=== PATIENT | female | born 1940 | race Caucasian/White ===

== ENCOUNTER 2019-07-18 14:43 | Inpatient (IN) | payer MEDICARE, SELFPAY ==
[2019-07-18] VITALS (17 sets, daily range): BP systolic 107–149; BP diastolic 53–88; PULSE 61–117; RESP 11–28; TEMP 36.4–37.1; O2SAT 94–98; BMI 20.7; BMI 20.8; BMI 21.2
--- NOTE | 2019-07-18 15:19 | RAD_ITS ---
STUDY: X-RAY CHEST REASON FOR EXAM: Female, 78 years old. STEMI ALERT, CHEST PAIN TECHNIQUE: Single AP portable view of the chest. COMPARISON: 01/01/2013 FINDINGS: There is hyperinflation of the lungs consistent with chronic obstructive lung disease (COPD). There is no demonstrated pleural abnormality. Normal size heart. Normal mediastinum and manfred. Normal visualized pulmonary arteries. Normal visualized aortic arch and descending thoracic aorta. Normal visualized thoracic spine. Normal visualized ribs, clavicles, and shoulders. There is no demonstrated abnormality of the visualized soft tissue structures of the upper abdomen. RAD/Chest 1 View (Portable) IMPRESSION: Emphysema without pneumonia or atelectasis. Pending Final Proof Editing
[2019-07-18] MEDS: Ondansetron 4 MG/2 ML Vial IV ×2 (15:38→23:58)
--- NOTE | 2019-07-18 15:45 | EKG12_ITS ---
Test Reason : ABD PAIN Blood Pressure : / mmHG Vent. Rate : 061 BPM Atrial Rate : 061 BPM P-R Int : 138 ms QRS Dur : 088 ms QT Int : 462 ms P-R-T Axes : 075 073 094 degrees QTc Int : 465 ms Sinus rhythm with marked sinus arrhythmia ST elevation consider inferior injury or acute infarct ACUTE AL / STEMI Confirmed by ROBERT MARTINEZ, JAIDA ([id number]), assistant editor NOA MUNGUIA ([id number]) on 07/27/2019 9:27:55 AM Referred By: BLANCA Confirmed By:JAIDA JONES MD
[2019-07-18 15:46] LABS: Absolute Lymphocyte Count 2.29 X10^3/uL (0.83-4.51); Absolute Neutrophil Count 8.5 X10^3/uL (2.0-7.7); Basophil# 0.07 X10^3/uL; Basophil% 0.6 % (0-1); Eosinophil# 0.15 X10^3/uL; Eosinophils% 1.3 % (0-5); Hematocrit 46.9 % (37-47); Hemoglobin 15.4 g/dL (12.0-15.0); Lymphocyte # 2.29 X10^3/ul (4.0); Lymphocyte % 19.2 % (19-41); Mean Corp Hgb Conc 32.8 g/dL (32-36); Mean Corpuscular Hgb 30.3 pg (27.0-32.0); Mean Corpuscular Volume 92.1 fL (81-99); Monocyte# 0.91 X10^3/uL; Monocyte% 7.6 % (0-10); NRBC Flagged by Analyzer 0 % (0-5); Neutrophil # 8.48 X10^3/uL (2.7-7.7); Neutrophil % 70.9 % (47-70); Platelet Count 199 K/mm3 (150-450); RBC Distribution Width CV 11.9 % (11.6-14.6); RBC Distribution Width SD 40.5 fl (35.1-43.9); Red Blood Count 5.09 M/mm3 (4.2-5.4)
[2019-07-18 15:54] LABS: AST(SGOT) 19 U/L (15-37); Alanine Aminotransfer ALT/SGPT 10 U/L (13-56); Albumin, Serum 3.7 g/dL (3.2-5.0); Alkaline Phosphatase 87 U/L (45-117); Anion Gap 6 (5-15); BUN 17 mg/dL (7-18); BUN/Creat Ratio 17.5 RATIO (10-20); Calcium,Total 9.4 mg/dL (8.5-10.1); Chloride 107 mmol/L (98-107); Creatinine, Serum 0.97 mg/dL (0.55-1.02); EST Glomerular Filtration Rate 59 mL/min (>60); Est Glom Filt Rate - Afr Amer 71 mL/min (>60); Estimated Creatinine Clearance 37.19 ml/min; Globulin 3.7 g/dL (2.2-4.2); Glucose 131 mg/dL (74-106); Lipase 226 U/L (73-393); Potassium 4.1 mmol/L (3.5-5.1); Protein, Total 7.4 g/dL (6.4-8.2); Sodium Level 143 mmol/L (136-145)
[2019-07-18] MEDS: Aspirin 325 MG Tablet PO (16:01)
--- NOTE | 2019-07-18 16:01 | NURSING ---
STEMI DR GAMINO AIRCRAFT SEAT UPHOLSTERER
--- NOTE | 2019-07-18 16:03 | ED.VISSUMM ---
- ER Visit Summary Date of Service: 07/18/19 Chief Complaint: Abdominal pain, vomiting History of Present Illness: The patient is a 78 F presenting with abdominal pain, vomiting. Patient states she has been feeling ill for the past 2 days. She complains of epigastric abdominal pain. Today she vomited one time and she decided to come to the ED to be evaluated. She denies blood in her emesis. She denies chest pain or shortness of breath. Complains of subjective fever. Denies chills. She has a chronic cough. She does not see a physician and has no known medical problems. She is a smoker. Physical Examination: Vitals are stable. Patient is afebrile. Alert no acute distress. HEENT exam is unremarkable. Neck is supple. Lungs are clear and equal bilaterally. Heart is regular rate and rhythm. Abdomen is soft epigastric tenderness with no guarding or rebound Extremities are unremarkable. Skin is warm and dry. No focal neurologic deficit. Remainder of exam is unremarkable. Emergency Department Course and Treatment: CBC shows white count 12.0. Chemistries unremarkable. Liver lipase are normal. RSV and influenza are negative. EKG shows inferior ST elevation DE. STEMI alert was called. Her troponin 0.274. Dr. Canchola is at bedside. 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 She was given aspirin. She will be admitted. Disposition: Admission Impression: Inferior ST elevation DE This note was generated with [employer] dictation software. It may contain incorrect words, spelling, and punctuation that were not noted in review of the chart prior to signing ED Disposition - Plan for ED Patient: Referrals: NOT,DEFINED [Primary Care Provider] -
--- NOTE | 2019-07-18 16:04 | NURSING ---
BOWLING ALLEY REFINISHER CALLED
--- NOTE | 2019-07-18 16:08 | ED.RN ---
son contacted per patient request. Updated on patients status. 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
--- NOTE | 2019-07-18 16:26 | NURSING ---
ICU STEMI SEMENTI
--- NOTE | 2019-07-18 16:26 | ED.RN ---
Pt taken to laborer pipeline. report given to laborer pipeline team.
--- NOTE | 2019-07-18 16:31 | ED.RN ---
report called to GEORGETTE Alfredo in ICU.
--- NOTE | 2019-07-18 16:46 | PCM.HP.STD ---
Problem List (1) Tobacco dependence Status: Chronic Comment: 2 PPD for at least 60 years (2) History of cervical cancer Status: Chronic (3) Status post STEWART-BSO Status: Chronic (4) COPD (chronic obstructive pulmonary disease) Status: Suspected (5) Dehydration, mild Status: Acute (6) STEMI (ST elevation myocardial infarction) Status: Acute Comment: IWMI History of Present Illness Date of Admission: 07/18/19 Chief Complaint: epigastric pain with N/VC The patient is a 78 year old F with a PMH of tobacco dependence and cervical CA (S/P STEWART/BSO) who presented to the ED with a c/o epigastric pain and nausea that started on 07/17/19. It was initially intermittent but, on the morning of it became more constant and she started vomiting so she came to the ED. She denies any hx of PUD, pancreatitis or CAD. trey could not tell me if she was diaphoretic or had SOB. She does admit to having RUBIO. She also has a chronic cough which has not recently changed. She does not know her cholesterol. she smokes 2 PPD of cigarettes since she was a teenager. VS's in the ED were Temp 98.8, pulse rate 61, blood pressure 136/68, respiratory rate 11 and she was 95% saturated on room air. CBC showed a mildly increased WBC count at 12,000 and a mildly increased hemoglobin at 15.4 which is possibly secondary to dehydration as her mucous membranes are very dry. BMP was remarkable for a BUN of 17 with a creatinine of 0.97 and an estimated creatinine clearance of 37.2. Random blood sugar was elevated at 131 and she has no history of diabetes mellitus. LFTs were unremarkable. Troponin was elevated at 0.274 and the lipase was normal. Chest x-ray showed some flattening of the diaphragms [with scarring vs infiltrate in the RLL. EKG showed ST elevation in the inferior leads with reciprocal T wave inversions in the anterior leads. The axis is 73 degrees. There was no ectopy on telemetry. STEMI alert was called and she was taken to the [facility]. 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 Denies: Chest Pain, Edema, Light Headedness, Orthopnea, Palpitations, Syncope Respiratory: Reports: Shortness of breath upon exertion. Denies: Cough, Hemoptysis, Pleuritic Pain, Shortness of breath at rest, Sputum production Gastrointestinal: Reports: Nausea, Vomiting. Denies: Abdominal Pain, Constipation, Diarrhea Genitourinary: Denies: Dysuria Gynecological: Denies: Vaginal discharge Musculoskeletal: Denies: Joint Pain, Joint Tenderness Skin: Denies: Jaundice, Rash, Wounds Neurological: Denies: Confusion, Focal weakness, Numbness, Tingling, Seizures Psychiatric: Denies: Anxiety, Depression, Homicidal Ideations, Suicidal Ideations Hematologic/ Lymphatic: Denies: Easy Bruising, Easy Bleeding, Hx of blood clot VTE Information - Inpt Only VTE Present on Admission: No VTE Mechan Device Prophylaxis: SCD's, Knee High PASTOR Hose VTE Pharm Prophylaxis ordered?: Yes Patient Problems: Active and Suspected Problems COPD (chronic obstructive pulmonary disease) (Suspected) Dehydration, mild (Acute) STEMI (ST elevation myocardial infarction) (Acute) IWMI - Physical Exam Vitals/I&O's: Vital Signs Temp Pulse Resp BP Pulse Ox 98 F 77 14 144/53 H 94 07/18/19 16:26 07/18/19 16:26 07/18/19 16:26 07/18/19 16:26 07/18/19 16:26 Oxygen Delivery Method Room Air Weight: 113 lb 8.609 oz Body Mass Index (BMI) 20.7 Intake and Output for Last 24 Hours 07/16/19 07/17/19 07/18/19 23:59 23:59 23:59 Intake Total 500 / 500 Balance 500 / 500 General: Alert, Oriented x3, Cooperative, - - she is anxious HEENT: Atraumatic, PERRLA, EOMI, Normocephalic Oral: Dry Mucosa Neck: Supple, No JVD, Negative Carotid Bruits, No Nodes, Trachea Midline Lungs: Clear to auscultation, Normal air movement, Diminished Cardiovascular: Regular rate, Regular Rhythm, Normal S1, Normal S2, No murmurs, No Ectopic Activity, No rub noted, No Gallop Abdomen: Bowel Sounds Present, Soft, Non Tender, Non-Distended Extremities: No cyanosis, No edema, Capillary Refill Less than 3 Seconds, No Calf Tenderness, Diminished Peripheral Pulses Skin: No rashes, No breakdown Musculoskeletal: No Tenderness to Palpation of Joints or Extremities Neurological: Cranial nerves II-XII grossly intact, Neuro grossly intact Psych/Mental Status: Normal Affect, Appropriate Microbiology Past 72 Hours 07/18/19 15:34 Mucosa - Nose Influenza Types A,B Direct FA (RUBÉN) - Final 07/18/19 15:34 Nasal Secretion Rapid RSV (DFA) - Final Laboratory Results 07/18/19 15:28: WBC 12.0 H, RBC 5.09, Hgb 15.4 H, Hct 46.9, MCV 92.1, MCH 30.3, MCHC 32.8, RDW Std Deviation 40.5, RDW Coeff of Melisa 11.9, Plt Count 199, MPV 11.0, Immature Gran % (Auto) 0.400, Neut % (Auto) 70.9 H, Lymph % (Auto) 19.2, Weber % (Auto) 7.6, Eos % (Auto) 1.3, Baso % (Auto) 0.6, Absolute Neuts (auto) 8.5 H, Absolute Lymphs (auto) 2.29, Nucleated RBC % 0 07/18/19 15:28: Sodium 143, Potassium 4.1, Chloride 107, Carbon Dioxide 30.0, Anion Gap 6, BUN 17, Creatinine 0.97, Estim Creat Clear Calc 37.19, Est GFR (MDRD) Af Amer 71, Est GFR (MDRD) Non-Af 59 L, BUN/Creatinine Ratio 17.5, Glucose 131 H, Calcium 9.4, Total Bilirubin 0.30, AST 19, ALT 10 L, Alkaline Phosphatase 87, Troponin I 0.274 H, Total Protein 7.4, Albumin 3.7, Globulin 3.7, Albumin/Globulin Ratio 1.0, Lipase 226 Assessment/Plan All Active Problems Dehydration, mild (Acute) STEMI (ST elevation myocardial infarction) (Acute) Impressions 1. STEMI-inferior wall. Single vessel disease at cath for a 70% proximal RCA lesions and and occluded mid RCA. she had 2 WILLIAM placed. 2. Tobacco dependence - 2 PPD X 65Yrs. 3. Mild dehydration with hemoconcentration 4. remote hx of cervical CA - S/P STEWART/BSO Transferred to the ICU post cath D/W Dr. Canchola Orders written smoking cessation counselling ordered. Lab ordered for the AM, including a lipid panel Inpatient E&M: 04822 Init Hosp L3
[2019-07-18 17:51] LABS: ACT Activated Clotting Time 285 sec (74-137)
--- NOTE | 2019-07-18 17:51 | CL.I_ITS ---
Patient Name: FLAKITO NIX Study Date: 07/18/2019 Performing: Marcelo Canchola MD Ht: 61.81 inches 157 cm : 1940 Wt: 114.64 lbs 52 kg Age: 78 Gender: female BSA: 1.51 PROCEDURE(S) PERFORMED AE29-OOH/COR/LV [id number], WILLIAM AND/OR PTCA, ARTERY OR GRAFT, SINGLE VESSEL CLINICAL PROFILE AND CO-MORBIDITIES Indications: ACS > 24 hrs Heart Failure: None Stress/Imaging Stress/Image Study Performed: No CAD Presentations: STEMI. Symptom onset Date/Time: 07/16/2019 Time Not Available CONCLUSIONS Successful PTCA/WILLIAM of occluded mid RCA using Synergy 3.0 X 16. Successful WILLIAM proximal RCA using Synergy 3.0 X 12 RECOMMENDATIONS Highly recommend quitting all tobacco products Follow up with primary wagon driver Risk factor modification ASA Indefinitley Plavix for at least 12 months Routine post interventional care Refer for Outpatient Cardiac Rehab Manual sheath removal per protocol Patient will undergo lifestyle modification. B bridget and statin will be desccripted DESCRIPTION OF PROCEDURE The patient arrived to the procedure lab. The risks and benefits of the procedure as well as a full d escription of our services here and lack of surgical backup were fully explained to the patient and/o r their significant other prior to the catheterization. The Timeout was completed, verifying the zena ect patient and procedure. The patient's procedural site was prepped and draped in the usual fashion. Local anesthetic was given subcutaneously to right radial region with Lidocaine 2%. Using a modified Seldinger technique, arterial access was obtained via the right radial artery, a 6Fr sheath was inse rted.. LV to AO pullback pressures were then recorded. Right Coronary Artery selective angiography w as then performed in multiple views using a 6 Fr. JR 4 catheter. Left Coronary Artery selective angio graphy was performed in multiple views using a 6 Fr. JL4 catheterThe images were reviewed and options discussed. A decision was then made to proceed with an Intervention, IVUS or other adjunct procedure. AR1 Guide catheter was inserted and engaged into the RCA. Runthrough Guide wire was advanced to t he RCA. Emerge 2.0 x 12 Balloon catheter was inserted. Balloon catheter was advanced across lesion in the right coronary, mid. PTCA balloon inflated at 16 atms for 18 secs. Resolute 3.0 x 18 Drug Elutin g stent was inserted. Drug Eluting stent was removed intact, failed to cross lesion Synergy 3.0 x 16 Drug Eluting stent was inserted. Drug Eluting stent was advanced across the lesion in the right coron abby, mid. Synergy 3.0 x 12 Drug Eluting stent was inserted. Drug Eluting stent was advanced across th e lesion in the right coronary, proximal. The arterial sheath was pulled and a TR Band was applied for hemostasis CORONARY ANGIOGRAPHY DOMINANCE: Right Dominant LEFT HEART ASSESSMENT Left Ventricular Ejection Fraction: by LV Gram 55 % LVEDP: 5 mmHg Inferior Basal Hypokinesis - Mild LEFT MAIN: normal LEFT ANTERIOR DESCENDING ARTERY: normal CIRCUMFLEX ARTERY: Angiographically normal RIGHT CORONARY ARTERY: PROX RCA: 70 % Stenosis MID RCA: is occluded INTERVENTION INFORMATION LESION SITE: RCA (Mid) Lesion Complexity: Non-High/Non-C, lesion at bifurcation: No, thrombus present: Yes, lesion length: 1 2 mm, culprit lesion: Yes Pre Stenosis: 100 % Pre intervention PAWEL flow: 0 PROCEDURE: Drug Eluting Stent with pre dilatation. Post Stenosis: 0 % Post intervention PAWEL flow: 3 Lesion Devices: Terumo .014 Runthrough Extra Floppy 180cm straight Cardinal 6 Fr AR1 100cm Guide Catheter Wesley Original EMERGE MR 2.00x12 [employer] 6 Cypriot GuideLiner Wesley Sci Synergy MR WILLIAM 3.00x16 LESION SITE: RCA (Proximal) Lesion Complexity: Non-High/Non-C, lesion at bifurcation: No, thrombus present: No, lesion length: 10 mm, culprit lesion: No Pre Stenosis: 70 % Pre intervention PAWEL flow: 3 PROCEDURE: Drug Eluting Stent Post Stenosis: 0 % Post intervention PAWEL flow: 3 Lesion Devices: Terumo .014 Runthrough Extra Floppy 180cm straight Cardinal 6 Fr AR1 100cm Guide Catheter [employer] 6 Cypriot GuideLiner Wesley Sci Synergy MR WILLIAM 3.00x12 COMPLICATIONS No Complications PROCEDURE MEDICATIONS Fentanyl 25 mcg IV Versed 1 mg IV Versed 1 mg IV Oxygen: 2 L/min via nasal cannula Atropine 1mg/10ml 0.5 amp @ 07/18/2019 17:05:50 Heparin given IA 07/18/2019 16:38:50 Heparin 4800 unit(s) IV 07/18/2019 16:53:31 Heparin 1000 unit(s) IV 07/18/2019 17:07:14 Plavix 600 mg PO 07/18/2019 17:28:18 Verapamil 5mg, Ntg 200mcgs, 2500 units of Heparin given IA 07/18/2019 16:38:50 IV Bolus: .9 NaCl 250 ml total 07/18/2019 17:06:53 SUMMARY OF HEMODYNAMIC DATA Time AIR REST ECG 16:24:57 LV 113/-8, 5 16:43:28 LV 120/-7, 6 16:43:35 LVp 117/-3, 7 16:44:34 AOp 125/51 (80) 16:44:39 AO 120/56 (85) SA 16:45:40 Signed By Marcelo Canchola MD On 07/18/2019 5:51:10 PM Marcelo Canchola MD
--- NOTE | 2019-07-18 18:12 | CON.PCM_ITS ---
Problem List (1) STEMI (ST elevation myocardial infarction) Status: Acute Comment: IWMI Reason for Consult Date of Consultation: 07/18/19 Reason for Consultation: Acute inferior wall myocardial infarct History of Present Illness: The patient is a 78 year old F who was seen in the emergency room today for epigastric pain for 2 days with nausea and vomiting. This was associated with shortness of breath and diaphoresis. She has been feeling more tired than usual for the last 2 years. This is the first time she had epigastric pain. In the emergency room she was found to have acute inferior wall myocardial infarct. She has been a heavy smoker and she does not drink alcohol. She denies any history of hypertension, diabetes or hyperlipidemia. Except for multivitamin daily she has not been taking any medication. 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 Denies: Shortness of Breath, Orthopnea, PND, Peripheral Edema, Palpitations, Lightheadedness, Dizziness, Near Syncope, Syncope Respiratory: Reports: Cough, Non Productive Cough. Denies: Sputum Production, Hemoptysis Gastrointestinal: Denies: Hematemesis, Hematochezia, Melena Genitourinary: Denies: Dysuria, Hematuria Skin: Denies: Rash Objective: Vital Signs Temp Pulse Resp BP Pulse Ox 98 F 77 14 144/53 H 94 07/18/19 16:26 07/18/19 16:26 07/18/19 16:26 07/18/19 16:26 07/18/19 16:26 Oxygen Delivery Method Room Air Weight: 113 lb 8.609 oz Body Mass Index (BMI) 20.7 Intake and Output for Last 24 Hours 07/16/19 07/17/19 07/18/19 23:59 23:59 23:59 Intake Total 500 / 500 Balance 500 / 500 General: Awake, Alert, Oriented x 3 HEENT: PERRL, EOMI, Sclera Non Icteric Neck: Supple, Good ROM, No Lymph Node Enlargement Lungs: Clear to auscultation - Decreased air entry with no bronchospasm Cardiovascular: Regular Rhythm, Normal S1, Normal S2, No Murmurs, No Rubs, No Gallops Vascular: No Carotid Bruits Abdomen: Bowel Sounds Present, Soft, Non Tender, No HSM, No Organomegaly Extremities: No edema Neurological: No Focal Motor or Sensory Deficit Psych/Mental Status: Appropriate, Normal Affect 07/18/19 15:28: WBC 12.0 H, RBC 5.09, Hgb 15.4 H, Hct 46.9, MCV 92.1, MCH 30.3, MCHC 32.8, Plt Count 199, MPV 11.0, Immature Gran % (Auto) 0.400, Neut % (Auto) 70.9 H, Lymph % (Auto) 19.2, B[place]berg % (Auto) 7.6, Eos % (Auto) 1.3, Baso % (Auto) 0.6, Absolute Neuts (auto) 8.5 H, Nucleated RBC % 0 07/18/19 15:28: Sodium 143, Potassium 4.1, Chloride 107, Carbon Dioxide 30.0, Anion Gap 6, BUN 17, Creatinine 0.97, Est GFR (MDRD) Af Amer 71, Est GFR (MDRD) Non-Af 59 L, BUN/Creatinine Ratio 17.5, Glucose 131 H, Calcium 9.4, Total Bilirubin 0.30, Troponin I 0.274 H Rhythm: EKG: ECHO: Stress Test: Cardiac Cath: PCI: CT Surgery: Holter monitor: EPS: PPM: CXR: Chest CT Scan: Assessment/Plan #1 acute inferior wall myocardial infarct, chest pain for 2 days, patient is a suitable candidate for acute intervention. STEMI protocol has been activated. The risk and benefit of the procedure have been explained to the patient, patient is given the consent. #2 tobacco dependency: Patient will be encouraged to quit smoking, smoking sensation aid will be provided #3 elevated glucose, hemoglobin A1c would be obtained
--- NOTE | 2019-07-18 18:13 | NURSING ---
Patient's daughter Miguel and son Sandra updated on patient's condition
--- NOTE | 2019-07-18 18:15 | EKG12_ITS ---
Test Reason : AM EKG Blood Pressure : / mmHG Vent. Rate : 063 BPM Atrial Rate : 063 BPM P-R Int : 128 ms QRS Dur : 086 ms QT Int : 446 ms P-R-T Axes : 075 021 034 degrees QTc Int : 456 ms Sinus rhythm with Fusion complexes Low voltage QRS Inferior infarct , age undetermined Abnormal ECG When compared with ECG of 18-JUL-2019 17:57, MANUAL COMPARISON REQUIRED, DATA IS UNCONFIRMED Confirmed by ROBERT MARTINEZ, JAIDA ([id number]), writer editor NOA MUNGUIA ([id number]) on 07/20/2019 8:39:14 AM Referred By: SUSAN GAMINO Confirmed By:JAIDA JONES MD
[2019-07-18] MEDS: 0.9% Normal Saline 1,000 ML 75 ML IV (18:20)
--- NOTE | 2019-07-18 18:22 | ECHOD_ITS ---
Reason For Study: CAD/ASHD Procedure This was a 2D Doppler, Color Flow transthoracic echocardiogram. Myocardial strain analysis was performed in this exam to aid in the assessment of cardiac function. Exam performed portable in ICU/CCU. Left Ventricle Mild concentric left ventricular hypertrophy. The estimated ejection fraction is 60 %. Stage 1 diastolic dysfunction. Infero-Basal: Mildly hypokinetic. Right Ventricle Mildly dilated right ventricle. Normal systolic function. Atria Normal left atrium. Normal right atrium. Normal atrial septum. Mitral Valve The mitral valve is structurally normal. No prolapse or stenosis seen. Mild (1+) mitral valve insufficiency. Tricuspid Valve Normal tricuspid valve. Trivial tricuspid valve insufficiency. Right ventricular systolic pressure estimated to be 24 mmHg. Aortic Valve Trisinus/trileaflet aortic valve. Mild diffuse aortic valve thickening. Pulmonic Valve Normal pulmonic valve. Great Vessels Normal aortic root. Normal arch. Normal inferior vena cava. Inferior vena cava collapse with sniff. Pericardium/Pleural No pericardial effusion. MMode/2D Measurements & Calculations LVIDd: 4.1 cm IVSd: 1.3 cm Ao root diam: 3.0 cm LVIDs: 2.4 cm LVPWd: 1.2 cm RVDd: 3.8 cm FS: 42.5 % LAV(MOD-bp): 23.9 ml LVAd ap4: 17.6 cm2 SV(MOD-sp4): 25.2 ml LAV(MOD-bp) Indexed: 16.0 ml/m2 EDV(MOD-sp4): 39.5 ml LAV(MOD-sp2): 16.5 ml EDV(sp4-el): 41.3 ml LAV(MOD-sp4): 24.0 ml LVAs ap4: 9.4 cm2 ESV(MOD-sp4): 14.3 ml ESV(sp4-el): 14.4 ml EF(MOD-sp4): 63.8 % EF(sp4-el): 65.2 % SV(sp4-el): 26.9 ml LA A4 area: 11.8 cm2 LA dimension(2D): 3.1 cm RA A4 area: 12.9 cm2 Doppler Measurements & Calculations MV E max gilbert: 89.5 cm/sec Lat Peak E' Gilbert: 7.7 cm/sec Med Peak E' Gilbert: 5.2 cm/sec MV A max gilbert: 98.1 cm/sec E/E' lat: 11.7 E/E' med: 17.3 MV E/A: 0.91 Ao V2 max: 155.3 cm/sec LV V1 max: 104.6 cm/sec PA V2 max: 70.2 cm/sec Ao max P.6 mmHg LV V1 max P.4 mmHg Ao V2 mean: 104.5 cm/sec Ao mean P.9 mmHg Ao V2 VTI: 33.0 cm TR max gilbert: 224.7 cm/sec TR max P.2 mmHg Interpretation Summary The estimated ejection fraction is 60 %. Mild concentric left ventricular hypertrophy. Stage 1 diastolic dysfunction. Infero-Basal: Mildly hypokinetic Mildly dilated right ventricle. Mild (1+) mitral valve insufficiency. Trivial tricuspid valve insufficiency. Right ventricular systolic pressure estimated to be 24 mmHg. There is no comparison study available. Ordering Physician: Marcelo Canchola Performed By: Constance Schreiber, ANTONELLA, RVT
[2019-07-18 18:26] LABS: Partial Thromboplast Time 29.4 Seconds (24.1-36.2)
[2019-07-18 19:05] LABS: Anion Gap 6 (5-15); BUN 14 mg/dL (7-18); BUN/Creat Ratio 17.2 RATIO (10-20); Calcium,Total 8.2 mg/dL (8.5-10.1); Chloride 110 mmol/L (98-107); Creatinine, Serum 0.82 mg/dL (0.55-1.02); EST Glomerular Filtration Rate 72 mL/min (>60); Est Glom Filt Rate - Afr Amer 87 mL/min (>60); Glucose 128 mg/dL (74-106); Magnesium 1.9 mg/dL (1.6-2.6); Potassium 4.1 mmol/L (3.5-5.1); Sodium Level 144 mmol/L (136-145)
--- NOTE | 2019-07-18 19:09 | NURSING ---
Pt's daughter & sons aware of arrival to ICU. Updated on condition per pt request.
[2019-07-18] MEDS: Atorvastatin Calcium 40 MG Tablet PO (21:00)
[2019-07-18] MEDS: Carvedilol 3.125 MG TABLET PO (21:00)
[2019-07-18 23:27] LABS: M R Staph aureus DNA By PCR Negative (Negative); Specimen Processing Control PASS
[2019-07-18 23:28] LABS: Probe Check PASS
[2019-07-18] MEDS: Morphine 2 MG/ML Syringe IV (23:58)
[2019-07-18] MEDS: 0.9% Saline Lock 10 ML Syringe IV (23:59)
[2019-07-19] VITALS (28 sets, daily range): BP systolic 100–143; BP diastolic 56–90; PULSE 57–89; RESP 9–21; TEMP 36.6–36.7; O2SAT 88–97
[2019-07-19] MEDS: 0.9% Saline Lock 10 ML Syringe IV (04:54)
[2019-07-19] MEDS: 0.9% Normal Saline 1,000 ML 75 ML IV (04:54)
[2019-07-19 05:06] LABS: Absolute Lymphocyte Count 1.95 X10^3/uL (0.83-4.51); Absolute Neutrophil Count 8.7 X10^3/uL (2.0-7.7); Basophil# 0.05 X10^3/uL; Basophil% 0.4 % (0-1); Eosinophil# 0.21 X10^3/uL; Eosinophils% 1.8 % (0-5); Hematocrit 42.8 % (37-47); Hemoglobin 13.6 g/dL (12.0-15.0); Lymphocyte # 1.95 X10^3/ul (4.0); Lymphocyte % 16.5 % (19-41); Mean Corp Hgb Conc 31.8 g/dL (32-36); Mean Corpuscular Hgb 30.2 pg (27.0-32.0); Mean Corpuscular Volume 95.1 fL (81-99); Mean Platelet Vol. 11.4 fl (6.2-12.0); Monocyte# 0.91 X10^3/uL; Monocyte% 7.7 % (0-10); NRBC Flagged by Analyzer 0 % (0-5); Neutrophil # 8.69 X10^3/uL (2.7-7.7); Neutrophil % 73.3 % (47-70); Platelet Count 179 K/mm3 (150-450); RBC Distribution Width CV 12.2 % (11.6-14.6); RBC Distribution Width SD 42.5 fl (35.1-43.9); White Blood Count 11.8 K/mm3 (4.4-11.0)
[2019-07-19 05:27] LABS: ALB/GLOB Ratio 0.9 RATIO (0.9-2.4); AST(SGOT) 168 U/L (15-37); Alanine Aminotransfer ALT/SGPT 21 U/L (13-56); Albumin, Serum 2.9 g/dL (3.2-5.0); Alkaline Phosphatase 72 U/L (45-117); Anion Gap 3 (5-15); BUN 13 mg/dL (7-18); BUN/Creat Ratio 16.4 RATIO (10-20); Calcium,Total 8.4 mg/dL (8.5-10.1); Chloride 109 mmol/L (98-107); Cholesterol 175 mg/dL (200); Creatinine, Serum 0.79 mg/dL (0.55-1.02); EST Glomerular Filtration Rate 74 mL/min (>60); Est Glom Filt Rate - Afr Amer 90 mL/min (>60); Estimated Creatinine Clearance 36.08 ml/min; Globulin 3.2 g/dL (2.2-4.2); Glucose 94 mg/dL (74-106); High Density Lipoprotein 43 mg/dL; Potassium 4.3 mmol/L (3.5-5.1); Protein, Total 6.1 g/dL (6.4-8.2); Sodium Level 141 mmol/L (136-145); Triglycerides 139 mg/dL; Very Low Density Lipoprotein 28 mg/dL (5-40)
--- NOTE | 2019-07-19 05:42 | NURSING ---
Pt encouraged to use incentive spirometer, pt picked it up and blew into it;pt re-instructed on use and encouraged to inhale slow and deep. Pt not able to move measuring device in column and then tosses I.S. onto bedside table exclaiming it's not working, I'm done with it! Pt strongly encouraged to work on I.S. as much as possible because her oxygen demands have already doubled since admission, going from 2 to 4L NC. Pt replies I'm too tired right now, I'll do it later.
[2019-07-19] MEDS: Morphine 2 MG/ML Syringe IV (07:09)
--- NOTE | 2019-07-19 07:21 | PCM.PN.HOSP ---
Patient Problems: Active and Suspected Problems (Last Updated 07/19/19 @ 08:44 by Kushal Schreiber SET KEY DRIVER-C) COPD (chronic obstructive pulmonary disease) (Suspected) Dehydration, mild (Acute) STEMI (ST elevation myocardial infarction) (Acute ~07/18/19) 07/18/2019 Reason for Visit: Acute ST segment elevation NH Subjective: Patient is a 78-year-old lady who presented with abdominal pain and epigastric discomfort and assessment of acute ST segment elevation NH was made underwent emergency left heart catheterization with PCI/WILLIAM Objective: GENERAL: cooperative HEENT: Atraumatic; EYES; Anicteric, Normal Conjunctiva NECK; supple, normal thyroid, RESPIRATORY: Diminished to auscultation CARDIOVASCULAR: Regular S1 S2, GI: soft, normoactive bowel sounds, : No Renal angle tenderness; EXTREMITIES: No edema, no clubbing, MUSCULOSKELETAL: no muscle waisting NEURO: Awake; no lateralizing signs. SKIN: No Rash PSYCH; Flat affect Vitals/I&O's: Vital Signs Temp Pulse Resp BP Pulse Ox 98 F 62 14 133/63 H 91 07/19/19 04:00 07/19/19 07:00 07/19/19 07:00 07/19/19 07:00 07/19/19 07:00 Oxygen Flow Rate (L/min) 3 Oxygen Delivery Method Nasal Cannula Weight: 53.1 kg Body Mass Index (BMI) 21.2 Intake and Output for Last 24 Hours 07/17/19 07/18/19 07/19/19 23:59 23:59 23:59 Intake Total 1037.5 / 1037.5 505 / 505 Output Total 200 / 200 200 / 200 Balance 837.5 / 837.5 305 / 305 Microbiology Past 72 Hours 07/18/19 15:34 Mucosa - Nose Influenza Types A,B Direct FA (RUBÉN) - Final 07/18/19 15:34 Nasal Secretion Rapid RSV (DFA) - Final Laboratory Results 07/18/19 15:28: WBC 12.0 H, RBC 5.09, Hgb 15.4 H, Hct 46.9, MCV 92.1, MCH 30.3, MCHC 32.8, RDW Std Deviation 40.5, RDW Coeff of Melisa 11.9, Plt Count 199, MPV 11.0, Immature Gran % (Auto) 0.400, Neut % (Auto) 70.9 H, Lymph % (Auto) 19.2, [place] % (Auto) 7.6, Eos % (Auto) 1.3, Baso % (Auto) 0.6, Absolute Neuts (auto) 8.5 H, Absolute Lymphs (auto) 2.29, Nucleated RBC % 0 07/18/19 15:28: Sodium 143, Potassium 4.1, Chloride 107, Carbon Dioxide 30.0, Anion Gap 6, BUN 17, Creatinine 0.97, Estim Creat Clear Calc 37.19, Est GFR (MDRD) Af Amer 71, Est GFR (MDRD) Non-Af 59 L, BUN/Creatinine Ratio 17.5, Glucose 131 H, Calcium 9.4, Total Bilirubin 0.30, AST 19, ALT 10 L, Alkaline Phosphatase 87, Troponin I 0.274 H, Total Protein 7.4, Albumin 3.7, Globulin 3.7, Albumin/Globulin Ratio 1.0, Lipase 226 07/18/19 15:28: PT 13.0, INR 1.0, APTT 29.4 07/18/19 17:03: Activated Clotting Time 285 H 07/18/19 18:40: Sodium 144, Potassium 4.1, Chloride 110 H, Carbon Dioxide 28.0, Anion Gap 6, BUN 14, Creatinine 0.82, Estim Creat Clear Calc 44.00, Est GFR (MDRD) Af Amer 87, Est GFR (MDRD) Non-Af 72, BUN/Creatinine Ratio 17.2, Glucose 128 H, Calcium 8.2 L, Magnesium 1.9 07/18/19 18:40: Troponin I 18.500 H* 07/18/19 21:35: Troponin I 44.400 H* 07/18/19 21:35: MRSA (PCR) Negative 07/19/19 04:50: WBC 11.8 H, RBC 4.50, Hgb 13.6, Hct 42.8, MCV 95.1, MCH 30.2, MCHC 31.8 L, RDW Std Deviation 42.5, RDW Coeff of Melisa 12.2, Plt Count 179, MPV 11.4, Immature Gran % (Auto) 0.300, Neut % (Auto) 73.3 H, Lymph % (Auto) 16.5 L, [place] % (Auto) 7.7, Eos % (Auto) 1.8, Baso % (Auto) 0.4, Absolute Neuts (auto) 8.7 H, Absolute Lymphs (auto) 1.95, Nucleated RBC % 0 07/19/19 04:50: Sodium 141, Potassium 4.3, Chloride 109 H, Carbon Dioxide 29.0, Anion Gap 3 L, BUN 13, Creatinine 0.79, Estim Creat Clear Calc 36.08, Est GFR (MDRD) Af Amer 90, Est GFR (MDRD) Non-Af 74, BUN/Creatinine Ratio 16.4, Glucose 94, Calcium 8.4 L, Magnesium 2.0, Total Bilirubin 0.30, AST 168 H, ALT 21, Alkaline Phosphatase 72, Total Protein 6.1 L, Albumin 2.9 L, Globulin 3.2, Albumin/Globulin Ratio 0.9, Triglycerides 139, Cholesterol 175, LDL Cholesterol 104, VLDL Cholesterol 28, HDL Cholesterol 43 Current Medications Acetaminophen (Tylenol) 650 mg PO Q6H PRN PRN PRN Reason: Pain Score 1-10/Temp > 100.7 F Albuterol Sulfate (Ventolin Aerosols) 2.5 mg INHALATION Q2H PRN PRN PRN Reason: SOB/Wheezing [facility]ir[facility], [facility]) [facility] Atorvastatin Calcium (Lipitor) 40 mg PO QHS [facility] Last Admin: 07/18/19 21:00 Dose: 40 mg Documented by: Atropine Sulfate () 0.5 mg IV UD PRN PRN Reason: HR <50 bpm Carvedilol (Coreg) 3.125 mg PO BID [facility] Last Admin: 07/18/19 21:00 Dose: 3.125 mg Documented by: Clopidogrel Bisulfate (Plavix) 75 mg PO DAILY [facility] Guaifenesin (Robitussin) 10 ml PO Q4H PRN PRN PRN Reason: COUGH Heparin Sodium (Beef Lung) (Heparin 500 Unit/5 Ml (100/Ml)) 500 unit IV UD PRN PRN Reason: HEPARIN FLUSH Sodium Chloride () 1,000 mls @ 75 mls/hr IV .[id number] [facility] Last Admin: 07/19/19 04:54 Dose: 75 mls/hr Documented by: Labetalol HCl (Trandate) 5 mg IV X1 PRN PRN Reason: SBP > 160 when pulling sheath Stop: 07/20/19 18:05 Magnesium Hydroxide (Milk Of Magnesia) 30 ml PO DAILY PRN PRN PRN Reason: Constipation Melatonin (Melatonin) 3 mg PO QHS PRN PRN PRN Reason: INSOMNIA Morphine Sulfate () 2 mg IV Q3H PRN PRN PRN Reason: Pain Score 6-10/10 Last Admin: 07/19/19 07:09 Dose: 2 mg Documented by: Nitroglycerin (Nitrostat) 0.4 mg SUBLINGUAL Q5M PRN PRN Reason: CHEST PAIN Nutritional Formula (Lactose Free) (Ensure Enlive) 120 ml PO 4X/DAY [facility] Last Admin: 07/18/19 21:01 Dose: Not Given Documented by: Ondansetron HCl (Zofran) 4 mg IV Q8H PRN PRN PRN Reason: NAUSEA/VOMITING Last Admin: 07/18/19 23:58 Dose: 4 mg Documented by: Prochlorperazine Edisylate (Compazine Iv) 5 mg IV Q4H PRN PRN PRN Reason: Breakthrough Nausea/Vomiting Senna/Docusate Sodium (Senokot-S, Vanessa-Colace) 2 tablet PO BID [facility] Last Admin: 07/18/19 21:01 Dose: Not Given Documented by: Sodium Chloride () 10 - 40 ml IV UD PRN PRN Reason: SALINE FLUSH Last Admin: 07/19/19 04:54 Dose: 20 ml Documented by: Sodium Chloride () 500 ml IV BOLUS PRN PRN Reason: VASO-VAGAL PROTOCOL Throat Lozenges (Cepacol Sore Throat Lozenge) 1 lozenge MUCOUS MEM Q2H PRN PRN PRN Reason: SORE THROAT STROKE Vital Signs/Narrative: Vital Signs Temp Pulse Resp BP Pulse Ox 07/19/19 07:00 62 14 133/63 H 91 07/19/19 06:00 60 11 L 135/67 H 94 07/19/19 05:00 64 13 133/61 H 94 07/19/19 04:00 98 F 60 12 136/68 H 94 07/19/19 03:50 59 L Medical Necessity - Tobacco Use Smoking Status: Current every day smoker Tobacco Use: Cigarettes Assessment/Plan All Active Problems (Last Updated 07/19/19 @ 08:44 by ALEXSANDER ChahalC) Dehydration, mild (Acute) STEMI (ST elevation myocardial infarction) (Acute ~07/18/19) Patient is a 78-year-old lady who presented with abdominal pain and epigastric discomfort and assessment of acute ST segment elevation NH was made underwent emergency left heart catheterization with PCI/WILLIAM 1. Acute inferior wall ST segment elevation NH ?Patient underwent emergency left heart catheterization on 07/18/2019 with PCI/WILLIAM of a 70% proximal RCA and mid RCA lesions 2. Tobacco dependence counseled on cessation, offered nicotine patch for tobacco cravings 3. Dehydration ?Managed with IV fluids 4. History of cervical CA Patient has remained in remission following STEWART/BSO Inpatient E&M: [id number] [facility] H[facility] L3
--- NOTE | 2019-07-19 08:41 | CRPHASE1 ---
Patient Communication PHII Cardiac Rehab Discussed with Patient:: Yes Guide to Cardiac Rehab Given to Patient:: Yes Cardiac Rehab Facility Choice List Given to Patient:: Yes Choice Program [facility] CR PHII:: Communication Given to CR, [facility] PCP:: Marcelo Canchola Phase II Cardiac Rehab:: Yes Sessions:: 36 sessions - 3 days/wk, 12 weeks Risk Factors/Lifestyle Smoking Status: Current every day smoker Packs Smoked per Day: 2 Hx Hypertension: No Hx Diabetes Mellitus Type 1: No Hx Diabetes Mellitus Type 2: No Hx Metabolic Disorders: No Hx Dyslipidemia: Yes Hx Obesity: No - BMI 21.4 Height: 5 ft 2 in Post-Menopausal: Yes Stress: Home/Family Risk Factor for Sedentary Lifestyle: Moderate Risk Laboratory Values: Cardiac Rehab Phase I Labs Triglycerides 139 mg/dL (-199) 07/19/19 04:50 Cholesterol 175 mg/dL (200) 07/19/19 04:50 LDL Cholesterol 104 mg/dL (0-130) 07/19/19 04:50 HDL Cholesterol 43 mg/dL (40-) 07/19/19 04:50 Phase I Education Given On:: [place], Nutrition, Antiplatelet medication, Smoking cessation Issues Affecting Care:: None Knowledge of Condition:: Yes Learning Preferences: Verbal, Written Hospital Course Presenting Symptoms:: STEMI Medical/Surgical History IA:: Yes - STEMI CAD:: No Cardiomyopathy:: No COPD:: Yes Diabetes:: No Hypertension:: No Dyslipidemia:: Yes Arrhythmias:: No Cancer:: Yes - CERVICAL Discharge/Home/Social Eval Discharge Disposition: Home Cardiac Rehabilitation Info Cardiac Rehabilitation Program Information: Cardiac Rehabilitation is important for patients like you who are recovering from a heart problem. Cardiac rehabilitation programs are recognized as integral to the continued care of the patient with coronary heart disease. The cardiac rehabilitation program is designed to optimize a patient's physical, psychological, and social functioning. Health medical care evaluation specialist work in cardiac rehabilitation programs and assist you with getting the treatments you need to get stronger and healthier - like exercise, healthy eating habits, and medications. Cardiac rehabilitation has been show to help people with heart problems live longer and have better life enjoyment than people who do not go to cardiac rehabilitation. Please contact the Cardiac Rehabilitation Program at [facility] at in two weeks if you have not heard from them.
--- NOTE | 2019-07-19 08:44 | CRPH1.INST_ITS ---
General Education CAD and cardiac anatomy and function:: Patient communicates acknowledgment Explanation of diagnoses and procedures:: Patient communicates acknowledgment Sign/Symptoms of CO:: Patient communicates acknowledgment Antiplatelet therapy: Patient communicates acknowledgment Proper use of NTG-SL: Patient communicates acknowledgment, Not instructed Emergency procedures and activation of EMS: Patient communicates acknowledgment Compliance of all prescribed medications: Patient communicates acknowledgment Smoking Patient Nicotine/Smoking Risk Factors Are:: Cigarettes Recommendations Include:: Smoking cessation strategies/Smoking packet, Second- hand smoke recommendation, Participation in a smoking cessation program Nicotine/Smoking Response Code:: Patient communicates acknowledgment Dyslipidemia Recommendations Include:: Lipid profile provided Dyslipidemia Response Code:: Patient communicates acknowledgment Overweight/Obesity Patient Overweight/Obesity Risk Factors Are:: BMI Normal [24-29 & > 65 years old] Hypertension Patient Hypertension Risk Factors Are:: No documented hx of HTN Heart Disease Heart Disease Response Code:: Patient communicates acknowledgment Diabetes Patient Diabetes Risk Factors Are:: No documented hx of diabetes Metabolic Syndrome Recommendations Include:: Does not meet criteria Sedentary Patient Sedentary Risk Factors Are:: Lack of regular exercise Recommendations Include:: Aerobic exercise 5-7 times/week for 20-30 minutes continuously, Benefits of regular exercise, Discussed home walking program, Monitored Outpatient Cardiac Rehab Sedentary Response Code:: Patient communicates acknowledgment Stress Recommendations Include:: Identification of stressors, and assessment of coping skills, Stress management techniques Stress Response Code:: Patient communicates acknowledgment
--- NOTE | 2019-07-19 08:50 | PN.CARD_ITS ---
Subjectve: Patient doing very well, no further chest pain. Telemetry showed normal sinus rhythm with rare PVC. Echo pending. Peak troponin 44 at this time. Objective: Vital Signs Temp Pulse Resp BP Pulse Ox 98 F 62 13 126/63 H 92 07/19/19 04:00 07/19/19 08:00 07/19/19 08:00 07/19/19 08:00 07/19/19 08:00 Oxygen Flow Rate (L/min) 4 Oxygen Delivery Method Nasal Cannula Weight: 117 lb 1.047 oz Body Mass Index (BMI) 21.2 Intake and Output for Last 24 Hours 07/17/19 07/18/19 07/19/19 23:59 23:59 23:59 Intake Total 1037.5 / 1037.5 505 / 505 Output Total 200 / 200 200 / 200 Balance 837.5 / 837.5 305 / 305 General: Awake, Alert, Oriented x 3 HEENT: PERRL, EOMI, Sclera Non Icteric Neck: Supple, Good ROM, No Lymph Node Enlargement Lungs: Clear to auscultation Cardiovascular: Regular Rhythm, Normal S1, Normal S2, No Murmurs, No Rubs, No Gallops Vascular: No Carotid Bruits, Normal Femoral Pulses, Normal Radial Pulses, Normal Dorsalis Pedal Pulse, Normal Posterior Tibial Pulses Abdomen: Bowel Sounds Present, Soft, Non Tender, No HSM, No Organomegaly Extremities: No Cyanosis, No Clubbing, No edema Neurological: No Focal Motor or Sensory Deficit 07/18/19 15:28: WBC 12.0 H, RBC 5.09, Hgb 15.4 H, Hct 46.9, MCV 92.1, MCH 30.3, MCHC 32.8, Plt Count 199, MPV 11.0, Immature Gran % (Auto) 0.400, Neut % (Auto) 70.9 H, Lymph % (Auto) 19.2, [place] % (Auto) 7.6, Eos % (Auto) 1.3, Baso % (Auto) 0.6, Absolute Neuts (auto) 8.5 H, Nucleated RBC % 0 07/18/19 15:28: Sodium 143, Potassium 4.1, Chloride 107, Carbon Dioxide 30.0, Anion Gap 6, BUN 17, Creatinine 0.97, Est GFR (MDRD) Af Amer 71, Est GFR (MDRD) Non-Af 59 L, BUN/Creatinine Ratio 17.5, Glucose 131 H, Calcium 9.4, Total Bilirubin 0.30, Troponin I 0.274 H 07/18/19 15:28: PT 13.0, INR 1.0, APTT 29.4 07/18/19 18:40: Sodium 144, Potassium 4.1, Chloride 110 H, Carbon Dioxide 28.0, Anion Gap 6, BUN 14, Creatinine 0.82, Est GFR (MDRD) Af Amer 87, Est GFR (MDRD) Non-Af 72, BUN/Creatinine Ratio 17.2, Glucose 128 H, Calcium 8.2 L, Magnesium 1.9 07/18/19 18:40: Troponin I 18.500 H* 07/18/19 21:35: Troponin I 44.400 H* 07/19/19 04:50: WBC 11.8 H, RBC 4.50, Hgb 13.6, Hct 42.8, MCV 95.1, MCH 30.2, MCHC 31.8 L, Plt Count 179, MPV 11.4, Immature Gran % (Auto) 0.300, Neut % (Auto) 73.3 H, Lymph % (Auto) 16.5 L, [place] % (Auto) 7.7, Eos % (Auto) 1.8, Baso % (Auto) 0.4, Absolute Neuts (auto) 8.7 H, Nucleated RBC % 0 07/19/19 04:50: Sodium 141, Potassium 4.3, Chloride 109 H, Carbon Dioxide 29.0, Anion Gap 3 L, BUN 13, Creatinine 0.79, Est GFR (MDRD) Af Amer 90, Est GFR (MDRD) Non-Af 74, BUN/Creatinine Ratio 16.4, Glucose 94, Calcium 8.4 L, Magnesium 2.0, Total Bilirubin 0.30, Triglycerides 139, Cholesterol 175, LDL Cholesterol 104, VLDL Cholesterol 28, HDL Cholesterol 43 Rhythm: EKG: ECHO: Stress Test: Cardiac Cath: PCI: CT Surgery: Holter monitor: EPS: PPM: CXR: Chest CT Scan: Medical Necessity - Tobacco Use Smoking Status: Current every day smoker Tobacco Use: Cigarettes Assessment/Plan 1. Acute inferior wall myocardial infarction. Post procedure EKG shows almost complete resolution of inferior ST segment elevation with evidence of Q waves. Peak troponin 44 thus far. Echocardiogram is pending. Recommend continuing baby aspirin, Plavix, Coreg and statins. We will slowly add ROBIN inhibitor to load reduction. Immediate post procedure LV function about 50 to 55% with inferior hypokinesis. I reviewed the catheterization films but per Dr. Canchola there were no additional lesions which required intervention or further evaluation. 2. Hyperlipidemia: Continue statin based medications. Repeat lipid profile in 6 weeks time. 3. Would recommend continuing in ICU for a total of 24 hours but she may be transferred to the floor should the bed be needed for more intensive care patients. 4. Thank you very much for the opportunity to participate in the cardiac care of your patient. Inpatient E&M: [id number] Subs Hosp L2
--- NOTE | 2019-07-19 09:17 | CASEMGMT ---
Social Work Assessment Referral Date: 07/19/2019 Date of Assessment: 07/19/2019 Reason for consult: Pt is listed as self-pay Informant: DONNIE Personal Status: SW met with pt to complete initial assessment. SW introduced self and role at [facility]. Pt is alert and orientated x4. Pt states that she lives in a two story home with steps to enter in the front and in the back. Pt states she is not sure how many steps she has. Pt states that her two sons live with her. Pt states she was previously independent with ADLs. Pt denied any DME in the home, denied oxygen. Pt states she has no PCP and her pharmacy [facility]. SW did speak with pt regarding self-pay status. Pt states she doesn't want Medicare, or medicaid or any health insurance. Pt states health insurance costs money. SW informed pt that if she qualifies for Medicaid, her insurance won't cost her anything. Pt still denied. Pt denied wanting any information regarding insurances, states she will just stay self-pay. Substance Abuse History: Pt denied Mental Health History: Pt denied Pt denied any previous HHC or SNF. Pt states she plans on returning home at discharge, denied needs at this time. Beba Bailey CLINICAL SPECIALTY REP, THEATRICAL TROUPER
[2019-07-19] MEDS: Clopidogrel Bisulfate 75 MG Tablet PO (09:31)
[2019-07-19] MEDS: Carvedilol 3.125 MG TABLET PO ×2 (09:31→21:01)
[2019-07-19] MEDS: Aspirin 81 MG TAB.CHEW PO (09:31)
[2019-07-19] MEDS: Senna/Docusate Sodium 1 Tablet 2 TABLET PO ×2 (09:31→21:01)
[2019-07-19] MEDS: Lisinopril 5 MG Tablet PO (09:33)
--- NOTE | 2019-07-19 10:00 | EKG12_ITS ---
Test Reason : POST STEMI Blood Pressure : / mmHG Vent. Rate : 101 BPM Atrial Rate : 101 BPM P-R Int : 148 ms QRS Dur : 078 ms QT Int : 380 ms P-R-T Axes : 065 042 063 degrees QTc Int : 492 ms Sinus tachycardia with Fusion complexes Nonspecific ST abnormality Abnormal ECG When compared with ECG of 18-JUL-2019 15:51, MANUAL COMPARISON REQUIRED, DATA IS UNCONFIRMED Confirmed by ROBERT MARTINEZ, JAIDA ([id number]), dictionary editor NOA MUNGUIA ([id number]) on 07/20/2019 8:39:56 AM Referred By: HANNY Confirmed By:JAIDA JONES MD
--- NOTE | 2019-07-19 10:31 | PCM.CONS.GEN ---
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 Marcelo Canchola; Tobacco dependence (Chronic) 2 PPD for at least 60 years History of cervical cancer (Chronic) Status post STEWART-BSO (Chronic) Medical History: Medical History (Last Updated 07/19/19 @ 08:44 by JESUS MANUEL Chahal) Atherosclerosis of [place] coronary artery of [place] heart without angina pectoris (Chronic) I25.10 PTCA/WILLIAM of occluded mid RCA using Synergy 3.0 X 16 and WILLIAM proximal RCA using Synergy 3.0 X 12 on 07/18/[address] Marcelo Canchola; Tobacco dependence (Chronic) F17.200 2 PPD for at least 60 years COPD (chronic obstructive pulmonary disease) (Suspected) J44.9 STEMI (ST elevation myocardial infarction) (Acute) Onset Date: ~07/18/19 I21.3 07/18/2019 Allergies No Known Allergies Allergy (Verified 07/18/19 14:47) Home Medications: Ambulatory Orders Medication Instructions Recorded NK 07/18/19 Surgical History: Surgical History (Last Updated 07/19/19 @ 08:45 by JESUS MANUEL Chahal) H/O: hysterectomy Z90.710 Surgical History: hysterectomy Psychiatric History: No pertinent psych hx [employer] History: endometrial cancer Lives: With Family - her 2 sons Smoking Status: Current every day smoker Tobacco Use: Cigarettes Alcohol: None Drugs: None - *Family History Offspring Family History: Family History (Last Updated 07/19/19 @ 08:46 by JESUS MANUEL Chahal) Sister No problems noted. Son hole in his heart History Items: - - has a son with a hole in his heart Patient Problems: Active and Suspected Problems (Last Updated 07/19/19 @ 08:44 by ALEXSANDER ChahalC) COPD (chronic obstructive pulmonary disease) (Suspected) Dehydration, mild (Acute) STEMI (ST elevation myocardial infarction) (Acute ~07/18/19) 07/18/2019 - Physical Exam Vitals/I&O's: Vital Signs Temp Pulse Resp BP Pulse Ox 98 F 81 19 H 120/61 92 07/19/19 04:00 07/19/19 09:00 07/19/19 09:00 07/19/19 09:00 07/19/19 09:00 Oxygen Flow Rate (L/min) 4 Oxygen Delivery Method Nasal Cannula Weight: 53.1 kg Body Mass Index (BMI) 21.2 Intake and Output for Last 24 Hours 07/17/19 07/18/19 07/19/19 23:59 23:59 23:59 Intake Total 1037.5 / 1037.5 505 / 505 Output Total 200 / 200 200 / 200 Balance 837.5 / 837.5 305 / 305 General: Alert, Oriented x3, Cooperative HEENT: Atraumatic, PERRLA, EOMI, Normocephalic Neck: Supple, No JVD, Negative Carotid Bruits Lungs: Clear to auscultation, Normal air movement Cardiovascular: Regular rate, No murmurs Abdomen: Bowel Sounds Present, Soft, Non Tender Extremities: No edema, Capillary Refill Less than 3 Seconds Skin: No rashes, No breakdown Musculoskeletal: No Tenderness to Palpation of Joints or Extremities Neurological: Cranial nerves II-XII grossly intact Psych/Mental Status: Normal Affect, Appropriate Microbiology Past 72 Hours 07/18/19 15:34 Mucosa - Nose Influenza Types A,B Direct FA (RUBÉN) - Final 07/18/19 15:34 Nasal Secretion Rapid RSV (DFA) - Final Laboratory Results 07/18/19 15:28: WBC 12.0 H, RBC 5.09, Hgb 15.4 H, Hct 46.9, MCV 92.1, MCH 30.3, MCHC 32.8, RDW Std Deviation 40.5, RDW Coeff of Melisa 11.9, Plt Count 199, MPV 11.0, Immature Gran % (Auto) 0.400, Neut % (Auto) 70.9 H, Lymph % (Auto) 19.2, [place] % (Auto) 7.6, Eos % (Auto) 1.3, Baso % (Auto) 0.6, Absolute Neuts (auto) 8.5 H, Absolute Lymphs (auto) 2.29, Nucleated RBC % 0 07/18/19 15:28: Sodium 143, Potassium 4.1, Chloride 107, Carbon Dioxide 30.0, Anion Gap 6, BUN 17, Creatinine 0.97, Estim Creat Clear Calc 37.19, Est GFR (MDRD) Af Amer 71, Est GFR (MDRD) Non-Af 59 L, BUN/Creatinine Ratio 17.5, Glucose 131 H, Calcium 9.4, Total Bilirubin 0.30, AST 19, ALT 10 L, Alkaline Phosphatase 87, Troponin I 0.274 H, Total Protein 7.4, Albumin 3.7, Globulin 3.7, Albumin/Globulin Ratio 1.0, Lipase 226 07/18/19 15:28: PT 13.0, INR 1.0, APTT 29.4 07/18/19 17:03: Activated Clotting Time 285 H 07/18/19 18:40: Sodium 144, Potassium 4.1, Chloride 110 H, Carbon Dioxide 28.0, Anion Gap 6, BUN 14, Creatinine 0.82, Estim Creat Clear Calc 44.00, Est GFR (MDRD) Af Amer 87, Est GFR (MDRD) Non-Af 72, BUN/Creatinine Ratio 17.2, Glucose 128 H, Calcium 8.2 L, Magnesium 1.9 07/18/19 18:40: Troponin I 18.500 H* 07/18/19 21:35: Troponin I 44.400 H* 07/18/19 21:35: MRSA (PCR) Negative 07/19/19 04:50: WBC 11.8 H, RBC 4.50, Hgb 13.6, Hct 42.8, MCV 95.1, MCH 30.2, MCHC 31.8 L, RDW Std Deviation 42.5, RDW Coeff of Melisa 12.2, Plt Count 179, MPV 11.4, Immature Gran % (Auto) 0.300, Neut % (Auto) 73.3 H, Lymph % (Auto) 16.5 L, [place] % (Auto) 7.7, Eos % (Auto) 1.8, Baso % (Auto) 0.4, Absolute Neuts (auto) 8.7 H, Absolute Lymphs (auto) 1.95, Nucleated RBC % 0 07/19/19 04:50: Sodium 141, Potassium 4.3, Chloride 109 H, Carbon Dioxide 29.0, Anion Gap 3 L, BUN 13, Creatinine 0.79, Estim Creat Clear Calc 36.08, Est GFR (MDRD) Af Amer 90, Est GFR (MDRD) Non-Af 74, BUN/Creatinine Ratio 16.4, Glucose 94, Calcium 8.4 L, Magnesium 2.0, Total Bilirubin 0.30, AST 168 H, ALT 21, Alkaline Phosphatase 72, Total Protein 6.1 L, Albumin 2.9 L, Globulin 3.2, Albumin/Globulin Ratio 0.9, Triglycerides 139, Cholesterol 175, LDL Cholesterol 104, VLDL Cholesterol 28, HDL Cholesterol 43 Current Medications Acetaminophen (Tylenol) 650 mg PO Q6H PRN PRN PRN Reason: Pain Score 1-10/Temp > 100.7 F Albuterol Sulfate (Ventolin Aerosols) 2.5 mg INHALATION Q2H PRN PRN PRN Reason: SOB/Wheezing Aspirin (Aspirin, Baby) 81 mg PO DAILYCM [facility] Last Admin: 07/19/19 09:31 Dose: 81 mg Documented by: Atorvastatin Calcium (Lipitor) 40 mg PO QHS [facility] Last Admin: 07/18/19 21:00 Dose: 40 mg Documented by: Atropine Sulfate () 0.5 mg IV UD PRN PRN Reason: HR <50 bpm Carvedilol (Coreg) 3.125 mg PO BID [facility] Last Admin: 07/19/19 09:31 Dose: 3.125 mg Documented by: Clopidogrel Bisulfate (Plavix) 75 mg PO DAILY [facility] Last Admin: 07/19/19 09:31 Dose: 75 mg Documented by: Guaifenesin (Robitussin) 10 ml PO Q4H PRN PRN PRN Reason: COUGH Heparin Sodium (Beef Lung) (Heparin 500 Unit/5 Ml (100/Ml)) 500 unit IV UD PRN PRN Reason: HEPARIN FLUSH Sodium Chloride () 1,000 mls @ 75 mls/hr IV .[id number] [facility] Last Admin: 07/19/19 04:54 Dose: 75 mls/hr Documented by: Labetalol HCl (Trandate) 5 mg IV X1 PRN PRN Reason: SBP > 160 when pulling sheath Stop: 07/20/19 18:05 Lisinopril (Zestril) 5 mg PO DAILY [facility] Last Admin: 07/19/19 09:33 Dose: 5 mg Documented by: Magnesium Hydroxide (Milk Of Magnesia) 30 ml PO DAILY PRN PRN PRN Reason: Constipation Melatonin (Melatonin) 3 mg PO QHS PRN PRN PRN Reason: INSOMNIA Morphine Sulfate () 2 mg IV Q3H PRN PRN PRN Reason: Pain Score 6-10/10 Last Admin: 07/19/19 07:09 Dose: 2 mg Documented by: Nitroglycerin (Nitrostat) 0.4 mg SUBLINGUAL Q5M PRN PRN Reason: CHEST PAIN Nutritional Formula (Lactose Free) (Ensure Enlive) 120 ml PO 4X/DAY [facility] Last Admin: 07/19/19 09:31 Dose: Not Given Documented by: Ondansetron HCl (Zofran) 4 mg IV Q8H PRN PRN PRN Reason: NAUSEA/VOMITING Last Admin: 07/18/19 23:58 Dose: 4 mg Documented by: Prochlorperazine Edisylate (Compazine Iv) 5 mg IV Q4H PRN PRN PRN Reason: Breakthrough Nausea/Vomiting Senna/Docusate Sodium (Senokot-S, Vanessa-Colace) 2 tablet PO BID [facility] Last Admin: 07/19/19 09:31 Dose: 2 tablet Documented by: Sodium Chloride () 10 - 40 ml IV UD PRN PRN Reason: SALINE FLUSH Last Admin: 07/19/19 04:54 Dose: 20 ml Documented by: Sodium Chloride () 500 ml IV BOLUS PRN PRN Reason: VASO-VAGAL PROTOCOL Throat Lozenges (Cepacol Sore Throat Lozenge) 1 lozenge MUCOUS MEM Q2H PRN PRN PRN Reason: SORE THROAT Assessment/Plan All Active Problems (Last Updated 07/19/19 @ 08:44 by ALEXSANDER ChahalC) Dehydration, mild (Acute) STEMI (ST elevation myocardial infarction) (Acute ~07/18/19)
--- NOTE | 2019-07-19 11:25 | PCM.PN.BLA ---
Progress Note Patient is scheduled for an office appointment at the [facility] with Roseanna Jack, Physician Assistant Controller, on 08/10/2019 at 2 PM. A 90-day supply for Plavix was sent to her local pharmacy, [facility], to ensure long-term compliance. STROKE Vital Signs/Narrative: Vital Signs Pulse Resp BP Pulse Ox 07/19/19 11:00 65 14 126/60 H 91 07/19/19 10:00 65 18 133/69 H 92 07/19/19 09:00 81 19 H 120/61 92 07/19/19 08:00 62 13 126/63 H 92 07/19/19 07:43 62
--- NOTE | 2019-07-19 20:30 | NURSING ---
Report received from previous RN, including details of pt's refusal to cooperate w/getting out of bed to use BSC and very ltd use of the I.S.; pt approached by this RN and instructed on this evening's schedule of getting up to BSC, washing self and staff changing bed linens. Pt stated, my daughter already called me and gave me hell. Told me to get my butt out of bed, so that sounds like a good plan. Pt assisted to BSC, given warmed bath wipes, purewick disposed of, clean brief applied and linen changed. Pt able to sit up and breathe deeply, moist nonproductive cough, unable to pull very much on I.S. at this time; will cont to encourage use. Pt's oxygen reduced to 4L and humidification applied. Pt returned to bed, call light with reach.
[2019-07-19] MEDS: Atorvastatin Calcium 40 MG Tablet PO (21:01)
[2019-07-19] MEDS: MELATONIN 3 MG TABLET PO (21:01)
[2019-07-20] VITALS (23 sets, daily range): BP systolic 93–146; BP diastolic 44–86; PULSE 66–89; RESP 13–25; TEMP 36.4–37.2; O2SAT 82–98
--- NOTE | 2019-07-20 03:59 | NURSING ---
Pt noted trying to move legs toward side of bed, p.ox sensor and oxygen removed by pt; pt states she's just trying to get up. Pt reminded that she needs staff at bedside before getting up. Pt responded, I know, I know. Pt also stated how do you expect me to walk around with all of these wires? Pt informed that she will not walking around at this time, pt denied needing to use BSC. Pt is alert and oriented x4, oxygen and sensor replaced and initial p.ox. reading 80%. Pt encouraged to breathe deeply and slowly in order to regain oxygenation. Pt replies this is just stupid, I don't use oxygen at home. Pt reminded that walking oxygen study today may change that.
[2019-07-20] MEDS: Carvedilol 3.125 MG TABLET PO ×2 (09:38→20:59)
[2019-07-20] MEDS: Aspirin 81 MG TAB.CHEW PO (09:38)
[2019-07-20] MEDS: Clopidogrel Bisulfate 75 MG Tablet PO (09:38)
[2019-07-20] MEDS: Lisinopril 5 MG Tablet PO (09:38)
--- NOTE | 2019-07-20 10:00 | EKG12_ITS ---
Test Reason : AM EKG Blood Pressure : / mmHG Vent. Rate : 070 BPM Atrial Rate : 070 BPM P-R Int : 132 ms QRS Dur : 090 ms QT Int : 426 ms P-R-T Axes : 070 031 -56 degrees QTc Int : 460 ms Normal sinus rhythm T wave abnormality, consider inferior ischemia Abnormal ECG When compared with ECG of 20-JUL-2019 04:47, MANUAL COMPARISON REQUIRED, DATA IS UNCONFIRMED Confirmed by ALEXANDRA PEREZ ([id number]), news assignment editor BEVERLEY COOPER ([id number]) on 07/22/2019 7:56:25 AM Referred By: INGE Confirmed By:ALEXANDRA PEREZ
--- NOTE | 2019-07-20 10:03 | PCM.PN.CARD ---
Subjectve: Patient continues to improve however it was noted yesterday that she was somewhat hypoxic on room air. The patient has never had pulmonary function test and is an ongoing smoker. In addition she appears to be somewhat debilitated and required physical therapy. Telemetry showed normal sinus rhythm with occasional wide-complex tachycardia which was self terminating. Hemoglobin and creatinine are within nominal limits. Objective: Vital Signs Temp Pulse Resp BP Pulse Ox 97.9 F 82 22 H 116/68 93 07/20/19 04:00 07/20/19 10:00 07/20/19 10:00 07/20/19 10:00 07/20/19 10:00 Oxygen Flow Rate (L/min) 3 Oxygen Delivery Method Nasal Cannula Weight: 116 lb 13.52 oz Body Mass Index (BMI) 21.2 Intake and Output for Last 24 Hours 07/18/19 07/19/19 07/20/19 23:59 23:59 23:59 Intake Total 1037.5 / 1037.5 2547.5 / 2547.5 0 / 0 Output Total 200 / 200 2650 / 2650 550 / 550 Balance 837.5 / 837.5 -102.5 / -102.5 -550 / -550 General: Awake, Alert, Oriented x 3 HEENT: PERRL, EOMI, Sclera Non Icteric Neck: Supple, Good ROM, No Lymph Node Enlargement Lungs: Clear to auscultation Cardiovascular: Regular Rhythm, Normal S1, Normal S2, No Murmurs, No Rubs, No Gallops Vascular: No Carotid Bruits, Normal Femoral Pulses, Normal Radial Pulses, Normal Dorsalis Pedal Pulse, Normal Posterior Tibial Pulses Abdomen: Bowel Sounds Present, Soft, Non Tender, No HSM, No Organomegaly Extremities: No Cyanosis, No Clubbing, No edema Neurological: No Focal Motor or Sensory Deficit Rhythm: EKG: ECHO: Echo dated 07/19/2019 is as follows: The estimated ejection fraction is 60 %. Mild concentric left ventricular hypertrophy. Stage 1 diastolic dysfunction. Infero-Basal: Mildly hypokinetic Mildly dilated right ventricle. Mild (1+) mitral valve insufficiency. Trivial tricuspid valve insufficiency. Right ventricular systolic pressure estimated to be 24 mmHg. There is no comparison study available. Stress Test: Cardiac Cath: PCI: CT Surgery: Holter monitor: EPS: PPM: CXR: Chest CT Scan: Medical Necessity - Tobacco Use Smoking Status: Current every day smoker Tobacco Use: Cigarettes Assessment/Plan 1. Acute inferior wall myocardial infarction. Post procedure EKG shows almost complete resolution of inferior ST segment elevation with evidence of Q waves. Peak troponin 44 thus far. Echocardiogram from 07/19/2019 is as follows: The estimated ejection fraction is 60 %. Mild concentric left ventricular hypertrophy. Stage 1 diastolic dysfunction. Infero-Basal: Mildly hypokinetic Mildly dilated right ventricle. Mild (1+) mitral valve insufficiency. Trivial tricuspid valve insufficiency. Right ventricular systolic pressure estimated to be 24 mmHg. There is no comparison study available. Recommend continuing baby aspirin, Plavix, Coreg and statins. We will slowly add ROBIN inhibitor to load reduction. Immediate post procedure LV function about 50 to 55% with inferior hypokinesis. I reviewed the catheterization films but per Dr. Canchola there were no additional lesions which required intervention or further evaluation. 2. Hyperlipidemia: Continue statin based medications. Repeat lipid profile in 6 weeks time. 3. Would recommend evaluating with ambulatory oxygen evaluation for possible home O2, as well as physical therapy to evaluate for possible SNF transitory care. 4. Thank you very much for the opportunity to participate in the cardiac care of your patient. She may be transferred to PCU.
--- NOTE | 2019-07-20 11:21 | PCM.PN.HOSP ---
Patient Problems: Active and Suspected Problems (Last Updated 07/19/19 @ 17:21 by Toire Jean-Baptiste) COPD (chronic obstructive pulmonary disease) (Suspected) Dehydration, mild (Acute) STEMI (ST elevation myocardial infarction) (Acute 07/18/19) 07/18/2019 Reason for Visit: Follow-up acute STEMI Subjective: Patient seen, noted by nursing staff to be severely deconditioned subsequently requested for PT OT. Objective: GENERAL: cooperative HEENT: Atraumatic; EYES; Anicteric, Normal Conjunctiva NECK; supple, normal thyroid, RESPIRATORY: Diminished to auscultation CARDIOVASCULAR: Regular S1 S2, GI: soft, normoactive bowel sounds, : No Renal angle tenderness; EXTREMITIES: No edema, no clubbing, MUSCULOSKELETAL: no muscle waisting NEURO: Awake; no lateralizing signs. SKIN: No Rash PSYCH; Flat affect Vitals/I&O's: Vital Signs Temp Pulse Resp BP Pulse Ox 97.9 F 82 22 H 116/68 93 07/20/19 04:00 07/20/19 10:00 07/20/19 10:00 07/20/19 10:00 07/20/19 10:00 Oxygen Flow Rate (L/min) 3 Oxygen Delivery Method Nasal Cannula Weight: 53 kg Body Mass Index (BMI) 21.2 Intake and Output for Last 24 Hours 07/18/19 07/19/19 07/20/19 23:59 23:59 23:59 Intake Total 1037.5 / 1037.5 2547.5 / 2547.5 0 / 0 Output Total 200 / 200 2650 / 2650 550 / 550 Balance 837.5 / 837.5 -102.5 / -102.5 -550 / -550 Microbiology Past 72 Hours 07/18/19 15:34 Mucosa - Nose Influenza Types A,B Direct FA (RUBÉN) - Final 07/18/19 15:34 Nasal Secretion Rapid RSV (DFA) - Final Current Medications Acetaminophen (Tylenol) 650 mg PO Q6H PRN PRN PRN Reason: Pain Score 1-10/Temp > 100.7 F Albuterol Sulfate (Ventolin Aerosols) 2.5 mg INHALATION Q2H PRN PRN PRN Reason: SOB/Wheezing Aspirin (Aspirin, Baby) 81 mg PO DAILYCM [facility] Last Admin: 07/20/19 09:38 Dose: 81 mg Documented by: Atorvastatin Calcium (Lipitor) 40 mg PO QHS [facility] Last Admin: 07/19/19 21:01 Dose: 40 mg Documented by: Atropine Sulfate () 0.5 mg IV UD PRN PRN Reason: HR <50 bpm Carvedilol (Coreg) 3.125 mg PO BID [facility] Last Admin: 07/20/19 09:38 Dose: 3.125 mg Documented by: Clopidogrel Bisulfate (Plavix) 75 mg PO DAILY [facility] Last Admin: 07/20/19 09:38 Dose: 75 mg Documented by: Guaifenesin (Robitussin) 10 ml PO Q4H PRN PRN PRN Reason: COUGH Heparin Sodium (Beef Lung) (Heparin 500 Unit/5 Ml (100/Ml)) 500 unit IV UD PRN PRN Reason: HEPARIN FLUSH Labetalol HCl (Trandate) 5 mg IV X1 PRN PRN Reason: SBP > 160 when pulling sheath Stop: 07/20/19 18:05 Lisinopril (Zestril) 5 mg PO DAILY [facility] Last Admin: 07/20/19 09:38 Dose: 5 mg Documented by: Magnesium Hydroxide (Milk Of Magnesia) 30 ml PO DAILY PRN PRN PRN Reason: Constipation Melatonin (Melatonin) 3 mg PO QHS PRN PRN PRN Reason: INSOMNIA Last Admin: 07/19/19 21:01 Dose: 3 mg Documented by: Morphine Sulfate () 2 mg IV Q3H PRN PRN PRN Reason: Pain Score 6-10/10 Last Admin: 07/19/19 07:09 Dose: 2 mg Documented by: Nitroglycerin (Nitrostat) 0.4 mg SUBLINGUAL Q5M PRN PRN Reason: CHEST PAIN Ondansetron HCl (Zofran) 4 mg IV Q8H PRN PRN PRN Reason: NAUSEA/VOMITING Last Admin: 07/18/19 23:58 Dose: 4 mg Documented by: Prochlorperazine Edisylate (Compazine Iv) 5 mg IV Q4H PRN PRN PRN Reason: Breakthrough Nausea/Vomiting Senna/Docusate Sodium (Senokot-S, Vanessa-Colace) 2 tablet PO BID [facility] Last Admin: 07/20/19 09:38 Dose: Not Given Documented by: Sodium Chloride () 10 - 40 ml IV UD PRN PRN Reason: SALINE FLUSH Last Admin: 07/19/19 04:54 Dose: 20 ml Documented by: Sodium Chloride () 500 ml IV BOLUS PRN PRN Reason: VASO-VAGAL PROTOCOL Throat Lozenges (Cepacol Sore Throat Lozenge) 1 lozenge MUCOUS MEM Q2H PRN PRN PRN Reason: SORE THROAT STROKE Vital Signs/Narrative: Vital Signs Pulse Resp BP Pulse Ox 07/20/19 10:00 82 22 H 116/68 93 07/20/19 09:00 89 25 H 117/54 L 92 07/20/19 08:00 74 18 113/60 93 07/20/19 07:40 92 Medical Necessity - Tobacco Use Smoking Status: Current every day smoker Tobacco Use: Cigarettes Assessment/Plan All Active Problems (Last Updated 07/19/19 @ 17:21 by Torie Jean-Baptiste) Dehydration, mild (Acute) STEMI (ST elevation myocardial infarction) (Acute 07/18/19) Patient is a 78-year-old lady who presented with abdominal pain and epigastric discomfort and assessment of acute ST segment elevation IN was made underwent emergency left heart catheterization with PCI/WILLIAM 1. Acute inferior wall ST segment elevation IN ?Patient underwent emergency left heart catheterization on 07/18/2019 with PCI/WILLIAM of a 70% proximal RCA and mid RCA lesions ?07/20/2019; patient currently on recommended medications 2. Tobacco dependence - counseled on cessation, offered nicotine patch for tobacco cravings 3. Dehydration ?Managed with IV fluids 4. History of cervical CA Patient has remained in remission following STEWART/BSO 5. Physical deconditioning ?Requested for PT OT eval and social media marketing specialist to assist with discharge planning Inpatient E&M: [id number] Subs Hosp L2
[2019-07-20] MEDS: Senna/Docusate Sodium 1 Tablet 2 TABLET PO (20:59)
[2019-07-20] MEDS: Atorvastatin Calcium 40 MG Tablet PO (20:59)
[2019-07-21] VITALS (13 sets, daily range): BP systolic 106–137; BP diastolic 55–66; PULSE 69–80; RESP 16–18; TEMP 36.7–37.1; O2SAT 84–96
--- NOTE | 2019-07-21 07:53 | PCM.PN.HOSP ---
Patient Problems: Active and Suspected Problems (Last Updated 07/19/19 @ 17:21 by Torie Jean-Baptiste) COPD (chronic obstructive pulmonary disease) (Suspected) Dehydration, mild (Acute) STEMI (ST elevation myocardial infarction) (Acute 07/18/19) 07/18/2019 Objective: GENERAL: cooperative HEENT: Atraumatic; EYES; Anicteric, Normal Conjunctiva NECK; supple, normal thyroid, RESPIRATORY: Diminished to auscultation CARDIOVASCULAR: Regular S1 S2, GI: soft, normoactive bowel sounds, : No Renal angle tenderness; EXTREMITIES: No edema, no clubbing, MUSCULOSKELETAL: no muscle waisting NEURO: Awake; no lateralizing signs. SKIN: No Rash PSYCH; Flat affect Vitals/I&O's: Vital Signs Temp Pulse Resp BP Pulse Ox 98.8 F 76 18 116/66 94 07/21/19 03:00 07/21/19 06:49 07/21/19 03:00 07/21/19 03:00 07/21/19 07:30 Oxygen Flow Rate (L/min) 3 Oxygen Delivery Method Nasal Cannula Weight: 55 kg Body Mass Index (BMI) 21.2 Intake and Output for Last 24 Hours 07/19/19 07/20/19 07/21/19 23:59 23:59 23:59 Intake Total 2547.5 / 2547.5 820 / 820 120 / 120 Output Total 2650 / 2650 550 / 550 Balance -102.5 / -102.5 270 / 270 120 / 120 Microbiology Past 72 Hours 07/18/19 15:34 Mucosa - Nose Influenza Types A,B Direct FA (RUBÉN) - Final 07/18/19 15:34 Nasal Secretion Rapid RSV (DFA) - Final Current Medications Acetaminophen (Tylenol) 650 mg PO Q6H PRN PRN PRN Reason: Pain Score 1-10/Temp > 100.7 F Albuterol Sulfate (Ventolin Aerosols) 2.5 mg INHALATION Q2H PRN PRN PRN Reason: SOB/Wheezing [facility] Admin: 07/20/19 09:38 Dose: 81 mg Documented by: Atorvastatin Calcium (Lipitor) 40 mg PO QHS [facility] Last Admin: 07/20/19 20:59 Dose: 40 mg Documented by: Atropine Sulfate () 0.5 mg IV UD PRN PRN Reason: HR <50 bpm Carvedilol (Coreg) 3.125 mg PO BID [facility] Last Admin: 07/20/19 20:59 Dose: 3.125 mg Documented by: Clopidogrel Bisulfate (Plavix) 75 mg PO DAILY [facility] Last Admin: 07/20/19 09:38 Dose: 75 mg Documented by: Guaifenesin (Robitussin) 10 ml PO Q4H PRN PRN PRN Reason: COUGH Heparin Sodium (Beef Lung) (Heparin 500 Unit/5 Ml (100/Ml)) 500 unit IV UD PRN PRN Reason: HEPARIN FLUSH Lisinopril (Zestril) 5 mg PO DAILY [facility] Last Admin: 07/20/19 09:38 Dose: 5 mg Documented by: Magnesium Hydroxide (Milk Of Magnesia) 30 ml PO DAILY PRN PRN PRN Reason: Constipation Melatonin (Melatonin) 3 mg PO QHS PRN PRN PRN Reason: INSOMNIA Last Admin: 07/19/19 21:01 Dose: 3 mg Documented by: Morphine Sulfate () 2 mg IV Q3H PRN PRN PRN Reason: Pain Score 6-10/10 Last Admin: 07/19/19 07:09 Dose: 2 mg Documented by: Nitroglycerin (Nitrostat) 0.4 mg SUBLINGUAL Q5M PRN PRN Reason: CHEST PAIN Ondansetron HCl (Zofran) 4 mg IV Q8H PRN PRN PRN Reason: NAUSEA/VOMITING Last Admin: 07/18/19 23:58 Dose: 4 mg Documented by: Prochlorperazine Edisylate (Compazine Iv) 5 mg IV Q4H PRN PRN PRN Reason: Breakthrough Nausea/Vomiting Senna/Docusate Sodium (Senokot-S, Vanessa-Colace) 2 tablet PO BID [facility] Last Admin: 07/20/19 20:59 Dose: 2 tablet Documented by: Sodium Chloride () 10 - 40 ml IV UD PRN PRN Reason: SALINE FLUSH Last Admin: 07/19/19 04:54 Dose: 20 ml Documented by: Sodium Chloride () 500 ml IV BOLUS PRN PRN Reason: VASO-VAGAL PROTOCOL Throat Lozenges (Cepacol Sore Throat Lozenge) 1 lozenge MUCOUS MEM Q2H PRN PRN PRN Reason: SORE THROAT STROKE Vital Signs/Narrative: Vital Signs Pulse Pulse Ox 07/21/19 07:30 94 07/21/19 06:49 76 07/21/19 03:55 70 Medical Necessity - Tobacco Use Smoking Status: Current every day smoker Tobacco Use: Cigarettes Assessment/Plan All Active Problems (Last Updated 07/19/19 @ 17:21 by Torie Jean-Baptiste) Dehydration, mild (Acute) STEMI (ST elevation myocardial infarction) (Acute 07/18/19) Patient is a 78-year-old lady who presented with abdominal pain and epigastric discomfort and assessment of acute ST segment elevation HI was made underwent emergency left heart catheterization with PCI/WILLIAM 1. Acute inferior wall ST segment elevation HI ?Patient underwent emergency left heart catheterization on 07/18/2019 with PCI/WILLIAM of a 70% proximal RCA and mid RCA lesions ?07/20/2019; patient currently on recommended medications 2. Tobacco dependence - counseled on cessation, offered nicotine patch for tobacco cravings 3. Dehydration ?Managed with IV fluids 4. History of cervical CA Patient has remained in remission following STEWART/BSO 5. Physical deconditioning ?Requested for PT OT eval and geriatric social worker to assist with discharge planning Inpatient E&M: 62800 Subs Hosp L2
[2019-07-21] MEDS: Clopidogrel Bisulfate 75 MG Tablet PO (09:12)
[2019-07-21] MEDS: Aspirin 81 MG TAB.CHEW PO (09:12)
[2019-07-21] MEDS: Carvedilol 3.125 MG TABLET PO ×2 (09:12→21:26)
[2019-07-21] MEDS: Lisinopril 5 MG Tablet PO (09:12)
[2019-07-21] MEDS: Senna/Docusate Sodium 1 Tablet 2 TABLET PO ×2 (09:13→21:27)
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
--- NOTE | 2019-07-21 09:22 | PN.CARD_ITS ---
Subjectve: Patient slowly feeling much better. Ambulated yesterday without difficulty. Telemetry negative. Hemoglobin and creatinine are within nominal limits. Blood pressure optimized. Objective: Vital Signs Temp Pulse Resp BP Pulse Ox 98.1 F 80 16 137/66 H 95 07/21/19 09:00 07/21/19 09:00 07/21/19 09:00 07/21/19 09:00 07/21/19 09:00 Oxygen Flow Rate (L/min) 3 Oxygen Delivery Method Nasal Cannula Weight: 121 lb 4.068 oz Body Mass Index (BMI) 21.2 Intake and Output for Last 24 Hours 07/19/19 07/20/19 07/21/19 23:59 23:59 23:59 Intake Total 2547.5 / 2547.5 820 / 820 120 / 120 Output Total 2650 / 2650 550 / 550 Balance -102.5 / -102.5 270 / 270 120 / 120 General: Awake, Alert, Oriented x 3 HEENT: PERRL, EOMI, Sclera Non Icteric Neck: Supple, Good ROM, No Lymph Node Enlargement Lungs: Clear to auscultation Cardiovascular: Regular Rhythm, Normal S1, Normal S2, No Murmurs, No Rubs, No Gallops Vascular: No Carotid Bruits, Normal Femoral Pulses, Normal Radial Pulses, Normal Dorsalis Pedal Pulse, Normal Posterior Tibial Pulses Abdomen: Bowel Sounds Present, Soft, Non Tender, No HSM, No Organomegaly Extremities: No Cyanosis, No Clubbing, No edema Neurological: No Focal Motor or Sensory Deficit Rhythm: EKG: ECHO: Stress Test: Cardiac Cath: PCI: CT Surgery: Holter monitor: EPS: PPM: CXR: Chest CT Scan: Medical Necessity - Tobacco Use Smoking Status: Current every day smoker Tobacco Use: Cigarettes Assessment/Plan 1. Acute inferior wall myocardial infarction. Post procedure EKG shows almost complete resolution of inferior ST segment elevation with evidence of Q waves. Peak troponin 44 thus far. Echocardiogram from 07/19/2019 is as follows: The estimated ejection fraction is 60 %. Mild concentric left ventricular hypertrophy. Stage 1 diastolic dysfunction. Infero-Basal: Mildly hypokinetic Mildly dilated right ventricle. Mild (1+) mitral valve insufficiency. Trivial tricuspid valve insufficiency. Right ventricular systolic pressure estimated to be 24 mmHg. There is no comparison study available. Recommend continuing baby aspirin, Plavix, Coreg and statins. We will slowly add ROBIN inhibitor to load reduction. Immediate post procedure LV function about 50 to 55% with inferior hypokinesis. I reviewed the catheterization films but per Dr. Canchola there were no additional lesions which required intervention or further evaluation. 2. Hyperlipidemia: Continue statin based medications. Repeat lipid profile in 6 weeks time. 3. Would recommend evaluating with ambulatory oxygen evaluation for possible home O2, as well as physical therapy to evaluate for possible SNF transitory care. We await those recommendations. Patient does not require senior living facility, she may be discharged home today. 4. Thank you very much for the opportunity to participate in the cardiac care of your patient. She may be charged home today. She may follow-up with Dr. Valente going forward. Inpatient E&M: [id number] Subs Hosp L2
--- NOTE | 2019-07-21 09:22 | DCINST_ITS ---
- Discharge Diagnoses Current Active Problems: Current Active and Chronic Problems (Last Updated 07/19/19 @ 17:21 by Torie Jean-Baptiste) Atherosclerosis of [place] coronary artery of [place] heart without angina pectoris (Chronic) PTCA/WILLIAM of occluded mid RCA using Synergy 3.0 X 16 and WILLIAM proximal RCA using Synergy 3.0 X 12 on 07/18/[address] Marcelo Canchola; Tobacco dependence (Chronic) 2 PPD for at least 60 years History of cervical cancer (Chronic) Status post STEWATR-BSO (Chronic) Dehydration, mild (Acute) STEMI (ST elevation myocardial infarction) (Acute 07/18/19) 07/18/2019 You will use the following diet at home:: Calorie/Carbohydrate Controlled (specify 1200, 1400, etc) Your food should be the consistency of: Regular Discharge Activity: Return to Normal Activity Allergies/Adverse Reactions: Allergies No Known Allergies Allergy (Verified 07/18/19 14:47) Medications to take at Discharge Aspirin [Aspirin, Baby] 81 mg PO DAILYCM #90 tab.chew 07/21/19 Atorvastatin Calcium [Lipitor] 40 mg PO QHS #90 tab 07/21/19 Carvedilol [Coreg (Beta Rachel)] 3.125 mg PO BID #180 tab 07/21/19 Clopidogrel Bisulfate [Clopidogrel] 75 mg PO QDAY #90 tab 07/21/19 Lisinopril [Zestril] 5 mg PO DAILY #90 tab 07/21/19 The following prescriptions were given: Aspirin [Aspirin, Baby] 81 mg PO DAILYCM #90 tab.chew Transmission Status: Pending to [facility] #30 Clopidogrel Bisulfate [Clopidogrel] 75 mg PO QDAY #90 tab Transmission Status: Pending to [facility]30 Carvedilol [Coreg (Beta Rachel)] 3.125 mg PO BID #180 tab Transmission Status: Pending to [facility] #30 Atorvastatin Calcium [Lipitor] 40 mg PO QHS #90 tab Transmission Status: Pending to [facility]30 Lisinopril [Zestril] 5 mg PO DAILY #90 tab Transmission Status: Pending to [facility]30 Primary Care Physician: NOT,DEFINED [NON-STAFF] - Test Results: Test results from this visit will be discussed in further detail at your follow- up appointment, if applicable. Please Follow Up With: Vinny Valente MD Proposed Discharge Date: 07/21/19
--- NOTE | 2019-07-21 09:59 | CASEMGMT ---
Addendum entered by Beba Mckeon 07/21/19 14:26: This RN CM back to room as no PCP noted on chart. Pt states has never had PCP and does really want one at this time. Advised pt that she cannot have HHC set up without a PCP and pt states 'well then just forget it all then.' HHC order cancelled at this time. Advised pt of cost of home oxygen out of pocket and pt states she is unsure if she would be able to afford that. RN attempting to wean pt off oxygen at this time. Pt provided with info on [facility] clinic at this time by Satya FIELDS. Forest PALOMINO CM Original Note: This RN CM to room to discuss discharge plan at this time. Pt is agreeable to [facility] for SN, PT/OT, SW at this time and pt states that she would like [facility] at this time. This RN CM offered list of local C but pt states she would like [facility] still. Call to Jessica at [facility] to notify of pt referral at this time, voices understanding. Pt states she is willing to speak with SW at this time regarding further assistance. Pt is aware that if home oxygen needed at discharge then she will need to pay out of pocket as this is not covered under MCR A, pt voices understanding at this time. Satya FIELDS aware of all, voices understanding. Forest PALOMINO CM
--- NOTE | 2019-07-21 10:00 | EKG12_ITS ---
Test Reason : Blood Pressure : / mmHG Vent. Rate : 075 BPM Atrial Rate : 075 BPM P-R Int : 136 ms QRS Dur : 088 ms QT Int : 408 ms P-R-T Axes : 057 041 -56 degrees QTc Int : 455 ms Normal sinus rhythm Low voltage QRS Inferior infarct , age undetermined Abnormal ECG When compared with ECG of 19-JUL-2019 05:41, MANUAL COMPARISON REQUIRED, DATA IS UNCONFIRMED Confirmed by ALEXANDRA PEREZ ([id number]), manuscript editor BEVERLEY COOPER ([id number]) on 07/22/2019 8:00:18 AM Referred By: Confirmed By:ALEXANDRA PEREZ
--- NOTE | 2019-07-21 10:29 | PHA.DC.MC ---
Pharmacy Service has performed discharge medication reconciliation and counseling for this patient. 1. ASPIRIN 81MG PO DAILYCM 2. ATORVASTATIN 40MG PO QHS 3. CLOPIDOGREL 75MG PO DAILY 4. CARVEDILOL 3.125MG PO BID 5. LISINOPRIL 5MG PO DAILY The patient's discharge medication list was reviewed for discrepancies and discrepancies were resolved. Home Medications Aspirin [Aspirin, Baby] 81 mg PO DAILYCM #90 tab.chew 07/21/19 Atorvastatin Calcium [Lipitor] 40 mg PO QHS #90 tab 07/21/19 Carvedilol [Coreg (Beta Rachel)] 3.125 mg PO BID #180 tab 07/21/19 Clopidogrel Bisulfate [Clopidogrel] 75 mg PO QDAY #90 tab 07/21/19 Lisinopril [Zestril] 5 mg PO DAILY #90 tab 07/21/19 The patient was counseled on the following discharge medications and changes in medications for homegoing were reviewed. The Reason for Use, instructions for use, and potential side effects were reviewed for all new medications. The patient's questions regarding all of their medications were answered. The patient was able to verbally demonstrate an understanding of their discharge medications.
--- NOTE | 2019-07-21 11:14 | CASEMGMT ---
SW spoke with patient and inquired if she would like SW to help her apply for Medicaid. She said she would. SW completed application with patient and faxed to S. SW is not sure she will qualify, but it is worth trying. Patient may more likely qualify for extra help with Medicare Part D. SW gave patient this information and let her know that a [employer] from home health may be able to help her apply for this if she would like. SW gave her a pamphlet on help with Medicare D. DONNIE called [facility] where patient's prescriptions were sent and they total $125.74. SW will check with patient to see if this is manageable and if not have prescriptions transferred to [facility] where SW can utilize prescription assistance program for patient. Martha GERBER MSW
--- NOTE | 2019-07-21 11:35 | CASEMGMT ---
SW spoke with patient and she would not be able to afford her medications at $125. SW told her [facility] can assist one time and she was in agreement with this. SW spoke with [facility] and they will contact [facility] to have scripts sent to [facility]. Patient was given information on help with Prescription D and hopefully the SW with home health can help her apply as she would qualify. Martha GERBER MSW
--- NOTE | 2019-07-21 15:16 | PCM.PN.HOSP ---
Patient Problems: Active and Suspected Problems (Last Updated 07/19/19 @ 17:21 by Torie Jean-Baptiste) COPD (chronic obstructive pulmonary disease) (Suspected) Dehydration, mild (Acute) STEMI (ST elevation myocardial infarction) (Acute 07/18/19) 07/18/2019 Reason for Visit: Acute non-STEMI Subjective: And was deemed ready to discharge however she will require oxygen prior to going home. Patient is refusing to pay for the oxygen necessitating patient being kept. She was also offered the option of going to fpc facility she refused as well Objective: GENERAL: cooperative HEENT: Atraumatic; EYES; Anicteric, Normal Conjunctiva NECK; supple, normal thyroid, RESPIRATORY: Diminished to auscultation CARDIOVASCULAR: Regular S1 S2, GI: soft, normoactive bowel sounds, : No Renal angle tenderness; EXTREMITIES: No edema, no clubbing, MUSCULOSKELETAL: no muscle waisting NEURO: Awake; no lateralizing signs. SKIN: No Rash PSYCH; Flat affect Vitals/I&O's: Vital Signs Temp Pulse Resp BP Pulse Ox 98.5 F 71 18 106/63 94 07/21/19 14:49 07/21/19 15:06 07/21/19 14:49 07/21/19 14:49 07/21/19 14:49 Oxygen Flow Rate (L/min) [ 4 AMBULATION with Oxygen] Oxygen Flow Rate (L/min) [ 0 AMBULATING on Room Air] Oxygen Flow Rate (L/min) [At 0 REST on Room Air] Oxygen Flow Rate (L/min) 2 Oxygen Delivery Method Nasal Cannula Weight: 55 kg Body Mass Index (BMI) 21.2 Intake and Output for Last 24 Hours 07/19/19 07/20/19 07/21/19 23:59 23:59 23:59 Intake Total 2547.5 / 2547.5 820 / 820 360 / 360 Output Total 2650 / 2650 550 / 550 Balance -102.5 / -102.5 270 / 270 360 / 360 Microbiology Past 72 Hours 07/18/19 15:34 Mucosa - Nose Influenza Types A,B Direct FA (RUBÉN) - Final 07/18/19 15:34 Nasal Secretion Rapid RSV (DFA) - Final Current Medications Acetaminophen (Tylenol) 650 mg PO Q6H PRN PRN PRN Reason: Pain Score 1-10/Temp > 100.7 F Albuterol Sulfate (Ventolin Aerosols) 2.5 mg INHALATION Q2H PRN PRN PRN Reason: SOB/Wheezing [facility], [facility]) [facility] Admin: 07/21/19 09:12 Dose: 81 mg Documented by: Atorvastatin Calcium (Lipitor) 40 mg PO QHS [facility] Last Admin: 07/20/19 20:59 Dose: 40 mg Documented by: Atropine Sulfate () 0.5 mg IV UD PRN PRN Reason: HR <50 bpm Carvedilol (Coreg) 3.125 mg PO BID [facility] Last Admin: 07/21/19 09:12 Dose: 3.125 mg Documented by: Clopidogrel Bisulfate (Plavix) 75 mg PO DAILY [facility] Last Admin: 07/21/19 09:12 Dose: 75 mg Documented by: Guaifenesin (Robitussin) 10 ml PO Q4H PRN PRN PRN Reason: COUGH Heparin Sodium (Beef Lung) (Heparin 500 Unit/5 Ml (100/Ml)) 500 unit IV UD PRN PRN Reason: HEPARIN FLUSH Lisinopril (Zestril) 5 mg PO DAILY [facility] Last Admin: 07/21/19 09:12 Dose: 5 mg Documented by: Magnesium Hydroxide (Milk Of Magnesia) 30 ml PO DAILY PRN PRN PRN Reason: Constipation Melatonin (Melatonin) 3 mg PO QHS PRN PRN PRN Reason: INSOMNIA Last Admin: 07/19/19 21:01 Dose: 3 mg Documented by: Morphine Sulfate () 2 mg IV Q3H PRN PRN PRN Reason: Pain Score 6-10/10 Last Admin: 07/19/19 07:09 Dose: 2 mg Documented by: Nitroglycerin (Nitrostat) 0.4 mg SUBLINGUAL Q5M PRN PRN Reason: CHEST PAIN Ondansetron HCl (Zofran) 4 mg IV Q8H PRN PRN PRN Reason: NAUSEA/VOMITING Last Admin: 07/18/19 23:58 Dose: 4 mg Documented by: Prochlorperazine Edisylate (Compazine Iv) 5 mg IV Q4H PRN PRN PRN Reason: Breakthrough Nausea/Vomiting Senna/Docusate Sodium (Senokot-S, Vanessa-Colace) 2 tablet PO BID [facility] Last Admin: 07/21/19 09:13 Dose: 2 tablet Documented by: Sodium Chloride () 10 - 40 ml IV UD PRN PRN Reason: SALINE FLUSH Last Admin: 07/19/19 04:54 Dose: 20 ml Documented by: Sodium Chloride () 500 ml IV BOLUS PRN PRN Reason: VASO-VAGAL PROTOCOL Throat Lozenges (Cepacol Sore Throat Lozenge) 1 lozenge MUCOUS MEM Q2H PRN PRN PRN Reason: SORE THROAT STROKE Vital Signs/Narrative: Vital Signs Temp Pulse Resp BP Pulse Ox 07/21/19 15:06 71 07/21/19 14:49 98.5 F 70 18 106/63 94 Medical Necessity - Tobacco Use Smoking Status: Current every day smoker Tobacco Use: Cigarettes Assessment/Plan All Active Problems (Last Updated 07/19/19 @ 17:21 by Torie Jean-Baptiste) Dehydration, mild (Acute) STEMI (ST elevation myocardial infarction) (Acute 07/18/19) Patient is a 78-year-old lady who presented with abdominal pain and epigastric discomfort and assessment of acute ST segment elevation [place] was made underwent emergency left heart catheterization with PCI/WILLIAM 1. Acute inferior wall ST segment elevation [place] ?Patient underwent emergency left heart catheterization on 07/18/2019 with PCI/WILLIAM of a 70% proximal RCA and mid RCA lesions ?07/20/2019; patient currently on recommended medications -07/21/2019 patient denies any chest pain 2. Tobacco dependence - counseled on cessation, offered nicotine patch for tobacco cravings 3. Dehydration ?Managed with IV fluids 4. History of cervical CA Patient has remained in remission following STEWART/BSO 5. Physical deconditioning ?Requested for PT OT eval and social staff worker to assist with discharge planning -07/21/2019; patient was offered option of going to fpc facility declined 6. Suspected COPD with significant hypoxia ?Patient remains on oxygen 3 L. Patient was assessed and deemed to qualify for home oxygen however she will have to pay out of pocket patient declined necessitating patient being kept in the hospital Inpatient E&M: 15533 Subs Hosp L2
[2019-07-21] MEDS: MELATONIN 3 MG TABLET PO (21:26)
[2019-07-21] MEDS: Atorvastatin Calcium 40 MG Tablet PO (21:27)
[2019-07-22] VITALS (7 sets, daily range): BP systolic 114–115; BP diastolic 44–69; PULSE 62–76; RESP 16; TEMP 36.9–37.1; O2SAT 92–97
--- NOTE | 2019-07-22 08:06 | PCM.PN.HOSP ---
Patient Problems: Active and Suspected Problems (Last Updated 07/19/19 @ 17:21 by Torie Jean-Baptiste) COPD (chronic obstructive pulmonary disease) (Suspected) Dehydration, mild (Acute) STEMI (ST elevation myocardial infarction) (Acute 07/18/19) 07/18/2019 Objective: GENERAL: cooperative HEENT: Atraumatic; EYES; Anicteric, Normal Conjunctiva NECK; supple, normal thyroid, RESPIRATORY: Diminished to auscultation CARDIOVASCULAR: Regular S1 S2, GI: soft, normoactive bowel sounds, : No Renal angle tenderness; EXTREMITIES: No edema, no clubbing, MUSCULOSKELETAL: no muscle waisting NEURO: Awake; no lateralizing signs. SKIN: No Rash PSYCH; Flat affect Vitals/I&O's: Vital Signs Temp Pulse Resp BP Pulse Ox 98.4 F 72 16 114/69 97 07/22/19 02:45 07/22/19 03:13 07/22/19 02:45 07/22/19 02:45 07/22/19 02:45 Oxygen Flow Rate (L/min) [ 4 AMBULATION with Oxygen] Oxygen Flow Rate (L/min) [ 0 AMBULATING on Room Air] Oxygen Flow Rate (L/min) [At 0 REST on Room Air] Oxygen Flow Rate (L/min) 2 Oxygen Delivery Method Nasal Cannula Weight: 51.6 kg Body Mass Index (BMI) 21.2 Intake and Output for Last 24 Hours 07/20/19 07/21/19 07/22/19 23:59 23:59 23:59 Intake Total 820 / 820 710 / 710 50 / 50 Output Total 550 / 550 Balance 270 / 270 710 / 710 50 / 50 Current Medications Acetaminophen (Tylenol) 650 mg PO Q6H PRN PRN PRN Reason: Pain Score 1-10/Temp > 100.7 F Albuterol Sulfate (Ventolin Aerosols) 2.5 mg INHALATION Q2H PRN PRN PRN Reason: SOB/Wheezing Aspirin (Aspirin, Baby) 81 mg PO DAILY[facility] Last Admin: 07/21/19 09:12 Dose: 81 mg Documented by: Atorvastatin Calcium (Lipitor) 40 mg PO QHS [facility] Last Admin: 07/21/19 21:27 Dose: 40 mg Documented by: Atropine Sulfate () 0.5 mg IV UD PRN PRN Reason: HR <50 bpm Carvedilol (Coreg) 3.125 mg PO BID [facility] Last Admin: 07/21/19 21:26 Dose: 3.125 mg Documented by: Clopidogrel Bisulfate (Plavix) 75 mg PO DAILY [facility] Last Admin: 07/21/19 09:12 Dose: 75 mg Documented by: Guaifenesin (Robitussin) 10 ml PO Q4H PRN PRN PRN Reason: COUGH Heparin Sodium (Beef Lung) (Heparin 500 Unit/5 Ml (100/Ml)) 500 unit IV UD PRN PRN Reason: HEPARIN FLUSH Lisinopril (Zestril) 5 mg PO DAILY [facility] Last Admin: 07/21/19 09:12 Dose: 5 mg Documented by: Magnesium Hydroxide (Milk Of Magnesia) 30 ml PO DAILY PRN PRN PRN Reason: Constipation Melatonin (Melatonin) 3 mg PO QHS PRN PRN PRN Reason: INSOMNIA Last Admin: 07/21/19 21:26 Dose: 3 mg Documented by: Morphine Sulfate () 2 mg IV Q3H PRN PRN PRN Reason: Pain Score 6-10/10 Last Admin: 07/19/19 07:09 Dose: 2 mg Documented by: Nitroglycerin (Nitrostat) 0.4 mg SUBLINGUAL Q5M PRN PRN Reason: CHEST PAIN Ondansetron HCl (Zofran) 4 mg IV Q8H PRN PRN PRN Reason: NAUSEA/VOMITING Last Admin: 07/18/19 23:58 Dose: 4 mg Documented by: Prochlorperazine Edisylate (Compazine Iv) 5 mg IV Q4H PRN PRN PRN Reason: Breakthrough Nausea/Vomiting Senna/Docusate Sodium (Senokot-S, Vanessa-Colace) 2 tablet PO BID [facility] Last Admin: 07/21/19 21:27 Dose: 2 tablet Documented by: Sodium Chloride () 10 - 40 ml IV UD PRN PRN Reason: SALINE FLUSH Last Admin: 07/19/19 04:54 Dose: 20 ml Documented by: Sodium Chloride () 500 ml IV BOLUS PRN PRN Reason: VASO-VAGAL PROTOCOL Throat Lozenges (Cepacol Sore Throat Lozenge) 1 lozenge MUCOUS MEM Q2H PRN PRN PRN Reason: SORE THROAT Medical Necessity - Tobacco Use Smoking Status: Current every day smoker Tobacco Use: Cigarettes Assessment/Plan All Active Problems (Last Updated 07/19/19 @ 17:21 by Torie Jean-Baptiste) Dehydration, mild (Acute) STEMI (ST elevation myocardial infarction) (Acute 07/18/19) Patient is a 78-year-old lady who presented with abdominal pain and epigastric discomfort and assessment of acute ST segment elevation [place] was made underwent emergency left heart catheterization with PCI/WILLIAM 1. Acute inferior wall ST segment elevation [place] ?Patient underwent emergency left heart catheterization on 07/18/2019 with PCI/WILLIAM of a 70% proximal RCA and mid RCA lesions ?07/20/2019; patient currently on recommended medications -07/21/2019 patient denies any chest pain 2. Tobacco dependence - counseled on cessation, offered nicotine patch for tobacco cravings 3. Dehydration ?Managed with IV fluids 4. History of cervical CA Patient has remained in remission following STEWART/BSO 5. Physical deconditioning ?Requested for PT OT eval and licensed master social worker to assist with discharge planning -07/21/2019; patient was offered option of going to half-way facility declined 6. Suspected COPD with significant hypoxia ?Patient remains on oxygen 3 L. Patient was assessed and deemed to qualify for home oxygen however she will have to pay out of pocket patient declined necessitating patient being kept in the hospital Inpatient E&M: 23987 Subs Hosp L2
[2019-07-22] MEDS: Clopidogrel Bisulfate 75 MG Tablet PO (09:20)
[2019-07-22] MEDS: Carvedilol 3.125 MG TABLET PO (09:20)
[2019-07-22] MEDS: Aspirin 81 MG TAB.CHEW PO (09:21)
[2019-07-22] MEDS: Lisinopril 5 MG Tablet PO (09:21)
--- NOTE | 2019-07-22 10:17 | CASEMGMT ---
Addendum entered by Jerald Ashford 07/22/19 11:07: Script and documentation faxed to [facility] for home O2 with portability. Aware pt will be self pay. Original Note: RN ROSENDO Note: Intro role of CM to patient. Pt is returning home today. Is still agreeable to self- pay oxygen through [employer] (cost ~$161). Call to chester @ [facility] to notify referral is being sent. Script sent to ER for Dr. Dominguez to sign. - Discussed HHC and pt is still declining. Call to Jessica @ [facility] to update pt does not wish for HHC. Sammy STONEN RN ACM
--- NOTE | 2019-07-24 16:09 | CM.UR ---
RN Discharge F/U Phone Call LACE: 12 Strata: 3 Discharge date: 07/21/2019 Call date: 07/24/2019 Call time: 15:55 Admission dx: STEMI States she felt better when she was in the hospital. States she is fatigued. States her daughter is not letting her do anything except go to bathroom. States that her son is going back to work soon and she will be home alone at times. Discussed home care. States they did call however she didn't get to phone and has not called them back yet. Instructed on calling them back and how they could assess her and make recommendations. Denies sob. Denies Chest pain Denies questions about dc instructions and meds. I reinforced to make f/u appt with Dr. Valente. States she doesn't know how she is going to get there. Gave her the phone number for the van service. Explained I'm not sure if they cut down services d/t covid-19 but she should call on Friday to see. Denied any suggestions for [facility] to improve. Chris Horton RN, CCM.
== END 2019-07-22 15:05 | disposition home or self-care (01) | DRG 247 ==
LOC: ED 15:58 → ICU 17:02 → PCU 07-21 06:57
PROVIDERS: Internal Medicine Cardiovascular Disease; Admitting Provider Internal Medicine; Emergency Provider Emergency Medicine; Visit Provider Internal Medicine
DX: I21.19 ST elevation (STEMI) myocardial infarction involving other coronary artery of inferior wall (principal); I25.10 Atherosclerotic heart disease of native coronary artery without angina pectoris; R09.02 Hypoxemia; J44.9 Chronic obstructive pulmonary disease, unspecified; E86.0 Dehydration; E78.5 Hyperlipidemia, unspecified; R73.9 Hyperglycemia, unspecified; F17.210 Nicotine dependence, cigarettes, uncomplicated; Z79.02 Long term (current) use of antithrombotics/antiplatelets; Z79.82 Long term (current) use of aspirin; Z79.899 Other long term (current) drug therapy; Z85.41 Personal history of malignant neoplasm of cervix uteri
CPT/HCPCS: 71045; 80048; 80053; 80061; 83690; 83735; 84484; 85025; 85347; 85610; 85730; 87641; 87804; 87807; 92941; 93005; 93306; 93458; 97110; 97116; 97162; 97166; 97530; 97535; 97802; 99152; 99153; 99251; 99285; 99406; C1887; J7030; Q9957; A4216; C1725; C1769; C1874; C1894; C9606; G0463; J2405; Q9967

== ENCOUNTER → 2019-08-30 | Outpatient (CLI) | payer SELFPAY ==
[2019-08-13 13:40] VITALS: BMI 21.2
[2019-08-30 13:22] LABS: AST(SGOT) 21 U/L (15-37); Alanine Aminotransfer ALT/SGPT 21 U/L (13-56); Albumin, Serum 3.6 g/dL (3.2-5.0); Alkaline Phosphatase 95 U/L (45-117); Bilirubin, Direct 0.11 mg/dL (0.00-0.30); Cholesterol 187 mg/dL (200); Globulin 3.6 g/dL (2.2-4.2); High Density Lipoprotein 59 mg/dL; Protein, Total 7.2 g/dL (6.4-8.2); Triglycerides 286 mg/dL; Very Low Density Lipoprotein 57 mg/dL (5-40)
== END | disposition home or self-care (01) ==
LOC: LAB 12:46
PROVIDERS: PCP Internal Medicine; Referring Provider Physician Assistant Medical; Visit Provider Physician Assistant Medical
DX: E78.5 Hyperlipidemia, unspecified (principal); I25.10 Atherosclerotic heart disease of native coronary artery without angina pectoris
CPT/HCPCS: 36415; 80061; 80076

== ENCOUNTER 2019-11-20 09:28 | Emergency (ER) | payer MEDICARE, SELFPAY ==
[2019-10-07 18:42] VITALS: BMI 21.2
[2019-11-20 09:30] VITALS: BP 161/76; PULSE 86; RESP 17; TEMP 36.8; O2SAT 95; BMI 24.3
--- NOTE | 2019-11-20 09:39 | ED.DCSUM_ITS ---
History of Present Illness Chief Complaint: Fall Informant: Patient Onset: Today Current Severity: Mild Maximum Severity: Moderate Narrative: Patient presents with fall and right wrist pain. She states she was going out onto the porch to sit and fell. She did not strike her head. She is complaining of pain to her right wrist. She is right-hand dominant. - Past Medical History (1) Myocardial infarction Status: Resolved (2) Atherosclerosis of [place] coronary artery of [place] heart without angina pectoris Status: Chronic Comment: PTCA/WILLIAM of occluded mid RCA using Synergy 3.0 X 16 and WILLIAM proximal RCA using Synergy 3.0 X 12 on 07/18/[address] Marcelo Canchola; (3) History of cervical cancer Status: Chronic (4) Status post STEWART-BSO Status: Chronic (5) COPD (chronic obstructive pulmonary disease) Status: Suspected Past Medical History - Allergies and Home Meds Allergies/Adverse Reactions: Allergies No Known Allergies Allergy (Verified 11/20/19 09:29) Primary Care Physician: Constanza Streeter MD [Primary Care Provider] - Prior records reviewed: Yes Surgical History: hysterectomy Smoking Status: Never smoker - Family History Offspring Family History: Family History (Last Updated 08/13/19 @ 13:38 by Jaylin Sánchez) Sister No problems noted. Son hole in his heart Grandmother Cancer Father Cancer Grandfather Cancer Family History: Reports: - - has a son with a hole in his heart Review of Systems General: Denies: Chills, Fever Eyes: Denies: Visual changes - bilaterally ENT: Denies: Bilateral ear pain Cardiovascular: Denies: Chest pain Respiratory: Denies: Dyspnea, Cough Gastrointestinal: Denies: Abdominal pain, Vomiting Musculoskeletal: Reports: Swelling, Extremity Pain. Denies: Neck pain, Back pain Skin: Denies: Rash Neurological: Denies: Headache, Parasthesia Hematologic: Denies: Easy bruising, Easy bleeding Allergy: Denies: Uticaria Physical Exam Vital Signs/Narrative: Vital Signs Temp Pulse Resp BP Pulse Ox 11/20/19 09:30 98.3 F 86 17 161/76 H 95 Inital Vital Signs reviewed: Yes General: Well nourished, Well developed Head: Normocephalic ENT: Moist mucous membranes Neck: Supple Cardiovascular: Regular rate, Regular rhythm Respiratory: No distress, CTA bilaterally Abdomen: Soft, Nontender Extremities: - - Focal tenderness to the right wrist with mild edema noted. She is able to wiggle fingers and has good sensation distally. No tenderness of the elbow or shoulder. No tenderness noted to the left upper extremity or to the lower extremities. Skin: - - Edema with early ecchymosis noted to the right wrist. Neurological: Alert, Oriented x3 Psychological: Normal affect Diagnostic/Tx/Re-eval Impressions Wrist X-Ray 11/20/19 09:55 IMPRESSION: 1. Fracture of the distal radius. 2. Diffuse demineralization of the osseous structures. 3. Degenerative arthrosis. Electronically Signed: Petar Gomez MD at 10:15 EDT Tel , Service support , 11/20/19 09:55 Wrist min 3 Views [RAD] Stat - Medical Decision Making Patient was initially given Tylenol followed by dose of oxycodone for pain. Right wrist x-rays are reviewed with the patient. I am measuring angulation at about 17 degrees. She is placed in an AP Ortho-Glass splint and will follow up with orthopedics. Following splint application she has good cap refill distally and can wiggle fingers. Prescription for Warwick will be sent to [facility] for her. Procedures - Upper Extremity Splints Upper Extremity Splint: Orthoglass Splint Fabrication: Fabricated Location: Right ED Disposition - Plan for ED Patient: Disposition: Home or Assisted Living Diagnosis: Right wrist fracture Instructions: ED Mechanical Fall, ED WRIST FRACTURE General Prescriptions: Hydrocodone Bitart/Apap 5-325 [Warwick 5MG-325MG] 1 tablet PO Q6H PRN PRN 3 Days #10 tablet PRN Reason: Pain Transmission Status: Sent to [facility] Referrals: Klaus Lizarraga MD [STAFF PHYSICIAN] - 3-5 Days
[2019-11-20] MEDS: Acetaminophen 325 MG Tablet 650 MG PO (09:51)
--- NOTE | 2019-11-20 09:55 | RAD_ITS ---
STUDY: X-RAY - RIGHT WRIST REASON FOR EXAM: Female, 79 years old. Fall, right wrist pain TECHNIQUE: Three view(s) of the wrist were obtained. COMPARISON: None. FINDINGS: There is diffuse demineralization of the osseous structures. There is an impacted displaced fracture of the distal radius. There is probable fracture of the ulnar styloid. Normal distal radioulnar articulation. There is demineralization of the carpal bones. Normal carpal articulations. There is degenerative arthrosis of the carpometacarpal articulation of the thumb. There is degenerative arthrosis with of the second through fifth carpometacarpal. Normal visualized metacarpal bones. The soft tissue structures are unremarkable. RAD/Wrist min 3 Views IMPRESSION: 1. Fracture of the distal radius. 2. Diffuse demineralization of the osseous structures. 3. Degenerative arthrosis. Electronically Signed: Petar Gomez MD at 10:15 EDT Tel , Service support ,
[2019-11-20] MEDS: oxyCODONE 5 MG Tablet PO (10:51)
[2019-11-20 11:19] VITALS: BP 159/84; PULSE 85; RESP 16; O2SAT 94
--- NOTE | 2019-11-20 11:19 | ED.RN ---
DISCHARGE INSTRUCTIONS GIVEN TO AND REVIEWED WITH PATIENT, PATIENT DENIES QUESTIONS OR CONCERNS AND VOICES UNDERSTANDING OF DISCHARGE INSTRUCTIONS. PT TO PRIVATE VEHICLE VIA WHEELCHAIR.
== END 2019-11-20 11:20 | disposition home or self-care (01) ==
PROVIDERS: Emergency Provider Emergency Medicine; PCP Internal Medicine
DX: S52.501A Unspecified fracture of the lower end of right radius, initial encounter for closed fracture (principal); I25.2 Old myocardial infarction; I25.10 Atherosclerotic heart disease of native coronary artery without angina pectoris; J44.9 Chronic obstructive pulmonary disease, unspecified; W18.30XA Fall on same level, unspecified, initial encounter; Y93.01 Activity, walking, marching and hiking; Y92.008 Other place in unspecified non-institutional (private) residence as the place of occurrence of the external cause; Y99.8 Other external cause status
CPT/HCPCS: 29125; 73110; 99285

== ENCOUNTER 2019-12-16 12:41 | Emergency (ER) | payer SELFPAY ==
[2019-12-16 12:43] VITALS: BP 147/77; PULSE 78; RESP 24; TEMP 36.7; O2SAT 95; BMI 23.2
[2019-12-16 12:48] VITALS: BP 162/86
[2019-12-16 13:03] VITALS: BP 140/64; PULSE 75; RESP 17; O2SAT 94
--- NOTE | 2019-12-16 13:03 | EKG12_ITS ---
Test Reason : Blood Pressure : / mmHG Vent. Rate : 073 BPM Atrial Rate : 073 BPM P-R Int : 130 ms QRS Dur : 080 ms QT Int : 412 ms P-R-T Axes : 067 026 044 degrees QTc Int : 453 ms Normal sinus rhythm Normal ECG Confirmed by OLGA MARTINEZ, FRANCISCO ([id number]), manuscript editor NOA MUNGUIA ([id number]) on 12/24/2019 11:12:37 A M Referred By: KAJAL Confirmed By:JANNA ESPINOZA MD
--- NOTE | 2019-12-16 13:03 | RAD_ITS ---
STUDY: X-RAY CHEST REASON FOR EXAM: Female, 79 years old. DIZZINESS, LIGHTHEADED EPISODE. TECHNIQUE: Frontal and lateral views of the chest. COMPARISON: None. FINDINGS: The lungs are clear and expanded. There is no demonstrated pleural abnormality. Normal size heart. Normal mediastinum and manfred. Normal visualized pulmonary arteries. Normal visualized aortic arch and descending thoracic aorta. There are diffuse degenerative changes of the visualized thoracic spine. Normal visualized ribs, clavicles, and shoulders. There is no demonstrated abnormality of the visualized soft tissue structures of the upper abdomen. RAD/Chest PA and Lateral IMPRESSION: Degenerative changes, as described above. No demonstrated acute cardiopulmonary process. Electronically Signed: Radu Braden, at 14:14 EDT Tel , Service support ,
[2019-12-16 13:13] LABS: Absolute Lymphocyte Count 1.84 X10^3/uL (0.83-4.51); Basophil# 0.05 X10^3/uL; Basophil% 0.7 % (0-1); Eosinophils% 4.3 % (0-5); Hematocrit 41.8 % (37-47); Hemoglobin 13.3 g/dL (12.0-15.0); Lymphocyte # 1.84 X10^3/ul (4.0); Lymphocyte % 26.2 % (19-41); Mean Corp Hgb Conc 31.8 g/dL (32-36); Mean Corpuscular Hgb 29.8 pg (27.0-32.0); Mean Corpuscular Volume 93.7 fL (81-99); Mean Platelet Vol. 10.5 fl (6.2-12.0); Monocyte# 0.75 X10^3/uL; Monocyte% 10.7 % (0-10); NRBC Flagged by Analyzer 0 % (0-5); Neutrophil # 4.04 X10^3/uL (2.7-7.7); Neutrophil % 57.7 % (47-70); Platelet Count 227 K/mm3 (150-450); RBC Distribution Width CV 12.3 % (11.6-14.6); RBC Distribution Width SD 42.3 fl (35.1-43.9); Red Blood Count 4.46 M/mm3 (4.2-5.4)
[2019-12-16 13:20] LABS: Prothrombin Time (Protime)PT. 12.9 SECONDS (11.7-14.9)
[2019-12-16 13:21] LABS: Partial Thromboplast Time 26.8 Seconds (24.1-36.2)
[2019-12-16 13:22] LABS: Anion Gap 3 (5-15); BUN 21 mg/dL (7-18); BUN/Creat Ratio 25.5 RATIO (10-20); Calcium,Total 9.1 mg/dL (8.5-10.1); Chloride 109 mmol/L (98-107); Creatinine, Serum 0.82 mg/dL (0.55-1.02); EST Glomerular Filtration Rate 71 mL/min (>60); Est Glom Filt Rate - Afr Amer 86 mL/min (>60); Estimated Creatinine Clearance 43.28 ml/min; Glucose 86 mg/dL (74-106); Potassium 4.3 mmol/L (3.5-5.1); Sodium Level 141 mmol/L (136-145)
[2019-12-16 14:23] VITALS: BP 165/74; PULSE 72; RESP 15; O2SAT 93
[2019-12-16 14:34] VITALS: BP 130/76; BP 134/83; BP 136/76; PULSE 72; PULSE 76; PULSE 85
[2019-12-16 14:38] LABS: Bacteria 0 SEEN /hpf (None Seen); Mucous, Urine 0 SEEN /hpf (<or=2+); Red Blood Cells-Urine 0 SEEN /hpf (0-5)
[2019-12-16 14:39] LABS: Color, Urine Yellow (Yellow); Glucose, Dipstick Normal (Normal); Ketone-Dipstick Negative (Negative); Leukocyte Esterase-Dipstick 100 /ul (Negative); Nitrite-Dipstick Negative (Negative); Occult Blood-Urine 10 /ul (Negative); Protein-Dipstick Negative (Negative); Specific Gravity, Urine 1.005 (1.002-1.030); Urine Bilirubin Dipstick Negative (Negative); Urine Clarity Clear (Clear); Urine Urobilinogen Normal (Normal)
--- NOTE | 2019-12-16 14:45 | NURSING ---
Patient was pretty steady until the walk back. Patient stumbled. When asked if she was okay Patient stated that she was dizzy again. Patient walked the rest of the way without stumbling again. Patient did not use any assistance.
[2019-12-16 14:47] LABS: Squamous Epithelial Cells - UA 0-5 SEEN /hpf (5-10)
[2019-12-16 14:48] LABS: White Blood Cells 0-5 SEEN /hpf (0-5)
--- NOTE | 2019-12-16 15:11 | ED.VISSUMM ---
- ER Visit Summary Date of Service: 12/16/19 Chief Complaint: Lightheadedness History of Present Illness: The patient is a 79 F presenting with lightheadedness. Patient states that she started to feel dizzy and lightheaded today. She denies vertigo. Denies syncope. Denies chest pain or shortness of breath. She states she has had these symptoms in the past but today it lasted longer than usual. She now feels back to baseline. She denies fever or cough. Denies abdominal pain. Denies other complaints. She broke her right wrist 4 weeks ago and has not followed up with orthopedics. Physical Examination: Vitals are stable. Patient is afebrile. Alert no acute distress. HEENT exam is unremarkable. Neck is supple. Lungs are clear and equal bilaterally. Heart is regular rate and rhythm. Abdomen is soft nontender nondistended. Extremities right upper extremity Ortho-Glass splint. Skin is warm and dry. No focal neurologic deficit. Remainder of exam is unremarkable. Emergency Department Course and Treatment: EKG is sinus rhythm rate of 73 with no acute ischemic changes. Chest x-ray shows no acute process. CBC, chemistries are unremarkable. Urinalysis unremarkable. Troponin is negative. Orthostatics negative. Patient was able to ambulate in the ED without difficulty. She is requesting to go home. She will follow-up with her primary care physician and orthopedics. Family is at bedside and agreeable with plan. She is advised to return to the ED for worsening complaints. Disposition: Discharge home Impression: Lightheadedness-resolved This note was generated with [employer] dictation software. It may contain incorrect words, spelling, and punctuation that were not noted in review of the chart prior to signing ED Disposition - Plan for ED Patient: Referrals: Constanza Streeter MD [Primary Care Provider] -
--- NOTE | 2019-12-16 15:16 | ED.DEP ---
ED Disposition - Plan for ED Patient: Instructions: ED Dizziness UKO Referrals: Constanza Streeter MD [Primary Care Provider] -
[2019-12-16 15:38] VITALS: BP 136/76; PULSE 72; RESP 16; O2SAT 94
== END 2019-12-16 15:39 | disposition home or self-care (01) ==
LOC: ED 13:57
PROVIDERS: Emergency Provider Emergency Medicine; PCP Internal Medicine
DX: R42 Dizziness and giddiness (principal); I25.2 Old myocardial infarction; J44.9 Chronic obstructive pulmonary disease, unspecified; Z87.891 Personal history of nicotine dependence; Z79.899 Other long term (current) drug therapy; Z79.82 Long term (current) use of aspirin
CPT/HCPCS: 71046; 80048; 81001; 84484; 85025; 85610; 85730; 93005; 99285; A4216

== ENCOUNTER 2020-03-07 13:44 | Emergency (ER) | payer SELFPAY ==
[2020-03-07 13:45] VITALS: BP 191/115; PULSE 109; RESP 16; TEMP 36.9; O2SAT 97; BMI 25.7
--- NOTE | 2020-03-07 14:08 | ED.VISSUMM ---
- ER Visit Summary Date of Service: 03/07/20 Chief Complaint: Fall History of Present Illness: The patient is a 79 F who presents after a fall that occurred today. Patient tripped over her oxygen tubing and fell forward. Patient complains of pain in her back. Patient states it is worse with any movement. Patient describes the pain is aching and sharp at times. Patient denies any radiation of the pain. Patient denies any bowel or bladder changes. Patient denies any saddle anesthesia. Patient denies any radiation of the pain into her abdomen. Patient denies any paresthesias or weakness. Physical Examination: Vital signs are stable. Patient is afebrile. Patient is in no acute distress. Heart was regular rate and rhythm. Lungs are clear and equal bilaterally. Abdomen is soft. Bowel sounds are normal. There is no tenderness. Musculoskeletal exam reveals tenderness over the lower lumbar spine and paraspinal muscles. There is no bony crepitance or step-off. Range of motion was limited in all motions of the lumbar spine secondary to pain. Strength is 5/5 bilateral in the lower extremities. There are no sensory deficits noted. Test Results: X-rays of the lumbar spine were obtained. There is minimal loss of height of the superior endplate of the L1 vertebrae. There are other degenerative changes noted. This was interpreted by the radiologist and reviewed by myself. Emergency Department Course and Treatment: Patient was given a dose of oxycodone here. Patient was attempted to ambulate with a walker. Patient did not want to walk with a walker here in the emergency department. warehouse worker 2nd shift was in to talk to the patient. She states that the patient and is able to ambulate from the emergency department cot to a chair and then to her bed when she gets home. Patient does still want to go home. Patient was given a prescription for Percocet. Patient was instructed to go home and rest. Patient was instructed to follow-up with her primary care physician in 3 to 5 days. Patient understood and was agreeable with the plan. All questions were answered. Disposition: Discharge home Impression: 1. Compression fracture L1 vertebrae with minimal loss of height This note was generated with [employer] software. It may contain incorrect words, spelling, and punctuation that were not noted in review of the chart prior to signing ED Disposition - Plan for ED Patient: Disposition: Home or Assisted Living Diagnosis: Compression fracture of L1 lumbar vertebra Instructions: ED Fx Comp Vertebral, ED Mechanical Fall Prescriptions: Oxycodone HCl/Acetaminophen [Percocet 5/325] 1 tab PO Q6H PRN PRN 3 Days #12 tab PRN Reason: Pain Prescription Printed Referrals: Constanza Streeter MD [Primary Care Provider] - 3-5 Days
[2020-03-07] MEDS: oxyCODONE 5 MG Tablet PO (14:24)
--- NOTE | 2020-03-07 14:25 | RAD_ITS ---
STUDY: X-RAY - LUMBAR SPINE REASON FOR EXAM: Female, 79 years old. FALL. LOWER BACK PAIN TECHNIQUE: 3 view(s) of the lumbar spine were obtained. COMPARISON: None FINDINGS: Normal lumbar lordosis. There is no substantial scoliosis. There is a normal alignment of the vertebrae. There is multilevel endplate spondylosis of the lumbar vertebrae. There is multi-level degenerative disc disease with multi-level disc space narrowing. Minimal loss of height of the superior endplate of the L1 vertebrae. Facet joint osteoarthritis. There is atherosclerotic calcification of the abdominal aorta without a demonstrated aneurysm. RAD/Lumbar Spine 2 or 3 Views IMPRESSION: Degenerative changes of the spine, as detailed above. Minimal loss of height of the superior endplate of the L1 vertebrae. Electronically Signed: Uday Mills, at 15:04 EST , Service support ,
--- NOTE | 2020-03-07 16:58 | CM.ED ---
Social Work Consult: Discharge Planning Informant: Dr. Smith Met with patient in room. Introduced self and psych social worker role. Patient agreeable to speak with this psych social worker. Patient states plan to return to home. Patient states to have help. Patient states to live with two sons. Patient states to live on the second floor. Patient voices to be painful and to be unsure of patient ability to ambulate currently BUT my sons will take care of me. Patient declines home health service or referral to [facility]. Patient is open to having walker set up. Patient has home O2 through [employer] and is agreeable to having walker set up through [employer] as well. Patient aware of private pay cost as patient only has Medicare part A and is agreeable to being billed for walker. Script for walker obtained from Dr. Smith and faxed to [employer]. Walker to be sent home with patient. Patient denies having a HCPOA and states I am working on the papers. Patient denies wanting to complete advanced directive with this psych social worker currently. Patient states to have 24/7 help in the home. Patient reports that patient son is able to provide transportation to home for patient. Patient requesting for this psych social worker to call patient sonPapito to have Papito come and potato picker patient (Papito: [phone]). Patient with no further concerns/questions. Patient reports to feel safe at home. Telephone call to Papito Cobos to come and potato picker patient. Papito with no concerns for patient returning to home. Patient with appropriate affect throughout assessment. Patient presents as well taken care of. Medical team updated on above. PLAN: Discharge to home with family. Phillip HAMM, NANCY
[2020-03-07 17:35] VITALS: BP 166/99; PULSE 101; RESP 20; O2SAT 99
== END 2020-03-07 17:36 | disposition home or self-care (01) ==
PROVIDERS: Emergency Provider Emergency Medicine; PCP Internal Medicine
DX: S32.019A Unspecified fracture of first lumbar vertebra, initial encounter for closed fracture (principal); Z87.891 Personal history of nicotine dependence; W18.09XA Striking against other object with subsequent fall, initial encounter; Y93.89 Activity, other specified; Y92.009 Unspecified place in unspecified non-institutional (private) residence as the place of occurrence of the external cause; Y99.8 Other external cause status
CPT/HCPCS: 72100; 99284

== ENCOUNTER 2020-03-10 13:20 | Inpatient (IN) | payer MEDICARE, SELFPAY ==
[2020-03-10] VITALS (7 sets, daily range): BP systolic 125–166; BP diastolic 72–88; PULSE 106–120; RESP 16–20; TEMP 36.4–37.7; O2SAT 97–99; BMI 24.7; BMI 24.8; BMI 24.3
--- NOTE | 2020-03-10 13:44 | ED.DCSUM_ITS ---
History of Present Illness Informant: Patient Onset: Days Narrative: 79-year-old female with PMH COPD on 3L presents with acute on chronic back pain after a fall that occurred several days ago. She was seen here and had an x-ray showing an L1 compression fracture. She was discharged with a walker and Percocet. She is still having aching, sharp pains in her back that is worse with movement. No radicular symptoms. No weakness, numbness, or tingling. No bladder or bowel changes. No saddle anesthesia. No new falls or injuries. Patient states the Percocet is not helping. She states 2 of her sons live with her and have been helping to take care of her. Over the last several days she a lso has increased cough and shortness of breath. Denies fevers, chills, nausea, vomiting, or chest pain. <Ling Servin - Last Filed: 03/10/20 17:54> <Vinny Tidwell - Last Filed: 03/10/20 19:34> Chief Complaint: Back Past Medical History Prior records reviewed: Yes Past Medical History: - - [place], COPD Surgical History: hysterectomy Lives: With Family Smoking Status: Never smoker - Family History Offspring Family History: Family History (Last Updated 08/13/19 @ 13:38 by Jaylin Sánchez) Sister No problems noted. Son hole in his heart Grandmother Cancer Father Cancer Grandfather Cancer Family History: Reports: - - has a son with a hole in his heart <Ling Servin - Last Filed: 03/10/20 17:54> - Family History Offspring Family History: Family History (Last Updated 08/13/19 @ 13:38 by Jaylin Sánchez) Sister No problems noted. Son hole in his heart Grandmother Cancer Father Cancer Grandfather Cancer <Vinny Tidwell - Last Filed: 03/10/20 19:34> - Allergies and Home Meds Allergies/Adverse Reactions: Allergies No Known Allergies Allergy (Verified 03/07/20 13:48) Primary Care Physician: Carrie Oreilly MD [STAFF PHYSICIAN] - Review of Systems General: Denies: Chills, Fever, Sweats Eyes: Denies: Visual changes - bilaterally, Diplopia ENT: Denies: Rhinorrhea, Sore throat Cardiovascular: Denies: Chest pain, Palpitations Respiratory: Reports: Dyspnea, Cough, Sputum, Dyspnea on exertion. Denies: Orthopnea, Paroxysmal nocturnal dyspnea Gastrointestinal: Denies: Abdominal pain, Nausea, Vomiting, Diarrhea, Melena, Hematochezia Musculoskeletal: Reports: Back pain. Denies: Swelling, Extremity Pain Neurological: Reports: Headache. Denies: Weakness, Parasthesia, Numbness <Ling Servin - Last Filed: 03/10/20 17:54> Physical Exam Vital Signs/Narrative: Vital Signs Temp Pulse Resp BP Pulse Ox 03/10/20 13:21 100 F H 120 H 19 H 162/81 H 97 General: Well nourished, Well developed Head: Normocephalic, Atraumatic Eyes: EOMI ENT: Dry mucous membranes Neck: Supple, Nontender Cardiovascular: Regular rate, Regular rhythm, No murmurs Respiratory: Wheezing Abdomen: Soft, Nontender, Nondistended, Normal bowel sounds Back: Normal Inspection, - - midline lumbar spinal tenderness, no step off or crepitus. No skin changes. Extremities: No edema Skin: Normal color, No rash Neurological: Alert, Oriented x3, Cranial nerves II-XII grossly intact Psychological: Normal affect, Normal Mood <iLng Servin - Last Filed: 03/10/20 17:54> Vital Signs/Narrative: Vital Signs Temp Pulse Resp BP Pulse Ox 03/10/20 18:52 97.6 F L 115 H 20 H 139/80 H 99 03/10/20 16:36 99.6 F H 110 H 20 H 166/88 H 97 03/10/20 16:35 99.6 F H 110 H 20 H 166/88 H 97 <Vinny Tidwell - Last Filed: 03/10/20 19:34> Diagnostic/Tx/Re-eval Clinical Impression(s) from Imaging Studies Chest X-Ray 03/10/20 13:48 IMPRESSION: Hyperinflation. The lungs are clear. Electronically Signed: Uday Mills, at 15:17 EST , Service support , Abdomen/Pelvis CT 03/10/20 15:36 IMPRESSION: Acute moderate wedge compression fracture of L1 with 5 mm retropulsion into the spinal canal. Electronically Signed: Denis Serra MD at 16:24 EST Tel , Service support , Laboratory Data 03/10/20 03/10/20 03/10/20 14:13 14:25 14:25 WBC 11.6 H RBC 4.31 Hgb 13.0 Hct 40.2 MCV 93.3 MCH 30.2 MCHC 32.3 RDW Std Deviation 41.9 RDW Coeff of Melisa 12.2 Plt Count 173 MPV 10.6 Immature Gran % (Auto) 0.400 Neut % (Auto) 78.3 H Lymph % (Auto) 9.6 L [place] % (Auto) 10.3 H Eos % (Auto) 1.0 Baso % (Auto) 0.4 Absolute Neuts (auto) 9.1 H Absolute Lymphs (auto) 1.11 Nucleated RBC % 0 PT INR APTT Sodium 138 Potassium 3.8 Chloride 103 Carbon Dioxide 31.0 Anion Gap 4 L BUN 21 H Creatinine 0.69 Estim Creat Clear Calc 35.49 Est GFR (MDRD) Af Amer 105 Est GFR (MDRD) Non-Af 87 BUN/Creatinine Ratio 30.3 H Glucose 116 H Lactic Acid Calcium 9.3 Total Bilirubin 1.00 Direct Bilirubin 0.32 H AST 16 ALT 14 Alkaline Phosphatase 81 Troponin I < 0.015 Total Protein 7.9 Albumin 3.5 Globulin 4.4 H Urine Color Urine Clarity Urine pH Ur Specific [place] Urine Protein Urine Glucose (UA) Urine Ketones Urine Occult Blood Urine Nitrite Urine Bilirubin Urine Urobilinogen Ur Leukocyte Esterase Urine RBC Urine WBC Ur Squamous Epith Cells Urine Bacteria Urine Mucus COVID-19 (JOANNE) Negative 03/10/20 03/10/20 03/10/20 14:25 14:25 14:37 WBC RBC Hgb Hct MCV MCH MCHC RDW Std Deviation RDW Coeff of Melisa Plt Count MPV Immature Gran % (Auto) Neut % (Auto) Lymph % (Auto) [place] % (Auto) Eos % (Auto) Baso % (Auto) Absolute Neuts (auto) Absolute Lymphs (auto) Nucleated RBC % PT 13.4 INR 1.1 APTT 29.4 Sodium Potassium Chloride Carbon Dioxide Anion Gap BUN Creatinine Estim Creat Clear Calc Est GFR (MDRD) Af Amer Est GFR (MDRD) Non-Af BUN/Creatinine Ratio Glucose Lactic Acid 1.2 Calcium Total Bilirubin Direct Bilirubin AST ALT Alkaline Phosphatase Troponin I Total Protein Albumin Globulin Urine Color Yellow Urine Clarity Clear Urine pH 6.0 Ur Specific [place] 1.020 Urine Protein 100 H Urine Glucose (UA) Normal Urine Ketones 150 H Urine Occult Blood 250 H Urine Nitrite Negative Urine Bilirubin Negative Urine Urobilinogen Normal Ur Leukocyte Esterase Negative Urine RBC 10-25 SEEN Urine WBC 0 SEEN Ur Squamous Epith Cells 0-5 SEEN Urine Bacteria 0 SEEN Urine Mucus RARE COVID-19 (JOANNE) - Rhythm Strip Rhythm Strip: Sinus Tach Rate: 104 - RBBB Ectopy: PVC(s) - Medical Decision Making Patient presented with complaint of acute on chronic low back pain after sustaining an L1 compression fracture several days ago. During triage she was also found to be tachycardic in the 110s?120s, tachypneic at 22 breaths/minute, 100F, otherwise normal. I rechecked an oral temp and it was 99.2F. She is 94% or above on 3 L baseline oxygen. She does admit to several days of worsening of her chronic cough and dyspnea. Clinically, she appears dehydrated with dry mucous membranes. Cardiac exam is tachycardic with normal rhythm and no murmurs. Lungs had mild diffuse expiratory wheezing. Abdominal exam is benign. Sepsis work-up initiated. Labs show mild leukocytosis, otherwise normal. Normal electrolytes and renal function. EKG nonischemic and troponin negative. CXR shows no infiltrate. COVID-19 negative. UA shows hematuria but no infectious process. Due to complaint of abdominal pain, CT obtained which shows no acute abdominal process. It does show the known L1 compression fracture with 5 mm retropulsion into the spinal canal. This appears worse from her prior x-ray. Case discussed with hospitalist who recommended MRI L-spine because if there is spinal cord involvement she will need transferred to a facility with neurosurgery. MRI pending and will determine disposition. <Ling Servin - Last Filed: 03/10/20 17:54> - Medical Decision Making I performed a history and physical examination of the patient and discussed management plan with the physician assistant project engineer. I reviewed the physician assistant project engineer's note and agree with the documented findings and plan of care. Patient was seen on the 10th and diagnosed with an L1 compression fracture. She returns today post trauma day 3 with continued pain and inability to care for herself. I did have a low-grade temperature infectious work-up was negative. She was complaining some lower abdominal pain on her CT of her abdomen pelvis is most likely due to stool in the right hemicolon. The L1 compression fracture is noted have retropulsion of the fragments on MRI was ordered which demonstrates spinal stenosis but no cord compression. Case was reviewed with Dr. Valente from spine surgery who recommends consulting Dr. Oreilly for kyphoplasty. She is unable to get up out of the bed without multiple assistance and significant pain. Therefore we will admit for pain control. Vinny Tidwell DO, <Vinny Tidwell - Last Filed: 03/10/20 19:34> ED Disposition <Ling Servin - Last Filed: 03/10/20 17:54> <Vinny Tidwell - Last Filed: 03/10/20 19:34> - Plan for ED Patient: Disposition: Acute Care Hospital [facility] Diagnosis: Compression fracture of L1 lumbar vertebra, Intractable back pain Referrals: Carrie Oreilly MD [STAFF PHYSICIAN] -
--- NOTE | 2020-03-10 13:48 | RAD_ITS ---
STUDY: X-RAY CHEST REASON FOR EXAM: Female, 79 years old. BACK PAIN, DYSPNEA TECHNIQUE: Single AP portable view of the chest. COMPARISON: Comparison is made with prior study dated 12/16/2019. FINDINGS: EKG electrodes are seen. Hyperinflation. The lungs are clear. There is no demonstrated pleural abnormality. Normal size heart. Normal mediastinum and manfred. There is prominence of the pulmonary hilar arteries without peripheral pulmonary vascular congestion, suggesting pulmonary hypertension. Normal visualized aortic arch and descending thoracic aorta. There are degenerative changes of the visualized thoracic spine. There is degenerative osteoarthritis of the bilateral shoulders. There is no demonstrated abnormality of the visualized soft tissue structures of the upper abdomen. RAD/Chest 1 View IMPRESSION: Hyperinflation. The lungs are clear. Electronically Signed: Uday Mills, at 15:17 EST , Service support ,
--- NOTE | 2020-03-10 13:48 | EKG12_ITS ---
Test Reason : BACK Blood Pressure : / mmHG Vent. Rate : 104 BPM Atrial Rate : 104 BPM P-R Int : 118 ms QRS Dur : 108 ms QT Int : 370 ms P-R-T Axes : 069 071 026 degrees QTc Int : 486 ms Sinus tachycardia with frequent Premature ventricular complexes Right bundle branch block Abnormal ECG Confirmed by ROBERT MARTINEZ, JAIDA ([id number]), social media editor NOA MUNGUIA ([id number]) on 03/14/2020 8:44:23 AM Referred By: Confirmed By:JAIDA JONES MD
[2020-03-10 14:40] LABS: Absolute Lymphocyte Count 1.11 X10^3/uL (0.83-4.51); Absolute Neutrophil Count 9.1 X10^3/uL (2.0-7.7); Basophil# 0.05 X10^3/uL; Basophil% 0.4 % (0-1); Eosinophil# 0.12 X10^3/uL; Hematocrit 40.2 % (37-47); Lymphocyte # 1.11 X10^3/ul (4.0); Lymphocyte % 9.6 % (19-41); Mean Corp Hgb Conc 32.3 g/dL (32-36); Mean Corpuscular Hgb 30.2 pg (27.0-32.0); Mean Corpuscular Volume 93.3 fL (81-99); Mean Platelet Vol. 10.6 fl (6.2-12.0); Monocyte# 1.19 X10^3/uL; Monocyte% 10.3 % (0-10); NRBC Flagged by Analyzer 0 % (0-5); Neutrophil # 9.05 X10^3/uL (2.7-7.7); Neutrophil % 78.3 % (47-70); Platelet Count 173 K/mm3 (150-450); RBC Distribution Width CV 12.2 % (11.6-14.6); RBC Distribution Width SD 41.9 fl (35.1-43.9); Red Blood Count 4.31 M/mm3 (4.2-5.4); White Blood Count 11.6 K/mm3 (4.4-11.0)
[2020-03-10] MEDS: 0.9% Normal Saline 1,000 ML 1000 ML IV (14:44)
[2020-03-10 14:46] LABS: Bacteria 0 SEEN /hpf (None Seen); White Blood Cells 0 SEEN /hpf (0-5)
[2020-03-10 14:54] LABS: International Normalized Ratio 1.1; Prothrombin Time (Protime)PT. 13.4 SECONDS (11.7-14.9)
[2020-03-10 14:56] LABS: Partial Thromboplast Time 29.4 Seconds (24.1-36.2)
[2020-03-10 15:02] LABS: AST(SGOT) 16 U/L (15-37); Alanine Aminotransfer ALT/SGPT 14 U/L (13-56); Albumin, Serum 3.5 g/dL (3.2-5.0); Alkaline Phosphatase 81 U/L (45-117); Anion Gap 4 (5-15); BUN 21 mg/dL (7-18); BUN/Creat Ratio 30.3 RATIO (10-20); Bilirubin, Direct 0.32 mg/dL (0.00-0.30); Calcium,Total 9.3 mg/dL (8.5-10.1); Chloride 103 mmol/L (98-107); Creatinine, Serum 0.69 mg/dL (0.55-1.02); EST Glomerular Filtration Rate 87 mL/min (>60); Est Glom Filt Rate - Afr Amer 105 mL/min (>60); Estimated Creatinine Clearance 35.49 ml/min; Globulin 4.4 g/dL (2.2-4.2); Glucose 116 mg/dL (74-106); Potassium 3.8 mmol/L (3.5-5.1); Protein, Total 7.9 g/dL (6.4-8.2); Sodium Level 138 mmol/L (136-145)
[2020-03-10 15:02] LABS: Color, Urine Yellow (Yellow); Glucose, Dipstick Normal (Normal); Leukocyte Esterase-Dipstick Negative /ul (Negative); Nitrite-Dipstick Negative (Negative); Occult Blood-Urine 250 /ul (Negative); Protein-Dipstick 100 mg/dl (Negative); Urine Bilirubin Dipstick Negative (Negative); Urine Clarity Clear (Clear); Urine Urobilinogen Normal (Normal)
[2020-03-10] MEDS: oxyCODONE 5 MG Tablet PO (15:07)
[2020-03-10 15:09] LABS: Lactic Acid 1.2 mmol/L (0.4-1.9)
[2020-03-10 15:12] LABS: Probe Check PASS; Specimen Processing Control PASS
[2020-03-10 15:15] LABS: Ketone-Dipstick 150 mg/dl (Negative)
[2020-03-10 15:17] LABS: Mucous, Urine RARE /hpf (<or=2+); Red Blood Cells-Urine 10-25 SEEN /hpf (0-5); Squamous Epithelial Cells - UA 0-5 SEEN /hpf (5-10)
--- NOTE | 2020-03-10 15:36 | CT_ITS ---
STUDY: CT ABDOMEN AND PELVIS WITH CONTRAST REASON FOR EXAM: Female, 79 years old. BACK PAIN. FALL A FEW DAYS AGO RADIATION DOSAGE (If Supplied By Facility): CTDIvol = ( 9.48 ) mGy, DLP = ( 407.93 ) mGycm TECHNIQUE: Transaxial images were obtained from the dome of the diaphragm to the symphysis pubis without oral contrast. IV 100mL Isovue-[id number] was administered. Sagittal and coronal images were reconstructed. Individualized dose optimization techniques were used for this CT. COMPARISON: None. FINDINGS: The visualized lung bases are unremarkable. The visualized portions of the heart are within normal limits. Normal liver. Normal gallbladder and extrahepatic biliary system. Normal spleen. Normal pancreas. Normal bilateral adrenal glands. Normal right kidney. Normal left kidney. Small subcentimeter cysts bilaterally. There is a small hiatal hernia. Normal small intestine. Normal colon. There is non-visualization of the appendix. There is diffuse atherosclerotic calcification of the abdominal aorta, without a demonstrated aneurysm. Normal inferior vena cava. Normal retroperitoneum. Normal urinary bladder. Normal abdominal wall. Acute moderate wedge compression fracture of L1 with 5 mm retropulsion into the spinal canal. CT/Abdomen/Pelvis W IV Cont ONLY IMPRESSION: Acute moderate wedge compression fracture of L1 with 5 mm retropulsion into the spinal canal. Electronically Signed: Denis Serra MD at 16:24 EST Tel , Service support ,
--- NOTE | 2020-03-10 16:49 | MRI_ITS ---
STUDY: MRI LUMBAR SPINE WITHOUT CONTRAST REASON FOR EXAM: Female, 79 years old. COmpression fx,fall, lbp TECHNIQUE: Standardized fat and water weighted pulse sequences were obtained in the sagittal and axial planes. COMPARISON: Lumbar spine x-rays 03/07/2020 FINDINGS: T12-L1: There is wedging of superior endplate of L1 with approximately 50-60% loss of vertebral body height and intramedullary bone marrow edema consistent with acute fracture. There is associated retropulsion of posterior superior endplate creating mild narrowing of the spinal canal without cord compression. Normal lumbar lordosis. There is no substantial scoliosis. Normal conus medullaris that terminates at T12-L1 L1-2: Normal endplates. Normal disc height, desiccation and normal morphology. Normal bilateral facet joints. Normal central canal and bilateral lateral recesses. Normal bilateral intervertebral neural foramina. L2-3: Normal endplates. Normal disc height, desiccation and small left foraminal disc protrusion.. Normal bilateral facet joints. Normal central canal and bilateral lateral recesses. Mild left neuroforaminal stenosis. L3-4: Normal endplates. Normal disc height, desiccation and minimal annular bulge.. Normal bilateral facet joints. Normal central canal and bilateral lateral recesses. Normal bilateral intervertebral neural foramina. L4-5: Normal endplates. Normal disc height, desiccation and mild annular bulge with small left foraminal disc protrusion. Mild facet arthropathy and thickening of ligamenta flava.. Normal central canal and bilateral lateral recesses. Mild narrowing of the right nerve root foramen and moderate left neuroforaminal stenosis. L5-S1: Normal endplates. Normal disc height, desiccation and mild annular bulge. Facet arthropathy and thickening of ligamenta flava.. Mild narrowing of the central canal. Normal bilateral lateral recesses. Moderate bilateral neuroforaminal stenosis. Normal visualized sacral ala. Normal visualized paraspinous soft tissue structures. MRI/Spine Lumbar (Routine) IMPRESSION: Acute compression fracture of superior endplate of L1 with 50-60% percent loss of vertebral body height with retropulsion of posterior superior endplate creating mild spinal stenosis without cord compression. Spinal stenosis at L4-5 and L5-S1 secondary to disc disease and facet arthropathy. Findings as above Electronically Signed: Blair Pedraza MD at 19:01 EST , Service support ,
--- NOTE | 2020-03-10 17:05 | ED.RN ---
spoke with daughter, Miguel on phone for pt update.
[2020-03-10] MEDS: Ondansetron 4 MG/2 ML Vial IV (19:00)
[2020-03-10] MEDS: Morphine 2 MG/ML Syringe IV (19:00)
--- NOTE | 2020-03-10 19:40 | PCM.HP.STD ---
Problem List (1) Myocardial infarction Status: Resolved (2) Compression fracture of L1 lumbar vertebra Status: Acute (3) Intractable back pain Status: Acute (4) Atherosclerosis of [place] coronary artery of [place] heart without angina pectoris Status: Chronic Comment: PTCA/WILLIAM of occluded mid RCA using Synergy 3.0 X 16 and WILLIAM proximal RCA using Synergy 3.0 X 12 on 07/18/[address] Marcelo Canchola; (5) Tobacco dependence Status: Chronic Comment: 2 PPD for at least 60 years (6) History of cervical cancer Status: Chronic (7) Status post STEWART-BSO Status: Chronic (8) COPD (chronic obstructive pulmonary disease) Status: Acute (9) Dehydration, mild Status: Acute (10) STEMI (ST elevation myocardial infarction) Status: Resolved Comment: 07/18/2019 (11) Compression fracture Status: Acute History of Present Illness Date of Admission: 03/10/20 Chief Complaint: back pain The patient is a 79 year old F with a significant history of CAD status post stent; former smoker; and COPD who presents emergency department with 3-day history of excruciating lower back pain. Her back pain started 3 days ago after a fall. She came to emergency department on the same day of the fall. X-ray at that time showed L1 compression fracture. Patient was discharged home on Percocet and asked to use a walker. Because Percocet was not helping her pain she returned back to the hospital. She describes her pain as sharp. Her pain worsens with movement and improves with lying still. Her pain is nonradiating. She denies any bowel or bladder incontinence. Also patient reports increased shortness of breath, dry cough and wheezing. At the emergency department patient was found to have a temperature of 100 Fahrenheit and white count of 11.6. Patient denies abdominal pain to me reportedly she told emergency department doctor that she has abdominal pain. Abdomen and pelvis CT was subsequently subsequently ordered. Abdomen pelvis CT showed L1 compression fracture. Follow-up MRI did not show any cauda equina syndrome or cord compression. Past Medical History Past Medical History (Chronic Problems): Chronic Problems (Last Reviewed 03/10/20 @ 20:[address] Panchito Ulrich MD) Atherosclerosis of [place] coronary artery of [place] heart without angina pectoris (Chronic) PTCA/WILLIAM of occluded mid RCA using Synergy 3.0 X 16 and WILLIAM proximal RCA using Synergy 3.0 X 12 on 07/18/[address] Marcelo Canchola; Tobacco dependence (Chronic) 2 PPD for at least 60 years History of cervical cancer (Chronic) Status post STEWART-BSO (Chronic) Medical History: Medical History (Last Reviewed 03/10/20 @ 20:[address] Panchito Ulrich MD) Atherosclerosis [place] coronary artery of [place] heart without angina pectoris (Chronic) I25.10 PTCA/WILLIAM of occluded mid RCA using Synergy 3.0 X 16 and WILLIAM proximal RCA using Synergy 3.0 X 12 on 07/18/[address] Marcelo Canchola; Tobacco dependence (Chronic) F17.200 2 PPD for at least 60 years COPD (chronic obstructive pulmonary disease) (Acute) J44.9 STEMI (ST elevation myocardial infarction) (Resolved) Onset Date: 07/18/19 I21.3 07/18/2019 Allergies No Known Allergies Allergy (Verified 03/07/20 13:48) Home Medications: Ambulatory Orders Medication Instructions Recorded Aspirin [Aspirin, Baby] 81 mg PO DAILYCM 03/10/20 Atorvastatin Calcium [Lipitor] 40 mg PO QHS 03/10/20 Carvedilol 3.125 mg PO BID 03/10/20 Clopidogrel Bisulfate [Clopidogrel] 75 mg PO DAILY 03/10/20 Lisinopril 5 mg PO DAILY 03/10/20 Oxycodone HCl/Acetaminophen 1 tab PO Q6H PRN 03/10/20 [Oxycodone-Acetaminophen 5-325] Surgical History: Surgical History (Last Reviewed 03/10/20 @ 20:[address] 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 Panchito Ulrich MD) Sister No problems noted. Son hole in his heart Grandmother Cancer Father Cancer Grandfather Cancer History Items: - - has a son with a hole in his heart Review of Systems Constitutional: Denies: Chills, Fever, Weight Change HEENT: Denies: Head Aches, Sinus Congestion, Sinus Drainage Cardiovascular: Denies: Chest Pain, Palpitations Respiratory: Reports: Cough, Shortness of Breath, Wheezing. Denies: Sputum production Gastrointestinal: Denies: Diarrhea, Nausea, Vomiting Genitourinary: Denies: Dysuria Musculoskeletal: Reports: Back Pain. Denies: Joint Pain, Joint Tenderness Skin: Denies: Rash, Wounds Neurological: Denies: Numbness, Tingling, Focal weakness Psychiatric: Denies: Anxiety, Depression, Homicidal Ideations, Suicidal Ideations Hematologic/ Lymphatic: Denies: Easy Bruising, Easy Bleeding VTE Information - Inpt Only VTE Present on Admission: No VTE Mechan Device Prophylaxis: None VTE Pharm Prophylaxis ordered?: Yes Patient Problems: Active and Suspected Problems (Last Reviewed 03/10/20 @ 20:[address] Panchito Ulrich MD) Compression fracture of L1 lumbar vertebra (Acute) Intractable back pain (Acute) Compression fracture (Acute) COPD (chronic obstructive pulmonary disease) (Acute) Dehydration, mild (Acute) - Physical Exam Vitals/I&O's: Vital Signs Temp Pulse Resp BP Pulse Ox 97.6 F L 115 H 20 H 139/80 H 99 03/10/20 19:39 03/10/20 19:39 03/10/20 19:39 03/10/20 19:39 03/10/20 19:39 Oxygen Flow Rate (L/min) 3 Oxygen Delivery Method Nasal Cannula Weight: 61.5 kg Body Mass Index (BMI) 24.7 Intake and Output for Last 24 Hours 03/08/20 03/09/20 03/10/20 23:59 23:59 23:59 Intake Total 1000 / 1000 Balance 1000 / 1000 General: Alert, Oriented x3, Cooperative HEENT: Atraumatic, PERRLA, EOMI, Normocephalic Oral: Dry Mucosa Neck: Supple, No JVD, Negative Carotid Bruits Lungs: Rhonchi, Wheezes Cardiovascular: Normal S1, Normal S2, No murmurs, Tachycardic Abdomen: Bowel Sounds Present, Soft, Non Tender Extremities: No edema, Capillary Refill Less than 3 Seconds Skin: No rashes, No breakdown Musculoskeletal: No Tenderness to Palpation of Joints or Extremities Neurological: Cranial nerves II-XII grossly intact Psych/Mental Status: Normal Affect, Appropriate Laboratory Results 03/10/20 14:13: COVID-19 (JOANNE) Negative 03/10/20 14:25: WBC 11.6 H, RBC 4.31, Hgb 13.0, Hct 40.2, MCV 93.3, MCH 30.2, MCHC 32.3, RDW Std Deviation 41.9, RDW Coeff of [place] 12.2, Plt Count 173, MPV 10.6, Immature Gran % (Auto) 0.400, Neut % (Auto) 78.3 H, Lymph % (Auto) 9.6 L, [place] % (Auto) 10.3 H, Eos % (Auto) 1.0, Baso % (Auto) 0.4, Absolute Neuts (auto) 9.1 H, Absolute Lymphs (auto) 1.11, Nucleated RBC % 0 03/10/20 14:25: Sodium 138, Potassium 3.8, Chloride 103, Carbon Dioxide 31.0, Anion Gap 4 L, BUN 21 H, Creatinine 0.69, Estim Creat Clear Calc 35.49, Est GFR (MDRD) Af Amer 105, Est GFR (MDRD) Non-Af 87, BUN/Creatinine Ratio 30.3 H, Glucose 116 H, Calcium 9.3, Total Bilirubin 1.00, Direct Bilirubin 0.32 H, AST 16, ALT 14, Alkaline Phosphatase 81, Troponin I < 0.015, Total Protein 7.9, Albumin 3.5, Globulin 4.4 H 03/10/20 14:25: PT 13.4, INR 1.1, APTT 29.4 03/10/20 14:25: Lactic Acid 1.2 03/10/20 14:37: Urine Color Yellow, Urine Clarity Clear, Urine pH 6.0, Ur Specific [place] 1.020, Urine Protein 100 H, Urine Glucose (UA) Normal, Urine Ketones 150 H, Urine Occult Blood 250 H, Urine Nitrite Negative, Urine Bilirubin Negative, Urine Urobilinogen Normal, Ur Leukocyte Esterase Negative, Urine RBC 10-25 SEEN, Urine WBC 0 SEEN, Ur Squamous Epith Cells 0-5 SEEN, Urine Bacteria 0 SEEN, Urine Mucus RARE Assessment/Plan All Active Problems (Last Reviewed 03/10/20 @ 20:[address] Panchito Ulrich MD) Myocardial infarction (Resolved) Compression fracture of L1 lumbar vertebra (Acute) Intractable back pain (Acute) Compression fracture (Acute) COPD (chronic obstructive pulmonary disease) (Acute) Dehydration, mild (Acute) STEMI (ST elevation myocardial infarction) (Resolved 07/18/19) Acute L1 compression fracture Abdomen/pelvis CT and lumbar spine MRI confirms acute L1 compression fracture Emergent department doctor reportedly discussed with spinal surgeon who thought the patient may be a good candidate for kyphoplasty. Consider discussing case with Dr. Oreilly. Patient received for morphine sulfate and oxycodone at the emergency department. Morphine sulfate IV as needed and oxycodone IV as needed ordered for pain. Tylenol as needed ordered. Prednisone 40 mg po daily ordered. Prednisone will also help with her COPD exacerbation. Antiemetics and bowel protocol in place. Acute COPD exacerbation Patient with wheezing; increase shortness of breath and dry cough. Placed on scheduled DuoNeb and prn albuterol. Prednisone 40 mg daily ordered. COVID-19 test was negative. Get comprehensive respiratory pathogen panel test. Dehydration BUN of 21. Review of old records show that it is above her baseline. Mild Patient with dry mucous membrane and slight elevated BUN Received normal saline bolus at emergency department. Placed on gentle lactated Ringer's. Trend BMP. Constipation Patient with large stool burden on CT of abdomen and pelvis. Last time her bowels moved was a day before presentation. She reported that her bowel pattern has not changed. However because of opioid use will start patient Senokot-S. Low-grade fever Etiology unclear. Covid test negative. Blood cultures ordered at emergency department; follow. Tylenol as needed. CAD status post stent Aspirin and Plavix continued Lisinopril, carvedilol and Lipitor continued. Hypertension Blood pressure is elevated. Lisinopril and carvedilol continued. DVT prophylaxis Subcutaneous heparin. Inpatient E&M: 76571 Init Hosp L2
--- NOTE | 2020-03-10 20:54 | NURSING ---
Called pt's home to try to talk to one of her sons and obtain a med list. Left message to call [phone].
[2020-03-10 20:59] LABS: Vitamin D,25 Hydroxy 15.2 ng/mL
[2020-03-10] MEDS: predniSONE 20 MG Tablet 40 MG PO (21:22)
[2020-03-10] MEDS: Atorvastatin Calcium 40 MG Tablet PO (21:22)
[2020-03-10] MEDS: 0.9% Saline Lock 10 ML Syringe IV (21:22)
[2020-03-10] MEDS: Lactated Ringers 1,000 ML 75 ML IV (21:22)
[2020-03-11] VITALS (7 sets, daily range): BP systolic 105–135; BP diastolic 51–71; PULSE 60–109; RESP 16–20; TEMP 36.6–36.9; O2SAT 93–100
[2020-03-11 05:38] LABS: Absolute Lymphocyte Count 0.67 X10^3/uL (0.83-4.51); Absolute Neutrophil Count 6.6 X10^3/uL (2.0-7.7); Basophil# 0.01 X10^3/uL; Basophil% 0.1 % (0-1); Hematocrit 36.7 % (37-47); Hemoglobin 11.7 g/dL (12.0-15.0); Lymphocyte # 0.67 X10^3/ul (4.0); Lymphocyte % 8.9 % (19-41); Mean Corp Hgb Conc 31.9 g/dL (32-36); Mean Corpuscular Hgb 30.2 pg (27.0-32.0); Mean Corpuscular Volume 94.8 fL (81-99); Mean Platelet Vol. 10.9 fl (6.2-12.0); Monocyte% 2.7 % (0-10); NRBC Flagged by Analyzer 0 % (0-5); Neutrophil % 87.9 % (47-70); Platelet Count 169 K/mm3 (150-450); RBC Distribution Width CV 12.1 % (11.6-14.6); RBC Distribution Width SD 42.3 fl (35.1-43.9); Red Blood Count 3.87 M/mm3 (4.2-5.4); White Blood Count 7.5 K/mm3 (4.4-11.0)
[2020-03-11 05:58] LABS: Anion Gap 3 (5-15); BUN 17 mg/dL (7-18); BUN/Creat Ratio 28.3 RATIO (10-20); Calcium,Total 8.9 mg/dL (8.5-10.1); Chloride 107 mmol/L (98-107); EST Glomerular Filtration Rate 102 mL/min (>60); Est Glom Filt Rate - Afr Amer 124 mL/min (>60); Estimated Creatinine Clearance 35.49 ml/min; Glucose 143 mg/dL (74-106); Potassium 4.2 mmol/L (3.5-5.1); Sodium Level 141 mmol/L (136-145)
--- NOTE | 2020-03-11 07:10 | PN_ITS ---
Patient Problems: Active and Suspected Problems (Last Reviewed 03/10/20 @ 20:[address] Panchito Ulrich MD) Compression fracture of L1 lumbar vertebra (Acute) Intractable back pain (Acute) Compression fracture (Acute) COPD (chronic obstructive pulmonary disease) (Acute) Dehydration, mild (Acute) Reason for Visit: Follow-up on acute back pain/acute L1 compression fracture Subjective: Patient was seen and examined. Her pain is minimally controlled. Denied any fever or chills. Denies any shortness of breath. Objective: Physical exam: General: Alert, Oriented x3, Cooperative, on 3 L of oxygen, appears frail HEENT: Atraumatic, PERRLA, EOMI, Normocephalic Oral: Dry Mucosa Neck: Supple, No JVD, Negative Carotid Bruits Lungs: Rhonchi, Wheezes Cardiovascular: Normal S1, Normal S2, No murmurs, Tachycardic Abdomen: Bowel Sounds Present, Soft, Non Tender Extremities: No edema, Capillary Refill Less than 3 Seconds Skin: No rashes, No breakdown Musculoskeletal: No Tenderness to Palpation of Joints or Extremities Neurological: Cranial nerves II-XII grossly intact Psych/Mental Status: Normal Affect, Appropriate Vitals/I&O's: Vital Signs Temp Pulse Resp BP Pulse Ox 98.5 F 109 H 16 111/58 L 99 03/11/20 02:12 03/11/20 02:12 03/11/20 02:12 03/11/20 02:12 03/11/20 02:12 Oxygen Flow Rate (L/min) 3 Oxygen Delivery Method Nasal Cannula Weight: 60.2 kg Body Mass Index (BMI) 24.3 Intake and Output for Last 24 Hours 03/09/20 03/10/20 03/11/20 23:59 23:59 23:59 Intake Total 1000 / 1075 175 / 175 Output Total 300 / 300 Balance 1000 / 1075 -125 / -125 Microbiology Past 72 Hours 03/10/20 23:15 Mucosa - Nasopharyngeal Respiratory Panel (PCR) - Final Laboratory Results 03/10/20 14:13: COVID-19 (JOANNE) Negative 03/10/20 14:25: WBC 11.6 H, RBC 4.31, Hgb 13.0, Hct 40.2, MCV 93.3, MCH 30.2, MCHC 32.3, RDW Std Deviation 41.9, RDW Coeff of Melisa 12.2, Plt Count 173, MPV 10.6, Immature Gran % (Auto) 0.400, Neut % (Auto) 78.3 H, Lymph % (Auto) 9.6 L, [place] % (Auto) 10.3 H, Eos % (Auto) 1.0, Baso % (Auto) 0.4, Absolute Neuts (auto) 9.1 H, Absolute Lymphs (auto) 1.11, Nucleated RBC % 0 03/10/20 14:25: Sodium 138, Potassium 3.8, Chloride 103, Carbon Dioxide 31.0, Anion Gap 4 L, BUN 21 H, Creatinine 0.69, Estim Creat Clear Calc 35.49, Est GFR (MDRD) Af Amer 105, Est GFR (MDRD) Non-Af 87, BUN/Creatinine Ratio 30.3 H, Glucose 116 H, Calcium 9.3, Total Bilirubin 1.00, Direct Bilirubin 0.32 H, AST 16, ALT 14, Alkaline Phosphatase 81, Troponin I < 0.015, Total Protein 7.9, Albumin 3.5, Globulin 4.4 H 03/10/20 14:25: PT 13.4, INR 1.1, APTT 29.4 03/10/20 14:25: Lactic Acid 1.2 03/10/20 14:25: Vitamin D 25-Hydroxy 15.2 03/10/20 14:37: Urine Color Yellow, Urine Clarity Clear, Urine pH 6.0, Ur Specific [place] 1.020, Urine Protein 100 H, Urine Glucose (UA) Normal, Urine Ketones 150 H, Urine Occult Blood 250 H, Urine Nitrite Negative, Urine Bilirubin Negative, Urine Urobilinogen Normal, Ur Leukocyte Esterase Negative, Urine RBC 10-25 SEEN, Urine WBC 0 SEEN, Ur Squamous Epith Cells 0-5 SEEN, Urine Bacteria 0 SEEN, Urine Mucus RARE 03/11/20 05:10: WBC 7.5, RBC 3.87 L, Hgb 11.7 L, Hct 36.7 L, MCV 94.8, MCH 30.2, MCHC 31.9 L, RDW Std Deviation 42.3, RDW Coeff of [place] 12.1, Plt Count 169, MPV 10.9, Immature Gran % (Auto) 0.400, Neut % (Auto) 87.9 H, Lymph % (Auto) 8.9 L, [place] % (Auto) 2.7, Eos % (Auto) 0.0, Baso % (Auto) 0.1, Absolute Neuts (auto) 6.6, Absolute Lymphs (auto) 0.67 L, Nucleated RBC % 0 03/11/20 05:10: Sodium 141, Potassium 4.2, Chloride 107, Carbon Dioxide 31.0, Anion Gap 3 L, BUN 17, Creatinine 0.60, Estim Creat Clear Calc 35.49, Est GFR ( MDRD) Af Amer 124, Est GFR (MDRD) Non-Af 102, BUN/Creatinine Ratio 28.3 H, Glucose 143 H, Calcium 8.9 Current Medications Acetaminophen (Acetaminophen 325 Mg Tablet) 650 mg PO Q6H PRN PRN PRN Reason: Pain Score 1-10/Temp > 100.7 F Albuterol Sulfate (Albuterol 2.5 Mg/3 Ml Vial.Neb.) 2.5 mg INHALATION Q2H PRN PRN PRN Reason: sob/wheezing Albuterol/Ipratropium (Ipratropium/Albuterol Sulfate 3 Ml Ampul.Neb) 3 ml INHALATION Q4HWA.RT CARLY Aspirin (Aspirin 81 Mg Tab.Chew) 81 mg PO DAILYCM [facility] Atorvastatin Calcium (Atorvastatin Calcium 40 Mg Tablet) 40 mg PO QHS [facility] Last Admin: 03/10/20 21:22 Dose: 40 mg Documented by: Carvedilol (Carvedilol 3.125 Mg Tablet) 3.125 mg PO DAILYCM [facility] Clopidogrel Bisulfate (Clopidogrel Bisulfate 75 Mg Tablet) 75 mg PO DAILY [facility] Enoxaparin Sodium (Enoxaparin 40 Mg/0.4 Ml Syringe) 40 mg SC DAILY [facility] Lactated Ringer's () 1,000 mls @ 75 mls/hr IV .[id number] [facility] Stop: 03/11/20 09:29 Last Admin: 03/10/20 21:22 Dose: 75 mls/hr Documented by: Lisinopril (Lisinopril 5 Mg Tablet) 5 mg PO DAILY [facility] Melatonin (Melatonin 3 Mg Tablet) 3 mg PO QHS PRN PRN PRN Reason: INSOMNIA Morphine Sulfate (Morphine 2 Mg/Ml Syringe) 2 mg IV Q3H PRN PRN PRN Reason: Pain Score 6-10 Ondansetron HCl (Ondansetron 4 Mg/2 Ml Vial) 4 mg IV Q8H PRN PRN PRN Reason: NAUSEA/VOMITING Oxycodone HCl (Oxycodone 5 Mg Tablet) 5 mg PO Q4H PRN PRN PRN Reason: Pain Score 4-5 Prednisone (Prednisone 20 Mg Tablet) 40 mg PO DAILY@0800 [facility] Last Admin: 03/10/20 21:22 Dose: 40 mg Documented by: Senna/Docusate Sodium (Senna/Docusate Sodium 1 Tablet) 1 tablet PO BID [facility] Last Admin: 03/10/20 22:40 Dose: Not Given Documented by: Sodium Chloride (0.9% Saline Lock 10 Ml Syringe) 10 - 40 ml IV UD PRN PRN Reason: SALINE FLUSH Last Admin: 03/10/20 21:22 Dose: 10 ml Documented by: Medical Necessity - Tobacco Use Smoking Status: Former smoker Tobacco Use: Cigarettes Assessment/Plan All Active Problems (Last Reviewed 03/10/20 @ 20:[address] Panchito Ulrich MD) Myocardial infarction (Resolved) Compression fracture of L1 lumbar vertebra (Acute) Intractable back pain (Acute) Compression fracture (Acute) COPD (chronic obstructive pulmonary disease) (Acute) Dehydration, mild (Acute) STEMI (ST elevation myocardial infarction) (Resolved 07/18/19) 1. Debility secondary to acute L1 compression fracture, confirmed on lumbar spine MRI. Pain is fairly controlled, continue on Tylenol, prednisone, oxycodone We will consult spinal surgeon for recommendations 2. Acute COPD exacerbation, mild, Respiratory panel is negative. COVID-19 PCR is negative. Chest x-ray shows inflation, no acute infiltrate Will continue with breathing treatment, IV steroids, encourage use of incentive spirometer Wean off oxygen for SPO2 more than 94% 3. Hypertension, controlled, on continue with lisinopril, carvedilol 4. CAD status post stent, continue on aspirin, Plavix, lisinopril, carvedilol, Lipitor 5. DVT prophylaxis -Lovenox subcu Inpatient E&M: 28866 Subs Hosp L2
[2020-03-11] MEDS: Ipratropium/Albuterol Sulfate 3 ML AMPUL.NEB INHALATION ×3 (07:12→14:32)
[2020-03-11] MEDS: Lisinopril 5 MG Tablet PO (08:22)
[2020-03-11] MEDS: Clopidogrel Bisulfate 75 MG Tablet PO (08:22)
[2020-03-11] MEDS: Aspirin 81 MG TAB.CHEW PO (08:22)
[2020-03-11] MEDS: predniSONE 20 MG Tablet 40 MG PO (08:22)
[2020-03-11] MEDS: Carvedilol 3.125 MG TABLET PO (08:22)
[2020-03-11] MEDS: Enoxaparin 40 MG/0.4 ML Syringe SC (08:23)
[2020-03-11] MEDS: Senna/Docusate Sodium 1 Tablet PO ×2 (08:23→21:44)
[2020-03-11] MEDS: Magnesium Hydroxide 30 ML UDC PO (14:46)
--- NOTE | 2020-03-11 15:09 | PCM.CONS.B ---
- Consult Date of Consult: 03/11/[address] Valente dictating a consultation on Ira Crespo. Ms. Dill is a most pleasant 79-year-old female that has a chief complaint of thoracolumbar pain. Fell about 3 days ago. She was initially seen and x-ray was taken that demonstrated 10% compression of the L1 vertebra. Her pain worsened over the following 3 days and she was then admitted and an MRI scan was done. Left collapse now is approximately more than 50%. The reason for admission. On examination she has 2+ patellar and 1+ Achilles reflexes bilaterally. She is neurologically intact she has no long tract signs. Clonus is absent Babinski's are downgoing. Reasonable motor strength of all the major muscle groups of both lower extremities. He has no specific muscle atrophy. I reviewed her MRI scan that demonstrates perhaps 50% compression of the one vertebra. There is a little wedging of the posterior wall however I do not think that this is a contraindication to a kyphoplasty. I will discuss the case with Dr. Del Rio and hopefully a kyphoplasty can be done in the very near future.
--- NOTE | 2020-03-11 15:24 | CM.UR ---
spoke with patient on phone. She has declined a lot of assistance in the past. States doing ok with affording her medications. Dr. Valente saw patient today. Plan is for kyphoplasty on Friday. Patient previously had no insurance. Didn't want to pay for it. 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 In the past declined HHC (after STEMI). Patient denies any discharge needs. Explained we'll re-evaluate after she has surgery. Chris Horton RN, CCM.
[2020-03-11] MEDS: Morphine 2 MG/ML Syringe IV (19:58)
[2020-03-11] MEDS: 0.9% Saline Lock 10 ML Syringe IV (19:59)
[2020-03-11] MEDS: Atorvastatin Calcium 40 MG Tablet PO (21:44)
[2020-03-11] MEDS: MELATONIN 3 MG TABLET PO (21:44)
[2020-03-12] VITALS (8 sets, daily range): BP systolic 100–134; BP diastolic 52–67; PULSE 65–87; RESP 12–18; TEMP 36.5–36.8; O2SAT 92–95
[2020-03-12] MEDS: Ipratropium/Albuterol Sulfate 3 ML AMPUL.NEB INHALATION ×3 (07:13→14:53)
--- NOTE | 2020-03-12 07:23 | PCM.PN.HOSP ---
Patient Problems: Active and Suspected Problems (Last Reviewed 03/10/20 @ 20:[address] Panchito Ulrich MD) Compression fracture of L1 lumbar vertebra (Acute) Intractable back pain (Acute) Compression fracture (Acute) COPD (chronic obstructive pulmonary disease) (Acute) Dehydration, mild (Acute) Reason for Visit: Follow-up on acute back pain/acute L1 compression fracture Subjective: Patient was seen and examined. Her pain is fairly controlled. Denies fever or chills. Kyphoplasty is reportedly planned for Friday. Objective: Physical exam: General: Alert, Oriented x3, Cooperative, on 3 L of oxygen, appears frail HEENT: Atraumatic, PERRLA, EOMI, Normocephalic Oral: Dry Mucosa Neck: Supple, No JVD, Negative Carotid Bruits Lungs: Rhonchi, Wheezes Cardiovascular: Normal S1, Normal S2, No murmurs, Tachycardic Abdomen: Bowel Sounds Present, Soft, Non Tender Extremities: No edema, Capillary Refill Less than 3 Seconds Skin: No rashes, No breakdown Musculoskeletal: No Tenderness to Palpation of Joints or Extremities Neurological: Cranial nerves II-XII grossly intact Psych/Mental Status: Normal Affect, Appropriate Vitals/I&O's: Vital Signs Temp Pulse Resp BP Pulse Ox 97.8 F 65 18 117/55 L 95 03/12/20 02:36 03/12/20 02:36 03/12/20 02:36 03/12/20 02:36 03/12/20 02:36 Oxygen Flow Rate (L/min) 3 Oxygen Delivery Method Nasal Cannula Weight: 60.2 kg Body Mass Index (BMI) 24.3 Intake and Output for Last 24 Hours 03/10/20 03/11/20 03/12/20 23:59 23:59 23:59 Intake Total 1000 / 1075 2195 / 2195 200 / 200 Output Total 820 / 820 250 / 250 Balance 1000 / 1075 1375 / 1375 -50 / -50 Microbiology Past 72 Hours 03/10/20 23:15 Mucosa - Nasopharyngeal Respiratory Panel (PCR) - Final Current Medications Acetaminophen (Acetaminophen 325 Mg Tablet) 650 mg PO Q6H PRN PRN PRN Reason: Pain Score 1-10/Temp > 100.7 F Albuterol Sulfate (Albuterol 2.5 Mg/3 Ml Vial.Neb.) 2.5 mg INHALATION Q2H PRN PRN PRN Reason: sob/wheezing Albuterol/Ipratropium (Ipratropium/Albuterol Sulfate 3 Ml Ampul.Neb) 3 ml INHALATION Q4HWA.RT [facility] Last Admin: 03/12/20 07:13 Dose: 3 ml Documented by: Aspirin ([facility] 81 Mg [facility]Chew) [facility] Last Admin: 03/11/20 08:22 Dose: 81 mg Documented by: Atorvastatin Calcium (Atorvastatin Calcium 40 Mg Tablet) 40 mg PO QHS [facility] Last Admin: 03/11/20 21:44 Dose: 40 mg Documented by: Carvedilol (Carvedilol 3.125 Mg Tablet) [facility] Last Admin: 03/11/20 08:22 Dose: 3.125 mg Documented by: Clopidogrel Bisulfate (Clopidogrel Bisulfate 75 Mg Tablet) 75 mg PO DAILY [facility] Last Admin: 03/11/20 08:22 Dose: 75 mg Documented by: Enoxaparin Sodium (Enoxaparin 40 Mg/0.4 Ml Syringe) 40 mg SC DAILY [facility] Last Admin: 03/11/20 08:23 Dose: 40 mg Documented by: Lisinopril (Lisinopril 5 Mg Tablet) 5 mg PO DAILY [facility] Last Admin: 03/11/20 08:22 Dose: 5 mg Documented by: Melatonin (Melatonin 3 Mg Tablet) 3 mg PO QHS PRN PRN PRN Reason: INSOMNIA Last Admin: 03/11/20 21:44 Dose: 3 mg Documented by: Morphine Sulfate (Morphine 2 Mg/Ml Syringe) 2 mg IV Q3H PRN PRN PRN Reason: Pain Score 6-10 Last Admin: 03/11/20 19:58 Dose: 2 mg Documented by: Ondansetron HCl (Ondansetron 4 Mg/2 Ml Vial) 4 mg IV Q8H PRN PRN PRN Reason: NAUSEA/VOMITING Oxycodone HCl (Oxycodone 5 Mg Tablet) 5 mg PO Q4H PRN PRN PRN Reason: Pain Score 4-5 Prednisone (Prednisone 20 Mg Tablet) 40 mg PO DAILY@0800 [facility] Last Admin: 03/11/20 08:22 Dose: 40 mg Documented by: Senna/Docusate Sodium (Senna/Docusate Sodium 1 Tablet) 1 tablet PO BID [facility] Last Admin: 03/11/20 21:44 Dose: 1 tablet Documented by: Sodium Chloride (0.9% Saline Lock 10 Ml Syringe) 10 - 40 ml IV UD PRN PRN Reason: SALINE FLUSH Last Admin: 03/11/20 19:59 Dose: 10 ml Documented by: Medical Necessity - Tobacco Use Smoking Status: Former smoker Tobacco Use: Cigarettes Assessment/Plan All Active Problems (Last Reviewed 03/10/20 @ 20:[address] Panchito Ulrich MD) Myocardial infarction (Resolved) Compression fracture of L1 lumbar vertebra (Acute) Intractable back pain (Acute) Compression fracture (Acute) COPD (chronic obstructive pulmonary disease) (Acute) Dehydration, mild (Acute) STEMI (ST elevation myocardial infarction) (Resolved 07/18/19) 1. Debility secondary to acute L1 compression fracture, confirmed on lumbar spine MRI. Pain is fairly controlled, continue on scheduled Tylenol, prednisone, oxycodone We will consult spinal surgeon for recommendations 2. Acute COPD exacerbation, mild, Respiratory panel is negative. COVID-19 PCR is negative. Chest x-ray shows inflation, no acute infiltrate Will continue with breathing treatment, prednisone, encourage use of incentive spirometer Wean off oxygen for SPO2 more than 94% 3. Hypertension, controlled, on continue with lisinopril, carvedilol 4. CAD status post stent, continue on aspirin, Plavix, lisinopril, carvedilol, Lipitor 5. DVT prophylaxis -Lovenox subcu Inpatient E&M: 73593 Subs Hosp L2
[2020-03-12] MEDS: Senna/Docusate Sodium 1 Tablet PO ×2 (08:30→21:32)
[2020-03-12] MEDS: Enoxaparin 40 MG/0.4 ML Syringe SC (08:30)
[2020-03-12] MEDS: Aspirin 81 MG TAB.CHEW PO (08:30)
[2020-03-12] MEDS: Clopidogrel Bisulfate 75 MG Tablet PO (08:30)
[2020-03-12] MEDS: Lisinopril 5 MG Tablet PO (08:30)
[2020-03-12] MEDS: Carvedilol 3.125 MG TABLET PO (08:30)
[2020-03-12] MEDS: predniSONE 20 MG Tablet 40 MG PO (08:30)
[2020-03-12] MEDS: Acetaminophen 500 MG Tablet 1000 MG PO ×2 (13:22→21:32)
[2020-03-12] MEDS: Atorvastatin Calcium 40 MG Tablet PO (21:32)
[2020-03-13] VITALS (11 sets, daily range): BP systolic 124–174; BP diastolic 70–90; PULSE 70–94; RESP 16–20; TEMP 36.4–36.8; O2SAT 88–96; BMI 24.3
[2020-03-13] MEDS: Ipratropium/Albuterol Sulfate 3 ML AMPUL.NEB INHALATION ×4 (06:45→18:28)
[2020-03-13] MEDS: Carvedilol 3.125 MG TABLET PO (08:07)
[2020-03-13] MEDS: Lisinopril 5 MG Tablet PO (08:12)
--- NOTE | 2020-03-13 08:29 | PCM.PN.HOSP ---
Patient Problems: Active and Suspected Problems (Last Reviewed 03/10/20 @ 20:[address] Panchito Ulrich MD) Compression fracture of L1 lumbar vertebra (Acute) Intractable back pain (Acute) Compression fracture (Acute) COPD (chronic obstructive pulmonary disease) (Acute) Dehydration, mild (Acute) Reason for Visit: L1 compression fracture. Severe back pain Objective: Plan for kyphoplasty in a.m but canceled. No fever. Blood pressure was elevated in the morning but got better 129/90. Physical exam General: Alert, Oriented x3, Cooperative HEENT: Atraumatic, PERRLA, EOMI, Normocephalic Oral: No Gingival or Mucosal Lesions/ Ulcerations Neck: Supple, No JVD, Negative Carotid Bruits Lungs: Air entry diminished in bilateral lung bases. No crepitation/rhonchi Cardiovascular: Regular rate, Regular Rhythm, Normal S1, Normal S2, No murmurs Abdomen: Bowel Sounds Present, Soft, Non Tender, Non-Distended : No renal angle tenderness. No suprapubic tenderness. Extremities: No edema, Capillary Refill Less than 3 Seconds Skin: No rashes, No breakdown Musculoskeletal: Point tenderness present over L1. Surrounding musculoskeletal tenderness. No Tenderness to Palpation of Joints or Extremities Neurological: Cranial nerves II-XII grossly intact, Deep Tendon Reflexes 2+/4 and Symmetrical, Neuro grossly intact Psych/Mental Status: Normal Affect, Appropriate. Vitals/I&O's: Vital Signs Temp Pulse Resp BP Pulse Ox 98.2 F 72 18 174/75 H 94 03/13/20 08:08 03/13/20 08:08 03/13/20 08:08 03/13/20 08:08 03/13/20 08:08 Oxygen Flow Rate (L/min) 3 Oxygen Delivery Method Nasal Cannula Weight: 132 lb 11.492 oz Body Mass Index (BMI) 24.3 Intake and Output for Last 24 Hours 03/11/20 03/12/20 03/13/20 23:59 23:59 23:59 Intake Total 2195 / 2195 1420 / 1420 0 / 0 Output Total 820 / 820 1050 / 1050 450 / 450 Balance 1375 / 1375 370 / 370 -450 / -450 Microbiology Past 72 Hours 03/10/20 14:30 Blood Culture (Wb) - Right Forearm Blood Culture - Preliminary No growth in 48 hours. 03/10/20 14:25 Blood Culture (Wb) - Left Forearm Blood Culture - Preliminary No growth in 48 hours. 03/10/20 23:15 Mucosa - Nasopharyngeal Respiratory Panel (PCR) - Final Current Medications Acetaminophen (Acetaminophen 500 Mg Tablet) 1,000 mg PO TID [facility] Last Admin: 03/13/20 04:12 Dose: Not Given Documented by: Albuterol Sulfate (Albuterol 2.5 Mg/3 Ml Vial.Neb.) 2.5 mg INHALATION Q2H PRN PRN PRN Reason: sob/wheezing Albuterol/Ipratropium (Ipratropium/Albuterol Sulfate 3 Ml Ampul.Neb) 3 ml INHALATION Q4HWA.RT [facility] Last Admin: 03/13/20 06:45 Dose: 3 ml Documented by: Aspirin (Aspirin 81 Mg Tab.Chew) 81 mg PO DAILYCM [facility] Last Admin: 03/13/20 07:52 Dose: Not Given Documented by: Atorvastatin Calcium (Atorvastatin Calcium 40 Mg Tablet) 40 mg PO QHS [facility] Last Admin: 03/12/20 21:32 Dose: 40 mg Documented by: Carvedilol (Carvedilol 3.125 Mg Tablet) [facility] Last Admin: 03/13/20 08:07 Dose: 3.125 mg Documented by: Clopidogrel Bisulfate (Clopidogrel Bisulfate 75 Mg Tablet) 75 mg PO DAILY [facility] Last Admin: 03/13/20 07:52 Dose: Not Given Documented by: Enoxaparin Sodium (Enoxaparin 40 Mg/0.4 Ml Syringe) 40 mg SC DAILY [facility] Last Admin: 03/13/20 07:03 Dose: Not Given Documented by: Lisinopril (Lisinopril 5 Mg Tablet) 5 mg PO DAILY [facility] Last Admin: 03/13/20 08:12 Dose: 5 mg Documented by: Melatonin (Melatonin 3 Mg Tablet) 3 mg PO QHS PRN PRN PRN Reason: INSOMNIA Last Admin: 03/11/20 21:44 Dose: 3 mg Documented by: Ondansetron HCl (Ondansetron 4 Mg/2 Ml Vial) 4 mg IV Q8H PRN PRN PRN Reason: NAUSEA/VOMITING Oxycodone HCl (Oxycodone 5 Mg Tablet) 5 mg PO Q6H PRN PRN PRN Reason: Pain Score 6-10 Prednisone (Prednisone 20 Mg Tablet) 40 mg PO DAILY@0800 [facility] Last Admin: 03/12/20 08:30 Dose: 40 mg Documented by: Senna/Docusate Sodium (Senna/Docusate Sodium 1 Tablet) 1 tablet PO BID [facility] Last Admin: 03/13/20 07:52 Dose: Not Given Documented by: Sodium Chloride (0.9% Saline Lock 10 Ml Syringe) 10 - 40 ml IV UD PRN PRN Reason: SALINE FLUSH Last Admin: 03/11/20 19:59 Dose: 10 ml Documented by: STROKE Vital Signs/Narrative: Vital Signs Temp Pulse Resp BP Pulse Ox 03/13/20 08:08 98.2 F 72 18 174/75 H 94 03/13/20 06:47 77 20 H 93 Medical Necessity - Tobacco Use Smoking Status: Former smoker Tobacco Use: Cigarettes Assessment/Plan All Active Problems (Last Reviewed 03/10/20 @ 20:[address] Panchito Ulrich MD) Myocardial infarction (Resolved) Compression fracture of L1 lumbar vertebra (Acute) Intractable back pain (Acute) Compression fracture (Acute) COPD (chronic obstructive pulmonary disease) (Acute) Dehydration, mild (Acute) STEMI (ST elevation myocardial infarction) (Resolved 07/18/19) This this is a 79-year-old female admitted for severe back pain after fall several days ago prior to admission. 1. Debility secondary to acute L1 compression fracture: MRI lumbar spine reported as acute compression fracture superior endplate of L1 with 50 to 60% loss of vertebral body height. Mild spinal stenosis without cord compression. Spinal stenosis at L4-5 and L5-S1. Patient was supposed to have kyphoplasty today but canceled by Dr. Valente and said it will be done by Dr. Holder. Dr. Oreilly was called and texted and left a message to call back. Patient complained of severe back pain 10/10 in the morning and was put on Dilaudid 1 mg q. 4 hourly as needed for severe pain. Patient denies constipation. continue on scheduled Tylenol, prednisone, oxycodone 2. Acute COPD exacerbation, mild on 3 L of home oxygen currently patient is 96% on room air Respiratory panel is negative. COVID-19 PCR is negative. Chest x-ray shows inflation, no acute infiltrate Continue prednisone, encourage use of incentive spirometer 3. Hypertension, controlled, on continue with lisinopril, carvedilol. Blood pressure was elevated in the morning but got better in the afternoon. 4. CAD status post stent, continue on aspirin, Plavix, lisinopril, carvedilol, Lipitor 5. DVT prophylaxis -Lovenox subcu Clinical Impression(s) from Imaging Studies Chest X-Ray 03/10/20 13:48 IMPRESSION: Hyperinflation. The lungs are clear. Abdomen/Pelvis CT 03/10/20 15:36 IMPRESSION: Acute moderate wedge compression fracture of L1 with 5 mm retropulsion into the spinal canal. Lumbar Spine MRI 03/10/20 16:49 IMPRESSION: Acute compression fracture of superior endplate of L1 with 50-60% percent loss of vertebral body height with retropulsion of posterior superior endplate creating mild spinal stenosis without cord compression. Spinal stenosis at L4-5 and L5-S1 secondary to disc disease and facet arthropathy. Findings as above Inpatient E&M: 29792 Subs Hosp L2
--- NOTE | 2020-03-13 11:00 | CASEMGMT ---
GEORGETTE ROBBINS Face to Face with patient for initial transition planning/care coordination assessment. RN CM introduced self and role at [facility]. Patient lying in bed, alert and oriented. Patient willing to participate in assessment and is able to answer all questions appropriately. Care providers, pharmacy, and demographics verified. Patient wishes to discharge home, but will consider SNF if recommended by therapy, will monitor progress with therapy. Patient states she has no further needs or concerns at this time. CM to follow for discharge planning needs that may arise. PCP: Ferdinand Specialists: joleen Oreilly Preferred Pharmacy: [facility] Insurance: [employer] Prescription Benefit: none Living Will/HPOA: none LNOK: daughter, 2 sons Living Arrangements: Patient states she lives with her 2 sons in a 2nd floor apartment. Patient has been having difficulty with stairs to apartment. Patient states she is normally independent at home but daughter has been helping with ADLs Transportation: daughter DME/HHC: Patient states she has walker and shower chair at home. Patient denies previous SNF or HHC. Will monitor progress with therapy. Disposition Plan: TBD, home vs SNF Beba TRONCOSO, RN, CM
[2020-03-13] MEDS: HYDROmorphone 1 MG/ML Syringe IV (11:08)
[2020-03-13] MEDS: 0.9% Saline Lock 10 ML Syringe IV (11:09)
[2020-03-13] MEDS: predniSONE 20 MG Tablet 40 MG PO (13:28)
[2020-03-13] MEDS: Acetaminophen 500 MG Tablet 1000 MG PO ×2 (13:28→21:17)
[2020-03-13] MEDS: Senna/Docusate Sodium 1 Tablet PO ×2 (13:29→21:17)
--- NOTE | 2020-03-13 15:14 | CASEMGMT ---
Addendum entered by Beba Bailey 03/13/20 15:43: SW updated pt that insurance will not cover HHC. Pt still adamant about returning home at discharge. Original Note: Social Work Note SW updated that pt's kyphoplasty is cancelled today, reschedule for next Friday. SW in to speak with pt. SW introduced self and role at [facility]. Pt states she is going home. SW asked pt how she is doing to do the steps to enter home, pt states my son will help me. SW asked pt if she would consider SNF and pt denied. Pt agreeable to HHC. DONNIE spoke with RN CM. RN CM states pt's insurance will not cover HHC. DONNIE updated physician. Beba Bailey STRADDLE TRUCK OPERATOR, CASTING MACHINE SERVICE OPERATOR
[2020-03-13] MEDS: Atorvastatin Calcium 40 MG Tablet PO (21:17)
[2020-03-14 03:15] VITALS: BP 154/77; PULSE 73; RESP 16; TEMP 36.6; O2SAT 97
[2020-03-14] MEDS: Acetaminophen 500 MG Tablet 1000 MG PO (06:02)
[2020-03-14] MEDS: Ipratropium/Albuterol Sulfate 3 ML AMPUL.NEB INHALATION (06:47)
[2020-03-14 06:48] VITALS: PULSE 73; RESP 18; O2SAT 95
[2020-03-14] MEDS: predniSONE 20 MG Tablet 40 MG PO (08:37)
[2020-03-14] MEDS: Aspirin 81 MG TAB.CHEW PO (08:37)
[2020-03-14] MEDS: Lisinopril 5 MG Tablet PO (08:37)
[2020-03-14] MEDS: Carvedilol 3.125 MG TABLET PO (08:37)
[2020-03-14] MEDS: Senna/Docusate Sodium 1 Tablet PO (08:38)
[2020-03-14] MEDS: Enoxaparin 40 MG/0.4 ML Syringe SC (08:38)
[2020-03-14 08:40] VITALS: BP 152/91; PULSE 76; RESP 18; TEMP 36.6; O2SAT 94
--- NOTE | 2020-03-14 10:28 | PCM.DC ---
- Discharge Diagnoses Current Active Problems: Current Active and Chronic Problems (Last Reviewed 03/10/20 @ 20:[address] Panchito Ulrich MD) Compression fracture of L1 lumbar vertebra (Acute) Intractable back pain (Acute) Compression fracture (Acute) Atherosclerosis of [place] coronary artery of [place] heart without angina pectoris (Chronic) PTCA/WILLIAM of occluded mid RCA using Synergy 3.0 X 16 and WILLIAM proximal RCA using Synergy 3.0 X 12 on 07/18/[address] Marcelo Canchola; Tobacco dependence (Chronic) 2 PPD for at least 60 years History of cervical cancer (Chronic) Status post [facility] (Chronic) COPD (chronic obstructive pulmonary disease) (Acute) Dehydration, mild (Acute) You will use the following diet at home:: Cardiac Your food should be the consistency of: Regular Discharge Activity: May Not Drive Call your doctor if you observe: Fever of 101 or Higher, Coldness, Increased Pain, Numbness or Tingling, Change in Color, Inability to urinate, Inability to have a bowel movement, Shortness of breath, Dizziness, Fainting spells, Swelling in the ankles, Chest pain, Prolonged hiccoughing, Increased palpitations (irregular heartbeat), Calf discomfort, Uncontrolled pain Allergies/Adverse Reactions: Allergies No Known Allergies Allergy (Verified 03/07/20 13:48) Medications to take at Discharge Aspirin [Aspirin, Baby] 81 mg PO DAILYCM 03/10/20 Atorvastatin Calcium [Lipitor] 40 mg PO QHS 03/10/20 Carvedilol 3.125 mg PO DAILY 03/10/20 Lisinopril 5 mg PO DAILY 03/10/20 Calcium Carbonate/Vitamin D3 [Calcium 500-Vit D3 600 Caplet] 1 ea PO BID #60 tab 03/14/20 Clopidogrel Bisulfate [Clopidogrel] 75 mg PO DAILY #0 03/14/20 Ergocalciferol (Vitamin D2) [Vitamin D2] 50,000 unit PO QWEEK #4 cap 03/14/20 Famotidine [Pepcid] 20 mg PO DAILY #30 tab 03/14/20 Oxycodone HCl/Acetaminophen [Oxycodone-Acetaminophen 5-325] 1 tab PO Q6H PRN #7 tablet 03/14/20 Polyethylene Glycol 3350 [Miralax] 17 gm PO DAILY #14 packet 03/14/20 Prednisone 10 mg PO DAILY #30 tab 03/14/20 Sennosides/Docusate Sodium [Senna-S Tablet] 2 ea PO BID PRN PRN #30 tab 03/14/20 The following prescriptions were given: Calcium Carbonate/Vitamin D3 [Calcium 500-Vit D3 600 Caplet] 1 ea PO BID #60 tab Transmission Status: Pending to [facility] Polyethylene Glycol 3350 [Miralax] 17 gm PO DAILY #14 packet Transmission Status: Pending to [facility] Oxycodone HCl/Acetaminophen [Oxycodone-Acetaminophen 5-325] 1 tab PO Q6H PRN #7 tablet PRN Reason: Pain Score 6-10 Transmission Status: Sent to [facility] Famotidine [Pepcid] 20 mg PO DAILY #30 tab Transmission Status: Pending to [facility] Prednisone 10 mg PO DAILY #30 tab Transmission Status: Pending to [facility] Sennosides/Docusate Sodium [Senna-S Tablet] 2 ea PO BID PRN PRN #30 tab PRN Reason: Constipation Transmission Status: Pending to [facility] Ergocalciferol (Vitamin D2) [Vitamin D2] 50,000 unit PO QWEEK #4 cap Transmission Status: Pending to [facility] Primary Care Physician: Carrie Oreilly MD [STAFF PHYSICIAN] - Please follow up with your Primary Care Physician in: in 1-2 days Test Results: Test results from this visit will be discussed in further detail at your follow-up appointment, if applicable. Please Follow Up With: Sigifredo Keene MD When: for osteoporosis, L1 compression fractuture
--- NOTE | 2020-03-14 10:34 | DS.PCM_ITS ---
Discharge Date and Diagnosis - Problem List Patient Problems: Active and Suspected Problems (Last Reviewed 03/10/20 @ 20:[address] Panchito Ulrich MD) Compression fracture of L1 lumbar vertebra (Acute) Intractable back pain (Acute) Compression fracture (Acute) COPD (chronic obstructive pulmonary disease) (Acute) Dehydration, mild (Acute) Date of Admission: 03/10/20 Date of Discharge: 03/14/20 - Primary Discharge Diagnosis Acute Problems: Active Problems (Last Reviewed 03/10/20 @ 20:[address] Panchito Ulrich MD) Compression fracture of L1 lumbar vertebra (Acute) Intractable back pain (Acute) Compression fracture (Acute) COPD (chronic obstructive pulmonary disease) (Acute) Dehydration, mild (Acute) - Secondary Discharge Diagnosis Chronic Problems: Chronic Problems (Last Reviewed 03/10/20 @ 20:[address] Panchito Ulrich MD) Atherosclerosis of [place] coronary artery of [place] heart without angina pectoris (Chronic) PTCA/WILLIAM of occluded mid RCA using Synergy 3.0 X 16 and WILLIAM proximal RCA using Synergy 3.0 X 12 on 07/18/[address] Marcelo Canchola; Tobacco dependence (Chronic) 2 PPD for at least 60 years History of cervical cancer (Chronic) Status post [facility] (Chronic) Hospital Course and Treatment Summary of Care Provided: This this is a 79-year-old female admitted for severe back pain after fall several days ago prior to admission. 1. Debility secondary to acute, pathological L1 compression fracture due to osteoporosis from trivial fall: MRI lumbar spine reported as acute compression fracture superior endplate of L1 with 50 to 60% loss of vertebral body height. Mild spinal stenosis without cord compression. Spinal stenosis at L4-5 and L5- S1. Patient was supposed to have kyphoplasty today but canceled by Dr. Valente and said it will be done by Dr. Oreilly. Discussed with him. Initially patient was tried to convince for going to SNF for further physical therapy but she refused. Patient is being discharged home with instruction to keep holding Plavix for 1 week and possible kyphoplasty on 03/21/2020 and hold 5 days afterwards. Follow-up with Dr. Cowan office today or tomorrow. Phone number was given and charge nurse was requested to make appointment with him. 2 days prescription for Percocet was given. OARRS note reviewed patient also had low vitamin D 25-hydroxy 15 units therefore prescription for vitamin D2 50,000 units weekly and calcium was given to the patient. Follow-up shoe ironer Dr. Paul Keene for further evaluation for osteoporosis and consideration of bisphosphonate. Prescription for prednisone, Pepcid and senna S and MiraLAX were given. Patient complained of mild hard stool in the morning today. 2. Acute COPD exacerbation, mild on 3 L of home oxygen currently patient is 96% on room air Respiratory panel is negative. COVID-19 PCR is negative. Chest x-ray shows inflation, no acute infiltrate Continue prednisone, encourage use of incentive spirometer 3. Hypertension, controlled, on continue with lisinopril, carvedilol. Blood pressure was elevated in the morning but got better in the afternoon. 4. CAD status post stent, continue on aspirin, Plavix, lisinopril, carvedilol, Lipitor 5. DVT prophylaxis -Lovenox subcu Discharge medication reconciliation done. Discharge follow-up instructions completed. Discharge process discussed with the patient and all questions were answered to patient's satisfaction. Total time spent, exact 35 minutes on discharge meds reconciliation, examination, coordination of care with nurses and ancillary staff, review of imaging and blood test and discussion with the patient on follow-up instructions Clinical Impression(s) from Imaging Studies Chest X-Ray 03/10/20 13:48 IMPRESSION: Hyperinflation. The lungs are clear. Abdomen/Pelvis CT 03/10/20 15:36 IMPRESSION: Acute moderate wedge compression fracture of L1 with 5 mm retropulsion into the spinal canal. Lumbar Spine MRI 03/10/20 16:49 IMPRESSION: Acute compression fracture of superior endplate of L1 with 50-60% percent loss of vertebral body height with retropulsion of posterior superior endplate creating mild spinal stenosis without cord compression. Spinal stenosis at L4-5 and L5-S1 secondary to disc disease and facet arthropathy. Findings as above [] Patient Problems: Active and Suspected Problems (Last Reviewed 03/10/20 @ 20:[address] Panchito Ulrich MD) Compression fracture of L1 lumbar vertebra (Acute) Intractable back pain (Acute) Compression fracture (Acute) COPD (chronic obstructive pulmonary disease) (Acute) Dehydration, mild (Acute) Objective: Patient is able to do physical therapy. She can stand up and climb up on the steps but has lumbar pain on standing. Was advised and tried to convince to go to SNF, TCU but she refused. Physical exam General: Alert, Oriented x3, Cooperative HEENT: Atraumatic, PERRLA, EOMI, Normocephalic Oral: No Gingival or Mucosal Lesions/ Ulcerations Neck: Supple, No JVD, Negative Carotid Bruits Lungs: Air entry diminished in bilateral lung bases. No crepitation/rhonchi Cardiovascular: Regular rate, Regular Rhythm, Normal S1, Normal S2, No murmurs Abdomen: Bowel Sounds Present, Soft, Non Tender, Non-Distended : No renal angle tenderness. No suprapubic tenderness. Extremities: No edema, Capillary Refill Less than 3 Seconds Skin: No rashes, No breakdown Musculoskeletal: Tenderness present on lumbar spine and paraspinal muscle. No Tenderness to Palpation of Joints or Extremities Neurological: Cranial nerves II-XII grossly intact, Deep Tendon Reflexes 2+/4 and Symmetrical, Neuro grossly intact Psych/Mental Status: Normal Affect, Appropriate. - Physical Exam Vitals/I&O's: Vital Signs Temp Pulse Resp BP Pulse Ox 97.8 F 76 18 152/91 H 94 03/14/20 08:40 03/14/20 08:40 03/14/20 08:40 03/14/20 08:40 03/14/20 08:40 Oxygen Flow Rate (L/min) 3 Oxygen Delivery Method Nasal Cannula Weight: 132 lb 11.492 oz Body Mass Index (BMI) 24.3 Intake and Output for Last 24 Hours 03/12/20 03/13/20 03/14/20 23:59 23:59 23:59 Intake Total 1420 / 1420 1010 / 1010 150 / 150 Output Total 1050 / 1050 1200 / 1200 400 / 400 Balance 370 / 370 -190 / -190 -250 / -250 Microbiology Past 72 Hours 03/10/20 14:30 Blood Culture (Wb) - Right Forearm Blood Culture - Preliminary No growth in 48 hours. 03/10/20 14:25 Blood Culture (Wb) - Left Forearm Blood Culture - Preliminary No growth in 48 hours. Current Medications Acetaminophen (Acetaminophen 500 Mg Tablet) 1,000 mg PO TID [facility] Last Admin: 03/14/20 06:02 Dose: 1,000 mg Documented by: Albuterol Sulfate (Albuterol 2.5 Mg/3 Ml Vial.Neb.) 2.5 mg INHALATION Q2H PRN PRN PRN Reason: sob/wheezing Albuterol/Ipratropium (Ipratropium/Albuterol Sulfate 3 Ml Ampul.Neb) 3 ml INHALATION Q4HWA.RT [facility] Last Admin: 03/14/20 06:47 Dose: 3 ml Documented by: Aspirin (Aspirin 81 Mg [facility].Chew) [facility] Last Admin: 03/14/20 08:37 Dose: 81 mg Documented by: Atorvastatin Calcium (Atorvastatin Calcium 40 Mg Tablet) 40 mg PO QHS [facility] Last Admin: 03/13/20 21:17 Dose: 40 mg Documented by: Carvedilol (Carvedilol 3.125 Mg Tablet) [facility] Last Admin: 03/14/20 08:37 Dose: 3.125 mg Documented by: Enoxaparin Sodium (Enoxaparin 40 Mg/0.4 Ml Syringe) 40 mg SC DAILY [facility] Last Admin: 03/14/20 08:38 Dose: 40 mg Documented by: Hydromorphone HCl (Hydromorphone 1 Mg/Ml Syringe) 1 mg IV Q4H PRN PRN PRN Reason: Pain Score 6-10 Last Admin: 03/13/20 11:08 Dose: 1 mg Documented by: Lisinopril (Lisinopril 5 Mg Tablet) 5 mg PO DAILY [facility] Last Admin: 03/14/20 08:37 Dose: 5 mg Documented by: Melatonin (Melatonin 3 Mg Tablet) 3 mg PO QHS PRN PRN PRN Reason: INSOMNIA Last Admin: 03/11/20 21:44 Dose: 3 mg Documented by: Ondansetron HCl (Ondansetron 4 Mg/2 Ml Vial) 4 mg IV Q8H PRN PRN PRN Reason: NAUSEA/VOMITING Oxycodone HCl (Oxycodone 5 Mg Tablet) 5 mg PO Q6H PRN PRN PRN Reason: Pain Score 6-10 Prednisone (Prednisone 20 Mg Tablet) 40 mg PO DAILY@0800 [facility] Last Admin: 03/14/20 08:37 Dose: 40 mg Documented by: Senna/Docusate Sodium (Senna/Docusate Sodium 1 Tablet) 1 tablet PO BID [facility] Last Admin: 03/14/20 08:38 Dose: 1 tablet Documented by: Sodium Chloride (0.9% Saline Lock 10 Ml Syringe) 10 - 40 ml IV UD PRN PRN Reason: SALINE FLUSH Last Admin: 03/13/20 11:09 Dose: 10 ml Documented by: Discharge Activity: May Not Drive Call your doctor if you observe: Fever of 101 or Higher, Coldness, Increased Pain, Numbness or Tingling, Change in Color, Inability to urinate, Inability to have a bowel movement, Shortness of breath, Dizziness, Fainting spells, Swelling in the ankles, Chest pain, Prolonged hiccoughing, Increased palpitations (irregular heartbeat), Calf discomfort, Uncontrolled pain Home Medications: Medications to take at Discharge Aspirin [Aspirin, Baby] 81 mg PO DAILYCM 03/10/20 Atorvastatin Calcium [Lipitor] 40 mg PO QHS 03/10/20 Carvedilol 3.125 mg PO DAILY 03/10/20 Lisinopril 5 mg PO DAILY 03/10/20 Calcium Carbonate/Vitamin D3 [Calcium 500-Vit D3 600 Caplet] 1 ea PO BID #60 tab 03/14/20 Clopidogrel Bisulfate [Clopidogrel] 75 mg PO DAILY #0 03/14/20 Ergocalciferol (Vitamin D2) [Vitamin D2] 50,000 unit PO QWEEK #4 cap 03/14/20 Famotidine [Pepcid] 20 mg PO DAILY #30 tab 03/14/20 Oxycodone HCl/Acetaminophen [Oxycodone-Acetaminophen 5-325] 1 tab PO Q6H PRN #7 tab 03/14/20 Polyethylene Glycol 3350 [Miralax] 17 gm PO DAILY #14 packet 03/14/20 Prednisone 10 mg PO DAILY #30 tab 03/14/20 Sennosides/Docusate Sodium [Senna-S Tablet] 2 ea PO BID PRN PRN #30 tab 03/14/20 Following Prescriptions Were Given to Patient: Calcium Carbonate/Vitamin D3 [Calcium 500-Vit D3 600 Caplet] 1 ea PO BID #60 tab Transmission Status: Received by [facility] Polyethylene Glycol 3350 [Miralax] 17 gm PO DAILY #14 packet Transmission Status: Received by [facility] Oxycodone HCl/Acetaminophen [Oxycodone-Acetaminophen 5-325] 1 tab PO Q6H PRN #7 tab PRN Reason: Pain Score 6-10 Transmission Status: Received by [facility] Famotidine [Pepcid] 20 mg PO DAILY #30 tab Transmission Status: Received by [facility] Prednisone 10 mg PO DAILY #30 tab Transmission Status: Received by [facility] Sennosides/Docusate Sodium [Senna-S Tablet] 2 ea PO BID PRN PRN #30 tab PRN Reason: Constipation Transmission Status: Received by [facility] Ergocalciferol (Vitamin D2) [Vitamin D2] 50,000 unit PO QWEEK #4 cap Transmission Status: Received by [facility] Primary Care Physician: Carrie Oreilly MD [STAFF PHYSICIAN] - Please follow up with your Primary Care Physician in: in 1-2 days Please Follow Up With: Sigifredo Keene MD When: for osteoporosis, L1 compression fractuture Medical Necessity - Tobacco Use Smoking Status: Former smoker Tobacco Use: Cigarettes Meaningful Use Info Meaningful Use Diagnoses (Choose all that apply): None applicable Inpatient E&M: 70110 [facility]
--- NOTE | 2020-03-15 13:34 | CASEMGMT ---
GEORGETTE ROBBINS Discharge Follow-up Phone Call: RICHARD: Carlos Strata: 4 Call Date: 03/15/2020 Discharge Date: 03/14/2020 Time of Call: 1330 Duration: 1 min Admitting Diagnosis: Acute compression fracture GEORGETTE ROBBINS attempted to complete follow-up phone call after recent hospitalization. No answer, voice message left with return contact information. Patient has follow-up appts scheduled.
== END 2020-03-14 13:25 | disposition home or self-care (01) | DRG 543 ==
LOC: ED 19:32 → MS3 19:54
PROVIDERS: Physician Assistant; Admitting Provider Hospitalist; Emergency Provider Emergency Medicine; PCP Internal Medicine; Visit Provider Internal Medicine
DX: M80.88XA Other osteoporosis with current pathological fracture, vertebra(e), initial encounter for fracture (principal); J44.1 Chronic obstructive pulmonary disease with (acute) exacerbation; J96.11 Chronic respiratory failure with hypoxia; R53.81 Other malaise; I10 Essential (primary) hypertension; I25.10 Atherosclerotic heart disease of native coronary artery without angina pectoris; Z95.5 Presence of coronary angioplasty implant and graft; Z79.02 Long term (current) use of antithrombotics/antiplatelets; Z99.81 Dependence on supplemental oxygen; M48.07 Spinal stenosis, lumbosacral region; Z79.899 Other long term (current) drug therapy; Z87.891 Personal history of nicotine dependence; K59.00 Constipation, unspecified; R50.9 Fever, unspecified
CPT/HCPCS: 36415; 71045; 72148; 74177; 80048; 80076; 81001; 82306; 83605; 84484; 85025; 85610; 85730; 87040; 87633; 87635; 93005; 94640; 97110; 97116; 97162; 97166; 97530; 97535; 99285; J7030; J7120; Q9967; A4216; J2405; U0002

== ENCOUNTER 2020-04-07 12:16 | Day surgery (SDC) | payer SELFPAY ==
[2020-03-13 05:00] VITALS: BMI 24.3
[2020-04-07] VITALS (7 sets, daily range): BP systolic 123–147; BP diastolic 61–92; PULSE 84–98; RESP 16–18; TEMP 36.1–36.8; O2SAT 96–100; BMI 23.3
[2020-04-07] MEDS: Lactated Ringers 1,000 ML 100 ML IV (12:59)
--- NOTE | 2020-04-07 14:30 | RAD_ITS ---
HISTORY: Kyphoplasty of L1 COMPARISON: MRI from March 10, 2020 FINDINGS: # of images incl. paperwork: 10 9 spot fluoroscopic images from kyphoplasty. From comparison to the MRI of the insufficiency fracture is present at the L1 level. The bone was kyphoplasty. Bone cement was placed from bilateral pedicular needles. No radiologist was in attendance. RAD/Lumbar Spine 2 or 3 Views IMPRESSION: Kyphoplasty of L1. at 0652 Reported and signed by: Tuan Bose MD Electronically Signed: Tuan Bose MD at 6:50 EST Tel , Service support ,
[2020-04-07] MEDS: Cefazolin 2 GM in 0.9% Normal Saline 100 ML IV (14:43)
[2020-04-07] MEDS: Bupivacaine Mpf 0.5% 30 ML VIAL (15:00)
== END 2020-04-07 17:33 | disposition home or self-care (01) ==
LOC: SDC 12:21 → AC 12:22
PROVIDERS: PCP Internal Medicine; Referring Provider Anesthesiology Pain Medicine; Visit Provider Anesthesiology Pain Medicine
PROC: (CPT 22514; principal; 2020-04-07 14:15)
DX: M80.08XA Age-related osteoporosis with current pathological fracture, vertebra(e), initial encounter for fracture (principal); M51.36 Other intervertebral disc degeneration, lumbar region; M51.37 Other intervertebral disc degeneration, lumbosacral region; I10 Essential (primary) hypertension; I25.2 Old myocardial infarction; J44.9 Chronic obstructive pulmonary disease, unspecified; E78.00 Pure hypercholesterolemia, unspecified; Z87.891 Personal history of nicotine dependence; Z99.81 Dependence on supplemental oxygen; Z20.828 Contact with and (suspected) exposure to other viral communicable diseases; Z95.5 Presence of coronary angioplasty implant and graft; Z79.02 Long term (current) use of antithrombotics/antiplatelets; Z79.899 Other long term (current) drug therapy
CPT/HCPCS: 01936; 22514; 72100; 76000; 87426; C9803; J7120

== ENCOUNTER 2020-05-26 15:21 | Emergency (ER) | payer SELFPAY ==
[2020-04-07 13:00] VITALS: BMI 23.3
[2020-05-26 15:22] VITALS: BP 144/87; PULSE 96; RESP 18; TEMP 36.9; O2SAT 98; BMI 22.8
--- NOTE | 2020-05-26 15:51 | ED.DCSUM_ITS ---
History of Present Illness Chief Complaint: GI Bleed Informant: Patient Narrative: 7-year-old female presenting with blood in stool. She states that yesterday she had a little bit. Today she had more blood in her stool and estimates this morning. She is not have any active bleeding between stools. Patient does complain of some mild left-sided abdominal pain. Patient is on Plavix. She has no history of bloody stools in the past. She denies fever, chills, nausea, vomiting. - Past Medical History (1) COPD (chronic obstructive pulmonary disease) Status: Chronic Past Medical History - Allergies and Home Meds Allergies/Adverse Reactions: Allergies No Known Allergies Allergy (Verified 05/26/20 15:21) Primary Care Physician: Consatnza Streeter MD [Primary Care Provider] - Prior records reviewed: Yes Past Medical History: - - Mild, CAD, COPD Surgical History: hysterectomy Lives: Alone Smoking Status: Former smoker Alcohol: None Drugs: None - Family History Offspring Family History: Family History (Last Reviewed 03/10/20 @ 20:[address] Panchito Ulrich MD) Sister No problems noted. Son hole in his heart Grandmother Cancer Father Cancer Grandfather Cancer Family History: Reports: - - has a son with a hole in his heart Review of Systems General: Denies: Chills, Fever, Sweats Eyes: Denies: Visual changes - bilaterally, Diplopia ENT: Denies: Rhinorrhea, Sore throat Cardiovascular: Denies: Chest pain, Palpitations Respiratory: Denies: Dyspnea, Cough, Dyspnea on exertion Gastrointestinal: Reports: Abdominal pain, Hematochezia Genitourinary: Denies: Dysuria, Hematuria, Frequency Musculoskeletal: Reports: Back pain - Chronic. Denies: Extremity Pain Skin: Denies: Rash, Wounds Neurological: Denies: Headache, Weakness, Numbness Psych: Denies: Depression, Anxiety Physical Exam Vital Signs/Narrative: Vital Signs Temp Pulse Resp BP Pulse Ox 05/26/20 15:22 98.4 F 96 18 144/87 H 98 General: Well nourished, No Acute Distress Head: Normocephalic, Atraumatic Eyes: Perrl, EOMI. Negative for: Pale conjunctiva ENT: Moist mucous membranes, No rhinorrhea Cardiovascular: Regular rate, Regular rhythm Respiratory: No distress, CTA bilaterally Abdomen: Soft, Nondistended, Tender - Mild tenderness to the left upper and lower quadrants. Abdomen nonperitoneal. Rectal: - - Brown stool, no visible blood. No hemorrhoids Extremities: Nontender, No edema Skin: Normal color, No rash. Negative for: Cyanosis, Diaphoresis Neurological: Alert, Oriented x3, Cranial nerves II-XII grossly intact Psychological: Normal affect, Normal Mood Diagnostic/Tx/Re-eval Clinical Impression(s) from Imaging Studies Abdomen/Pelvis CT 05/26/20 16:03 IMPRESSION: Sigmoid diverticulosis without diverticulitis. Electronically Signed: Denis Serra MD at 17:16 EST Tel , Service support , Laboratory Data 05/26/20 05/26/20 15:40 15:40 WBC 7.0 RBC 4.19 L Hgb 12.5 Hct 39.5 MCV 94.3 MCH 29.8 MCHC 31.6 L RDW Std Deviation 45.3 H RDW Coeff of Melisa 13.4 Plt Count 282 MPV 10.9 Immature Gran % (Auto) 0.400 Neut % (Auto) 59.1 Lymph % (Auto) 28.7 Phelps % (Auto) 8.9 Eos % (Auto) 2.0 Baso % (Auto) 0.9 Absolute Neuts (auto) 4.1 Absolute Lymphs (auto) 2.00 Nucleated RBC % 0 Sodium 145 Potassium 4.0 Chloride 113 H Carbon Dioxide 28.0 Anion Gap 4 L BUN 24 H Creatinine 0.64 Estim Creat Clear Calc 35.49 Est GFR (MDRD) Af Amer 114 Est GFR (MDRD) Non-Af 94 BUN/Creatinine Ratio 37.3 H Glucose 107 H Calcium 9.1 Total Bilirubin 0.30 AST 19 ALT 11 L Alkaline Phosphatase 164 H Total Protein 6.7 Albumin 3.5 Globulin 3.2 Albumin/Globulin Ratio 1.1 Lipase 176 - Medical Decision Making 79-year-old female presenting with history of blood in stool. She has no active bleeding. On examination she has brown stool. Her Hemoccult was positive. H emoglobin is 12.5. GFR and electrolytes are normal. CT of the abdomen pelvis shows no acute process. Patient was discussed with Dr. Romero who is on-call for general surgery who felt we could get the patient close outpatient follow-up given that she is hemodynamically stable with a stable hemoglobin. This was discussed with the patient and she is amenable to this plan. Patient counseled that if she has worsening bleeding or symptoms of anemia which were discussed at length that she should return. Patient knowledge understanding. Patient stable for discharge. Impression: 1. Lower GI bleed stable ED Disposition - Plan for ED Patient: Disposition: Home or Assisted Living Instructions: ED Lower GI Bleeding (Stable) Referrals: Constanza Streeter MD [Primary Care Provider] - Lora Romero MD [STAFF PHYSICIAN] -
--- NOTE | 2020-05-26 16:03 | CT_ITS ---
STUDY: CT ABDOMEN AND PELVIS WITH CONTRAST REASON FOR EXAM: Female, 79 years old. LT ABD PAIN, BLOOD IN STOOL RADIATION DOSAGE (If Supplied By Facility): CTDIvol = ( 15.59 ) mGy, DLP = ( 480.04 ) mGycm TECHNIQUE: Transaxial images were obtained from the dome of the diaphragm to the symphysis pubis without oral contrast. IV 100mL Isovue-300 was administered. Sagittal and coronal images were reconstructed. Individualized dose optimization techniques were used for this CT. COMPARISON: 03/10/2020 FINDINGS: The visualized lung bases are unremarkable. The visualized portions of the heart are within normal limits. Normal liver. Normal gallbladder and extrahepatic biliary system. Normal spleen. Normal pancreas. Normal bilateral adrenal glands. Normal right kidney. Normal left kidney. There is a small hiatal hernia. Normal small intestine. There are multiple colonic diverticula consistent with diverticulosis. The appendix is visualized and appears normal. There is diffuse atherosclerotic calcification of the abdominal aorta, without a demonstrated aneurysm. Normal inferior vena cava. Normal retroperitoneum. Normal urinary bladder. Normal abdominal wall. Mild levoscoliosis of the thoracolumbar spine. Chronic compression fractures of L1 and L2 treated with vertebroplasty. CT/Abdomen/Pelvis W IV Cont ONLY IMPRESSION: Sigmoid diverticulosis without diverticulitis. Electronically Signed: Denis Serra MD at 17:16 EST Tel , Service support ,
[2020-05-26 16:22] LABS: Absolute Neutrophil Count 4.1 X10^3/uL (2.0-7.7); Basophil# 0.06 X10^3/uL; Basophil% 0.9 % (0-1); Eosinophil# 0.14 X10^3/uL; Hematocrit 39.5 % (37-47); Hemoglobin 12.5 g/dL (12.0-15.0); Lymphocyte % 28.7 % (19-41); Mean Corp Hgb Conc 31.6 g/dL (32-36); Mean Corpuscular Hgb 29.8 pg (27.0-32.0); Mean Corpuscular Volume 94.3 fL (81-99); Mean Platelet Vol. 10.9 fl (6.2-12.0); Monocyte# 0.62 X10^3/uL; Monocyte% 8.9 % (0-10); NRBC Flagged by Analyzer 0 % (0-5); Neutrophil # 4.11 X10^3/uL (2.7-7.7); Neutrophil % 59.1 % (47-70); Platelet Count 282 K/mm3 (150-450); RBC Distribution Width CV 13.4 % (11.6-14.6); RBC Distribution Width SD 45.3 fl (35.1-43.9); Red Blood Count 4.19 M/mm3 (4.2-5.4)
[2020-05-26 16:37] LABS: ALB/GLOB Ratio 1.1 RATIO (0.9-2.4); AST(SGOT) 19 U/L (15-37); Alanine Aminotransfer ALT/SGPT 11 U/L (13-56); Albumin, Serum 3.5 g/dL (3.2-5.0); Alkaline Phosphatase 164 U/L (45-117); Anion Gap 4 (5-15); BUN 24 mg/dL (7-18); BUN/Creat Ratio 37.3 RATIO (10-20); Calcium,Total 9.1 mg/dL (8.5-10.1); Chloride 113 mmol/L (98-107); Creatinine, Serum 0.64 mg/dL (0.55-1.02); EST Glomerular Filtration Rate 94 mL/min (>60); Est Glom Filt Rate - Afr Amer 114 mL/min (>60); Estimated Creatinine Clearance 35.49 ml/min; Globulin 3.2 g/dL (2.2-4.2); Glucose 107 mg/dL (74-106); Lipase 176 U/L (73-393); Protein, Total 6.7 g/dL (6.4-8.2); Sodium Level 145 mmol/L (136-145)
[2020-05-26 17:52] VITALS: BP 181/94; PULSE 96; RESP 14; O2SAT 99
== END 2020-05-26 18:30 | disposition home or self-care (01) ==
PROVIDERS: Emergency Provider Student in an Organized Health Care Education/Training Program; PCP Internal Medicine
DX: K92.1 Melena (principal); J44.9 Chronic obstructive pulmonary disease, unspecified; I25.10 Atherosclerotic heart disease of native coronary artery without angina pectoris; Z79.02 Long term (current) use of antithrombotics/antiplatelets; Z79.899 Other long term (current) drug therapy; Z87.891 Personal history of nicotine dependence
CPT/HCPCS: 74177; 80053; 82274; 83690; 85025; 96360; 99285; J7040; Q9967; A4216

== ENCOUNTER 2020-06-08 13:53 | Inpatient (IN) | payer MEDICARE, SELFPAY ==
[2020-06-08] VITALS (7 sets, daily range): BP systolic 121–168; BP diastolic 74–100; PULSE 94–97; RESP 16–18; TEMP 36.7–37.1; O2SAT 87–96; BMI 23.9; BMI 21.7
--- NOTE | 2020-06-08 14:11 | CT_ITS ---
STUDY: CT THORACIC SPINE WITHOUT CONTRAST REASON FOR EXAM: Female, 79 years old. BACK PAIN RADIATION DOSAGE (If Supplied By Facility): CTDIvol = ( 18.42 ) mGy, DLP = ( 599.61 ) mGycm TECHNIQUE: The patient was scanned in a multi detector CT scanner. High resolution imaging was performed. Images were obtained from lower cervical spine to upper lumbar spine. Sagittal and coronal images were reconstructed. Individualized dose optimization techniques were used for this CT. COMPARISON: Chest x-ray 12/16/2019 FINDINGS: Upper lumbar spine described on lumbar spine CT. Normal kyphosis of the thoracic spine. There is no substantial scoliosis. There is multilevel endplate spondylosis of the thoracic spine. There is multilevel degenerative disc disease with loss of the disc space heights. Moderate compression fracture of T10 is new since prior chest x-ray. Minimal retropulsion. There is also slight compression deformity of T11 with smudging of the trabecula along the superior vertebral body There is atherosclerosis of the thoracic aorta. Fibrotic changes with centrilobular emphysema of the lungs. CT/Spine Thoracic without Contras IMPRESSION: 1. T10 compression fracture new since prior chest x-ray. Possible minimal compression fracture of T11. Electronically Signed: Roger Cartagena MD ([place]) at 15:49 EST , Service support ,
--- NOTE | 2020-06-08 14:11 | ED.DCSUM_ITS ---
History of Present Illness Chief Complaint: Back Informant: Patient Narrative: 79-year-old female presents by EMS with concern for back pain. Patient states it is been worsening over the past 7 to 8 hours. Denies any fall. Patient has had previous back pain with surgery. Denies any fever, chills. Patient states that since her surgery she has had intermittent incontinence which is not worsened. Past Medical History - Allergies and Home Meds Allergies/Adverse Reactions: Allergies No Known Allergies Allergy (Verified 06/08/20 13:54) Prior records reviewed: Yes Past Medical History: - - HTN, CAD, Chronic back pain Surgical History: hysterectomy Lives: Alone Smoking Status: Former smoker Alcohol: None Drugs: None - Family History Offspring Family History: Family History (Last Reviewed 03/10/20 @ 20:[address] Panchito Ulrich MD) Sister No problems noted. Son hole in his heart Grandmother Cancer Father Cancer Grandfather Cancer Family History: Reports: - - has a son with a hole in his heart Review of Systems General: Denies: Chills, Fever, Sweats Eyes: Denies: Visual changes - bilaterally, Diplopia ENT: Denies: Rhinorrhea, Sore throat Cardiovascular: Denies: Chest pain, Palpitations Respiratory: Denies: Dyspnea, Cough, Dyspnea on exertion Gastrointestinal: Denies: Abdominal pain, Nausea, Vomiting, Diarrhea, Melena, Hematochezia Genitourinary: Denies: Dysuria, Hematuria, Frequency Musculoskeletal: Reports: Back pain. Denies: Extremity Pain Skin: Denies: Rash, Wounds Neurological: Denies: Headache, Weakness, Numbness Physical Exam Vital Signs/Narrative: Vital Signs Temp Pulse Resp BP Pulse Ox 06/08/20 13:55 98.3 F 95 16 139/100 H 92 06/08/20 13:54 98.3 F 97 17 94 Inital Vital Signs reviewed: Yes General: Well nourished, Well developed, No Acute Distress Head: Normocephalic, Atraumatic Eyes: Perrl, EOMI ENT: Moist mucous membranes, No rhinorrhea Neck: Supple, Nontender Cardiovascular: Regular rate, Regular rhythm, No murmurs Respiratory: No distress, CTA bilaterally, Chest nontender Abdomen: Soft, Nontender, Nondistended, Normal bowel sounds Back: Normal Inspection, - - TTP of the lower thoracic and throughout the lumber spine on midline palpation. Extremities: Nontender, No edema Skin: Normal color, No rash Neurological: Alert, Oriented x3, Cranial nerves II-XII grossly intact, Normal Strength, Normal Sensation Psychological: Normal affect, Normal Mood Diagnostic/Tx/Re-eval Clinical Impression(s) from Imaging Studies Lumbar Spine CT 06/08/20 14:11 IMPRESSION: 1. L2 compression fracture new since 03/10/2020. 2. L1 vertebral augmentation with residual compression deformity. Electronically Signed: Roger Cartagena MD (Bro[place]) at 15:43 EST , Service support , Thoracic Spine CT 06/08/20 14:11 IMPRESSION: 1. T10 compression fracture new since prior chest x-ray. Possible minimal compression fracture of T11. Electronically Signed: Roger Cartagena MD (Brooks) at 15:49 EST , Service support , - Medical Decision Making Patient appears well and nontoxic. Moderate pain secondary to her back. Was given intramuscular morphine. CT of the thoracic and lumbar spine shows 3 new compression fractures at T10, T11, and L2. With the patient's daughter who is in agreements that she likely needs rehab. Patient is having continued back pain when she tries to move. Will be admitted for further treatment and evaluation. Impression: 1. Thoracic compression fractures 2. Lumber compression fracture 3. Frequent falls 4. Intractable back pain ED Disposition - Plan for ED Patient: Disposition: Acute Care Hospital [facility]
--- NOTE | 2020-06-08 14:11 | CT_ITS ---
STUDY: CT LUMBAR SPINE WITHOUT CONTRAST REASON FOR EXAM: Female, 79 years old. BACK PAIN RADIATION DOSAGE (If Supplied By Facility): CTDIvol = ( 14.08 ) mGy, DLP = ( 349.37 ) mGycm TECHNIQUE: The patient was scanned in a multi detector CT scanner. High resolution transaxial imaging was performed. Images were obtained from lower thoracic spine to mid sacrum. Sagittal and coronal images were reconstructed. Individualized dose optimization techniques were used for this CT. COMPARISON: Abdomen/pelvis CT 03/10/2020 FINDINGS: Normal lumbar lordosis. There is no substantial scoliosis. There has been interval vertebral augmentation of L1 with similar compression deformity and retropulsion. Compression fracture of L2 (30%) without significant retropulsion. Benign hemangioma of L3 is stable. L1-2: Normal endplates. Normal disc height and morphology. Normal bilateral facet joints. Normal central canal and bilateral lateral recesses. Normal bilateral intervertebral neural foramina. L2-3: Normal endplates. Normal disc height and morphology. Normal bilateral facet joints. Normal central canal and bilateral lateral recesses. Normal bilateral intervertebral neural foramina. L3-4: Mild broad posterior disc bulging and ligamentum flavum hypertrophy mild canal narrowing. L4-5: Mild broad posterior disc bulging and ligamentum flavum hypertrophy mild canal narrowing. L5-S1: Mild broad posterior disc bulging and ligamentum flavum hypertrophy mild canal narrowing. Mild bilateral foraminal narrowing. Atherosclerosis of the abdominal aorta and iliac arteries. CT/Spine Lumbar without Contrast IMPRESSION: 1. L2 compression fracture new since 03/10/2020. 2. L1 vertebral augmentation with residual compression deformity. Electronically Signed: Roger Cartagena MD (Brooks) at 15:43 EST , Service support ,
[2020-06-08] MEDS: Morphine 4 MG/ML Syringe IM (14:31)
[2020-06-08] MEDS: Ondansetron ODT 4 MG Tablet PO (14:31)
--- NOTE | 2020-06-08 17:16 | HP.PCM_ITS ---
Problem List (1) Low back pain Status: Acute (2) Myocardial infarction Status: Resolved (3) Compression fracture of L1 lumbar vertebra Status: Acute (4) Intractable back pain Status: Acute (5) Compression fracture Status: Acute (6) Atherosclerosis of [place] coronary artery of [place] heart without angina pectoris Status: Chronic Comment: PTCA/WILLIAM of occluded mid RCA using Synergy 3.0 X 16 and WILLIAM proximal RCA using Synergy 3.0 X 12 on 07/18/[address] Marcelo Canchola; (7) Tobacco dependence Status: Chronic Comment: 2 PPD for at least 60 years (8) History of cervical cancer Status: Chronic (9) Status post STEWART-BSO Status: Chronic (10) COPD (chronic obstructive pulmonary disease) Status: Chronic (11) Dehydration, mild Status: Acute (12) STEMI (ST elevation myocardial infarction) Status: Resolved Comment: 07/18/2019 (13) Compression fracture of L2 lumbar vertebra Status: Acute History of Present Illness Date of Admission: 06/08/20 Chief Complaint: Back pain for 2 to 4 weeks The patient is a 79 year old F with history of STEMI, inferior wall in June 2019 came to ER with worsening lower back pain for 3 to 4 weeks. Patient has history of compression fracture of L1 vertebra and was admitted in February 2020 after a fall. This time she denies fall but has difficulty in walking due to back pain. Her back pain is severe in the morning when she starts walking and gets worse. In ED, she had lumbar spine CT which showed new L2 compression fracture since 03/10 and L1 vertebral augmentation. Thoracic spine CT shows T10 compression fracture new with possible minimal compression fracture of T11.She has history of osteoporosis. Patient had a spinal stenosis at L4-5, and L5-S1. Patient denies any new symptoms regarding chest pain or shortness of breath. [] Past Medical History Past Medical History (Chronic Problems): Chronic Problems (Last Reviewed 03/10/20 @ 20:[address] Panchito Ulrich MD) Atherosclerosis of [place] coronary artery of [place] heart without angina pectoris (Chronic) PTCA/WILLIAM of occluded mid RCA using Synergy 3.0 X 16 and WILLIAM proximal RCA using Synergy 3.0 X 12 on 07/18/[address] Marcelo Canchola; Tobacco dependence (Chronic) 2 PPD for at least 60 years History of cervical cancer (Chronic) Status post STEWART-BSO (Chronic) COPD (chronic obstructive pulmonary disease) (Chronic) Medical History: Medical History (Last Reviewed 03/10/20 @ 20:[address] Panchito Ulrich MD) Atherosclerosis of [place] coronary artery of [place] heart without angina pectoris (Chronic) I25.10 PTCA/WILLIAM of occluded mid RCA using Synergy 3.0 X 16 and WILLIAM proximal RCA using Synergy 3.0 X 12 on 07/18/[address] Marcelo Canchola; Tobacco dependence (Chronic) F17.200 2 PPD for at least 60 years COPD (chronic obstructive pulmonary disease) (Chronic) J44.9 STEMI (ST elevation myocardial infarction) (Resolved) Onset Date: 07/18/19 I21.3 07/18/2019 Allergies No Known Allergies Allergy (Verified 06/08/20 13:54) Home Medications: Ambulatory Orders Medication Instructions Recorded Aspirin [Aspirin, Baby] 81 mg PO DAILYCM 03/10/20 Atorvastatin Calcium [Lipitor] 40 mg PO QHS 03/10/20 Carvedilol 3.125 mg PO DAILY 03/10/20 Clopidogrel Bisulfate [Clopidogrel] 75 mg PO DAILY #0 03/14/20 Polyethylene Glycol 3350 [Miralax] 17 gm PO DAILY #14 packet 03/14/20 Sennosides/Docusate Sodium 2 ea PO BID PRN PRN #30 tab 03/14/20 [Senna-S Tablet] Ergocalciferol (Vitamin D2) 1,000 unit PO QHS 04/06/20 [Vitamin D2] Famotidine [Pepcid] 20 mg PO DAILY PRN 04/06/20 traMADol [Ultram (G)] 50 mg PO BID 04/06/20 Surgical History: Surgical History (Last Reviewed 03/10/20 @ 20:[address] Panchito Ulrich MD) H/O: hysterectomy Z90.710 Surgical History: hysterectomy Psychiatric History: No pertinent psych hx [employer] History: endometrial cancer Lives: Alone Smoking Status: Former smoker Alcohol: None Drugs: None - *Family History Offspring Family History: Family History (Last Reviewed 03/10/20 @ 20:[address] Panchito Ulrich MD) Sister No problems noted. Son hole in his heart Grandmother Cancer Father Cancer Grandfather Cancer History Items: - - has a son with a hole in his heart Review of Systems Constitutional: Denies: Chills, Fever, Weight Change HEENT: Denies: Head Aches, Sinus Congestion, Sinus Drainage Cardiovascular: Denies: Chest Pain, Palpitations Respiratory: Denies: Cough, Shortness of Breath, Shortness of breath at rest, Sputum production Gastrointestinal: Denies: Abdominal Pain, Constipation, Diarrhea, Hematemesis, Hematochezia, Nausea, Melena, Vomiting Genitourinary: Reports: Incontinence - Chronic urinary incontinence. Denies: Dysuria Musculoskeletal: Reports: Back Pain, Joint Pain, Joint stiffness. Denies: Joint Tenderness Skin: Denies: Rash, Wounds Neurological: Reports: Balance problems, Incoordination. Denies: Focal weakness, Numbness, Tingling Psychiatric: Denies: Anxiety, Depression, Homicidal Ideations, Suicidal Ideations Hematologic/ Lymphatic: Denies: Easy Bruising, Easy Bleeding VTE Information - Inpt Only VTE Present on Admission: No VTE Mechan Device Prophylaxis: None VTE Pharm Prophylaxis ordered?: Yes Objective: Physical exam General: Alert, Oriented x3, Cooperative HEENT: Atraumatic, PERRLA, EOMI, Normocephalic Oral: No Gingival or Mucosal Lesions/ Ulcerations Neck: Supple, No JVD, Negative Carotid Bruits Lungs: Air entry diminished in bilateral lung bases. No crepitation/rhonchi Cardiovascular: Regular rate, Regular Rhythm, Normal S1, Normal S2, No murmurs Abdomen: Bowel Sounds Present, Soft, Non Tender, Non-Distended : No renal angle tenderness. No suprapubic tenderness. Extremities: No edema, Capillary Refill Less than 3 Seconds Skin: No rashes, No breakdown Musculoskeletal: No Tenderness to Palpation of Joints or Extremities Back: Tenderness present over T10 12 vertebrae. Paraspinal muscle tenderness present. Neurological: Cranial nerves II-XII grossly intact, Deep Tendon Reflexes 2+/4 and Symmetrical, Neuro grossly intact Psych/Mental Status: Normal Affect, Appropriate. - Physical Exam Vitals/I&O's: Vital Signs Temp Pulse Resp BP Pulse Ox 98.7 F 95 16 168/81 H 87 06/08/20 17:09 06/08/20 17:09 06/08/20 17:09 06/08/20 17:09 06/08/20 17:09 Oxygen Delivery Method Room Air Weight: 130 lb 11.746 oz Body Mass Index (BMI) 23.9 Assessment/Plan All Active Problems (Last Reviewed 03/10/20 @ 20:[address] Panchito Ulrich MD) Myocardial infarction (Resolved) Compression fracture of L1 lumbar vertebra (Acute) Intractable back pain (Acute) Compression fracture (Acute) Low back pain (Acute) Compression fracture of L2 lumbar vertebra (Acute) Dehydration, mild (Acute) STEMI (ST elevation myocardial infarction) (Resolved 07/18/19) The patient is a 79 year old F with history of STEMI, inferior wall in June 2019 came to ER with worsening lower back pain for 3 to 4 weeks. 1. Severe lower back pain from pathological T10, possible T11 and new L2 compression fractures with history of recent L1 vertebral augmentation: Patient had L1 vertebral augmentation by Dr. Oreilly last time as an outpatient. Patient had MRI spine at that time reported as acute compression fracture superior endplate of L1 with 50 to 60% loss of vertebral body height. Mild spinal stenosis without cord compression. Spinal stenosis at L4-5 and L5-S1. During last time patient refused for going to SNF but daughter at this time wants her to go to SNF. PT and OT ordered. Pain control with low-dose Motrin, oxycodone and morphine as per pain scale severity. IV fluid. Muscle relaxant. 2. COPD: mild on 3 L of home oxygen currently patient is 92% on room air in ED. During previous admission #2019, chest x-ray showed no acute infiltrate, C Continue prednisone, incentive spirometer 3. Hypertension, elevated: continue home medications lisinopril and carvedilol. 4. CAD, inferior wall STEMI in June 2019 status PCI: Continue on aspirin, Plavix, lisinopril, carvedilol, Lipitor 5. DVT prophylaxis -Lovenox 40 subcu daily. Clinical Impression(s) from Imaging Studies Lumbar Spine CT 06/08/20 14:11 IMPRESSION: 1. L2 compression fracture new since 03/10/2020. 2. L1 vertebral augmentation with residual compression deformity. Electronically Signed: Roger Cartagena MD ([place]) at 15:43 EST , Service support , Thoracic Spine CT 06/08/20 14:11 IMPRESSION: 1. T10 compression fracture new since prior chest x-ray. Possible minimal compression fracture of T11. Inpatient E&M: 75668 Init Hosp L3
[2020-06-08 17:31] LABS: Absolute Lymphocyte Count 2.15 X10^3/uL (0.83-4.51); Absolute Neutrophil Count 5.2 X10^3/uL (2.0-7.7); Basophil# 0.04 X10^3/uL; Basophil% 0.5 % (0-1); Eosinophils% 2.4 % (0-5); Hematocrit 40.1 % (37-47); Hemoglobin 12.4 g/dL (12.0-15.0); Lymphocyte # 2.15 X10^3/ul (4.0); Lymphocyte % 25.8 % (19-41); Mean Corp Hgb Conc 30.9 g/dL (32-36); Mean Corpuscular Hgb 29.9 pg (27.0-32.0); Mean Corpuscular Volume 96.6 fL (81-99); Mean Platelet Vol. 10.4 fl (6.2-12.0); Monocyte# 0.69 X10^3/uL; Monocyte% 8.3 % (0-10); NRBC Flagged by Analyzer 0 % (0-5); Neutrophil # 5.21 X10^3/uL (2.7-7.7); Neutrophil % 62.6 % (47-70); Platelet Count 199 K/mm3 (150-450); RBC Distribution Width CV 15.1 % (11.6-14.6); RBC Distribution Width SD 53.4 fl (35.1-43.9); Red Blood Count 4.15 M/mm3 (4.2-5.4); White Blood Count 8.3 K/mm3 (4.4-11.0)
[2020-06-08 17:44] LABS: Anion Gap 2 (5-15); BUN 16 mg/dL (7-18); BUN/Creat Ratio 29.9 RATIO (10-20); Calcium,Total 9.3 mg/dL (8.5-10.1); Chloride 111 mmol/L (98-107); Creatinine, Serum 0.54 mg/dL (0.55-1.02); EST Glomerular Filtration Rate 117 mL/min (>60); Est Glom Filt Rate - Afr Amer 141 mL/min (>60); Estimated Creatinine Clearance 35.49 ml/min; Glucose 99 mg/dL (74-106); Potassium 3.6 mmol/L (3.5-5.1); Sodium Level 143 mmol/L (136-145)
[2020-06-08] MEDS: Lisinopril 5 MG Tablet PO (18:25)
[2020-06-08] MEDS: Famotidine 20 MG Tablet PO (18:25)
[2020-06-08] MEDS: Enoxaparin 40 MG/0.4 ML Syringe SC (18:25)
[2020-06-08] MEDS: Atorvastatin Calcium 40 MG Tablet PO (22:22)
[2020-06-08] MEDS: HYDROmorphone 0.5 MG/0.5 ML SYRINGE IV (22:22)
[2020-06-08] MEDS: cycloBENZAPRine HCl 10 MG Tablet PO (23:11)
[2020-06-08] MEDS: Ibuprofen 400 MG Tablet PO (23:11)
[2020-06-09 04:44] VITALS: BP 124/84; PULSE 67; RESP 16; TEMP 36.9; O2SAT 98
[2020-06-09 04:45] VITALS: O2SAT 98
[2020-06-09 07:25] VITALS: O2SAT 92
--- NOTE | 2020-06-09 07:57 | PCM.PN.HOSP ---
Patient Problems: Active and Suspected Problems (Last Reviewed 03/10/20 @ 20:[address] Panchito Ulrich MD) Compression fracture of L1 lumbar vertebra (Acute) Intractable back pain (Acute) Compression fracture (Acute) Low back pain (Acute) Compression fracture of L2 lumbar vertebra (Acute) Dehydration, mild (Acute) Reason for Visit: Severe back pain Spinal vertebral compression fracture Subjective: Patient is an 79-year-old lady with multiple comorbidities who presented with severe low back pain imaging studies obtained on admission demonstrated L2 and T10 vertebral compression fracture admitted to regular nursing floor for further management Objective: GENERAL: Frail looking HEENT: Atraumatic; EYES; Anicteric, Normal Conjunctiva NECK; supple, normal thyroid, RESPIRATORY: Diminished to auscultation CARDIOVASCULAR: Regular S1 S2, GI: soft, normoactive bowel sounds, : No Renal angle tenderness; EXTREMITIES: No edema, no clubbing, MUSCULOSKELETAL: no muscle waisting NEURO: Awake; no lateralizing signs. SKIN: No Rash PSYCH; Flat affect Vitals/I&O's: Vital Signs Temp Pulse Resp BP Pulse Ox 98.5 F 67 16 124/84 H 92 06/09/20 04:44 06/09/20 04:44 06/09/20 04:44 06/09/20 04:44 06/09/20 07:25 Oxygen Flow Rate (L/min) 3 Oxygen Delivery Method Nasal Cannula Weight: 53.4 kg Body Mass Index (BMI) 21.7 Intake and Output for Last 24 Hours 06/07/20 06/08/20 06/09/20 23:59 23:59 23:59 Intake Total 500 / 500 Output Total 600 / 600 Balance -100 / -100 Laboratory Results 06/08/20 17:21: WBC 8.3, RBC 4.15 L, Hgb 12.4, Hct 40.1, MCV 96.6, MCH 29.9, MCHC 30.9 L, RDW Std Deviation 53.4 H, RDW Coeff of Melisa 15.1 H, Plt Count 199, MPV 10.4, Immature Gran % (Auto) 0.400, Neut % (Auto) 62.6, Lymph % (Auto) 25.8, [place] % (Auto) 8.3, Eos % (Auto) 2.4, Baso % (Auto) 0.5, Absolute Neuts (auto) 5.2, Absolute Lymphs (auto) 2.15, Nucleated RBC % 0 06/08/20 17:21: Sodium 143, Potassium 3.6, Chloride 111 H, Carbon Dioxide 30.0, Anion Gap 2 L, BUN 16, Creatinine 0.54 L, Estim Creat Clear Calc 35.49, Est GFR (MDRD) Af Amer 141, Est GFR (MDRD) Non-Af 117, BUN/Creatinine Ratio 29.9 H, Glucose 99, Calcium 9.3 Current Medications Acetaminophen (Acetaminophen 325 Mg Tablet) 650 mg PO Q6H PRN PRN PRN Reason: Temp > 100.7 F Al Hydroxide/Mg Hydroxide (Mag Hydrox/Al Hydrox/Simeth 30 Ml Udc) 30 ml PO Q6H PRN PRN PRN Reason: Gastric Burning Albuterol Sulfate (Albuterol 2.5 Mg/3 Ml Vial.Neb.) 2.5 mg INHALATION Q2H PRN PRN PRN Reason: Shortness of Breath/Wheezing Aspirin (Aspirin 81 Mg Tab.Chew) [facility] Atorvastatin Calcium (Atorvastatin Calcium 40 Mg Tablet) 40 mg PO QHS [facility] Last Admin: 06/08/20 22:22 Dose: 40 mg Documented by: Carvedilol (Carvedilol 3.125 Mg Tablet) 3.125 mg PO DAILY [facility] Cholecalciferol (Cholecalciferol (Vit D3) 1,000 Unit (25mcg)) 1,000 unit PO QHS [facility] Last Admin: 06/08/20 22:23 Dose: 1,000 unit Documented by: Clopidogrel Bisulfate (Clopidogrel Bisulfate 75 Mg Tablet) 75 mg PO DAILY [facility] Cyclobenzaprine HCl (Cyclobenzaprine Hcl 10 Mg Tablet) 10 mg PO TID PRN PRN PRN Reason: back pain/spasm Last Admin: 06/08/20 23:11 Dose: 10 mg Documented by: Enoxaparin Sodium (Enoxaparin 40 Mg/0.4 Ml Syringe) 40 mg SC DAILY [facility] Last Admin: 06/08/20 18:25 Dose: 40 mg Documented by: Famotidine (Famotidine 20 Mg Tablet) 20 mg PO DAILY [facility] Last Admin: 06/08/20 18:25 Dose: 20 mg Documented by: Hydromorphone HCl (Hydromorphone 0.5 Mg/0.5 Ml Syringe) 0.5 mg IV Q4H PRN PRN PRN Reason: Pain Score 6-10 Last Admin: 06/08/20 22:22 Dose: 0.5 mg Documented by: Ibuprofen (Ibuprofen 400 Mg Tablet) 400 mg PO Q4H PRN PRN PRN Reason: Pain Score 1-10 Last Admin: 06/08/20 23:11 Dose: 400 mg Documented by: Lisinopril (Lisinopril 5 Mg Tablet) 5 mg PO DAILY [facility] Ondansetron HCl (Ondansetron 4 Mg/2 Ml Vial) 4 mg IV Q8H PRN PRN PRN Reason: NAUSEA/VOMITING Oxycodone HCl (Oxycodone 5 Mg Tablet) 5 mg PO Q4H PRN PRN PRN Reason: Pain Score 4-5 Polyethylene Glycol (Polyethylene Glycol 3350 17 Gm Packet) 17 gm PO DAILY [facility] Senna/Docusate Sodium (Senna/Docusate Sodium 1 Tablet) 2 tablet PO BID PRN PRN PRN Reason: Constipation Sodium Chloride (0.9% Saline Lock 10 Ml Syringe) 10 - 40 ml IV UD PRN PRN Reason: SALINE FLUSH STROKE Vital Signs/Narrative: Vital Signs Temp Pulse Resp BP Pulse Ox 06/09/20 07:25 92 06/09/20 04:45 98 06/09/20 04:44 98.5 F 67 16 124/84 H 98 Medical Necessity - Tobacco Use Smoking Status: Former smoker Assessment/Plan All Active Problems (Last Reviewed 03/10/20 @ 20:[address] Panchito Ulrich MD) Myocardial infarction (Resolved) Compression fracture of L1 lumbar vertebra (Acute) Intractable back pain (Acute) Compression fracture (Acute) Low back pain (Acute) Compression fracture of L2 lumbar vertebra (Acute) Dehydration, mild (Acute) STEMI (ST elevation myocardial infarction) (Resolved 07/18/19) Patient is an 79-year-old lady with multiple comorbidities who presented with severe low back pain imaging studies obtained on admission demonstrated L2 and T10 vertebral compression fracture admitted to regular nursing floor for further management 1. Severe back pain ?Secondary to pathological L2 and T10 compression fractures secondary to osteoporosis. Admitted to regular nursing floor for pain management with consultation placed to pain specialist. Also requested for PT OT eval and high school social studies tutor to assist with discharge planning 2. Coronary artery disease ?Status post inferior wall STEMI ; underwent emergency left heart catheterization on 07/18/2019 with PCI/WILLIAM of a 70% proximal RCA and mid RCA lesions 3. Hypertension - Blood pressure controlled, home medications continued with dose adjustment as needed 4. Chronic hypoxic respiratory failure ?Secondary to COPD patient is on home oxygen 3 L at baseline 5. History of cervical CA Patient has remained in remission following STEWART/BSO 6. DVT prophylaxis -Lovenox 40 subcu daily. Clinical Impression(s) from Imaging Studies Lumbar Spine CT 06/08/20 14:11 IMPRESSION: 1. L2 compression fracture new since 03/10/2020. 2. L1 vertebral augmentation with residual compression deformity. Electronically Signed: Roger Cartagena MD ([place]) at 15:43 EST , Service support , Thoracic Spine CT 06/08/20 14:11 IMPRESSION: 1. T10 compression fracture new since prior chest x-ray. Possible minimal compression fracture of T11. Electronically Signed: Roger Cartagena MD (Brooks) at 15:49 EST , Service support , Inpatient E&M: [id number] Subs Hosp L2
[2020-06-09 08:00] VITALS: RESP 18; O2SAT 98
[2020-06-09] MEDS: Aspirin 81 MG TAB.CHEW PO (08:16)
[2020-06-09 09:00] VITALS: BP 98/50; PULSE 74; RESP 16; TEMP 37; O2SAT 98
[2020-06-09] MEDS: Enoxaparin 40 MG/0.4 ML Syringe SC (10:25)
[2020-06-09] MEDS: Famotidine 20 MG Tablet PO (10:25)
[2020-06-09] MEDS: Polyethylene Glycol 3350 17 GM PACKET PO (10:25)
[2020-06-09] MEDS: Carvedilol 3.125 MG TABLET PO (10:26)
[2020-06-09] MEDS: Clopidogrel Bisulfate 75 MG Tablet PO (10:26)
[2020-06-09] MEDS: oxyCODONE 5 MG Tablet PO (10:31)
[2020-06-09] MEDS: Senna/Docusate Sodium 1 Tablet 2 TABLET PO (10:31)
[2020-06-09] MEDS: cycloBENZAPRine HCl 10 MG Tablet PO (10:31)
--- NOTE | 2020-06-09 10:51 | PCM.TXEXTCAR ---
- Diet 06/08/20 17:42 Diet: Cardiac - Heart Healthy Food consistency:: Regular Liquid Consistency:: Regular/Thin Is pt able to select menu?: Yes - Routine Orders/Code Status Code Status: Full Code - Therapies Physical Therapy: Eval and Treat Occupational Therapy: Eval and Treat - Allergies/Procedures Done in Hospital Allergies/Adverse Reactions: Allergies No Known Allergies Allergy (Verified 06/08/20 13:54) - Type of Care/Length of Stay Estimated LOS: Convalescent Care Less Than 30 days Type of Care Needed: Skilled Rehab Potential: Good Prognosis: Good - Additional Orders/Day of Discharge Day of Discharge: 06/09/20 - Follow Up Care Primary Care Physician: Constanza Streeter MD [Primary Care Provider] - Please follow up with your Primary Care Physician in: in 2-4 weeks
--- NOTE | 2020-06-09 10:59 | DS.PCM_ITS ---
Discharge Date and Diagnosis - Problem List Patient Problems: Active and Suspected Problems (Last Reviewed 03/10/20 @ 20:[address] Panchito Ulrich MD) Compression fracture of L1 lumbar vertebra (Acute) Intractable back pain (Acute) Compression fracture (Acute) Low back pain (Acute) Compression fracture of L2 lumbar vertebra (Acute) Dehydration, mild (Acute) Date of Admission: 06/08/20 Date of Discharge: 06/09/20 - Primary Discharge Diagnosis Acute Problems: Active Problems (Last Reviewed 03/10/20 @ 20:[address] Panchito Ulrich MD) Compression fracture of L1 lumbar vertebra (Acute) Intractable back pain (Acute) Compression fracture (Acute) Low back pain (Acute) Compression fracture of L2 lumbar vertebra (Acute) Dehydration, mild (Acute) - Secondary Discharge Diagnosis Chronic Problems: Chronic Problems (Last Reviewed 03/10/20 @ 20:[address] Panchito Ulrich MD) Atherosclerosis of [place] coronary artery of [place] heart without angina pectoris (Chronic) PTCA/WILLIAM of occluded mid RCA using Synergy 3.0 X 16 and WILLIAM proximal RCA using Synergy 3.0 X 12 on 07/18/[address] Marcelo Canchola; Tobacco dependence (Chronic) 2 PPD for at least 60 years History of cervical cancer (Chronic) Status post STEWART-BSO (Chronic) COPD (chronic obstructive pulmonary disease) (Chronic) Hospital Course and Treatment Imaging Results: Clinical Impression(s) from Imaging Studies Lumbar Spine CT 06/08/20 14:11 IMPRESSION: 1. L2 compression fracture new since 03/10/2020. 2. L1 vertebral augmentation with residual compression deformity. Electronically Signed: Roger Cartagena MD ([place]) at 15:43 EST , Service support , Thoracic Spine CT 06/08/20 14:11 IMPRESSION: 1. T10 compression fracture new since prior chest x-ray. Possible minimal compression fracture of T11. Electronically Signed: Roger Cartagena MD ([place]oks) at 15:49 EST , Service support , Summary of Care Provided: Patient is an 79-year-old lady with multiple comorbidities who presented with severe low back pain imaging studies obtained on admission demonstrated L2 and T10 vertebral compression fracture admitted to regular nursing floor for further management 1. Severe back pain ?Secondary to pathological L2 and T10 compression fractures secondary to osteoporosis. Admitted to regular nursing floor for pain management with consultation placed to pain specialist. Also requested for PT OT eval and hospice social worker to assist with discharge planning 2. Coronary artery disease ?Status post inferior wall STEMI ; underwent emergency left heart catheterization on 07/18/2019 with PCI/WILLIAM of a 70% proximal RCA and mid RCA lesions 3. Hypertension - Blood pressure controlled, home medications continued with dose adjustment as needed 4. Chronic hypoxic respiratory failure ?Secondary to COPD patient is on home oxygen 3 L at baseline 5. History of cervical CA Patient has remained in remission following STEWART/BSO 6. DVT prophylaxis -Lovenox 40 subcu daily. Patient Problems: Active and Suspected Problems (Last Reviewed 03/10/20 @ 20:[address] Panchito Ulrich MD) Compression fracture of L1 lumbar vertebra (Acute) Intractable back pain (Acute) Compression fracture (Acute) Low back pain (Acute) Compression fracture of L2 lumbar vertebra (Acute) Dehydration, mild (Acute) Objective: GENERAL: Frail looking HEENT: Atraumatic; EYES; Anicteric, Normal Conjunctiva NECK; supple, normal thyroid, RESPIRATORY: Diminished to auscultation CARDIOVASCULAR: Regular S1 S2, GI: soft, normoactive bowel sounds, : No Renal angle tenderness; EXTREMITIES: No edema, no clubbing, MUSCULOSKELETAL: no muscle waisting NEURO: Awake; no lateralizing signs. SKIN: No Rash PSYCH; Flat affect - Physical Exam Vitals/I&O's: Vital Signs Temp Pulse Resp BP Pulse Ox 98.5 F 67 16 124/84 H 92 06/09/20 04:44 06/09/20 04:44 06/09/20 04:44 06/09/20 04:44 06/09/20 07:25 Oxygen Flow Rate (L/min) 3 Oxygen Delivery Method Nasal Cannula Weight: 53.4 kg Body Mass Index (BMI) 21.7 Intake and Output for Last 24 Hours 06/07/20 06/08/20 06/09/20 23:59 23:59 23:59 Intake Total 500 / 500 Output Total 600 / 600 Balance -100 / -100 Laboratory Results 06/08/20 17:21: WBC 8.3, RBC 4.15 L, Hgb 12.4, Hct 40.1, MCV 96.6, MCH 29.9, MCHC 30.9 L, RDW Std Deviation 53.4 H, RDW Coeff of Melisa 15.1 H, Plt Count 199, MPV 10.4, Immature Gran % (Auto) 0.400, Neut % (Auto) 62.6, Lymph % (Auto) 25.8, [place] % (Auto) 8.3, Eos % (Auto) 2.4, Baso % (Auto) 0.5, Absolute Neuts (auto) 5.2, Absolute Lymphs (auto) 2.15, Nucleated RBC % 0 06/08/20 17:21: Sodium 143, Potassium 3.6, Chloride 111 H, Carbon Dioxide 30.0, Anion Gap 2 L, BUN 16, Creatinine 0.54 L, Estim Creat Clear Calc 35.49, Est GFR (MDRD) Af Amer 141, Est GFR (MDRD) Non-Af 117, BUN/Creatinine Ratio 29.9 H, Glucose 99, Calcium 9.3 Current Medications Acetaminophen (Acetaminophen 325 Mg Tablet) 650 mg PO Q6H PRN PRN PRN Reason: Temp > 100.7 F Al Hydroxide/Mg Hydroxide (Mag Hydrox/Al Hydrox/Simeth 30 Ml Udc) 30 ml PO Q6H PRN PRN PRN Reason: Gastric Burning Albuterol Sulfate (Albuterol 2.5 Mg/3 Ml Vial.Neb.) 2.5 mg INHALATION Q2H PRN PRN PRN Reason: Shortness of Breath/Wheezing Aspirin (Aspirin 81 Mg Tab.Chew) [facility] Last Admin: 06/09/20 08:16 Dose: 81 mg Documented by: Atorvastatin Calcium (Atorvastatin Calcium 40 Mg Tablet) 40 mg PO QHS [facility] Last Admin: 06/08/20 22:22 Dose: 40 mg Documented by: Carvedilol (Carvedilol 3.125 Mg Tablet) 3.125 mg PO DAILY [facility] Last Admin: 06/09/20 10:26 Dose: 3.125 mg Documented by: Cholecalciferol (Cholecalciferol (Vit D3) 1,000 Unit (25mcg)) [facility] Last Admin: 06/08/20 22:23 Dose: 1,000 unit Documented by: Clopidogrel Bisulfate (Clopidogrel Bisulfate 75 Mg Tablet) 75 mg PO DAILY [facility] Last Admin: 06/09/20 10:26 Dose: 75 mg Documented by: Cyclobenzaprine HCl (Cyclobenzaprine Hcl 10 Mg Tablet) 10 mg PO TID PRN PRN PRN Reason: back pain/spasm Last Admin: 06/09/20 10:31 Dose: 10 mg Documented by: Enoxaparin Sodium (Enoxaparin 40 Mg/0.4 Ml Syringe) 40 mg SC DAILY [facility] Last Admin: 06/09/20 10:25 Dose: 40 mg Documented by: Famotidine (Famotidine 20 Mg Tablet) 20 mg PO DAILY [facility] Last Admin: 06/09/20 10:25 Dose: 20 mg Documented by: Hydromorphone HCl (Hydromorphone 0.5 Mg/0.5 Ml Syringe) 0.5 mg IV Q4H PRN PRN PRN Reason: Pain Score 6-10 Last Admin: 06/08/20 22:22 Dose: 0.5 mg Documented by: Ibuprofen (Ibuprofen 400 Mg Tablet) 400 mg PO Q4H PRN PRN PRN Reason: Pain Score 1-10 Last Admin: 06/08/20 23:11 Dose: 400 mg Documented by: Lisinopril (Lisinopril 5 Mg Tablet) 5 mg PO DAILY [facility] Last Admin: 06/09/20 10:26 Dose: Not Given Documented by: Ondansetron HCl (Ondansetron 4 Mg/2 Ml Vial) 4 mg IV Q8H PRN PRN PRN Reason: NAUSEA/VOMITING Oxycodone HCl (Oxycodone 5 Mg Tablet) 5 mg PO Q4H PRN PRN PRN Reason: Pain Score 4-5 Last Admin: 06/09/20 10:31 Dose: 5 mg Documented by: Polyethylene Glycol (Polyethylene Glycol 3350 17 Gm Packet) 17 gm PO DAILY [facility] Last Admin: 06/09/20 10:25 Dose: 17 gm Documented by: Senna/Docusate Sodium (Senna/Docusate Sodium 1 Tablet) 2 tablet PO BID PRN PRN PRN Reason: Constipation Last Admin: 06/09/20 10:31 Dose: 2 tablet Documented by: Sodium Chloride (0.9% Saline Lock 10 Ml Syringe) 10 - 40 ml IV UD PRN PRN Reason: SALINE FLUSH Discharge Diet: No Restrictions Discharge Activity: Return to Normal Activity Home Medications: Medications to take at Discharge Aspirin [Aspirin, Baby] 81 mg PO DAILYCM 03/10/20 Atorvastatin Calcium [Lipitor] 40 mg PO QHS 03/10/20 Carvedilol 3.125 mg PO DAILY 03/10/20 Clopidogrel Bisulfate [Clopidogrel] 75 mg PO DAILY #0 03/14/20 Polyethylene Glycol 3350 [Miralax] 17 gm PO DAILY #14 packet 03/14/20 Sennosides/Docusate Sodium [Senna-S Tablet] 2 ea PO BID PRN PRN #30 tab 03/14/20 Ergocalciferol (Vitamin D2) [Vitamin D2] 1,000 unit PO QHS 04/06/20 Famotidine [Pepcid] 20 mg PO DAILY PRN 04/06/20 Acetaminophen [Tylenol Tablet] 650 mg PO Q6H PRN PRN tab 06/09/20 Oxycodone [Oxyir] 5 mg PO Q4H PRN PRN 1 Days #4 tab 06/09/20 cycloBENZAPRine HCl [Flexeril] 10 mg PO TID PRN PRN tab 06/09/20 Following Prescriptions Were Given to Patient: Oxycodone [Oxyir] 5 mg PO Q4H PRN PRN 1 Days #4 tab PRN Reason: Pain Score 4-5 Prescription Printed Primary Care Physician: Constanza Streeter MD [Primary Care Provider] - Please follow up with your Primary Care Physician in: in 2-4 weeks Disposition: Correction facility Minutes spent on discharge:: 35 Patient Condition:: Stable Medical Necessity - Tobacco Use Smoking Status: Former smoker Meaningful Use Info Meaningful Use Diagnoses (Choose all that apply): None applicable Inpatient E&M: [id number] Disch Hosp
--- NOTE | 2020-06-09 11:11 | CASEMGMT ---
Social Work Assessment Referral Date: 06/09/2020 Date of Assessment: 06/09/2020 Reason for consult: SNF placement Informant: MD Personal Status: SW met with pt to complete initial assessment. Pt is alert and orientated, answers questions appropriately. Living Arrangements: Pt states she lives in a two story apartment. Pt states her bedroom and bathroom is on one floor. Pt states she lives with her two sons. DME: Pt states she has a walker, but doesn't use it. Pt states she is on Oxygen continuously 3L at home. Pt states her Oxygen is through [employer]. PCP: Dr. Streeter Pharmacy: [facility] ADLs: Pt states she is able to assist with cooking and cleaning a little bit. Pt states her sons are able to assist her. Pt states one son is there 18/11 but the other son works. Transportation: Pt states she doesn't drive, states her sons are able to provide transportation. Substance Abuse Hx: Pt denied Mental Health Hx: Pt denied HHC: Pt denied SNF: Pt denied SW spoke with pt regarding discharge plans. Pt states I am going home. Pt states I don't have any insurance to pay for anything. SW reviewed chart, pt does have Medicare. Pt then confirms she has Medicare. SW spoke with pt about short term SNF placement. Pt agreeable to short term SNF placement. Patient was provided a list of SNF providers including quality and resource use data and consistent with the patient?s preferred geographic region, medical needs, and insurance network. The patient?s preferred provider is [facility]. DONNIE informed pt that this worker will make referral to [facility]. SW explained Medicare coverage days at SNF. Pt placed a call to Eliane with TCU and provided referral. TCU is able to accept pt today. DONNIE updated physician, pt is medically cleared for discharge today. SW updated Charge Nurse, COVID test will be needed. SW in to speak with pt. SW updated pt that TCU is able to accept pt and pt will be discharged today. Pt states understanding, agreeable to [facility]. SW asked pt if this worker could update her family, pt gave this worker permission to call her daughter Miguel. SW placed a call to pt's daughter Miguel and updated her pt will be going to [facility] today. DONNIE explained no visitor policy at [facility]. Miguel states she will be in to see pt today and prefers to see pt before she discharges to TCU today. SW updated RN. Plan: TCU today Beba Bailey [employer], [employer]
--- NOTE | 2020-06-09 12:11 | PHA.DC.MR ---
Pharmacy Service has performed discharge medication reconciliation for this patient upon transfer to TCU Home Medications Aspirin [Aspirin, Baby] 81 mg PO DAILYCM 03/10/20 Atorvastatin Calcium [Lipitor] 40 mg PO QHS 03/10/20 Carvedilol 3.125 mg PO DAILY 03/10/20 Clopidogrel Bisulfate [Clopidogrel] 75 mg PO DAILY #0 03/14/20 Polyethylene Glycol 3350 [Miralax] 17 gm PO DAILY #14 packet 03/14/20 Sennosides/Docusate Sodium [Senna-S Tablet] 2 ea PO BID PRN PRN #30 tab 03/14/20 Ergocalciferol (Vitamin D2) [Vitamin D2] 1,000 unit PO QHS 04/06/20 Famotidine [Pepcid] 20 mg PO DAILY PRN 04/06/20 Acetaminophen [Tylenol Tablet] 650 mg PO Q6H PRN PRN tab 06/09/20 Oxycodone [Oxyir] 5 mg PO Q4H PRN PRN 1 Days #4 tab 06/09/20 cycloBENZAPRine HCl [Flexeril] 10 mg PO TID PRN PRN tab 06/09/20 The patient's discharge medication list was reviewed for discrepancies and discrepancies were resolved.
[2020-06-09 15:59] VITALS: BP 116/72; PULSE 81; RESP 18; TEMP 36.9; O2SAT 97
== END 2020-06-09 16:05 | disposition skilled nursing facility (03) | DRG 543 ==
LOC: ED 16:53 → MS3 17:14
PROVIDERS: Admitting Provider Internal Medicine; Emergency Provider Emergency Medicine; PCP Internal Medicine; Visit Provider Internal Medicine
DX: M80.08XA Age-related osteoporosis with current pathological fracture, vertebra(e), initial encounter for fracture (principal); J96.11 Chronic respiratory failure with hypoxia; I25.10 Atherosclerotic heart disease of native coronary artery without angina pectoris; I25.2 Old myocardial infarction; I10 Essential (primary) hypertension; J44.9 Chronic obstructive pulmonary disease, unspecified; Z85.41 Personal history of malignant neoplasm of cervix uteri; M48.061 Spinal stenosis, lumbar region without neurogenic claudication; Z79.899 Other long term (current) drug therapy; Z87.891 Personal history of nicotine dependence; Z99.81 Dependence on supplemental oxygen; Z95.5 Presence of coronary angioplasty implant and graft
CPT/HCPCS: 72128; 72131; 80048; 85025; 87426; 97162; 97166; 99285; A4216

== ENCOUNTER 2020-06-09 16:13 | Inpatient (IN) | payer MEDICARE, SELFPAY ==
[2020-06-08 17:45] VITALS: BMI 21.7
[2020-06-09 16:17] VITALS: BP 111/64; PULSE 91; RESP 21; TEMP 36.7; O2SAT 96; BMI 22.1
--- NOTE | 2020-06-09 17:37 | HP.PCM_ITS ---
Problem List (1) Debility Status: Acute (2) Compression fracture of T11 vertebra Status: Acute (3) Compression fracture of T10 vertebra Status: Acute (4) Lumbar spinal stenosis Status: Chronic (5) Osteoporosis Status: Chronic (6) Coronary artery disease Status: Chronic (7) Hypertension Status: Chronic (8) Hyperlipidemia Status: Chronic (9) Vitamin D deficiency Status: Chronic (10) Gastroesophageal reflux disease Status: Chronic (11) Intractable back pain Status: Acute (12) Compression fracture of L2 lumbar vertebra Status: Acute (13) History of cervical cancer Status: Chronic (14) COPD (chronic obstructive pulmonary disease) Status: Chronic History of Present Illness Date of Admission: 06/09/20 Chief Complaint: Here for rehabilitation, strengthening, prior to discharge home with family. 06/08/2020 The patient is a 79 year old Female with below past medical history presented to [facility] Emergency Department with back pain. 06/08/2020 CT lumbar spine showed new L2 compression fracture, L1 vertebral augmentation with residual compression deformity. 06/08/2020 CT thoracic spine showed new T10 compression fracture, minimal T11 compression fracture. Back pain 7 to 8 hours. Intermittent urinary incontinence unchanged. Morphine IM given. 06/08/[address]. Oreilly L1 kyphoplasty in the past. Motrin, Oxycodone, Morphine for pain control. [facility]. COPD on 3 liters oxygen per nasal cannula at home. Consult pain management. 06/09/2020 Admit to TCU with debility, here for rehabilitation, strengthening, prior to discharge home with family. Past Medical History Past Medical History (Chronic Problems): Chronic Problems (Last Reviewed 03/10/20 @ 20:[address] Panchito Ulrich MD) Lumbar spinal stenosis (Chronic) Osteoporosis (Chronic) Coronary artery disease (Chronic) Hypertension (Chronic) Hyperlipidemia (Chronic) Vitamin D deficiency (Chronic) Gastroesophageal reflux disease (Chronic) Atherosclerosis of [place] coronary artery of [place] heart without angina pectoris (Chronic) PTCA/WILLIAM of occluded mid RCA using Synergy 3.0 X 16 and WILLIAM proximal RCA using Synergy 3.0 X 12 on 07/18/[address] Marcelo Canchola; Tobacco dependence (Chronic) 2 PPD for at least 60 years History of cervical cancer (Chronic) Status post STEWART-BSO (Chronic) COPD (chronic obstructive pulmonary disease) (Chronic) Medical History: Medical History (Last Reviewed 03/10/20 @ 20:[address] Panchito Ulrich MD) Atherosclerosis of [place] coronary artery of [place] heart without angina pectoris (Chronic) I25.10 PTCA/WILLIAM of occluded mid RCA using Synergy 3.0 X 16 and WILLIAM proximal RCA using Synergy 3.0 X 12 on 07/18/[address] Marcelo Canchola; Tobacco dependence (Chronic) F17.200 2 PPD for at least 60 years COPD (chronic obstructive pulmonary disease) (Chronic) J44.9 STEMI (ST elevation myocardial infarction) (Resolved) Onset Date: 07/18/19 I21.3 07/18/2019 Allergies No Known Allergies Allergy (Verified 06/08/20 13:54) Home Medications: Ambulatory Orders Medication Instructions Recorded Aspirin [Aspirin, Baby] 81 mg PO DAILYCM 03/10/20 Atorvastatin Calcium [Lipitor] 40 mg PO QHS 03/10/20 Carvedilol 3.125 mg PO DAILY 03/10/20 Clopidogrel Bisulfate [Clopidogrel] 75 mg PO DAILY #0 03/14/20 Sennosides/Docusate Sodium 2 ea PO BID PRN PRN #30 tab 03/14/20 [Senna-S Tablet] Ergocalciferol (Vitamin D2) 1,000 unit PO QHS 04/06/20 [Vitamin D2] Famotidine [Pepcid] 20 mg PO DAILY PRN 04/06/20 Acetaminophen [Tylenol Tablet] 650 mg PO Q6H PRN PRN tab 06/09/20 Oxycodone [Oxyir] 5 mg PO Q4H PRN PRN 1 Days #4 tab 06/09/20 Polyethylene Glycol 3350 [Miralax] 17 gm PO DAILY 06/09/20 cycloBENZAPRine HCl [Flexeril] 10 mg PO TID PRN PRN tab 06/09/20 Surgical History: Surgical History (Last Reviewed 03/10/20 @ 20:[address] aPnchito Ulrich MD) H/O: hysterectomy Z90.710 Surgical History: hysterectomy, - - L1 kyphoplasty. 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 Smoking Status: Former smoker Tobacco Use: Non-smoker Alcohol: None Drugs: None - *Family History Offspring Family History: Family History (Last Reviewed 03/10/20 @ 20:[address] Panchito Ulrich MD) Sister No problems noted. Son hole in his heart Grandmother Cancer Father Cancer Grandfather Cancer History Items: - - has a son with a hole in his heart Review of Systems Constitutional: Denies: Chills, Fever, Weight Change HEENT: Denies: Head Aches, Sinus Congestion, Sinus Drainage Cardiovascular: Denies: Chest Pain, Palpitations Respiratory: Denies: Cough, Shortness of breath at rest, Sputum production Gastrointestinal: Denies: Abdominal Pain, Nausea, Vomiting Genitourinary: Denies: Dysuria Musculoskeletal: Reports: Back Pain. Denies: Joint Pain, Joint Tenderness Skin: Denies: Rash, Wounds Neurological: Denies: Numbness, Tingling, Focal weakness Psychiatric: Denies: Anxiety, Depression, Homicidal Ideations, Suicidal Ideations Hematologic/ Lymphatic: Denies: Easy Bruising, Easy Bleeding VTE Information - Inpt Only VTE Present on Admission: No VTE Mechan Device Prophylaxis: Knee High PASTOR Hose VTE Pharm Prophylaxis ordered?: No Reason prophylaxis not ordered:: Treatment Not Indicated Patient Problems: Active and Suspected Problems (Last Reviewed 03/10/20 @ 20:[address] Panchito Ulrich MD) Intractable back pain (Acute) Compression fracture of L2 lumbar vertebra (Acute) Debility (Acute) Compression fracture of T11 vertebra (Acute) Compression fracture of T10 vertebra (Acute) - Physical Exam Vitals/I&O's: Vital Signs Temp Pulse Resp BP Pulse Ox 98.1 F 91 21 H 111/64 96 06/09/20 16:17 06/09/20 16:17 06/09/20 16:17 06/09/20 16:17 06/09/20 16:17 Oxygen Flow Rate (L/min) 3 Oxygen Delivery Method Room Air Weight: 54.8 kg Body Mass Index (BMI) 22.1 General: Alert, Oriented x3, Cooperative HEENT: Atraumatic, PERRLA, EOMI, Normocephalic Neck: Supple, No JVD, Negative Carotid Bruits Lungs: Clear to auscultation, Normal air movement Cardiovascular: Regular rate, No murmurs Abdomen: Bowel Sounds Present, Soft, Non Tender Extremities: No edema, Capillary Refill Less than 3 Seconds Skin: No rashes, No breakdown Musculoskeletal: No Tenderness to Palpation of Joints or Extremities Neurological: Cranial nerves II-XII grossly intact Psych/Mental Status: Normal Affect, Appropriate Current Medications Acetaminophen (Acetaminophen 325 Mg Tablet) 650 mg PO Q6H PRN PRN PRN Reason: Temp > 100.7 F Aspirin (A[facility]in 81 Mg [facility].Chew) [facility] Atorvastatin Calcium (Atorvastatin Calcium 40 Mg Tablet) 40 mg PO QHS [facility] Carvedilol (Carvedilol 3.125 Mg Tablet) 3.125 mg PO DAILY CARLY Cholecalciferol (Cholecalciferol (Vit D3) 1,000 Unit (25mcg)) 1,000 unit PO QHS CARLY Clopidogrel Bisulfate (Clopidogrel Bisulfate 75 Mg Tablet) 75 mg PO DAILY CARLY Cyclobenzaprine HCl (Cyclobenzaprine Hcl 10 Mg Tablet) 10 mg PO TID PRN PRN PRN Reason: back pain/spasm Famotidine (Famotidine 20 Mg Tablet) 20 mg PO DAILY PRN PRN PRN Reason: INDIGESTION Oxycodone HCl (Oxycodone 5 Mg Tablet) 5 mg PO Q4H PRN PRN PRN Reason: Pain Score 4-5 Polyethylene Glycol (Polyethylene Glycol 3350 17 Gm Packet) 17 gm PO DAILY CARLY Senna/Docusate Sodium (Senna/Docusate Sodium 1 Tablet) 2 tablet PO BID PRN PRN PRN Reason: Constipation Tuberculin PPD (Tuberculin,Purif.Prot.Deriv. 50 Tu/Ml Vial) 5 tu ID X1 ONE Stop: 06/10/20 10:01 Tuberculin PPD (Tuberculin,Purif.Prot.Deriv. 50 Tu/Ml Vial) 5 tu ID X1 ONE Stop: 06/17/20 10:01 Assessment/Plan All Active Problems (Last Reviewed 03/10/20 @ 20:[address] Panchito Ulrich MD) Myocardial infarction (Resolved) Compression fracture of L1 lumbar vertebra (Acute) Intractable back pain (Acute) Compression fracture (Acute) Low back pain (Acute) Compression fracture of L2 lumbar vertebra (Acute) Debility (Acute) Compression fracture of T11 vertebra (Acute) Compression fracture of T10 vertebra (Acute) Dehydration, mild (Acute) STEMI (ST elevation myocardial infarction) (Resolved 07/18/19) 79 year old female with below past medical history hospitalized for intractable back pain secondary to T10, L2 compression fractures, admitted to TCU with debility, here for rehabilitation, strengthening, prior to discharge home with family. * Debility - PT/OT. * Pain - Tylenol 1000MG Q6H PRN pain (1-3), Tramadol 50MG Q6H PRN pain (4-5), Oxycodone 5MG Q4H PRN pain (6-10). * Bowel - Miralax 17GM daily, Senna/colace 2 tablets BID, MOM 30ML x 1 dose, then PRN, Dulcolax 10MG DE daily PRN. * Adult immunization - Administer Prevnar 13, Pneumovax 23, Fluzone, COVID19 vaccine as appropriate. * DVT prophylaxis - Hold, on dual antiplatelet therapy. * Coronary artery disease - Coreg 3.125MG daily, Plavix 75MG daily, Aspirin 81MG daily. * Hyperlipidemia - High intensity Atorvastatin 40MG QHS. * Vitamin D deficiency - D3 1000IU QHS. * Muscle spasm - Flexeril 10MG TID PRN. * GERD - Famotidine 20MG daily.
[2020-06-09] MEDS: Senna/Docusate Sodium 1 Tablet 2 TABLET PO (18:22)
[2020-06-09] MEDS: Magnesium Hydroxide 30 ML UDC PO (18:22)
[2020-06-09] MEDS: Atorvastatin Calcium 40 MG Tablet PO (20:38)
[2020-06-10 04:53] VITALS: BP 120/73; PULSE 87; RESP 16; TEMP 36.6; O2SAT 95
[2020-06-10] MEDS: oxyCODONE 5 MG Tablet PO ×3 (05:02→21:56)
[2020-06-10] MEDS: Polyethylene Glycol 3350 17 GM PACKET PO (05:02)
[2020-06-10] MEDS: Senna/Docusate Sodium 1 Tablet 2 TABLET PO ×2 (05:03→17:40)
[2020-06-10] MEDS: Carvedilol 3.125 MG TABLET PO (05:04)
[2020-06-10] MEDS: Famotidine 20 MG Tablet PO (05:04)
[2020-06-10] MEDS: Clopidogrel Bisulfate 75 MG Tablet PO (05:04)
[2020-06-10 08:14] LABS: Absolute Lymphocyte Count 1.67 X10^3/uL (0.83-4.51); Absolute Neutrophil Count 5.3 X10^3/uL (2.0-7.7); Basophil# 0.03 X10^3/uL; Basophil% 0.4 % (0-1); Eosinophil# 0.35 X10^3/uL; Eosinophils% 4.3 % (0-5); Hematocrit 38.1 % (37-47); Hemoglobin 11.4 g/dL (12.0-15.0); Lymphocyte # 1.67 X10^3/ul (4.0); Lymphocyte % 20.3 % (19-41); Mean Corp Hgb Conc 29.9 g/dL (32-36); Mean Corpuscular Hgb 30.1 pg (27.0-32.0); Mean Corpuscular Volume 100.5 fL (81-99); Mean Platelet Vol. 10.5 fl (6.2-12.0); Monocyte# 0.82 X10^3/uL; NRBC Flagged by Analyzer 0 % (0-5); Neutrophil # 5.32 X10^3/uL (2.7-7.7); Neutrophil % 64.6 % (47-70); Platelet Count 177 K/mm3 (150-450); RBC Distribution Width CV 15.9 % (11.6-14.6); RBC Distribution Width SD 57.9 fl (35.1-43.9); Red Blood Count 3.79 M/mm3 (4.2-5.4); White Blood Count 8.2 K/mm3 (4.4-11.0)
[2020-06-10] MEDS: Aspirin 81 MG TAB.CHEW PO (08:37)
[2020-06-10 08:47] LABS: Anion Gap 2 (5-15); BUN 33 mg/dL (7-18); BUN/Creat Ratio 49.4 RATIO (10-20); Calcium,Total 9.3 mg/dL (8.5-10.1); Chloride 107 mmol/L (98-107); Creatinine, Serum 0.67 mg/dL (0.55-1.02); EST Glomerular Filtration Rate 90 mL/min (>60); Est Glom Filt Rate - Afr Amer 109 mL/min (>60); Estimated Creatinine Clearance 35.49 ml/min; Glucose 112 mg/dL (74-106); Potassium 4.3 mmol/L (3.5-5.1); Sodium Level 141 mmol/L (136-145)
[2020-06-10] MEDS: Tuberculin,Purif.prot.deriv. 50 TU/ML Vial 5 ML ID (11:04)
[2020-06-10 14:23] VITALS: BP 122/69; PULSE 108; RESP 18; TEMP 36.8; O2SAT 94
[2020-06-10] MEDS: Acetaminophen 500 MG Tablet 1000 MG PO (21:55)
[2020-06-10] MEDS: Atorvastatin Calcium 40 MG Tablet PO (21:57)
--- NOTE | 2020-06-11 03:52 | NURSING ---
Pt only voided 25 ml during night using purwick, urine dark in color, no odor, bladder scanned for 83 ml, encouraged pt to increase fluid intake
[2020-06-11 04:47] VITALS: BP 140/79; PULSE 93; RESP 18; TEMP 36.4; O2SAT 93
[2020-06-11] MEDS: Acetaminophen 500 MG Tablet 1000 MG PO ×3 (04:52→20:35)
[2020-06-11] MEDS: Carvedilol 3.125 MG TABLET PO (04:52)
[2020-06-11] MEDS: Famotidine 20 MG Tablet PO (04:52)
[2020-06-11] MEDS: Polyethylene Glycol 3350 17 GM PACKET PO (04:52)
[2020-06-11] MEDS: oxyCODONE 5 MG Tablet PO ×3 (04:52→19:42)
[2020-06-11] MEDS: Clopidogrel Bisulfate 75 MG Tablet PO (04:53)
[2020-06-11] MEDS: Senna/Docusate Sodium 1 Tablet 2 TABLET PO ×2 (04:53→17:19)
--- NOTE | 2020-06-11 07:45 | NURSING ---
pt painful, had refused therapy yesterday d/t pain. dr villanueva updated, new order to schedule tylenol TID
[2020-06-11] MEDS: Aspirin 81 MG TAB.CHEW PO (08:32)
[2020-06-11] MEDS: Magnesium Hydroxide 30 ML UDC PO (15:02)
[2020-06-11 15:08] VITALS: BP 129/75; PULSE 99; RESP 18; TEMP 36.3; O2SAT 95
[2020-06-11] MEDS: Atorvastatin Calcium 40 MG Tablet PO (20:35)
[2020-06-12 05:27] VITALS: BP 122/75; PULSE 93; RESP 16; TEMP 36.1; O2SAT 96
[2020-06-12] MEDS: Polyethylene Glycol 3350 17 GM PACKET PO (05:30)
[2020-06-12] MEDS: Acetaminophen 500 MG Tablet 1000 MG PO ×3 (05:31→22:07)
[2020-06-12] MEDS: Senna/Docusate Sodium 1 Tablet 2 TABLET PO ×2 (05:31→17:08)
[2020-06-12] MEDS: Famotidine 20 MG Tablet PO (05:32)
[2020-06-12] MEDS: Clopidogrel Bisulfate 75 MG Tablet PO (05:32)
[2020-06-12] MEDS: oxyCODONE 5 MG Tablet PO (05:34)
[2020-06-12] MEDS: Carvedilol 3.125 MG TABLET PO (05:35)
[2020-06-12] MEDS: Bisacodyl 10 MG Suppository RC (06:41)
[2020-06-12] MEDS: Aspirin 81 MG TAB.CHEW PO (07:51)
--- NOTE | 2020-06-12 10:43 | PHA.CONS_ITS ---
<Juan Rodi - Last Filed: 06/12/20 10:43> Progress Note - Pharmacy Subjective: TCU Admission Objective: Allergies No Known Allergies Allergy (Verified 06/08/20 13:54) Current Medications Generic Name Dose Route Start Last Admin Trade Name Freq PRN Reason Stop Dose Admin Acetaminophen 1,000 mg 06/11/20 14:00 06/12/20 05:31 Acetaminophen 500 Mg Tablet PO 1,000 mg TID CARLY Administration Aspirin 81 mg 06/10/20 08:00 06/12/20 07:51 Aspirin 81 Mg Tab.Chew PO 81 mg DAILYCM CARLY Administration Atorvastatin Calcium 40 mg 06/09/20 22:00 06/11/20 20:35 Atorvastatin Calcium 40 Mg Tablet PO 40 mg QHS CARLY Administration Bisacodyl 10 mg 06/09/20 17:51 06/12/20 06:41 Bisacodyl 10 Mg Suppository RC 10 mg DAILY PRN Administration Constipation Carvedilol 3.125 mg 06/10/20 06:00 06/12/20 05:35 Carvedilol 3.125 Mg Tablet PO 3.125 mg DAILY CARLY Administration Cholecalciferol 1,000 unit 06/09/20 22:00 06/11/20 20:36 Cholecalciferol (Vit D3) 1,000 Unit (25mcg) PO 1,000 unit QHS CARLY Administration Clopidogrel Bisulfate 75 mg 06/10/20 06:00 06/12/20 05:32 Clopidogrel Bisulfate 75 Mg Tablet PO 75 mg DAILY CARLY Administration Cyclobenzaprine HCl 10 mg 06/09/20 16:21 Cyclobenzaprine Hcl 10 Mg Tablet PO TID PRN PRN back pain/spasm Famotidine 20 mg 06/10/20 06:00 06/12/20 05:32 Famotidine 20 Mg Tablet PO 20 mg DAILY CARLY Administration Magnesium Hydroxide 30 ml 06/09/20 17:52 06/11/20 15:02 Magnesium Hydroxide 30 Ml Udc PO 30 ml DAILY PRN Administration Constipation Nutritional Formula (Lactose Free) 120 ml 06/09/20 22:00 06/12/20 05:30 Ensure Enlive 120 Ml Liquid PO 120 ml 4X/DAY CARLY Administration Oxycodone HCl 5 mg 06/09/20 17:52 06/12/20 05:34 Oxycodone 5 Mg Tablet PO 5 mg Q4H PRN PRN Administration Pain Score 6-10 Polyethylene Glycol 17 gm 06/10/20 06:00 06/12/20 05:30 Polyethylene Glycol 3350 17 Gm Packet PO 17 gm DAILY CARLY Administration Senna/Docusate Sodium 2 tablet 06/09/20 18:00 06/12/20 05:31 Senna/Docusate Sodium 1 Tablet PO 2 tablet BID CARLY Administration Tramadol HCl 50 mg 06/09/20 17:50 Tramadol 50 Mg Tablet PO Q6H PRN PRN Pain Score 4-5 Tuberculin PPD 5 tu 06/17/20 10:00 Tuberculin,Purif.Prot.Deriv. 50 Tu/Ml Vial ID 06/17/20 10:01 X1 ONE Problem List (Last Reviewed 03/10/20 @ 20:[address] Panchito Ulrich MD) Intractable back pain (Acute) Compression fracture of L2 lumbar vertebra (Acute) Debility (Acute) Compression fracture of T11 vertebra (Acute) Compression fracture of T10 vertebra (Acute) Lumbar spinal stenosis (Chronic) Osteoporosis (Chronic) Coronary artery disease (Chronic) Hypertension (Chronic) Hyperlipidemia (Chronic) Vitamin D deficiency (Chronic) Gastroesophageal reflux disease (Chronic) History of cervical cancer (Chronic) COPD (chronic obstructive pulmonary disease) (Chronic) Vital Signs Temp Pulse Resp BP Pulse Ox 97 F L 93 16 122/75 H 96 06/12/20 05:27 06/12/20 05:27 06/12/20 05:27 06/12/20 05:27 06/12/20 05:27 Oxygen Flow Rate (L/min) 3 Oxygen Delivery Method Nasal Cannula Weight: 54.8 kg Body Mass Index (BMI) 22.1 Sodium 141 mmol/L (136-145) 06/10/20 07:52 Potassium 4.3 mmol/L (3.5-5.1) 06/10/20 07:52 Chloride 107 mmol/L (98-107) 06/10/20 07:52 Carbon Dioxide 32.0 mmol/L (21.0-32.0) 06/10/20 07:52 Anion Gap 2 (5-15) L 06/10/20 07:52 BUN 33 mg/dL (7-18) H 06/10/20 07:52 Creatinine 0.67 mg/dL (0.55-1.02) 06/10/20 07:52 Est GFR (MDRD) Af Amer 109 mL/min (>60) 06/10/20 07:52 Est GFR (MDRD) Non-Af 90 mL/min (>60) 06/10/20 07:52 BUN/Creatinine Ratio 49.4 RATIO (10-20) H 06/10/20 07:52 Glucose 112 mg/dL (74-106) H 06/10/20 07:52 Assessment/Plan: 1. Pain: acetaminophen 1000mg PO TID, tramadol 50mg PO Q6H PRN pain 4-5/10 and oxycodone 5mg PO Q4H PRN pain 6-10/10. Please continue to monitor for increased pain, PRN usage, constipation, and respiratory depression. 2. CAD: carvedilol 3.125mg PO daily, clopidogrel 75mg PO daily, and aspirin 81mg PO DAILYCM. Please continue to monitor BP (last 122/75), HR (last 93), S/S of bleeding and hemoglobin (last 11.4g/dL). 3. Hyperlipidemia: atorvastatin 40mg PO QHS. Please continue to monitor for muscle pain and lipid panel (last 08/2019). 4. Muscle spasms: cyclobenzaprine 10mg PO TID PRN back pain/spasm. Please continue to monitor for muscle spasm and PRN usage. 5. GERD: famotidine 20mg PO daily. Please continue to monitor for S/S of GERD. 6. Vitamin D deficiency: cholecalciferol 1000units PO QHS. Please continue to monitor vitamin D levels (last 02/2020). Psychotropic Medications: None Unnecessary Medications: None Bowel Regimen: Miralax 17gm PO daily, senna/docusate 2T PO BID, MOM 30mL PO daily PRN constipation and bisacodyl 10mg RC daily PRN constipation. Please continue to monitor for S/S of constipation and PRN usage. Date of Note:: 06/12/20 - Provider Comments Provider responsibility: Provider responsible to enter orders to implement recommendations <Carlos Chaudhary Chi - Last Filed: 06/12/20 11:04> Progress Note - Pharmacy Subjective: [] Objective: Allergies No Known Allergies Allergy (Verified 06/08/20 13:54) Current Medications Generic Name Dose Route Start Last Admin Trade Name Freq PRN Reason Stop Dose Admin Acetaminophen 1,000 mg 06/11/20 14:00 06/12/20 05:31 Acetaminophen 500 Mg Tablet PO 1,000 mg TID CARLY Administration Aspirin 81 mg 06/10/20 08:00 06/12/20 07:51 Aspirin 81 Mg Tab.Chew PO 81 mg DAILYCM CARLY Administration Atorvastatin Calcium 40 mg 06/09/20 22:00 06/11/20 20:35 Atorvastatin Calcium 40 Mg Tablet PO 40 mg QHS CARLY Administration Bisacodyl 10 mg 06/09/20 17:51 06/12/20 06:41 Bisacodyl 10 Mg Suppository RC 10 mg DAILY PRN Administration Constipation Carvedilol 3.125 mg 06/10/20 06:00 06/12/20 05:35 Carvedilol 3.125 Mg Tablet PO 3.125 mg DAILY CARLY Administration Cholecalciferol 1,000 unit 06/09/20 22:00 06/11/20 20:36 Cholecalciferol (Vit D3) 1,000 Unit (25mcg) PO 1,000 unit QHS COUNTS INCLUDE 234 BEDS AT [facility] Administration Clopidogrel Bisulfate 75 mg 06/10/20 06:00 06/12/20 05:32 Clopidogrel Bisulfate 75 Mg Tablet PO 75 mg DAILY CARLY Administration Cyclobenzaprine HCl 10 mg 06/09/20 16:21 Cyclobenzaprine Hcl 10 Mg Tablet PO TID PRN PRN back pain/spasm Famotidine 20 mg 06/10/20 06:00 06/12/20 05:32 Famotidine 20 Mg Tablet PO 20 mg DAILY CARLY Administration Magnesium Hydroxide 30 ml 06/09/20 17:52 06/11/20 15:02 Magnesium Hydroxide 30 Ml Udc PO 30 ml DAILY PRN Administration Constipation Nutritional Formula (Lactose Free) 120 ml 06/09/20 22:00 06/12/20 05:30 Ensure Enlive 120 Ml Liquid PO 120 ml 4X/DAY CARLY Administration Oxycodone HCl 5 mg 06/09/20 17:52 06/12/20 05:34 Oxycodone 5 Mg Tablet PO 5 mg Q4H PRN PRN Administration Pain Score 6-10 Polyethylene Glycol 17 gm 06/10/20 06:00 06/12/20 05:30 Polyethylene Glycol 3350 17 Gm Packet PO 17 gm DAILY CARLY Administration Senna/Docusate Sodium 2 tablet 06/09/20 18:00 06/12/20 05:31 Senna/Docusate Sodium 1 Tablet PO 2 tablet BID CARLY Administration Tramadol HCl 50 mg 06/09/20 17:50 Tramadol 50 Mg Tablet PO Q6H PRN PRN Pain Score 4-5 Tuberculin PPD 5 tu 06/17/20 10:00 Tuberculin,Purif.Prot.Deriv. 50 Tu/Ml Vial ID 06/17/20 10:01 X1 ONE Problem List (Last Reviewed 03/10/20 @ 20:[address] Panchito Ulrich MD) Intractable back pain (Acute) Compression fracture of L2 lumbar vertebra (Acute) Debility (Acute) Compression fracture of T11 vertebra (Acute) Compression fracture of T10 vertebra (Acute) Lumbar spinal stenosis (Chronic) Osteoporosis (Chronic) Coronary artery disease (Chronic) Hypertension (Chronic) Hyperlipidemia (Chronic) Vitamin D deficiency (Chronic) Gastroesophageal reflux disease (Chronic) History of cervical cancer (Chronic) COPD (chronic obstructive pulmonary disease) (Chronic) Vital Signs Temp Pulse Resp BP Pulse Ox 97 F L 93 16 122/75 H 96 06/12/20 05:27 06/12/20 05:27 06/12/20 05:27 06/12/20 05:27 06/12/20 05:27 Oxygen Flow Rate (L/min) 3 Oxygen Delivery Method Nasal Cannula Weight: 54.8 kg Body Mass Index (BMI) 22.1 Sodium 141 mmol/L (136-145) 06/10/20 07:52 Potassium 4.3 mmol/L (3.5-5.1) 06/10/20 07:52 Chloride 107 mmol/L (98-107) 06/10/20 07:52 Carbon Dioxide 32.0 mmol/L (21.0-32.0) 06/10/20 07:52 Anion Gap 2 (5-15) L 06/10/20 07:52 BUN 33 mg/dL (7-18) H 06/10/20 07:52 Creatinine 0.67 mg/dL (0.55-1.02) 06/10/20 07:52 Est GFR (MDRD) Af Amer 109 mL/min (>60) 06/10/20 07:52 Est GFR (MDRD) Non-Af 90 mL/min (>60) 06/10/20 07:52 BUN/Creatinine Ratio 49.4 RATIO (10-20) H 06/10/20 07:52 Glucose 112 mg/dL (74-106) H 06/10/20 07:52 Assessment/Plan: Psychotropic Medications: Unnecessary Medications: Bowel Regimen: - Provider Comments Provider responsibility: Provider responsible to enter orders to implement recommendations Provider Comments to Recommendations by Pharmacy: Agree
[2020-06-12] MEDS: traMADol 50 MG Tablet PO ×2 (11:16→17:08)
[2020-06-12 16:00] VITALS: BP 129/76; PULSE 94; RESP 16; TEMP 36.4; O2SAT 95
[2020-06-12] MEDS: Atorvastatin Calcium 40 MG Tablet PO (22:07)
[2020-06-13 06:10] VITALS: BP 125/69; PULSE 89; RESP 16; TEMP 36.7; O2SAT 94
[2020-06-13] MEDS: Polyethylene Glycol 3350 17 GM PACKET PO (06:11)
[2020-06-13] MEDS: Acetaminophen 500 MG Tablet 1000 MG PO ×3 (06:11→20:36)
[2020-06-13] MEDS: Clopidogrel Bisulfate 75 MG Tablet PO (06:12)
[2020-06-13] MEDS: Carvedilol 3.125 MG TABLET PO (06:12)
[2020-06-13] MEDS: Senna/Docusate Sodium 1 Tablet 2 TABLET PO ×2 (06:16→17:32)
[2020-06-13] MEDS: Famotidine 20 MG Tablet PO (06:35)
[2020-06-13] MEDS: Aspirin 81 MG TAB.CHEW PO (07:53)
[2020-06-13] MEDS: traMADol 50 MG Tablet PO (12:06)
[2020-06-13 13:33] VITALS: BP 145/70; PULSE 85; RESP 20; TEMP 37.3; O2SAT 93
--- NOTE | 2020-06-13 15:25 | CASEMGMT ---
Social Work Attempted twice to visit pt. pt requested to return later. Will continue to attempt. Jo Verde, [employer] COMPANION
[2020-06-13] MEDS: Atorvastatin Calcium 40 MG Tablet PO (20:36)
[2020-06-14 05:32] VITALS: BP 148/88; PULSE 91; RESP 18; TEMP 37.4; O2SAT 92
[2020-06-14] MEDS: Acetaminophen 500 MG Tablet 1000 MG PO ×3 (05:35→19:59)
[2020-06-14] MEDS: Polyethylene Glycol 3350 17 GM PACKET PO (05:35)
[2020-06-14] MEDS: Clopidogrel Bisulfate 75 MG Tablet PO (05:36)
[2020-06-14] MEDS: Carvedilol 3.125 MG TABLET PO (05:36)
[2020-06-14] MEDS: Famotidine 20 MG Tablet PO (05:38)
[2020-06-14] MEDS: Senna/Docusate Sodium 1 Tablet 2 TABLET PO (05:38)
[2020-06-14] MEDS: Aspirin 81 MG TAB.CHEW PO (08:57)
--- NOTE | 2020-06-14 11:20 | CASEMGMT ---
Social Work Met with pt for initial assessment. Discussed code status with pt. Pt confirmed full code. MOLST form reviewed, communication to , placed in chart. Pt states she has POA paperwork in process naming dtr, but has not been signed yet. Declined assistance completing. Completed Palliative Screen. Discussed Palliative with pt. Pt agreeable. Referral made to [facility]. Explained Medicare benefit. Pt does not have secondary insurance, and pt would have to pay out of pocket for days 21-100 about $180/day. Pt states she is unable to pay and wants to DC home as soon as possible. SW to continue to follow. Jo Verde, NORIS SKILLS INSTRUCTOR
--- NOTE | 2020-06-14 11:24 | CASEMGMT ---
Social Work IDT met with patient and dtr via conference call for Team meeting. Discussed patient's progress in therapy and nursing. Pt needs encouragement to participate with therapy. Pt is out of isolation 06/23, home O2. Adjusted dietary requests to assist with better appetite. Explained Medicare benefit and private pay for copays or DC by on 06/29. Dtr stated she cannot pay out of pocket for copays. Dtr agrees for staff to provide encouragement to participate in therapy. Pt lives at home with two sons, but one son works district fire chief and the other son could not assist with personal ADLs. Dtr comes on days off work 2x/wk and on the weekends for showers. Pt's goal is to be independent with toileting, as there will be no one to assist daily. Dtr agrees. SW to continue to follow to assist with discharge planning. Jo Verde ,NORIS AGUIRREW
--- NOTE | 2020-06-14 12:40 | NURSING ---
Binder at bedside for back pain. MARILIN Connell, in room and will apply before performing therapy today.
[2020-06-14 14:03] VITALS: O2SAT 92
--- NOTE | 2020-06-14 14:53 | NURSING ---
Attempted to call daughter, but no answer to the phone call.
[2020-06-14 16:00] VITALS: BP 158/86; PULSE 91; RESP 20; TEMP 36.7; O2SAT 96
[2020-06-14] MEDS: oxyCODONE 5 MG Tablet PO (19:47)
[2020-06-14] MEDS: Atorvastatin Calcium 40 MG Tablet PO (19:59)
[2020-06-15 06:19] VITALS: BP 143/92; PULSE 88; RESP 18; TEMP 36.5; O2SAT 97
[2020-06-15] MEDS: Carvedilol 3.125 MG TABLET PO (06:20)
[2020-06-15] MEDS: Famotidine 20 MG Tablet PO (06:21)
[2020-06-15] MEDS: Clopidogrel Bisulfate 75 MG Tablet PO (06:21)
[2020-06-15] MEDS: Senna/Docusate Sodium 1 Tablet 2 TABLET PO ×2 (06:22→16:59)
[2020-06-15] MEDS: Acetaminophen 500 MG Tablet 1000 MG PO ×3 (06:22→20:01)
[2020-06-15] MEDS: oxyCODONE 5 MG Tablet PO ×3 (06:40→20:00)
[2020-06-15 06:42] VITALS: O2SAT 94
[2020-06-15] MEDS: Aspirin 81 MG TAB.CHEW PO (08:42)
[2020-06-15 14:23] VITALS: BP 134/79; PULSE 92; RESP 18; TEMP 36.4; O2SAT 96
[2020-06-15] MEDS: Atorvastatin Calcium 40 MG Tablet PO (20:01)
[2020-06-16 05:13] VITALS: BP 126/78; PULSE 93; RESP 16; TEMP 36.1; O2SAT 94
[2020-06-16] MEDS: Acetaminophen 500 MG Tablet 1000 MG PO ×3 (05:14→20:00)
[2020-06-16] MEDS: Carvedilol 3.125 MG TABLET PO (05:14)
[2020-06-16] MEDS: Clopidogrel Bisulfate 75 MG Tablet PO (05:15)
[2020-06-16] MEDS: Citalopram 10 MG Tablet 5 MG PO (05:17)
[2020-06-16] MEDS: Famotidine 20 MG Tablet PO (05:17)
[2020-06-16] MEDS: Senna/Docusate Sodium 1 Tablet 2 TABLET PO ×2 (05:17→16:35)
[2020-06-16 07:17] VITALS: O2SAT 94
[2020-06-16] MEDS: Aspirin 81 MG TAB.CHEW PO (08:35)
[2020-06-16] MEDS: oxyCODONE 5 MG Tablet PO ×2 (08:35→17:17)
--- NOTE | 2020-06-16 09:34 | CASEMGMT ---
Social Work Completed BIMS and PHQ-9 for MDS assessment. Pt reported to depressive symptoms, usually daily. Pt stated two days ago she last thought about being better off . Pt reports she had these thoughts prior at home and would tell her sons to go get a gun and shoot her with it. Sons never bought gun nor do they have any other weapons in the home, per pt. Pt states she has no other plans of harming self. SW inquired several more questions. Pt reports to wanting to get better, do therapy, and go home. She would like to continue with therapy at home; she is not ready to or for hospice. Inquired about starting on antidepressant, per Dr. cobos. Pt agreeable and would like to feel better. Offered counseling resources, pt declined, and would like to see how medication works first. SW finds pt is not a harm to self or others. Reported to - antidepressant started. Will continue to follow. Jo Verde, WOOL BUYER DIGITAL STRATEGIST
[2020-06-16 13:29] VITALS: BP 132/69; PULSE 89; RESP 18; TEMP 36.1; O2SAT 96
[2020-06-16] MEDS: Atorvastatin Calcium 40 MG Tablet PO (20:00)
--- NOTE | 2020-06-16 21:42 | PCA ---
Patient did not want to get washed up as they received a shower from therapy earlier in the morning. When LAB ANIMAL TECHNICIAN asked patient if they wanted to at least change their dirty shirt, they said beckiee Im all set and ready for bed. I can change in the morning.
[2020-06-17 05:16] VITALS: BP 141/98; PULSE 95; RESP 18; TEMP 36.4; O2SAT 96
[2020-06-17] MEDS: Acetaminophen 500 MG Tablet 1000 MG PO ×3 (05:21→19:44)
[2020-06-17] MEDS: Clopidogrel Bisulfate 75 MG Tablet PO (05:21)
[2020-06-17] MEDS: Carvedilol 3.125 MG TABLET PO (05:21)
[2020-06-17] MEDS: Senna/Docusate Sodium 1 Tablet 2 TABLET PO ×2 (05:21→17:36)
[2020-06-17] MEDS: Citalopram 10 MG Tablet 5 MG PO (05:21)
[2020-06-17] MEDS: Famotidine 20 MG Tablet PO (05:22)
[2020-06-17] MEDS: traMADol 50 MG Tablet PO (05:22)
[2020-06-17] MEDS: Polyethylene Glycol 3350 17 GM PACKET PO (05:23)
[2020-06-17 07:33] LABS: Absolute Lymphocyte Count 1.39 X10^3/uL (0.83-4.51); Absolute Neutrophil Count 6.5 X10^3/uL (2.0-7.7); Basophil# 0.06 X10^3/uL; Basophil% 0.7 % (0-1); Eosinophil# 0.36 X10^3/uL; Eosinophils% 3.9 % (0-5); Hematocrit 39.1 % (37-47); Hemoglobin 11.7 g/dL (12.0-15.0); Lymphocyte # 1.39 X10^3/ul (4.0); Lymphocyte % 15.2 % (19-41); Mean Corp Hgb Conc 29.9 g/dL (32-36); Mean Corpuscular Hgb 29.5 pg (27.0-32.0); Mean Corpuscular Volume 98.7 fL (81-99); Mean Platelet Vol. 11.1 fl (6.2-12.0); Monocyte% 8.8 % (0-10); NRBC Flagged by Analyzer 0 % (0-5); Neutrophil # 6.46 X10^3/uL (2.7-7.7); Neutrophil % 70.9 % (47-70); Platelet Count 264 K/mm3 (150-450); RBC Distribution Width SD 55.2 fl (35.1-43.9); Red Blood Count 3.96 M/mm3 (4.2-5.4); White Blood Count 9.1 K/mm3 (4.4-11.0)
[2020-06-17 07:46] LABS: Anion Gap 1 (5-15); BUN 34 mg/dL (7-18); BUN/Creat Ratio 59.5 RATIO (10-20); Calcium,Total 9.5 mg/dL (8.5-10.1); Chloride 106 mmol/L (98-107); Creatinine, Serum 0.57 mg/dL (0.55-1.02); EST Glomerular Filtration Rate 108 mL/min (>60); Est Glom Filt Rate - Afr Amer 131 mL/min (>60); Estimated Creatinine Clearance 35.49 ml/min; Glucose 113 mg/dL (74-106); Sodium Level 141 mmol/L (136-145)
[2020-06-17] MEDS: Aspirin 81 MG TAB.CHEW PO (07:52)
[2020-06-17] MEDS: Tuberculin,Purif.prot.deriv. 50 TU/ML Vial 5 ML ID (12:59)
[2020-06-17 14:33] VITALS: BP 107/68; PULSE 70; RESP 18; TEMP 36.1; O2SAT 98
[2020-06-17] MEDS: oxyCODONE 5 MG Tablet PO (19:43)
[2020-06-17] MEDS: Atorvastatin Calcium 40 MG Tablet PO (19:44)
[2020-06-18 05:51] VITALS: BP 140/73; PULSE 91; RESP 16; TEMP 36.7; O2SAT 96
[2020-06-18] MEDS: Clopidogrel Bisulfate 75 MG Tablet PO (05:52)
[2020-06-18] MEDS: Acetaminophen 500 MG Tablet 1000 MG PO ×3 (05:52→19:55)
[2020-06-18] MEDS: Carvedilol 3.125 MG TABLET PO (05:52)
[2020-06-18] MEDS: Citalopram 10 MG Tablet 5 MG PO (05:53)
[2020-06-18] MEDS: Senna/Docusate Sodium 1 Tablet 2 TABLET PO ×2 (05:54→16:54)
[2020-06-18] MEDS: Famotidine 20 MG Tablet PO (05:54)
[2020-06-18] MEDS: Aspirin 81 MG TAB.CHEW PO (08:04)
[2020-06-18 14:39] VITALS: BP 147/75; PULSE 83; RESP 16; TEMP 35.9; O2SAT 94
[2020-06-18] MEDS: oxyCODONE 5 MG Tablet PO (19:53)
[2020-06-18] MEDS: Atorvastatin Calcium 40 MG Tablet PO (19:55)
[2020-06-19 05:38] VITALS: BP 150/78; PULSE 82; RESP 16; TEMP 36.4; O2SAT 93
[2020-06-19] MEDS: Acetaminophen 500 MG Tablet 1000 MG PO ×3 (05:41→20:57)
[2020-06-19] MEDS: Famotidine 20 MG Tablet PO (05:41)
[2020-06-19] MEDS: Senna/Docusate Sodium 1 Tablet 2 TABLET PO ×2 (05:41→16:15)
[2020-06-19] MEDS: Carvedilol 3.125 MG TABLET PO (05:41)
[2020-06-19] MEDS: Clopidogrel Bisulfate 75 MG Tablet PO (05:42)
[2020-06-19] MEDS: Citalopram 10 MG Tablet 5 MG PO (05:42)
[2020-06-19 08:13] VITALS: O2SAT 96
[2020-06-19] MEDS: Aspirin 81 MG TAB.CHEW PO (08:56)
--- NOTE | 2020-06-19 10:15 | NURSING ---
Up in chair. Requesting that daughter be called to bring her in some clean clothes and life savers. Daughter, Miguel, called and she will bring in today.
[2020-06-19] MEDS: oxyCODONE 5 MG Tablet PO ×2 (11:52→20:56)
[2020-06-19 14:50] VITALS: BP 140/70; PULSE 84; RESP 16; TEMP 35.9; O2SAT 95
[2020-06-19] MEDS: Atorvastatin Calcium 40 MG Tablet PO (20:57)
[2020-06-20 06:12] VITALS: BP 148/70; PULSE 83; RESP 17; TEMP 36.3; O2SAT 96
[2020-06-20] MEDS: Acetaminophen 500 MG Tablet 1000 MG PO ×3 (06:14→20:41)
[2020-06-20] MEDS: Citalopram 10 MG Tablet 5 MG PO (06:14)
[2020-06-20] MEDS: Carvedilol 3.125 MG TABLET PO (06:14)
[2020-06-20] MEDS: Famotidine 20 MG Tablet PO (06:14)
[2020-06-20] MEDS: Clopidogrel Bisulfate 75 MG Tablet PO (06:14)
[2020-06-20] MEDS: Senna/Docusate Sodium 1 Tablet 2 TABLET PO (06:45)
[2020-06-20 06:54] VITALS: O2SAT 97
--- NOTE | 2020-06-20 07:50 | MDS.RN ---
Information for the mds was obtained from review of the clinical record, interview of resident, staff, and direct observation of resident's care.
[2020-06-20] MEDS: Aspirin 81 MG TAB.CHEW PO (08:19)
--- NOTE | 2020-06-20 09:52 | CASEMGMT ---
Social Work Spoke with pt's daughter to follow up on DC plans. Explained the goal to have her discharged 3/4, but pt is becoming resistant again to participating in therapy. Explained if pt refuses therapy 3x in a row, we are required to DC by Medicare policy. Dtr stated she will call the pt to encourage her to participate in therapy because she needs to get better to go home and stay the whole time. Explained SW will assist with DC. Inquired if there are any concerns dtr has about returning home or in alternative DC options need to be discussed. Dtr stated no, she can go home. Dtr stated she took 3/4 off work to pick her up. Dtr to call pt. SW to continue to follow. Jo Verde, MOSS BLEACHER FOOD TRUCK CATERER
[2020-06-20 13:05] VITALS: BP 127/70; PULSE 93; RESP 18; TEMP 36.2; O2SAT 94
[2020-06-20] MEDS: cycloBENZAPRine HCl 10 MG Tablet PO (20:02)
[2020-06-20] MEDS: Atorvastatin Calcium 40 MG Tablet PO (20:42)
[2020-06-21 05:47] VITALS: BP 147/85; PULSE 87; RESP 17; TEMP 36.2; O2SAT 97
[2020-06-21] MEDS: Polyethylene Glycol 3350 17 GM PACKET PO (05:54)
[2020-06-21] MEDS: Acetaminophen 500 MG Tablet 1000 MG PO ×3 (05:55→21:44)
[2020-06-21] MEDS: Citalopram 10 MG Tablet 5 MG PO (05:56)
[2020-06-21] MEDS: Carvedilol 3.125 MG TABLET PO (05:59)
[2020-06-21] MEDS: Senna/Docusate Sodium 1 Tablet 2 TABLET PO ×2 (05:59→17:05)
[2020-06-21] MEDS: Clopidogrel Bisulfate 75 MG Tablet PO (05:59)
[2020-06-21] MEDS: Famotidine 20 MG Tablet PO (06:02)
[2020-06-21 07:38] VITALS: O2SAT 97
[2020-06-21] MEDS: Aspirin 81 MG TAB.CHEW PO (08:52)
[2020-06-21] MEDS: traMADol 50 MG Tablet PO (08:55)
[2020-06-21 12:57] VITALS: BP 103/64; PULSE 84; RESP 16; TEMP 36.3; O2SAT 94
[2020-06-21] MEDS: Atorvastatin Calcium 40 MG Tablet PO (21:44)
[2020-06-22] MEDS: Citalopram 10 MG Tablet 5 MG PO (06:24)
[2020-06-22] MEDS: Acetaminophen 500 MG Tablet 1000 MG PO ×3 (06:25→21:02)
[2020-06-22] MEDS: Carvedilol 3.125 MG TABLET PO (06:26)
[2020-06-22] MEDS: Famotidine 20 MG Tablet PO (06:26)
[2020-06-22] MEDS: Clopidogrel Bisulfate 75 MG Tablet PO (06:27)
[2020-06-22 06:28] VITALS: BP 130/67; PULSE 80; RESP 18; TEMP 36.8; O2SAT 95
[2020-06-22] MEDS: Senna/Docusate Sodium 1 Tablet 2 TABLET PO (06:29)
[2020-06-22 07:23] VITALS: O2SAT 95
[2020-06-22] MEDS: Aspirin 81 MG TAB.CHEW PO (08:12)
[2020-06-22 10:00] VITALS: RESP 18
[2020-06-22] MEDS: traMADol 50 MG Tablet PO (12:24)
[2020-06-22 14:19] VITALS: BP 115/53; PULSE 90; RESP 17; TEMP 36.3; O2SAT 95
[2020-06-22] MEDS: oxyCODONE 5 MG Tablet PO (21:02)
[2020-06-22] MEDS: Atorvastatin Calcium 40 MG Tablet PO (21:03)
[2020-06-23 05:42] VITALS: BP 155/72; PULSE 78; RESP 17; TEMP 36.1; O2SAT 97
[2020-06-23] MEDS: Acetaminophen 500 MG Tablet 1000 MG PO ×3 (05:46→19:44)
[2020-06-23] MEDS: Clopidogrel Bisulfate 75 MG Tablet PO (05:47)
[2020-06-23] MEDS: Carvedilol 3.125 MG TABLET PO (05:47)
[2020-06-23] MEDS: Citalopram 10 MG Tablet 5 MG PO (05:47)
[2020-06-23] MEDS: Famotidine 20 MG Tablet PO (05:48)
[2020-06-23] MEDS: oxyCODONE 5 MG Tablet PO ×2 (07:49→19:48)
[2020-06-23] MEDS: Aspirin 81 MG TAB.CHEW PO (07:50)
--- NOTE | 2020-06-23 11:14 | CASEMGMT ---
Addendum entered by Jo Verde 06/23/20 16:36: Pt agreeable to [facility]. Referral made. Palliative to visit pt 06/26 at 10:30 am. Original Note: Social Work Spoke with pt about DC date. Pt and dtr agreeable to DC 3/. Pt agreeable to [facility] PT/OT/SN. Provided pt and dtr list of providers that are in network, in desired area and can meet medical needs with quality and resource data. Pt has no DME needs. Dtr can transport pt home. Notified [facility] of DC date. Plan: DC home 06/29 with [facility] PT/OT/SN, Palliative Jo Verde, CERTIFIED MEDICAL CODING SPECIALIST [employer]Y CHAIN PULLER
[2020-06-23 11:27] VITALS: O2SAT 98
--- NOTE | 2020-06-23 13:56 | DCINST_ITS ---
- Discharge Diagnoses Current Active Problems: Current Active and Chronic Problems (Last Reviewed 03/10/20 @ 20:[address] Panchito Ulrich MD) Intractable back pain (Acute) Compression fracture of L2 lumbar vertebra (Acute) Debility (Acute) Compression fracture of T11 vertebra (Acute) Compression fracture of T10 vertebra (Acute) Lumbar spinal stenosis (Chronic) Osteoporosis (Chronic) Coronary artery disease (Chronic) Hypertension (Chronic) Hyperlipidemia (Chronic) Vitamin D deficiency (Chronic) Gastroesophageal reflux disease (Chronic) History of cervical cancer (Chronic) COPD (chronic obstructive pulmonary disease) (Chronic) You will use the following diet at home:: No restrictions, Regular Your food should be the consistency of: Regular Your liquids should be the consistency of: Regular/Thin Discharge Activity: Return to Normal Activity, May Shower, Use Walker Weight Bearing Status: Weight bearing as tolerated Call your doctor if you observe: Fever of 101 or Higher, Inability to urinate, Inability to have a bowel movement, Shortness of breath, Chest pain, Uncontrolled pain Allergies/Adverse Reactions: Allergies No Known Allergies Allergy (Verified 06/08/20 13:54) Medications to take at Discharge Aspirin [Aspirin, Baby] 81 mg PO DAILYCM 03/10/20 Atorvastatin Calcium [Lipitor] 40 mg PO QHS 03/10/20 Carvedilol 3.125 mg PO DAILY 03/10/20 Clopidogrel Bisulfate [Clopidogrel] 75 mg PO DAILY #0 03/14/20 Ergocalciferol (Vitamin D2) [Vitamin D2] 1,000 unit PO QHS 04/06/20 Famotidine [Pepcid] 20 mg PO DAILY PRN 04/06/20 Acetaminophen [Tylenol] 1,000 mg PO TID tablet 06/23/20 Citalopram [Celexa] 5 mg PO DAILY #30 tab 06/23/20 Oxycodone [Oxyir] 5 mg PO Q4H PRN PRN 7 Days #42 tab 06/23/20 Polyethylene Glycol 3350 [Miralax] 17 gm PO DAILY #30 packet 06/23/20 Sennosides/Docusate Sodium [Senna-S Tablet] 2 ea PO BID PRN PRN #120 tab 06/23/20 cycloBENZAPRine HCl [Flexeril] 10 mg PO TID PRN PRN #90 tab 06/23/20 traMADol [Ultram] 50 mg PO Q6H PRN PRN 7 Days #28 tablet 06/23/20 The following prescriptions were given: Citalopram [Celexa] 5 mg PO DAILY #30 tab Transmission Status: Pending to [facility]30 cycloBENZAPRine HCl [Flexeril] 10 mg PO TID PRN PRN #90 tab PRN Reason: back pain/spasm Transmission Status: Pending to [facility]30 Polyethylene Glycol 3350 [Miralax] 17 gm PO DAILY #30 packet Transmission Status: Pending to [facility] Oxycodone [Oxyir] 5 mg PO Q4H PRN PRN 7 Days #42 tab PRN Reason: Pain Score 4-5 Transmission Status: Sent to [facility] Sennosides/Docusate Sodium [Senna-S Tablet] 2 ea PO BID PRN PRN #120 tab PRN Reason: Constipation Transmission Status: Pending to [facility] traMADol [Ultram] 50 mg PO Q6H PRN PRN 7 Days #28 tablet PRN Reason: Pain Score 4-5 Transmission Status: Sent to [facility] Primary Care Physician: Constanza Streeter MD [Primary Care Provider] - Please follow up with your Primary Care Physician in: 1 week. Test Results: Test results from this visit will be discussed in further detail at your follow- up appointment, if applicable. Please Follow Up With: Carrie Oreilly MD When: 2 weeks. Proposed Discharge Date: 06/29/20
--- NOTE | 2020-06-23 13:58 | PCM.DC.SUM ---
Discharge Date and Diagnosis - Problem List Patient Problems: Active and Suspected Problems (Last Reviewed 03/10/20 @ 20:[address] Panchito Ulrich MD) Intractable back pain (Acute) Compression fracture of L2 lumbar vertebra (Acute) Debility (Acute) Compression fracture of T11 vertebra (Acute) Compression fracture of T10 vertebra (Acute) Date of Admission: 06/09/20 Date of Discharge: 06/29/20 - Primary Discharge Diagnosis Acute Problems: Active Problems (Last Reviewed 03/10/20 @ 20:[address] Panchito Ulrich MD) Intractable back pain (Acute) Compression fracture of L2 lumbar vertebra (Acute) Debility (Acute) Compression fracture of T11 vertebra (Acute) Compression fracture of T10 vertebra (Acute) - Secondary Discharge Diagnosis Chronic Problems: Chronic Problems (Last Reviewed 03/10/20 @ 20:[address] Panchito Ulrich MD) Lumbar spinal stenosis (Chronic) Osteoporosis (Chronic) Coronary artery disease (Chronic) Hypertension (Chronic) Hyperlipidemia (Chronic) Vitamin D deficiency (Chronic) Gastroesophageal reflux disease (Chronic) Atherosclerosis of [place] coronary artery of [place] heart without angina pectoris (Chronic) PTCA/WILLIAM of occluded mid RCA using Synergy 3.0 X 16 and WILLIAM proximal RCA using Synergy 3.0 X 12 on 07/18/[address] Marcelo Canchola; Tobacco dependence (Chronic) 2 PPD for at least 60 years History of cervical cancer (Chronic) Status post STEWART-BSO (Chronic) COPD (chronic obstructive pulmonary disease) (Chronic) Hospital Course and Treatment Imaging Results: 06/14/20 07:29 Diet: Regular - General Food consistency:: Regular Liquid Consistency:: Regular/Thin Is pt able to select menu?: Yes Diet Comments: small portions - vanilla ensure pudding w/ lunch Operations: None Procedures: None Summary of Care Provided: The patient is a 79 year old Female with below past medical history hospitalized for intractable back pain secondary to T10, L2 compression fractures, admitted to TCU with debility, here for rehabilitation, strengthening, prior to discharge home with family. Discharge home with family, Home Health Care PT/OT/SN, Palliative. Patient Problems: Active and Suspected Problems (Last Reviewed 03/10/20 @ 20:[address] Panchito Ulrich MD) Intractable back pain (Acute) Compression fracture of L2 lumbar vertebra (Acute) Debility (Acute) Compression fracture of T11 vertebra (Acute) Compression fracture of T10 vertebra (Acute) - Physical Exam Vitals/I&O's: Vital Signs Temp Pulse Resp BP Pulse Ox 97 F L 78 17 155/72 H 98 06/23/20 05:42 06/23/20 05:42 06/23/20 05:42 06/23/20 05:42 06/23/20 11:27 Oxygen Flow Rate (L/min) 4 Oxygen Delivery Method Nasal Cannula Weight: 53.751 kg Body Mass Index (BMI) 22.1 Intake and Output for Last 24 Hours 06/21/20 06/22/20 06/23/20 23:59 23:59 23:59 Intake Total 600 / 600 280 / 280 420 / 420 Output Total 350 / 350 600 / 600 Balance 250 / 250 -320 / -320 420 / 420 Current Medications Acetaminophen (Acetaminophen 500 Mg Tablet) 1,000 mg PO TID [facility] Last Admin: 06/23/20 13:09 Dose: 1,000 mg Documented by: Aspirin ([facility] 81 Mg Tab.Chew) [facility] Admin: 06/23/20 07:50 Dose: 81 mg Documented by: Atorvastatin Calcium (Atorvastatin Calcium 40 Mg Tablet) 40 mg PO QHS [facility] Last Admin: 06/22/20 21:03 Dose: 40 mg Documented by: Bisacodyl (Bisacodyl 10 Mg Suppository) 10 mg RC DAILY PRN PRN Reason: Constipation Last Admin: 06/12/20 06:41 Dose: 10 mg Documented by: Carvedilol (Carvedilol 3.125 Mg Tablet) 3.125 mg PO DAILY [facility] Last Admin: 06/23/20 05:47 Dose: 3.125 mg Documented by: Cholecalciferol (Cholecalciferol (Vit D3) 1,000 Unit (25mcg)) 1,000 unit PO QHS [facility] Last Admin: 06/22/20 21:03 Dose: 1,000 unit Documented by: Citalopram Hydrobromide (Citalopram 10 Mg Tablet) 5 mg PO DAILY [facility] Last Admin: 06/23/20 05:47 Dose: 5 mg Documented by: Clopidogrel Bisulfate (Clopidogrel Bisulfate 75 Mg Tablet) 75 mg PO DAILY [facility] Last Admin: 06/23/20 05:47 Dose: 75 mg Documented by: Cyclobenzaprine HCl (Cyclobenzaprine Hcl 10 Mg Tablet) 10 mg PO TID PRN PRN PRN Reason: back pain/spasm Last Admin: 06/20/20 20:02 Dose: 10 mg Documented by: Famotidine (Famotidine 20 Mg Tablet) 20 mg PO DAILY [facility] Last Admin: 06/23/20 05:48 Dose: 20 mg Documented by: Magnesium Hydroxide (Magnesium Hydroxide 30 Ml Udc) 30 ml PO DAILY PRN PRN Reason: Constipation Last Admin: 06/11/20 15:02 Dose: 30 ml Documented by: Nutritional Formula (Lactose Free) (Ensure Enlive 120 Ml Liquid) 120 ml PO 4X/DAY [facility] Last Admin: 06/23/20 11:33 Dose: 120 ml Documented by: Oxycodone HCl (Oxycodone 5 Mg Tablet) 5 mg PO Q4H PRN PRN PRN Reason: Pain Score 6-10 Last Admin: 06/23/20 07:49 Dose: 5 mg Documented by: Polyethylene Glycol (Polyethylene Glycol 3350 17 Gm Packet) 17 gm PO DAILY [facility] Last Admin: 06/23/20 05:47 Dose: Not Given Documented by: Senna/Docusate Sodium (Senna/Docusate Sodium 1 Tablet) 2 tablet PO BID [facility] Last Admin: 06/23/20 05:46 Dose: Not Given Documented by: Tramadol HCl (Tramadol 50 Mg Tablet) 50 mg PO Q6H PRN PRN PRN Reason: Pain Score 4-5 Last Admin: 06/22/20 12:24 Dose: 50 mg Documented by: Discharge Diet: No Restrictions Discharge Activity: Return to Normal Activity, May Shower, Use Walker Weight Bearing Status: Weight bearing as tolerated Call your doctor if you observe: Fever of 101 or Higher, Inability to urinate, Inability to have a bowel movement, Shortness of breath, Chest pain, Uncontrolled pain Home Medications: Medications to take at Discharge Aspirin [Aspirin, Baby] 81 mg PO DAILY 03/10/20 Atorvastatin Calcium [Lipitor] 40 mg PO QHS 03/10/20 Carvedilol 3.125 mg PO DAILY 03/10/20 Clopidogrel Bisulfate [Clopidogrel] 75 mg PO DAILY #0 03/14/20 Ergocalciferol (Vitamin D2) [Vitamin D2] 1,000 unit PO QHS 04/06/20 Famotidine [Pepcid] 20 mg PO DAILY PRN 04/06/20 Acetaminophen [Tylenol] 1,000 mg PO TID tablet 06/23/20 Citalopram [Celexa] 5 mg PO DAILY #30 tab 06/23/20 Oxycodone [Oxyir] 5 mg PO Q4H PRN PRN 7 Days #42 tab 06/23/20 Polyethylene Glycol 3350 [Miralax] 17 gm PO DAILY #30 packet 06/23/20 Sennosides/Docusate Sodium [Senna-S Tablet] 2 ea PO BID PRN PRN #120 tab 06/23/20 cycloBENZAPRine HCl [Flexeril] 10 mg PO TID PRN PRN #90 tab 06/23/20 traMADol [Ultram] 50 mg PO Q6H PRN PRN 7 Days #28 tablet 06/23/20 Following Prescriptions Were Given to Patient: Citalopram [Celexa] 5 mg PO DAILY #30 tab Transmission Status: Pending to [facility]30 cycloBENZAPRine HCl [Flexeril] 10 mg PO TID PRN PRN #90 tab PRN Reason: back pain/spasm Transmission Status: Pending to [facility]30 Polyethylene Glycol 3350 [Miralax] 17 gm PO DAILY #30 packet Transmission Status: Pending to [facility] Oxycodone [Oxyir] 5 mg PO Q4H PRN PRN 7 Days #42 tab PRN Reason: Pain Score 4-5 Transmission Status: Sent to [facility] Sennosides/Docusate Sodium [Senna-S Tablet] 2 ea PO BID PRN PRN #120 tab PRN Reason: Constipation Transmission Status: Pending to [facility] traMADol [Ultram] 50 mg PO Q6H PRN PRN 7 Days #28 tablet PRN Reason: Pain Score 4-5 Transmission Status: Sent to [facility] Primary Care Physician: Constanza Streeter MD [Primary Care Provider] - Please follow up with your Primary Care Physician in: 1 week. Please Follow Up With: Carrie Oreilly MD When: 2 weeks. Disposition: Home with Home Health Minutes spent on discharge:: 35 Patient Condition:: Stable Medical Necessity - Tobacco Use Smoking Status: Former smoker Tobacco Use: Non-smoker Meaningful Use Info Meaningful Use Diagnoses (Choose all that apply): None applicable
[2020-06-23 14:02] VITALS: BP 122/70; PULSE 78; RESP 20; TEMP 36.3; O2SAT 96
[2020-06-23] MEDS: Atorvastatin Calcium 40 MG Tablet PO (19:45)
[2020-06-24] MEDS: Citalopram 10 MG Tablet 5 MG PO (06:22)
[2020-06-24] MEDS: Carvedilol 3.125 MG TABLET PO (06:22)
[2020-06-24] MEDS: Clopidogrel Bisulfate 75 MG Tablet PO (06:23)
[2020-06-24] MEDS: Acetaminophen 500 MG Tablet 1000 MG PO ×3 (06:23→20:25)
[2020-06-24] MEDS: Famotidine 20 MG Tablet PO (06:24)
[2020-06-24 06:26] VITALS: BP 154/84; PULSE 79; RESP 18; TEMP 36.4; O2SAT 95
[2020-06-24 07:00] VITALS: O2SAT 92
[2020-06-24 08:00] LABS: Absolute Lymphocyte Count 1.43 X10^3/uL (0.83-4.51); Absolute Neutrophil Count 5.6 X10^3/uL (2.0-7.7); Basophil# 0.07 X10^3/uL; Basophil% 0.9 % (0-1); Eosinophil# 0.31 X10^3/uL; Eosinophils% 3.8 % (0-5); Hemoglobin 12.3 g/dL (12.0-15.0); Lymphocyte # 1.43 X10^3/ul (4.0); Lymphocyte % 17.7 % (19-41); Mean Corp Hgb Conc 30.8 g/dL (32-36); Mean Corpuscular Hgb 29.9 pg (27.0-32.0); Mean Corpuscular Volume 97.3 fL (81-99); Mean Platelet Vol. 11.2 fl (6.2-12.0); Monocyte# 0.61 X10^3/uL; Monocyte% 7.5 % (0-10); NRBC Flagged by Analyzer 0 % (0-5); Neutrophil # 5.61 X10^3/uL (2.7-7.7); Neutrophil % 69.4 % (47-70); Platelet Count 297 K/mm3 (150-450); RBC Distribution Width CV 14.7 % (11.6-14.6); RBC Distribution Width SD 52.5 fl (35.1-43.9); Red Blood Count 4.11 M/mm3 (4.2-5.4); White Blood Count 8.1 K/mm3 (4.4-11.0)
[2020-06-24] MEDS: Aspirin 81 MG TAB.CHEW PO (08:29)
[2020-06-24 08:31] LABS: Anion Gap 4 (5-15); BUN 29 mg/dL (7-18); BUN/Creat Ratio 53.8 RATIO (10-20); Calcium,Total 9.4 mg/dL (8.5-10.1); Chloride 107 mmol/L (98-107); Creatinine, Serum 0.54 mg/dL (0.55-1.02); EST Glomerular Filtration Rate 116 mL/min (>60); Est Glom Filt Rate - Afr Amer 140 mL/min (>60); Estimated Creatinine Clearance 35.49 ml/min; Glucose 96 mg/dL (74-106); Potassium 3.8 mmol/L (3.5-5.1); Sodium Level 141 mmol/L (136-145)
[2020-06-24] MEDS: oxyCODONE 5 MG Tablet PO ×2 (11:13→20:25)
[2020-06-24 13:23] VITALS: BP 122/67; PULSE 88; RESP 18; TEMP 36.3; O2SAT 96
[2020-06-24] MEDS: Senna/Docusate Sodium 1 Tablet 2 TABLET PO (16:07)
[2020-06-24] MEDS: Atorvastatin Calcium 40 MG Tablet PO (20:25)
[2020-06-25 06:12] VITALS: BP 132/78; PULSE 74; RESP 16; TEMP 36.7; O2SAT 92
[2020-06-25] MEDS: Famotidine 20 MG Tablet PO (06:14)
[2020-06-25] MEDS: Acetaminophen 500 MG Tablet 1000 MG PO ×3 (06:15→20:57)
[2020-06-25] MEDS: Senna/Docusate Sodium 1 Tablet 2 TABLET PO ×2 (06:15→16:37)
[2020-06-25] MEDS: Clopidogrel Bisulfate 75 MG Tablet PO (06:15)
[2020-06-25] MEDS: Carvedilol 3.125 MG TABLET PO (06:16)
[2020-06-25] MEDS: Citalopram 10 MG Tablet 5 MG PO (06:16)
[2020-06-25] MEDS: Aspirin 81 MG TAB.CHEW PO (08:40)
[2020-06-25] MEDS: Polyethylene Glycol 3350 17 GM PACKET PO (08:40)
[2020-06-25 11:18] VITALS: O2SAT 97
[2020-06-25 13:01] VITALS: BP 115/61; PULSE 68; RESP 16; TEMP 36.4; O2SAT 95
[2020-06-25] MEDS: oxyCODONE 5 MG Tablet PO (19:47)
[2020-06-25] MEDS: Atorvastatin Calcium 40 MG Tablet PO (20:57)
--- NOTE | 2020-06-25 21:30 | NURSING ---
Communication send to pharmacy Vitamin D is not in med box in locked cupboard in room or accudose.
[2020-06-26] MEDS: Senna/Docusate Sodium 1 Tablet 2 TABLET PO ×2 (05:34→16:23)
[2020-06-26] MEDS: Famotidine 20 MG Tablet PO (05:34)
[2020-06-26] MEDS: Carvedilol 3.125 MG TABLET PO (05:34)
[2020-06-26] MEDS: Citalopram 10 MG Tablet 5 MG PO (05:35)
[2020-06-26] MEDS: Acetaminophen 500 MG Tablet 1000 MG PO ×3 (05:35→20:34)
[2020-06-26] MEDS: Clopidogrel Bisulfate 75 MG Tablet PO (05:37)
[2020-06-26 05:39] VITALS: BP 140/71; PULSE 81; RESP 20; TEMP 36; O2SAT 93
[2020-06-26 07:14] VITALS: O2SAT 93
[2020-06-26] MEDS: Aspirin 81 MG TAB.CHEW PO (07:56)
[2020-06-26] MEDS: oxyCODONE 5 MG Tablet PO ×2 (08:50→19:43)
--- NOTE | 2020-06-26 15:10 | CASEMGMT ---
Social Work Palliative in to meet with pt this AM. Pt is active with pain management Dr and is happy with his services. Palliative states they cannot provide services in conjunction with pain management. Pt okay with no Palliative services. [place], [employer]
[2020-06-26] MEDS: Atorvastatin Calcium 40 MG Tablet PO (20:33)
[2020-06-27 05:54] VITALS: BP 148/66; PULSE 75; RESP 18; TEMP 36.7; O2SAT 96
[2020-06-27] MEDS: Carvedilol 3.125 MG TABLET PO (05:55)
[2020-06-27] MEDS: Acetaminophen 500 MG Tablet 1000 MG PO ×3 (05:55→19:57)
[2020-06-27] MEDS: Citalopram 10 MG Tablet 5 MG PO (05:55)
[2020-06-27] MEDS: Clopidogrel Bisulfate 75 MG Tablet PO (05:56)
[2020-06-27] MEDS: Polyethylene Glycol 3350 17 GM PACKET PO (05:56)
[2020-06-27] MEDS: Senna/Docusate Sodium 1 Tablet 2 TABLET PO ×2 (05:59→17:14)
[2020-06-27] MEDS: Famotidine 20 MG Tablet PO (06:00)
[2020-06-27 07:50] VITALS: O2SAT 98
[2020-06-27] MEDS: Aspirin 81 MG TAB.CHEW PO (08:28)
[2020-06-27] MEDS: oxyCODONE 5 MG Tablet PO ×2 (08:29→17:13)
[2020-06-27 13:45] VITALS: PULSE 81; RESP 16; O2SAT 95
[2020-06-27 14:16] VITALS: BP 122/65; PULSE 81; RESP 18; TEMP 36; O2SAT 94
[2020-06-27] MEDS: Atorvastatin Calcium 40 MG Tablet PO (19:57)
--- NOTE | 2020-06-27 22:16 | PCA ---
Patient did not wish to get washed up tonight saying that they just got washed in the morning no sense in getting washed up twice
[2020-06-28 06:28] VITALS: BP 137/70; PULSE 72; RESP 18; TEMP 36.8; O2SAT 97
[2020-06-28] MEDS: Clopidogrel Bisulfate 75 MG Tablet PO (06:31)
[2020-06-28] MEDS: Carvedilol 3.125 MG TABLET PO (06:31)
[2020-06-28] MEDS: Polyethylene Glycol 3350 17 GM PACKET PO (06:31)
[2020-06-28] MEDS: Acetaminophen 500 MG Tablet 1000 MG PO ×3 (06:31→20:39)
[2020-06-28] MEDS: Citalopram 10 MG Tablet 5 MG PO (06:31)
[2020-06-28] MEDS: Famotidine 20 MG Tablet PO (06:31)
[2020-06-28] MEDS: Senna/Docusate Sodium 1 Tablet 2 TABLET PO ×2 (06:34→17:37)
[2020-06-28 06:58] VITALS: O2SAT 97
[2020-06-28] MEDS: Aspirin 81 MG TAB.CHEW PO (07:53)
[2020-06-28 15:15] VITALS: BP 132/77; PULSE 85; RESP 18; TEMP 36.2; O2SAT 95
[2020-06-28] MEDS: oxyCODONE 5 MG Tablet PO (20:38)
[2020-06-28] MEDS: Atorvastatin Calcium 40 MG Tablet PO (20:39)
[2020-06-29 05:41] VITALS: BP 128/77; PULSE 74; RESP 18; TEMP 36.6; O2SAT 95
[2020-06-29] MEDS: Polyethylene Glycol 3350 17 GM PACKET PO (05:43)
[2020-06-29] MEDS: Famotidine 20 MG Tablet PO (05:44)
[2020-06-29] MEDS: Carvedilol 3.125 MG TABLET PO (05:44)
[2020-06-29] MEDS: Clopidogrel Bisulfate 75 MG Tablet PO (05:44)
[2020-06-29] MEDS: Citalopram 10 MG Tablet 5 MG PO (05:44)
[2020-06-29] MEDS: Senna/Docusate Sodium 1 Tablet 2 TABLET PO (05:44)
[2020-06-29] MEDS: Acetaminophen 500 MG Tablet 1000 MG PO (05:46)
[2020-06-29] MEDS: Aspirin 81 MG TAB.CHEW PO (07:34)
[2020-06-29 07:58] VITALS: O2SAT 96
[2020-06-29 10:24] VITALS: BP 136/74; PULSE 83; RESP 18; TEMP 36.7; O2SAT 96
== END 2020-06-29 11:05 | disposition home or self-care (01) | DRG 561 ==
PROVIDERS: Admitting Provider Family Medicine Geriatric Medicine; PCP Internal Medicine; Visit Provider Family Medicine Geriatric Medicine
DX: M48.56XD Collapsed vertebra, not elsewhere classified, lumbar region, subsequent encounter for fracture with routine healing (principal); J44.9 Chronic obstructive pulmonary disease, unspecified; K21.9 Gastro-esophageal reflux disease without esophagitis; E78.5 Hyperlipidemia, unspecified; Z23 Encounter for immunization; I25.10 Atherosclerotic heart disease of native coronary artery without angina pectoris; I10 Essential (primary) hypertension; M48.54XD Collapsed vertebra, not elsewhere classified, thoracic region, subsequent encounter for fracture with routine healing; M48.061 Spinal stenosis, lumbar region without neurogenic claudication; I25.2 Old myocardial infarction; Z87.891 Personal history of nicotine dependence; E55.9 Vitamin D deficiency, unspecified; F32.9 Major depressive disorder, single episode, unspecified
CPT/HCPCS: 80048; 85025; 87635; 97110; 97116; 97162; 97166; 97530; 97535; 97802; U0005; 90670; U0003

== ENCOUNTER → 2020-08-29 13:13 | Emergency (ER) | payer SELFPAY ==
[2020-06-09 16:17] VITALS: BMI 22.1
[2020-08-29 13:17] VITALS: BP 157/93; PULSE 89; RESP 20; TEMP 37.1; O2SAT 98
[2020-08-29 13:20] VITALS: BP 157/93; PULSE 89; RESP 20; TEMP 37.1; O2SAT 98; BMI 22.9
[2020-08-29 13:24] VITALS: BP 109/93; PULSE 95; RESP 20; TEMP 36.8; O2SAT 98
--- NOTE | 2020-08-29 13:36 | EKG12_ITS ---
Test Reason : SOB Blood Pressure : / mmHG Vent. Rate : 086 BPM Atrial Rate : 086 BPM P-R Int : 136 ms QRS Dur : 080 ms QT Int : 388 ms P-R-T Axes : 043 -04 022 degrees QTc Int : 464 ms Sinus rhythm with Premature atrial complexes Otherwise normal ECG Confirmed by ROBERT MARTINEZ, JAIDA ([id number]), editor dictionary NOA MUNGUIA ([id number]) on 08/30/2020 9:24:21 AM Referred By: RADHA Confirmed By:JAIDA JONES MD
--- NOTE | 2020-08-29 13:38 | CT_ITS ---
STUDY: CTA CHEST REASON FOR EXAM: Female, 79 years old. Pulmonary embolism. COPD. Shortness of breath. RADIATION DOSAGE (If Supplied By Facility): CTDIvol = ( 5.30 ) mGy, DLP = ( 186.83 ) mGycm TECHNIQUE: The examination was performed with the intravenous administration of IV 100mL Isovue-300. Post-processing of the angiographic images was performed, with multiplanar reformation and 3D reconstruction. Individualized dose optimization techniques were used for this CT. COMPARISON: None. FINDINGS: Normal enhancement of the main pulmonary artery and right and left pulmonary arteries. Normal enhancement of the bilateral peripheral pulmonary arteries. There is no demonstrated pulmonary embolism. There is atherosclerotic calcification of the aortic arch with tortuosity. There is no demonstrated aortic dissection. There are calcifications of the coronary arteries. Normal mediastinum. Normal hilar regions. Normal visualized trachea and bronchi. The lungs are well expanded. Diffuse emphysematous changes more prominent in the upper lobes with a scarring at the lung apices. Normal pleura. Normal chest wall structures. There are degenerative changes of thoracic spine. Prior vertebroplasty of the L1 vertebrae with loss of height. Normal visualized upper abdomen. CT/CTA Chest W/WO Contrast IMPRESSION: No evidence of pulmonary embolism. Diffuse emphysematous changes with centrilobular changes in the upper lobes. Electronically Signed: Uday Mills MD at 14:41 EDT , Service support ,
--- NOTE | 2020-08-29 13:39 | EDS_ITS ---
HPI History of Present Illness Chief Complaint: Shortness of Breath Informant: patient Onset/Context/Timing Onset: Today Context: sudden Timing: Continuous Quality: Positive for Dyspnea on exertion Worsened by: Exertion Relieved by: Nothing Associated Symptoms Negative for cough Chest Pain: Negative for None Narrative Narrative: Patient presents with shortness of breath that began today when she woke up. Patient states that is been constant throughout the day today. Patient states it is worse with walking and exertion. Patient states she has difficulty walking to the bathroom without becoming short of breath. Patient denies any chest pain. Patient denies any cough. Patient denies any fevers or chills. Patient denies any COVID-19 exposures. Patient has a history of COPD and is on 3 L of oxygen nasal cannula. PE Risk Factors: Positive for Recent surgery PFSH [facility], [facility] Medical History Atherosclerosis of [place] coronary artery of [place] heart without angina p ectoris CAD (coronary artery disease) Compression fracture COPD (chronic obstructive pulmonary disease) GERD (gastroesophageal reflux disease) STEMI (ST elevation myocardial infarction) (07/18/19) Tobacco dependence Home Medications aspirin 81 mg PO DAILYCM 03/10/20 [History Last Taken Unknown] atorvastatin 40 mg PO QHS 03/10/20 [History Last Taken Unknown] carvedilol 3.125 mg PO DAILY 03/10/20 [History Last Taken 04/07/20] clopidogrel 75 mg PO DAILY #0 03/14/20 [Rx Last Taken 04/03/20] ergocalciferol (vitamin D2) 1,000 unit PO QHS 04/06/20 [History Last Taken Unkn own] famotidine 20 mg PO DAILY PRN 04/06/20 [History Last Taken 04/07/20] acetaminophen 1,000 mg PO TID tab 06/23/20 [Rx Last Taken Unknown] cyclobenzaprine 10 mg PO TID PRN PRN #90 tab 06/23/20 [Rx Last Taken Unknown] oxycodone 5 mg PO Q4H PRN PRN 7 Days #42 tab 06/23/20 [Rx Last Taken Unknown] polyethylene glycol 3350 17 gm PO DAILY #30 packet 06/23/20 [Rx Last Taken Unknown] sennosides-docusate sodium 2 ea PO BID PRN PRN #120 tab 06/23/20 [Rx Last Taken Unknown] citalopram 10 mg tablet 5 mg PO DAILY #30 tab 08/22/20 [Rx Last Taken Unknown] albuterol sulfate [Ventolin HFA] 2 puff INHALATION Q4H PRN PRN #1 inhaler 08/29/20 [Rx Last Taken Unknown] prednisone 60 mg PO DAILY #12 tablet 08/29/20 [Rx Last Taken Unknown] Allergy/AdvReac Type Severity Reaction Status Date / Time No Known Allergies Allergy Verified 08/29/20 13:33 Family History Sister No problems noted. Son hole in his heart Grandmother Cancer Father Cancer Grandfather Cancer Surgical History H/O: hysterectomy Stented coronary artery Social History household members: children housing: apartment number of children: 3 Smoking Status: Former smoker quit date: 07/18/19 Tobacco: How many years used: 50 alcohol intake: never substance use type: does not use what type of physical activity do you participate in: none ROS ROS ED Constitutional Constitutional ED: Denies chills or fever(s) Eyes Eyes: Denies blurry vision or change in vision ENT ENT ED: Denies rhinorrhea or sore throat Cardiovascular Cardiovascular: Denies chest pain or palpitations Respiratory/Chest Respiratory/Chest: Reports dyspnea; Denies cough Gastrointestinal Gastrointestinal: Denies nausea or vomiting Genitourinary Genitourinary ED: Denies dysuria or hematuria Musculoskeletal Musculoskeletal: Denies back pain or neck pain Integumentary Denies abscess or rash Neurologic Neurologic: Denies headache(s) or weakness Allergic/Immunologic Allergic/Immunologic ED: Denies mouth swelling or urticaria EXAM Physical Exam Const Vital Signs: 08/29/20 13:17 08/29/20 13:20 08/29/20 13:24 Temperature 98.8 F 98.8 F 98.2 F Temperature Source Temporal Temporal Temporal Pulse Rate 89 89 95 Respiratory Rate 20 H 20 H 20 H Respiratory Effort Short of Breath Respiratory Depth Shallow Respiratory Pattern Normal Blood Pressure 157/93 H 157/93 H 109/93 H Blood Pressure Mean 114 114 98 Pulse Ox 98 98 98 Oxygen Delivery Method Nasal Cannula Nasal Cannula Nasal Cannula Oxygen Flow Rate (L/min) 3 3 3 08/29/20 13:58 08/29/20 14:24 Temperature 98.2 F Temperature Source Temporal Pulse Rate 88 85 Respiratory Rate 22 H 15 Respiratory Effort Respiratory Depth Respiratory Pattern Tachypnea Blood Pressure 147/80 H Blood Pressure Mean 102 Pulse Ox 99 Oxygen Delivery Method Room Air Oxygen Flow Rate (L/min) Positive cachectic General Appearance ED: cachectic Nutritional Appearance: cachectic HEENT Reports moist mucous membranes atraumatic Neck supple and no JVD Resp normal respiratory effort Auscultation: diminished lung sounds diffuse Cardio regular rate and regular rhythm GI non-tender and non-distended Auscultation: normoactive bowel sounds Palpation: soft Neuro oriented x3, CN's II-XII intact bilaterally and no sensory deficits noted Sensorium / Orientation: alert Motor Exam: strength 5/5 throughout Psych mental status grossly normal MDM MDM MDM Narrative Medical decision making narrative: CBC and basic metabolic profile were obtained and were within normal limits. EKG was obtained. On my interpretation, it showed a normal sinus rhythm with a rate of 86 with occasional PACs. PA interval, QRS interval, and QTc intervals were all normal. [place] was normal. There are no acute ST or T wave changes. COVID-19 rapid antigen was obtained and was negative. CTA of the chest was obtained. There is no evidence of pulmonary embolism. There are diffuse emphysematous changes. This was interpreted by the radiologist and reviewed by myself. Patient was given a DuoNeb aerosol here. Patient is feeling better on reevaluation. Patient was given a dose of prednisone here. Patient was given a prescription for prednisone and a prescription for albuterol inhaler. Lab Data Attestation: I reviewed the patient's lab results. Labs: Laboratory Results - last 24 hr 08/29/20 08/29/20 13:30 13:30 WBC 5.6 RBC 4.04 L Hgb 12.2 Hct 38.7 MCV 95.8 MCH 30.2 MCHC 31.5 L RDW Std Deviation 44.9 H RDW Coeff of Melisa 12.7 Plt Count 201 MPV 10.5 Immature Gran % (Auto) 0.200 Neut % (Auto) 45.5 L Lymph % (Auto) 35.8 [place] % (Auto) 11.9 H Eos % (Auto) 5.5 H Baso % (Auto) 1.1 H Absolute Neuts (auto) 2.6 Absolute Lymphs (auto) 2.01 Nucleated RBC % 0 Sodium 144 Potassium 4.1 Chloride 109 H Carbon Dioxide 32.0 Anion Gap 3 L BUN 26 H Creatinine 0.67 Estim Creat Clear Calc 35.49 Est GFR (MDRD) Af Amer 109 Est GFR (MDRD) Non-Af 90 BUN/Creatinine Ratio 38.9 H Glucose 105 Calcium 9.2 Radiography Diagnostic Testing: Radiology Impression Chest CTA 08/29/20 13:38 IMPRESSION: No evidence of pulmonary embolism. Diffuse emphysematous changes with centrilobular changes in the upper lobes. Electronically Signed: Uday Mills MD at 14:41 EDT , Service support , EKG Initial EKG: Attestation: I personally reviewed and interpreted this EKG as follows: Interpretation: Sinus Rhythm (86 with PACs) and No Acute Injury Pattern Prior EKG tracings: available for review Prior: Unchanged (03/10/2020) Discharge Plan Triage Chief Complaint: Shortness of Breath ED Provider: Marcelo Smith Dx/Rx/DC Orders Clinical Impression: COPD (chronic obstructive pulmonary disease) Instructions: ED COPD Flare Prescriptions: New prednisone 20 MG tablet 60 mg PO DAILY Qty: 12 RF: 0 albuterol sulfate [Ventolin HFA] 1 INHALER inhaler 2 puff inhalation Q4H PRN PRN (Reason: Wheezing) Qty: 1 RF: 0 No Action atorvastatin 40 MG tablet 40 mg PO QHS RF: 0 carvedilol 3.125 MG tablet 3.125 mg PO DAILY RF: 0 aspirin 81 MG tablet,chewable 81 mg PO DAILYCM RF: 0 clopidogrel 75 MG tablet 75 mg PO DAILY Qty: 0 RF: 0 famotidine 20 MG tablet 20 mg PO DAILY PRN (Reason: Indigestion) RF: 0 ergocalciferol (vitamin D2) 50,000 UNIT capsule 1,000 unit PO QHS RF: 0 acetaminophen 500 MG tablet 1,000 mg PO TID RF: 0 cyclobenzaprine 10 MG tablet 10 mg PO TID PRN PRN (Reason: back pain/spasm) Qty: 90 RF: 0 polyethylene glycol 3350 17 GM packet 17 gm PO DAILY Qty: 30 RF: 0 sennosides-docusate sodium 1 EACH tablet 2 ea PO BID PRN PRN (Reason: Constipation) Qty: 120 RF: 0 oxycodone 5 MG tablet 5 mg PO Q4H PRN PRN (Reason: Pain Score 4-5) 7 Days Qty: 42 RF: 0 citalopram 10 mg tablet 5 mg PO DAILY Qty: 30 RF: 0 Primary Care Provider: Constanza Streeter Referrals: Constanza Streeter MD [Primary Care Provider] - 3-5 Days Disposition Disposition: Home, self care
[2020-08-29 13:53] LABS: Absolute Lymphocyte Count 2.01 X10^3/uL (0.83-4.51); Absolute Neutrophil Count 2.6 X10^3/uL (2.0-7.7); Basophil# 0.06 X10^3/uL; Basophil% 1.1 % (0-1); Eosinophil# 0.31 X10^3/uL; Eosinophils% 5.5 % (0-5); Hematocrit 38.7 % (37-47); Hemoglobin 12.2 g/dL (12.0-15.0); Lymphocyte # 2.01 X10^3/ul (0.83-4.51); Lymphocyte % 35.8 % (19-41); Mean Corp Hgb Conc 31.5 g/dL (32-36); Mean Corpuscular Hgb 30.2 pg (27.0-32.0); Mean Corpuscular Volume 95.8 fL (81-99); Mean Platelet Vol. 10.5 fl (6.2-12.0); Monocyte# 0.67 X10^3/uL; Monocyte% 11.9 % (0-10); NRBC Flagged by Analyzer 0 % (0-5); Neutrophil # 2.56 X10^3/uL (2.7-7.7); Neutrophil % 45.5 % (47-70); Platelet Count 201 K/mm3 (150-450); RBC Distribution Width CV 12.7 % (11.6-14.6); RBC Distribution Width SD 44.9 fl (35.1-43.9); Red Blood Count 4.04 M/mm3 (4.2-5.4); White Blood Count 5.6 K/mm3 (4.4-11.0)
[2020-08-29] MEDS: Ipratropium/Albuterol Sulfate 3 ML AMPUL.NEB INHALATION (13:55)
[2020-08-29 13:58] VITALS: PULSE 88; RESP 22
[2020-08-29 14:04] LABS: Anion Gap 3 (5-15); BUN 26 mg/dL (7-18); BUN/Creat Ratio 38.9 RATIO (10-20); Calcium,Total 9.2 mg/dL (8.5-10.1); Chloride 109 mmol/L (98-107); Creatinine, Serum 0.67 mg/dL (0.55-1.02); EST Glomerular Filtration Rate 90 mL/min (>60); Est Glom Filt Rate - Afr Amer 109 mL/min (>60); Estimated Creatinine Clearance 35.49 ml/min; Glucose 105 mg/dL (74-106); Potassium 4.1 mmol/L (3.5-5.1); Sodium Level 144 mmol/L (136-145)
[2020-08-29 14:24] VITALS: BP 147/80; PULSE 85; RESP 15; TEMP 36.8; O2SAT 99
[2020-08-29 14:44] VITALS: BP 172/90; PULSE 90; RESP 20; O2SAT 100
[2020-08-29] MEDS: predniSONE 20 MG Tablet 60 MG PO (14:45)
--- NOTE | 2020-08-29 14:52 | ED.RN ---
called for pt [facility] at [phone] at [phone]. they are going to bring the pt's oxygen tank.
== END | disposition home or self-care (01) ==
PROVIDERS: Emergency Provider Emergency Medicine; PCP Internal Medicine
DX: J44.9 Chronic obstructive pulmonary disease, unspecified (principal); I25.10 Atherosclerotic heart disease of native coronary artery without angina pectoris; K21.9 Gastro-esophageal reflux disease without esophagitis; Z99.81 Dependence on supplemental oxygen; Z79.51 Long term (current) use of inhaled steroids; Z79.899 Other long term (current) drug therapy; Z87.891 Personal history of nicotine dependence
CPT/HCPCS: 71275; 80048; 85025; 87426; 93005; 94640; 99285; Q9967; A4216

== ENCOUNTER 2020-09-14 15:22 | Emergency (ER) | payer SELFPAY ==
[2020-08-29 13:20] VITALS: BMI 22.9
[2020-09-14 15:25] VITALS: BP 148/88; PULSE 90; RESP 16; TEMP 36.8; O2SAT 98; BMI 23.1
--- NOTE | 2020-09-14 15:47 | CT_ITS ---
HISTORY: Trauma, fall TECHNIQUE: Multiple axial images were obtained of the brain without intravenous contrast. A radiation dose optimization technique was used for this scan. IV Contrast dosage and agent: None. COMPARISON: 01/01/13 FINDINGS: # of images incl. paperwork: 239 PARANASAL SINUSES AND MASTOID AIR CELLS: Clear. INTRACRANIAL HEMORRHAGE: None. BRAIN PARENCHYMA: No CT evidence of stroke. No intracranial masses. There is preservation of the crow/white matter interface. Posterior fossa structures are unremarkable. There is hypoattenuation of the periventricular white matter. Chronic involutional changes are noted. CSF SPACES: Appropriate for age. There is no hydrocephalus. MASS EFFECT: None. CALVARIUM: No acute fracture. CT/Brain/Head without Contrast IMPRESSION: Chronic involutional and white matter changes. No acute intracranial process. Individualized dose optimization techniques were used for this CT. at 1630 Reported and signed by: Jermain Abdi MD Electronically Signed: Jermain Abdi MD at 16:29 EDT Tel , Service support ,
--- NOTE | 2020-09-14 15:47 | EKG12_ITS ---
Test Reason : Blood Pressure : / mmHG Vent. Rate : 085 BPM Atrial Rate : 085 BPM P-R Int : 132 ms QRS Dur : 082 ms QT Int : 374 ms P-R-T Axes : 070 -01 023 degrees QTc Int : 445 ms Normal sinus rhythm Normal ECG Confirmed by OLGA MARTINEZ, FRANCISCO ([id number]), script editor NOA MUNGUIA ([id number]) on 09/19/2020 10:03:03 A M Referred By: HERMILA Confirmed By:JANNA ESPINOZA MD
--- NOTE | 2020-09-14 15:49 | EDS_ITS ---
HPI History of Present Illness Chief Complaint: Weakness Informant: patient Onset/Context/Timing Onset: Days Context: Gradual Onset Timing: Intermittent Current Severity: Moderate Maximum Severity: Moderate Narrative Narrative: The patient is a 80-year-old female medical history significant for chronic back pain status post multiple compression fracture, cervical cancer, COPD on home oxygen, and coronary vascular disease who presents to the emergency department for weakness. Patient states that 3 separate times today, with standing, she does get lightheaded. She states that she has fallen 3 times. She states she does not lose consciousness. She denies any chest pain or shortness of breath. She does state that she has a hard time ambulating. She does not think she had a fever. She denies chills or sweats. She denies any urinary symptoms. Prior similar symptoms: No Recent Illness/Hospitalization: No PFSH PFSH Medical History (Updated 09/14/20 @ 17:15 by Beba Barriga) Atherosclerosis of [place] coronary artery of [place] heart without angina pectoris CAD (coronary artery disease) Compression fracture COPD (chronic obstructive pulmonary disease) Former smoker GERD (gastroesophageal reflux disease) On home oxygen therapy STEMI (ST elevation myocardial infarction) (07/18/19) Tobacco dependence Home Medications aspirin 81 mg PO DAILYCM 03/10/20 [History Last Taken 09/14/20] atorvastatin 40 mg PO QHS 03/10/20 [History Last Taken 09/13/20] clopidogrel 75 mg PO DAILY #0 03/14/20 [Rx Last Taken 09/14/20] cyclobenzaprine 10 mg PO TID PRN PRN #90 tab 06/23/20 [Rx Last Taken Unknown] citalopram 10 mg tablet 5 mg PO DAILY #30 tab 08/22/20 [Rx Last Taken 09/14/20] albuterol sulfate [Ventolin HFA] 2 puff INHALATION Q4H PRN PRN #1 inhaler 08/29/20 [Rx Last Taken Unknown] carvedilol 3.125 mg tablet 3.125 mg PO DAILY #90 tab 09/11/20 [Rx Last Taken 09/14/20] acetaminophen 1,000 mg PO TID PRN PRN 09/14/20 [History Last Taken 09/14/20] Allergy/AdvReac Type Severity Reaction Status Date / Time No Known Allergies Allergy Verified 09/14/20 15:27 Family History Sister No problems noted. Son hole in his heart Grandmother Cancer Father Cancer Grandfather Cancer Surgical History (Updated 09/14/20 @ 17:15 by Beba Barriga) H/O: hysterectomy History of appendectomy Stented coronary artery Social History household members: children housing: apartment number of children: 3 Smoking Status: Former smoker quit date: 07/18/19 Tobacco: How many years used: 50 alcohol intake: never substance use type: does not use what type of physical activity do you participate in: none ROS ROS ED Constitutional Constitutional ED: Denies chills or fever(s) Eyes Eyes: Denies blurry vision or change in vision ENT ENT ED: Denies ear pain or sore throat Cardiovascular Cardiovascular: Denies chest pain or palpitations Respiratory/Chest Respiratory/Chest: Denies cough, dyspnea or dyspnea on exertion Gastrointestinal Gastrointestinal: Reports nausea; Denies abdominal pain or vomiting Genitourinary Genitourinary ED: Denies dysuria or urinary frequency Musculoskeletal Musculoskeletal: Reports myalgias; Denies arthralgias Integumentary Denies rash Neurologic Neurologic: Denies headache(s) or paresthesias Psychiatric Psychiatric: Denies anxiety or depression Endocrine Endocrinology: Denies polydipsia or polyuria Allergic/Immunologic Allergic/Immunologic ED: Denies urticaria EXAM Physical Exam Const Vital Signs: 09/14/20 15:25 09/14/20 15:28 Temperature 98.2 F Temperature Source Temporal Pulse Rate 90 Respiratory Rate 16 Respiratory Effort Normal Non-Labored Blood Pressure 148/88 H Blood Pressure Mean 108 Pulse Ox 98 Oxygen Delivery Method Nasal Cannula Oxygen Flow Rate (L/min) 4 Positive well nourished and well developed General Appearance ED: well developed HEENT Reports normocephalic, head/scalp atraumatic and moist mucous membranes Eyes PERRL and EOMs intact bilaterally Neck no lymphadenopathy and supple General: Negative for tenderness Chest Wall inspection of chest normal Resp normal respiratory effort and clear to auscultation bilaterally Cardio regular rate, regular rhythm and no murmurs GI normal to inspection, nondistended, normoactive bowel sounds Palpation: Negative for tender, guarding or rebound tenderness present Back/Spine no CVA tenderness Cervical Spine: Negative for cervical spine tenderness Thoracic Spine / Upper Back: Negative for thoracic spinal tenderness Extremity normal to inspection Extremity Narrative: contusion right knee General Extremety ED: Yes tenderness Neuro oriented x3 and CN's II-XII intact bilaterally Neuro Narrative: No focal deficits appreciated. Sensorium / Orientation: alert Psych mental status grossly normal Skin no rashes or lesions noted, no wounds and skin turgor normal MDM MDM MDM Narrative Medical decision making narrative: The patient presents with weakness. Her exam is nonfocal. She denies any focal symptoms. This does seem to be more of a global process. The patient states that she has not been using her walker because her apartment is very small. Metabolic work-up was pursued. Urine shows no infection. Chest x-ray is unremarkable. Noncontrast head CT was obtained which was also unremarkable. Patient was gently hydrated. She was given IV fluids. The patient ambulated through the emergency department out assistance. She had a normal steady gait. She is requesting discharge. I did vocational counselor her on the importance of using her walker. She will be discharged home. Impression 1. Gait dysfunction Lab Data Attestation: I reviewed the patient's lab results. Labs: Laboratory Results - last 24 hr 09/14/20 09/14/20 09/14/20 15:52 15:52 15:57 WBC 7.9 RBC 3.65 L Hgb 11.1 L Hct 35.6 L MCV 97.5 MCH 30.4 MCHC 31.2 L RDW Std Deviation 43.7 RDW Coeff of Melisa 12.3 Plt Count 199 MPV 10.4 Immature Gran % (Auto) 0.400 Neut % (Auto) 57.4 Lymph % (Auto) 25.7 [place] % (Auto) 9.4 Eos % (Auto) 6.3 H Baso % (Auto) 0.8 Absolute Neuts (auto) 4.5 Absolute Lymphs (auto) 2.03 Nucleated RBC % 0 Sodium 142 Potassium 3.9 Chloride 107 Carbon Dioxide 33.0 H Anion Gap 2 L BUN 30 H Creatinine 0.72 Estim Creat Clear Calc 34.90 Est GFR (MDRD) Af Amer 100 Est GFR (MDRD) Non-Af 83 BUN/Creatinine Ratio 41.8 H Glucose 107 H Lactic Acid 0.9 Calcium 9.1 Total Bilirubin 0.30 AST 10 L ALT 12 L Alkaline Phosphatase 108 Total Protein 6.8 Albumin 3.4 Globulin 3.4 Albumin/Globulin Ratio 1.0 Urine Color Urine Clarity Urine pH Ur Specific [place] Urine Protein Urine Glucose (UA) Urine Ketones Urine Occult Blood Urine Nitrite Urine Bilirubin Urine Urobilinogen Ur Leukocyte Esterase Urine RBC Urine WBC Ur Squamous Epith Cells Urine Bacteria Urine Mucus 09/14/20 16:40 WBC RBC Hgb Hct MCV MCH MCHC RDW Std Deviation RDW Coeff of Melisa Plt Count MPV Immature Gran % (Auto) Neut % (Auto) Lymph % (Auto) [place] % (Auto) Eos % (Auto) Baso % (Auto) Absolute Neuts (auto) Absolute Lymphs (auto) Nucleated RBC % Sodium Potassium Chloride Carbon Dioxide Anion Gap BUN Creatinine Estim Creat Clear Calc Est GFR (MDRD) Af Amer Est GFR (MDRD) Non-Af BUN/Creatinine Ratio Glucose Lactic Acid Calcium Total Bilirubin AST ALT Alkaline Phosphatase Total Protein Albumin Globulin Albumin/Globulin Ratio Urine Color Yellow Urine Clarity Clear Urine pH 5.0 Ur Specific [place] 1.020 Urine Protein Negative Urine Glucose (UA) Normal Urine Ketones 5 H Urine Occult Blood 25 H Urine Nitrite Negative Urine Bilirubin Negative Urine Urobilinogen Normal Ur Leukocyte Esterase Negative Urine RBC 0-5 SEEN Urine WBC 0 SEEN Ur Squamous Epith Cells 0 SEEN Urine Bacteria 0 SEEN Urine Mucus 1+ Radiography Chest X-Ray - ED: 1 View, Read by ED Physician, Unchanged, Heart, Lungs, Mediastinum, Bony Structures, No Acute Disease and Chronic Changes Diagnostic Testing: Radiology Impression Brain CT 09/14/20 15:47 IMPRESSION: Chronic involutional and white matter changes. No acute intracranial process. Individualized dose optimization techniques were used for this CT. at 1630 Reported and signed by: Jermain Abdi MD Electronically Signed: Jermain Abdi MD at 16:29 EDT Tel , Service support , Chest X-Ray 09/14/20 15:50 IMPRESSION: No radiographic evidence of acute cardiopulmonary disease. at 1624 Reported and signed by: Jermain Abdi MD Electronically Signed: Jermain Abdi MD at 16:23 EDT Tel , Service support , EKG Initial EKG: Attestation: I personally reviewed and interpreted this EKG as follows: Interpretation: Sinus Rhythm and No Acute Injury Pattern Prior EKG tracings: available for review Prior: Unchanged Discharge Plan Triage Chief Complaint: Weakness ED Provider: Jed Rodrigues Dx/Rx/DC Orders Instructions: ED Weakness (Uncertain Cause) Prescriptions: No Action atorvastatin 40 MG tablet 40 mg PO QHS RF: 0 aspirin 81 MG tablet,chewable 81 mg PO DAILYCM RF: 0 clopidogrel 75 MG tablet 75 mg PO DAILY Qty: 0 RF: 0 cyclobenzaprine 10 MG tablet 10 mg PO TID PRN PRN (Reason: back pain/spasm) Qty: 90 RF: 0 albuterol sulfate [Ventolin HFA] 1 INHALER inhaler 2 puff inhalation Q4H PRN PRN (Reason: Wheezing) Qty: 1 RF: 0 acetaminophen 500 MG tablet 1,000 mg PO TID PRN PRN (Reason: Pain) RF: 0 citalopram 10 mg tablet 5 mg PO DAILY Qty: 30 RF: 0 carvedilol 3.125 mg tablet 3.125 mg PO DAILY Qty: 90 RF: 3 Primary Care Provider: Constanza Streeter Referrals: Constanza Streeter MD [Primary Care Provider] -
--- NOTE | 2020-09-14 15:50 | RAD_ITS ---
HISTORY: sob EXAMINATION/TECHNIQUE: XR Chest 1 View: Portable upright AP chest x-ray COMPARISON: 03/10/20 FINDINGS: LINES/DEVICES: None. LUNGS: No consolidation, edema or effusion. No pneumothorax. MEDIASTINUM AND CARDIOVASCULAR STRUCTURES: Cardiac silhouette not enlarged. Central airways and mediastinal contour are unremarkable. BONES AND SOFT TISSUES: No acute bony abnormalities. RAD/Chest 1 View (Portable) IMPRESSION: No radiographic evidence of acute cardiopulmonary disease. at 1624 Reported and signed by: Jermain Abdi MD Electronically Signed: Jermain Abdi MD at 16:23 EDT Tel , Service support ,
[2020-09-14 16:16] LABS: Absolute Lymphocyte Count 2.03 X10^3/uL (0.83-4.51); Absolute Neutrophil Count 4.5 X10^3/uL (2.0-7.7); Basophil# 0.06 X10^3/uL; Basophil% 0.8 % (0-1); Eosinophils% 6.3 % (0-5); Hematocrit 35.6 % (37-47); Hemoglobin 11.1 g/dL (12.0-15.0); Lymphocyte # 2.03 X10^3/ul (0.83-4.51); Lymphocyte % 25.7 % (19-41); Mean Corp Hgb Conc 31.2 g/dL (32-36); Mean Corpuscular Hgb 30.4 pg (27.0-32.0); Mean Corpuscular Volume 97.5 fL (81-99); Mean Platelet Vol. 10.4 fl (6.2-12.0); Monocyte# 0.74 X10^3/uL; Monocyte% 9.4 % (0-10); NRBC Flagged by Analyzer 0 % (0-5); Neutrophil # 4.54 X10^3/uL (2.7-7.7); Neutrophil % 57.4 % (47-70); Platelet Count 199 K/mm3 (150-450); RBC Distribution Width CV 12.3 % (11.6-14.6); RBC Distribution Width SD 43.7 fl (35.1-43.9); Red Blood Count 3.65 M/mm3 (4.2-5.4); White Blood Count 7.9 K/mm3 (4.4-11.0)
[2020-09-14 16:28] LABS: AST(SGOT) 10 U/L (15-37); Alanine Aminotransfer ALT/SGPT 12 U/L (13-56); Albumin, Serum 3.4 g/dL (3.2-5.0); Alkaline Phosphatase 108 U/L (45-117); Anion Gap 2 (5-15); BUN 30 mg/dL (7-18); BUN/Creat Ratio 41.8 RATIO (10-20); Calcium,Total 9.1 mg/dL (8.5-10.1); Chloride 107 mmol/L (98-107); Creatinine, Serum 0.72 mg/dL (0.55-1.02); EST Glomerular Filtration Rate 83 mL/min (>60); Est Glom Filt Rate - Afr Amer 100 mL/min (>60); Globulin 3.4 g/dL (2.2-4.2); Glucose 107 mg/dL (74-106); Potassium 3.9 mmol/L (3.5-5.1); Protein, Total 6.8 g/dL (6.4-8.2); Sodium Level 142 mmol/L (136-145)
[2020-09-14 16:47] LABS: Bacteria 0 SEEN /hpf (None Seen); Squamous Epithelial Cells - UA 0 SEEN /hpf (5-10); White Blood Cells 0 SEEN /hpf (0-5)
[2020-09-14 16:55] LABS: Color, Urine Yellow (Yellow); Glucose, Dipstick Normal (Normal); Ketone-Dipstick 5 mg/dl (Negative); Leukocyte Esterase-Dipstick Negative /ul (Negative); Nitrite-Dipstick Negative (Negative); Occult Blood-Urine 25 /ul (Negative); Protein-Dipstick Negative (Negative); Urine Bilirubin Dipstick Negative (Negative); Urine Clarity Clear (Clear); Urine Urobilinogen Normal (Normal)
[2020-09-14 17:00] LABS: Lactic Acid 0.9 mmol/L (0.4-1.9)
[2020-09-14 17:13] LABS: Mucous, Urine 1+ /hpf (<or=2+); Red Blood Cells-Urine 0-5 SEEN /hpf (0-5)
[2020-09-14 18:13] VITALS: BP 147/86; PULSE 88; RESP 16; O2SAT 100
[2020-09-14 18:26] VITALS: BP 147/86; PULSE 88; RESP 16; O2SAT 100
== END 2020-09-14 18:28 | disposition home or self-care (01) ==
LOC: ED 15:58
PROVIDERS: Emergency Provider Emergency Medicine; PCP Internal Medicine
DX: R53.1 Weakness (principal); I25.10 Atherosclerotic heart disease of native coronary artery without angina pectoris; J44.9 Chronic obstructive pulmonary disease, unspecified; K21.9 Gastro-esophageal reflux disease without esophagitis; Z99.81 Dependence on supplemental oxygen; Z79.51 Long term (current) use of inhaled steroids; Z79.899 Other long term (current) drug therapy; Z87.891 Personal history of nicotine dependence
CPT/HCPCS: 70450; 71045; 80053; 81001; 83605; 85025; 87040; 93005; 96360; 96361; 99285; J7040; A4216

== ENCOUNTER 2020-09-19 08:25 | Inpatient (IN) | payer MEDICARE, SELFPAY ==
[2020-09-19] VITALS (8 sets, daily range): BP systolic 128–144; BP diastolic 62–85; PULSE 54–114; RESP 16–23; TEMP 36–37.1; O2SAT 98–100; BMI 22.6; BMI 21.4
--- NOTE | 2020-09-19 08:48 | CT_ITS ---
STUDY: CT BRAIN WITHOUT CONTRAST REASON FOR EXAM: Female, 80 years old. head injury RADIATION DOSAGE (If Supplied By Facility): CTDIvol = ( 44.99 ) mGy, DLP = ( 812.98 ) mGycm TECHNIQUE: Transaxial CT imaging of the brain was performed without administration of intravenous contrast material. Individualized dose optimization techniques were used for this CT. COMPARISON: 09/14/2020 FINDINGS: Normal soft tissue structures. Normal calvarium. There is mild cerebral atrophy with widening of the extra-axial spaces and ventricular dilatation. There are areas of decreased attenuation within the white matter tracts of the supratentorial brain, consistent with microvascular disease changes. Normal basal ganglia and thalami. Normal brainstem. Normal cerebellum. There is no intracranial hemorrhage. There are no findings of an acute ischemic infarction. Normal visualized paranasal sinuses. CT/Brain/Head without Contrast IMPRESSION: No acute intracranial hemorrhage or mass effect. Electronically Signed: Roger Cartagena MD ([place]) at 9:40 EDT , Service support ,
--- NOTE | 2020-09-19 08:48 | RAD_ITS ---
STUDY: X-RAY - LUMBAR SPINE REASON FOR EXAM: Female, 80 years old. fall TECHNIQUE: 3 view(s) of the lumbar spine were obtained. COMPARISON: CT thoracic and lumbar spine 06/08/2020 FINDINGS: Normal lumbar lordosis. There is no substantial scoliosis. There is a normal alignment of the vertebrae. There is diffuse demineralization with multi-level endplate spondylosis. Moderate facet arthropathy in the lower lumbar levels. L1 kyphoplasty with residual compression deformity is stable. L2 compression fracture is stable. T9 compression fracture is stable. No new compression fracture. There is no demonstrated spondylolysis of the pars interarticulares. The soft tissue structures are unremarkable. RAD/Lumbar Spine 2 or 3 Views IMPRESSION: 1. No acute compression fracture. 2. Stable L2 compression fracture. Stable T9 compression fracture. 3. Stable L1 compression deformity with kyphoplasty cement. Electronically Signed: Roger Cartagena MD ([place]) at 9:39 EDT , Service support ,
--- NOTE | 2020-09-19 08:48 | RAD_ITS ---
STUDY: X-RAY CHEST REASON FOR EXAM: Female, 80 years old. Right chest injury TECHNIQUE: AP COMPARISON: None. FINDINGS: EKG leads project over the chest. No airspace consolidation. There is no demonstrated pleural abnormality. Normal size heart. Normal mediastinum and manfred. Normal visualized pulmonary arteries. There is atherosclerotic calcification of the aortic arch with tortuosity. There is demineralization of the osseous structures. Prior vertebral augmentation of L1. There is no demonstrated abnormality of the visualized soft tissue structures of the upper abdomen. RAD/Chest 1 View (Portable) IMPRESSION: Nonacute portable x-ray examination of the chest. Electronically Signed: Roger Cartagena MD ([place]) at 9:37 EDT , Service support ,
--- NOTE | 2020-09-19 08:48 | CT_ITS ---
EXAM: CT CERVICAL SPINE WITHOUT INTRAVENOUS CONTRAST CLINICAL INDICATION: fall TECHNIQUE: Helically acquired images were obtained of the cervical spine without intravenous contrast. 2D reformatted images were reviewed. This CT exam was performed using one or more of the following dose reduction techniques: automated exposure control, adjustment of the mA and/or kV according to patient size, and/or use of iterative reconstruction technique. This report was created using [employer] report generation technology. COMPARISON: None. FINDINGS: VERTEBRAE: Anterior spondylosis at multiple levels with posterior disc osteophyte complexes. Degenerative anterolisthesis at C4-C5 due to facet arthropathy. Probable bone island of C5 vertebral body. No associated bony destruction. No fracture. Normal craniocervical junction and cervicothoracic junction. DISCS/SPINAL CANAL/NEURAL FORAMINA: Multilevel facet arthropathy throughout the cervical spine to be related to multilevel bilateral foraminal narrowing. Hypertrophic osteoarthropathy of C1-C2 articulation without canal compromise. Canal narrowing at multiple levels, most conspicuous at C4-C5. SOFT TISSUES: Unremarkable. No prevertebral soft tissue swelling. VASCULATURE: Atherosclerosis of the carotid arteries. LYMPH NODES: Unremarkable. No cervical adenopathy. 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 CT/Spine Cervical without Contras IMPRESSION: No acute findings in the cervical spine. Electronically Signed: Roger Cartagena MD ([place]) at 9:41 EDT , Service support ,
--- NOTE | 2020-09-19 08:48 | EKG12_ITS ---
Test Reason : FREQUENT FALLS Blood Pressure : / mmHG Vent. Rate : 100 BPM Atrial Rate : 100 BPM P-R Int : 132 ms QRS Dur : 084 ms QT Int : 358 ms P-R-T Axes : 060 003 -05 degrees QTc Int : 461 ms Normal sinus rhythm Possible Inferior infarct , age undetermined Abnormal ECG Confirmed by ROBERT MARTINEZ, JAIDA ([id number]), book or script editor NOA MUNGUIA ([id number]) on 09/21/2020 11:18:41 AM Referred By: MR Confirmed By:JAIDA JONES MD
--- NOTE | 2020-09-19 08:51 | EDS_ITS ---
HPI HPI - Fall History of Present Illness Chief Complaint: Fall Narrative Narrative: Patient presenting secondary to frequent falls at home. Patient lives at home with her 2 sons, she typically is ambulatory with a walker. Patient apparently has been dealing with increased frequency of falls recently. Patient has fallen at least 2 times today, and a couple of times even before that. Prior to today she did suffer a fall with an injury to her head and face with some black eye. Today she states that she was trying to ambulate to and from the bathroom with her walker, she fell initially the first time on the way back from the bathroom denies hitting her head or loss of consciousness and she was initially able to get back up. The second time she fell she states that she fell in the bathroom and she was unable to get back up. She denies hitting her head both times, she is on Plavix secondary to history of heart disease. Patient denies infectious signs and symptoms such as fever cough nausea vomiting diarrhea or dysuria. She does report that she is mildly short winded. She denies any chest pain. She reports that today when she fell she did develop some lower back pain. Review of systems otherwise negative. [facility] Medical History Atherosclerosis of [place] coronary artery of [place] heart without angina pectoris CAD (coronary artery disease) Compression fracture COPD (chronic obstructive pulmonary disease) Former smoker GERD (gastroesophageal reflux disease) On home oxygen therapy STEMI (ST elevation myocardial infarction) (07/18/19) Tobacco dependence Home Medications aspirin 81 mg PO DAILYCM 03/10/20 [History Last Taken 09/14/20] atorvastatin 40 mg PO QHS 03/10/20 [History Last Taken 09/13/20] clopidogrel 75 mg PO DAILY #0 03/14/20 [Rx Last Taken 09/14/20] cyclobenzaprine 10 mg PO TID PRN PRN #90 tab 06/23/20 [Rx Last Taken Unknown] citalopram 10 mg tablet 5 mg PO DAILY #30 tab 08/22/20 [Rx Last Taken 09/14/20] albuterol sulfate [Ventolin HFA] 2 puff INHALATION Q4H PRN PRN #1 inhaler 08/29/20 [Rx Last Taken Unknown] carvedilol 3.125 mg tablet 3.125 mg PO DAILY #90 tab 09/11/20 [Rx Last Taken 09/14/20] acetaminophen 1,000 mg PO TID PRN PRN 09/14/20 [History Last Taken 09/14/20] Allergy/AdvReac Type Severity Reaction Status Date / Time No Known Allergies Allergy Verified 09/19/20 08:29 Family History Sister No problems noted. Son hole in his heart Grandmother Cancer Father Cancer Grandfather Cancer Surgical History H/O: hysterectomy History of appendectomy Stented coronary artery Social History household members: children housing: apartment number of children: 3 Smoking Status: Former smoker quit date: 07/18/19 Tobacco: How many years used: 50 alcohol intake: never substance use type: does not use what type of physical activity do you participate in: none ROS ROS ED Constitutional Constitutional ED: Reports other Details: Frequent falls ; Denies chills or fever(s) ENT ENT ED: Denies rhinorrhea Cardiovascular Cardiovascular: Denies chest pain Respiratory/Chest Respiratory/Chest: Reports dyspnea; Denies cough Gastrointestinal Gastrointestinal: Denies abdominal pain, diarrhea, nausea or vomiting Genitourinary Genitourinary ED: Denies dysuria or hematuria Musculoskeletal Musculoskeletal: Reports back pain Integumentary Denies rash Neurologic Neurologic: Denies paresthesias or weakness Psychiatric Psychiatric: Denies depression Endocrine Endocrinology: Denies fatigue Allergic/Immunologic Allergic/Immunologic ED: Denies urticaria EXAM Physical Exam Const Vital Signs: 09/19/20 08:26 09/19/20 08:29 09/19/20 08:31 Temperature 96.8 F L Temperature Source Temporal Pulse Rate 102 H Respiratory Rate 20 H Respiratory Effort Short of Breath Normal Non-Labored Respiratory Depth Normal Normal Respiratory Pattern Normal Normal Blood Pressure 139/83 H Blood Pressure Mean 101 Pulse Ox 100 99 Oxygen Delivery Method Nasal Cannula Nasal Cannula Nasal Cannula Oxygen Flow Rate (L/min) 4 4 4 Positive well developed Constitutional Narrative: Thin elderly female no acute distress, but she is been mildly dyspneic. She is on her baseline oxygen at 4 L General Appearance ED: well developed HEENT Reports normocephalic HEENT Narrative: Patient has evidence of periorbital ecchymosis around the left eye. No evidence of depressed skull fracture. No trismus. No malocclusion. Eyes PERRL and EOMs intact bilaterally Eyes Narrative: No evidence of entrapment or hyphema Neck full ROM Neck Narrative: No evidence of step-offs Chest Wall Chest Narrative: Bruising is noted over the posterior portion of the patient's r ight chest wall, no crepitus or step-offs are noted Resp Resp Narrative: Mild tachypnea with very slight wheezes noted throughout the lung mcknight. No asymmetry. Cardio regular rhythm and no murmurs Cardio Narrative: 2+ radial pulses bilaterally symmetric Rate: tachycardic GI non-tender Palpation: soft Back/Spine Back/Spine Narrative: Minimal tenderness in the very lower lumbar and upper sacral spine no evidence of step-offs are noted. Extremity full ROM Extremity Narrative: Patient has diffuse bruising on her bilateral knees, and bilateral upper extremities Neuro oriented x3, no focal motor deficits and no sensory deficits noted Sensorium / Orientation: alert Psych mental status grossly normal Skin Rashes: no rashes MDM MDM MDM Narrative Medical decision making narrative: Patient presented for evaluation secondary to frequent falls. CT imaging of the head and cervical spine were found to be negative per radiology. Lumbar x-ray by my personal interpretation as well as radiology demonstrates chronic compression fractures. Chest x-ray by my interpretation I feel shows a left-sided infiltrate which appears somewhat different from a previous chest x-ray 5 days ago. Patient does state that she has been having some shortness of breath and a mild cough. She had some transient hypoxia with transitioning from the bedside commode back to the bed with increased dyspnea and increased tachycardia. I do believe that this represents a pneumonia. Patient was treated with Rocephin and azithromycin as this is community-acquired. Patient has had at least 5 falls if not more in the recent week, I believe that she requires admission for further treatment and potential placement. Patient will be admitted under the hospitalist. Lab Data Labs: Laboratory Results - last 24 hr 09/19/20 09/19/20 09:00 09:00 WBC 7.0 RBC 3.69 L Hgb 11.3 L Hct 35.9 L MCV 97.3 MCH 30.6 MCHC 31.5 L RDW Std Deviation 43.8 RDW Coeff of Melisa 12.3 Plt Count 218 MPV 10.4 Immature Gran % (Auto) 0.300 Neut % (Auto) 64.5 Lymph % (Auto) 20.0 [place] % (Auto) 10.6 H Eos % (Auto) 3.7 Baso % (Auto) 0.9 Absolute Neuts (auto) 4.5 Absolute Lymphs (auto) 1.39 Nucleated RBC % 0 Sodium 140 Potassium 3.7 Chloride 109 H Carbon Dioxide 31.0 Anion Gap 0 L BUN 18 Creatinine 0.68 Estim Creat Clear Calc 34.90 Est GFR (MDRD) Af Amer 106 Est GFR (MDRD) Non-Af 88 BUN/Creatinine Ratio 26.4 H Glucose 98 Calcium 9.3 Troponin I < 0.015 Radiography Diagnostic Testing: Radiology Impression Brain CT 09/19/20 08:48 IMPRESSION: No acute intracranial hemorrhage or mass effect. Electronically Signed: Roger Cartagena MD (Brooks) at 9:40 EDT , Service support , Cervical Spine CT 09/19/20 08:48 IMPRESSION: No acute findings in the cervical spine. Electronically Signed: Roger Cartagena MD (Brooks) at 9:41 EDT , Service support , Chest X-Ray 09/19/20 08:48 IMPRESSION: Nonacute portable x-ray examination of the chest. Electronically Signed: Roger Cartagena MD (Brooks) at 9:37 EDT , Service support , Lumbar Spine X-Ray 09/19/20 08:48 IMPRESSION: 1. No acute compression fracture. 2. Stable L2 compression fracture. Stable T9 compression fracture. 3. Stable L1 compression deformity with kyphoplasty cement. Electronically Signed: Roger Cartagena MD (Brooks) at 9:39 EDT , Service support , EKG Initial EKG: Attestation: I personally reviewed and interpreted this EKG as follows: (Sinus tachycardia with a rate of 100. Inferior Q waves that appear old, isoelectric ST segments, low voltage is noted no evidence of pathologic T waves. No evidence of acute ischemia.) Prior EKG tracings: available for review Prior: Unchanged Discharge Plan Triage Chief Complaint: Fall ED Provider: Jed Bhat Dx/Rx/DC Orders Clinical Impression: Falls frequently, Ambulatory dysfunction, Community acquired pneumonia Prescriptions: No Action atorvastatin 40 MG tablet 40 mg PO QHS RF: 0 aspirin 81 MG tablet,chewable 81 mg PO DAILYCM RF: 0 clopidogrel 75 MG tablet 75 mg PO DAILY Qty: 0 RF: 0 cyclobenzaprine 10 MG tablet 10 mg PO TID PRN PRN (Reason: back pain/spasm) Qty: 90 RF: 0 albuterol sulfate [Ventolin HFA] 1 INHALER inhaler 2 puff inhalation Q4H PRN PRN (Reason: Wheezing) Qty: 1 RF: 0 acetaminophen 500 MG tablet 1,000 mg PO TID PRN PRN (Reason: Pain) RF: 0 citalopram 10 mg tablet 5 mg PO DAILY Qty: 30 RF: 0 carvedilol 3.125 mg tablet 3.125 mg PO DAILY Qty: 90 RF: 3 Primary Care Provider: Constanza Streeter Referrals: Constanza Streeter MD [Primary Care Provider] - Disposition Disposition: Acute Care Hospital [facility]
[2020-09-19 09:08] LABS: Absolute Lymphocyte Count 1.39 X10^3/uL (0.83-4.51); Absolute Neutrophil Count 4.5 X10^3/uL (2.0-7.7); Basophil# 0.06 X10^3/uL; Basophil% 0.9 % (0-1); Eosinophil# 0.26 X10^3/uL; Eosinophils% 3.7 % (0-5); Hematocrit 35.9 % (37-47); Hemoglobin 11.3 g/dL (12.0-15.0); Lymphocyte # 1.39 X10^3/ul (0.83-4.51); Mean Corp Hgb Conc 31.5 g/dL (32-36); Mean Corpuscular Hgb 30.6 pg (27.0-32.0); Mean Corpuscular Volume 97.3 fL (81-99); Mean Platelet Vol. 10.4 fl (6.2-12.0); Monocyte# 0.74 X10^3/uL; Monocyte% 10.6 % (0-10); NRBC Flagged by Analyzer 0 % (0-5); Neutrophil # 4.48 X10^3/uL (2.7-7.7); Neutrophil % 64.5 % (47-70); Platelet Count 218 K/mm3 (150-450); RBC Distribution Width CV 12.3 % (11.6-14.6); RBC Distribution Width SD 43.8 fl (35.1-43.9); Red Blood Count 3.69 M/mm3 (4.2-5.4)
[2020-09-19 09:27] LABS: Anion Gap 0 (5-15); BUN 18 mg/dL (7-18); BUN/Creat Ratio 26.4 RATIO (10-20); Calcium,Total 9.3 mg/dL (8.5-10.1); Chloride 109 mmol/L (98-107); Creatinine, Serum 0.68 mg/dL (0.55-1.02); EST Glomerular Filtration Rate 88 mL/min (>60); Est Glom Filt Rate - Afr Amer 106 mL/min (>60); Glucose 98 mg/dL (74-106); Potassium 3.7 mmol/L (3.5-5.1); Sodium Level 140 mmol/L (136-145)
[2020-09-19 10:00] LABS: Mucous, Urine 0 SEEN /hpf (<or=2+); Squamous Epithelial Cells - UA 0 SEEN /hpf (5-10)
[2020-09-19 10:06] LABS: Color, Urine Yellow (Yellow); Glucose, Dipstick Normal (Normal); Ketone-Dipstick Negative (Negative); Leukocyte Esterase-Dipstick 25 /ul (Negative); Nitrite-Dipstick Negative (Negative); Occult Blood-Urine 50 /ul (Negative); Protein-Dipstick Negative (Negative); Urine Bilirubin Dipstick Negative (Negative); Urine Clarity Clear (Clear); Urine Urobilinogen Normal (Normal)
[2020-09-19 10:12] LABS: Bacteria RARE /hpf (None Seen); Red Blood Cells-Urine 0-5 SEEN /hpf (0-5); White Blood Cells 0-5 SEEN /hpf (0-5)
--- NOTE | 2020-09-19 10:41 | PCM.HP.STD ---
HPI - General General Date of Admission: 09/19/20 HPI Narrative FLAKITO NIX, is a 80 F who presents presents with falls. Patient was here on the with falls but went home. At home, patient was just go the bathroom and then will just fall. She does not endorse feeling weak nor does she endorse loss of consciousness. States just goes down. Patient had bruising on her face and. Patient is very weak at home, she does not prepare her food and usually does not even cut her own food and has a cut for her. She states that she has been getting weaker over months. There is concern about developing left lower lung infiltrate and patient did receive Rocephin and azithromycin in the emergency room. [facility] Medical History Atherosclerosis of [place] coronary artery of [place] heart without angina pectoris CAD (coronary artery disease) Compression fracture COPD (chronic obstructive pulmonary disease) Former smoker GERD (gastroesophageal reflux disease) On home oxygen therapy STEMI (ST elevation myocardial infarction) (07/18/19) Tobacco dependence Home Medications aspirin 81 mg PO DAILYCM 03/10/20 [History Last Taken 09/14/20] atorvastatin 40 mg PO QHS 03/10/20 [History Last Taken 09/13/20] clopidogrel 75 mg PO DAILY #0 03/14/20 [Rx Last Taken 09/14/20] cyclobenzaprine 10 mg PO TID PRN PRN #90 tab 06/23/20 [Rx Last Taken Unknown] citalopram 10 mg tablet 5 mg PO DAILY #30 tab 08/22/20 [Rx Last Taken 09/14/20] albuterol sulfate [Ventolin HFA] 2 puff INHALATION Q4H PRN PRN #1 inhaler 08/29/20 [Rx Last Taken Unknown] carvedilol 3.125 mg tablet 3.125 mg PO DAILY #90 tab 09/11/20 [Rx Last Taken 09/14/20] acetaminophen 1,000 mg PO TID PRN PRN 09/14/20 [History Last Taken 09/14/20] Allergy/AdvReac Type Severity Reaction Status Date / Time No Known Allergies Allergy Verified 09/19/20 08:29 Family History Sister No problems noted. Son hole in his heart Grandmother Cancer Father Cancer Grandfather Cancer Surgical History H/O: hysterectomy History of appendectomy Stented coronary artery Social History household members: children housing: apartment number of children: 3 Smoking Status: Former smoker quit date: 07/18/19 Tobacco: How many years used: 50 alcohol intake: never substance use type: does not use what type of physical activity do you participate in: none ROS ROS Narrative All review of systems were negative except as mentioned above in the history of present illness and the other review of systems. Constitutional Constitutional: Reports anorexia and change in weight Cardiovascular Cardiovascular: Denies chest pain Respiratory/Chest Respiratory/Chest: Reports cough and shortness of breath with exertion; Denies excessive phlegm production or productive cough Gastrointestinal Gastrointestinal: Denies abdominal pain, hematochezia, nausea or vomiting Genitourinary Genitourinary: Denies burning urination Psychiatric Psychiatric: Denies anxiety or depression Vital Signs Vital Signs Vital Signs: 09/19/20 08:26 09/19/20 08:29 09/19/20 08:31 Temperature 36.0 C L Temperature Source Temporal Pulse Rate 102 H Respiratory Rate 20 H Respiratory Effort Short of Breath Normal Non-Labored Respiratory Depth Normal Normal Respiratory Pattern Normal Normal Blood Pressure 139/83 H Blood Pressure Mean 101 Pulse Ox 100 99 Oxygen Delivery Method Nasal Cannula Nasal Cannula Nasal Cannula Oxygen Flow Rate (L/min) 4 4 4 09/19/20 10:26 Temperature 36.7 C Temperature Source Temporal Pulse Rate 102 H Respiratory Rate 16 Respiratory Effort Respiratory Depth Respiratory Pattern Blood Pressure 143/84 H Blood Pressure Mean 103 Pulse Ox 100 Oxygen Delivery Method Room Air Oxygen Flow Rate (L/min) 4 Weight Weight: 56 kg Body Mass Index (BMI) 22.6 Physical Exam Const alert and no apparent distress Constitutional Narrative: Afebrile. Cachectic. General Appearance: cooperative HEENT normocephalic HEENT Narrative: Bruising over left eye. Mucous membranes dry. Eyes PERRL and EOMs intact bilaterally Neck no lymphadenopathy Resp normal respiratory effort Resp Narrative: Left lower lung crackles Cardio regular rate, regular rhythm, S1 normal heart sound and S2 normal heart sound GI normal to inspection, nondistended, normoactive bowel sounds, non-tender and non-distended Neuro Sensorium / Orientation: awake and alert Psych Psych Narrative: Flat affect Lab / Micro Data Attestation: I reviewed the patient's lab results. Result Diagrams: 09/19/20 09:00 09/19/20 09:00 Labs: Laboratory Results - last 24 hr 09/19/20 09/19/20 09/19/20 09:00 09:00 09:50 WBC 7.0 RBC 3.69 L Hgb 11.3 L Hct 35.9 L MCV 97.3 MCH 30.6 MCHC 31.5 L RDW Std Deviation 43.8 RDW Coeff of Melisa 12.3 Plt Count 218 MPV 10.4 Immature Gran % (Auto) 0.300 Neut % (Auto) 64.5 Lymph % (Auto) 20.0 [place] % (Auto) 10.6 H Eos % (Auto) 3.7 Baso % (Auto) 0.9 Absolute Neuts (auto) 4.5 Absolute Lymphs (auto) 1.39 Nucleated RBC % 0 Sodium 140 Potassium 3.7 Chloride 109 H Carbon Dioxide 31.0 Anion Gap 0 L BUN 18 Creatinine 0.68 Estim Creat Clear Calc 34.90 Est GFR (MDRD) Af Amer 106 Est GFR (MDRD) Non-Af 88 BUN/Creatinine Ratio 26.4 H Glucose 98 Calcium 9.3 Troponin I < 0.015 Urine Color Yellow Urine Clarity Clear Urine pH 7.0 Ur Specific [place] 1.010 Urine Protein Negative Urine Glucose (UA) Normal Urine Ketones Negative Urine Occult Blood 50 H Urine Nitrite Negative Urine Bilirubin Negative Urine Urobilinogen Normal Ur Leukocyte Esterase 25 H Urine RBC 0-5 SEEN Urine WBC 0-5 SEEN Ur Squamous Epith Cells 0 SEEN Urine Bacteria RARE Urine Mucus 0 SEEN Micro: Microbiology 09/19/20 09:00 SARS-CoV-2 Antigen (Rapid) - Final Interface Orders Radiology Impression Brain CT 09/19/20 08:48 IMPRESSION: No acute intracranial hemorrhage or mass effect. Electronically Signed: Roger Cartagena MD (Brooks) at 9:40 EDT , Service support , Cervical Spine CT 09/19/20 08:48 IMPRESSION: No acute findings in the cervical spine. Electronically Signed: Roger Cartagena MD (Brooks) at 9:41 EDT , Service support , Chest X-Ray 09/19/20 08:48 IMPRESSION: Nonacute portable x-ray examination of the chest. Electronically Signed: Roger Cartagena MD (Brooks) at 9:37 EDT , Service support , Lumbar Spine X-Ray 09/19/20 08:48 IMPRESSION: 1. No acute compression fracture. 2. Stable L2 compression fracture. Stable T9 compression fracture. 3. Stable L1 compression deformity with kyphoplasty cement. Electronically Signed: Roger Cartagena MD (Brooks) at 9:39 EDT , Service support , Assessment & Plan Assessment/Plan (1) Debility: (2) Pneumonia: QUALIFIERS: Pneumonia type: due to group B Streptococcus Laterality: left Lung location: lower lobe of lung Qualified Code(s): J15.3 - Pneumonia due to streptococcus, group B PLAN: 1. Debility Patient is rather evasive in answering a lot of the questions but says her vision has been getting weaker at least several months if not longer. Patient is at the point now where she can cut her own food. Patient states that because some else constant for her that she just does not have the skill set. Patient overall just very weak and does not take much for her to fall. Explained to her that the plan is for PT OT evaluate and treat and for her to go somewhere for group home facility. Told her that I am concerned about her long-term outlook as I am not sure how well she will fair with therapy as well as if she would be engaged in moving forward. Will give her the benefit of the doubt and PT OT evaluate her and look in a group home facility or discharge which she is open to at this time. check TSH, 25 OH d level. 2. Suspected pneumococcal pneumonia Patient has a haziness in the left lower lobe on her x-ray. Does have crackles on exam as well. Continue with ceftriaxone Check sputum culture Check urinary antigens for Streptococcus and Legionella 3. CAD Continue with aspirin and clopidogrel and high intensity statin 4. VTE prophylaxis: Moderate risk. Rub[place] apparent 5. Advanced care planning: Discussed with patient. Patient wishes to be DNR Comfort Care arrest no intubation. Visit Charges Inpatient E&M: 78784 Init Hosp L3
--- NOTE | 2020-09-19 10:45 | ED.RN ---
delay getting pt to floor for antibiotics
[2020-09-19] MEDS: Ipratropium/Albuterol Sulfate 3 ML AMPUL.NEB INHALATION ×2 (15:14→19:03)
--- NOTE | 2020-09-19 15:25 | EX.NTREPO ---
Medical Nutrition Therapy - History Nutrition Services has been consulted to:: Manage nutrient details of diet order Current diet/nutrition support order:: none pending DISTRICT RESOURCE OFFICER eval - Anthropometric Measurements Height:: 5 ft 2 in Weight:: 53.2 kg - Relevant Labs Relevant Labs:: RBC 3.69 M/mm3 (4.2-5.4) L 09/19/20 09:00 Hgb 11.3 g/dL (12.0-15.0) L 09/19/20 09:00 Hct 35.9 % (37-47) L 09/19/20 09:00 MCHC 31.5 g/dL (32-36) L 09/19/20 09:00 [place] % (Auto) 10.6 % (0-10) H 09/19/20 09:00 Chloride 109 mmol/L (98-107) H 09/19/20 09:00 Anion Gap 0 (5-15) L 09/19/20 09:00 BUN/Creatinine Ratio 26.4 RATIO (10-20) H 09/19/20 09:00 - Assessment Food and Nutrient Intake: Seen in conjuction w/ Everett Daniel, internal control consultant. Pt reports that she hasn't had any food since admit because DISTRICT RESOURCE OFFICER is coming to assess her swallowing. Pt reports that she has been eating well at home. Denies any loss of appetite. States that she like to eat small snacks throughout the day. Pt reports that she didn't realize she was losing weight. Pt's CBW is 117# and UBW is 130#. Progress note from 03/14/20 shows a weight of 132.44#. This represents a 12% weight loss in 6 months which is significant for malnutrition. - Nutrition Diagnosis: Clinical Problem Chronic Disease or Condition Related Malnutrition Clinical Problem - Etiology: severe malnutrition r/t inadequate oral intake Clinical Problem - Signs/Symptoms: as evidenced by pt report of consuming small snacks throughout the day, estimated to be meeting <75% of nutritional needs and unintentional weight loss of 15#/12% in 6 months. - Protein Calorie Malnutrition Evidence of Malnutrition Exists: Yes Severe Protein Calorie Malnutrition:: Chronic - Nutrition Intervention Nutrition Prescription: 1,300-1,400 kcal/day (RMR x 1.3). Protein 55-65g/day (1.25g/kg). Fluid 1,400-1,600 mL/day (30mL/kg) - Food / Nutrient Delivery Interventions Summary of nutrition intervention:: Adjust diet order, Provide oral nutrition todd Nutrition support ordered as / adjusted to:: General-healthful diet, consistency per DISTRICT RESOURCE OFFICER. Will fortify foods when able. Add ensure enlive 120mL PO 4x/day at [facility]. - MNT Monitoring Active Nutrition Patient: Yes Nutrition Status: Requires Follow Up 3-5 Days
[2020-09-19] MEDS: Atorvastatin Calcium 40 MG Tablet PO (21:30)
[2020-09-20] VITALS (10 sets, daily range): BP systolic 118–130; BP diastolic 59–74; PULSE 94–113; RESP 16–22; TEMP 36.8–37.1; O2SAT 95–98
[2020-09-20] MEDS: MELATONIN 3 MG TABLET PO ×2 (01:33→21:33)
[2020-09-20] MEDS: Ipratropium/Albuterol Sulfate 3 ML AMPUL.NEB INHALATION ×4 (07:17→20:11)
[2020-09-20 07:45] LABS: Thyroid Stim Hormone (TSH) 2.15 uIU/mL (0.358-3.74)
[2020-09-20] MEDS: Clopidogrel Bisulfate 75 MG Tablet PO (09:49)
[2020-09-20] MEDS: Carvedilol 3.125 MG TABLET PO (09:49)
[2020-09-20] MEDS: 0.9% Saline Lock 10 ML Syringe IV ×2 (09:49→21:33)
[2020-09-20] MEDS: Citalopram 10 MG Tablet 5 MG PO (09:49)
[2020-09-20] MEDS: Aspirin 81 MG TAB.CHEW PO (09:49)
[2020-09-20] MEDS: Enoxaparin 40 MG/0.4 ML Syringe SC (09:49)
[2020-09-20] MEDS: Ceftriaxone 1 GM/50 ML BAG IV (09:50)
--- NOTE | 2020-09-20 11:14 | CASEMGMT ---
Social Work Assessment Referral Date: 09/20/2020 Date of Assessment: 09/20/2020 Reason for consult: SNF placement Informant: SW Personal Status: SW met with pt to complete initial assessment. Pt is alert and orientated and answers questions appropriately. Living Arrangements: Pt states she lives in a two story home with her two sons Sandra and Deins. Denis works but Sandra is there 18/11 and able to assist as needed. Pt states she has one level floor set up. ADLS: Pt states she was previously independent with ALDs, states she does some cooking. DME: Pt states she has a cane. Pt states she was using her can when she fell. Pt states she doesn't know how she fell, states she was turning around and next she knew she was on the floor. Pt states she is on oxygen at home - 4 Liters through [employer]. Transportation: Pt states she doesn't drive, states either her sons or daughter Miguel will transport her. Miguel lives in [place]. PCP: Dr. Streeter Pharmacy: [facility] Advanced Directives: Pt states she has the documents, just haven't got them signed yet. HHC: Pt denied SNF: Pt denied, does state she was in TCU in the past Mental Health Hx: Pt denied Substance Abuse Hx: Pt denied SW spoke with pt about discharge plans. Pt states she was told she needed to go to a SNF. SW asked pt how she did with PT/OT, pt states it took two people to get her to the chair. Pt agreeable to SNF. Patient was provided a list of SNF providers including quality and resource use data and consistent with the patient?s preferred geographic region, medical needs, and insurance network. Pt states I can't read it. Pt states she would like to stay in [place] for SNF. SW verbally provided list of SNF to pt. Pt states she is not sure, asked this worker to call her daughter Miguel. SW placed a call to pt's daughter Miguel, no answer, SW left message for Miguel to call this worker back. Plan: SNF pending acceptance [facility] FINISH MACHINE TENDER, COUNTER MANAGER
--- NOTE | 2020-09-20 11:43 | CASEMGMT ---
GEORGETTE ROBBINS NOTE: Pt active w/[facility]. Call placed to Mina @ [facility] and she was notified of pt's admission to [facility]. Helen TRONCOSO RN CM
--- NOTE | 2020-09-20 14:04 | PN.HOSP_ITS ---
Subjective Subjective Feeling better. Tolerating PO. Objective Data Objective Data Vital Signs: Vital Signs Temp Pulse Resp BP Pulse Ox 36.8 C 102 H 22 H 128/74 H 96 09/20/20 10:00 09/20/20 11:19 09/20/20 11:19 09/20/20 10:00 09/20/20 10:00 Oxygen Flow Rate (L/min) 4 Oxygen Delivery Method Nasal Cannula Weight: 53.2 kg Body Mass Index (BMI) 21.4 Intake & Output: Intake and Output for Last 24 Hours 09/18/20 09/19/20 09/20/20 23:59 23:59 23:59 Intake Total 305 / 305 350 / 350 Output Total 400 / 400 300 / 300 Balance -95 / -95 50 / 50 Lab / Micro Data Attestation: I reviewed the patient's lab results. Result Diagrams: 09/19/20 09:00 09/19/20 09:00 Labs: Laboratory Results - last 24 hr 09/20/20 06:54 TSH 2.15 Micro: Microbiology 09/20/20 07:25 Urine, Random Legionella Antigen - Final 09/20/20 07:25 Urine, Random Streptococcus pneumoniae Antigen (M - Final 09/19/20 09:00 Interface Orders SARS-CoV-2 Antigen (Rapid) - Final Physical Exam Const alert HEENT HEENT Narrative: bruising around left eye. Resp normal respiratory effort Resp Narrative: crackles LLL Cardio regular rate, regular rhythm, S1 normal heart sound and S2 normal heart sound GI normal to inspection, nondistended, normoactive bowel sounds, non-tender and non-distended Extremity normal to inspection Neuro Sensorium / Orientation: awake and alert Assessment & Plan Assessment/Plan (1) Debility: (2) Pneumonia: QUALIFIERS: Pneumonia type: due to group B Streptococcus Lat erality: left Lung location: lower lobe of lung Qualified Code(s): J15.3 - Pneumonia due to streptococcus, group B PLAN: 1. Debility * Patient is rather evasive in answering a lot of the questions but says her vision has been getting weaker at least several months if not longer. Patient is at the point now where she can cut her own food. Patient states that because some else constant for her that she just does not have the skill set. Patient overall just very weak and does not take much for her to fall. * Explained to her that the plan is for PT OT evaluate and treat and for her to go somewhere for care home facility. Told her that I am concerned about her long-term outlook as I am not sure how well she will fair with therapy as well as if she would be engaged in moving forward. * Will give her the benefit of the doubt and PT OT evaluate her and look in a care home facility or discharge which she is open to at this time. * check 25 OH d level. * TSH normal 2. Suspected pneumococcal pneumonia * Patient has a haziness in the left lower lobe on her x-ray. Does have crackles on exam as well. * Continue with ceftriaxone * Check sputum culture * urinary antigens for Streptococcus and Legionella negative 3. CAD * Continue with aspirin and clopidogrel and high intensity statin 4. VTE prophylaxis: Moderate risk. Rubalcava apparent 5. Advanced care planning: Discussed with patient. Patient wishes to be DNR Comfort Care arrest no intubation. Visit Charges Inpatient E&M: 41220 Subs Hosp L2
--- NOTE | 2020-09-20 16:07 | CASEMGMT ---
Social Work Note Pt's daughter Miguel is on the phone. DONNIE spoke with Miguel about discharge plans and recommendation of SNF. Miguel states she knows where [facility] is at and asked if a referral could be sent there as long as pt is ok with there. SW asked Miguel if pt has had COVID vaccinations and Miguel states pt hasn't. DONNIE explained visitation policy for non vaccinated individuals at SNF. Miguel states understanding. SW in to speak with pt. SW informed pt that Miguel requested [facility] for SNF as she knows where that SNF is at. Pt agreeable to [facility]. DONNIE placed a call to Vangie at [facility] and provided referral. DONNIE faxed referral. DONNIE received call from Vangie at [facility] stating they can accept pt. DONNIE updated Vangie that per pt's daughter, pt hasn't had COVID vaccination. 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
[2020-09-20] MEDS: Atorvastatin Calcium 40 MG Tablet PO (21:33)
[2020-09-21] VITALS (8 sets, daily range): BP systolic 101–130; BP diastolic 58–71; PULSE 77–104; RESP 16–21; TEMP 36.4–37.3; O2SAT 94–99
[2020-09-21] MEDS: Clopidogrel Bisulfate 75 MG Tablet PO (08:10)
[2020-09-21] MEDS: Carvedilol 3.125 MG TABLET PO (08:10)
[2020-09-21] MEDS: Citalopram 10 MG Tablet 5 MG PO (08:10)
[2020-09-21] MEDS: Aspirin 81 MG TAB.CHEW PO (08:10)
[2020-09-21] MEDS: Enoxaparin 40 MG/0.4 ML Syringe SC (08:11)
--- NOTE | 2020-09-21 10:03 | TREXTCAR_ITS ---
Diet 09/19/20 14:49 Diet: Regular - General Food consistency:: Regular Liquid Consistency:: Regular/Thin Dietary Modifications:: Fortified Foods Is pt able to select menu?: No Diet Comments: staff to assist w/ tray set up & cutting into bite size pieces as needed Routine Orders/Code Status O2 Frequency: Continuous Keep PO Greater than or Equal to (%): 4 Code Status: DNRCC-A (no intubation) Wound(s) rt knee: Wound Type: Abrasion Therapies Weight Bearing: Full weight bearing Physical Therapy: Eval and Treat Occupational Therapy: Eval and Treat Problem/Diagnosis (1) Debility: Status: Acute (2) Pneumonia: Status: Acute Allergies/Procedures Done in Hospital Allergies No Known Allergies Allergy (Verified 09/19/20 08:29) Type of Care/Length of Stay Estimated LOS: Convalescent Care Less Than 30 days Type of Care Needed: Skilled Rehab Potential: Fair Prognosis: Good Additional Orders/Day of Discharge Day of Discharge: 09/21/20 Dietary and Speech Recommendations Dietitian Recommendations/Changes: General-healthful diet, consistency per [facility]. Will fortify foods when able. Add ensure enlive 120mL PO 4x/day at [facility]. Discharge Plan Admission Admit Date/Time: 09/19/20 10:40 Attending Provider: Marcelo Contreras Primary Care Provider: Constanza Streeter Discharge Orders/Prescriptions Prescriptions: New Ensure Enlive 0.08 gram-1.5 kcal/mL Liquid 120 ml PO 4X/DAY Qty: 0 RF: 0 amoxicillin-pot clavulanate [Augmentin] 875-125 mg tablet 1 tab PO BID Qty: 10 RF: 0 Continued atorvastatin 40 MG tablet 40 mg PO QHS RF: 0 aspirin 81 MG tablet,chewable 81 mg PO DAILYCM RF: 0 clopidogrel 75 MG tablet 75 mg PO DAILY Qty: 0 RF: 0 cyclobenzaprine 10 MG tablet 10 mg PO TID PRN PRN (Reason: back pain/spasm) Qty: 90 RF: 0 albuterol sulfate [Ventolin HFA] 1 INHALER inhaler 2 puff inhalation Q4H PRN PRN (Reason: Wheezing) Qty: 1 RF: 0 acetaminophen 500 MG tablet 1,000 mg PO TID PRN PRN (Reason: Pain) RF: 0 citalopram 10 mg tablet 5 mg PO DAILY Qty: 30 RF: 0 carvedilol 3.125 mg tablet 3.125 mg PO DAILY Qty: 90 RF: 3 Referrals / Follow Up: Constanza Streeter MD [Primary Care Provider] - Disposition Disposition (needs filled in before D/C Order can be placed): [facility]
[2020-09-21] MEDS: 0.9% Saline Lock 10 ML Syringe IV (10:05)
[2020-09-21] MEDS: Ceftriaxone 1 GM/50 ML BAG IV (10:05)
--- NOTE | 2020-09-21 10:13 | PCM.DC.SUM ---
Providers Date of Admission: 09/19/20 Primary Care Physician: Dr. Constanza Streeter MD Reason For Visit: DEBILITY, PNEUMONIA Diagnosis Discharge Diagnosis (1) Debility: Status: Acute Code(s): R53.81 - Other malaise (2) Pneumonia: Status: Acute Code(s): J18.9 - Pneumonia, unspecified organism Qualifiers: Pneumonia type: due to group B Streptococcus Laterality: left Lung location: lower lobe of lung Qualified Code(s): J15.3 - Pneumonia due to streptococcus, group B Medications at Discharge Home Medications aspirin 81 mg PO DAILYCM 03/10/20 atorvastatin 40 mg PO QHS 03/10/20 clopidogrel 75 mg PO DAILY #0 03/14/20 cyclobenzaprine 10 mg PO TID PRN PRN #90 tab 06/23/20 citalopram 10 mg tablet 5 mg PO DAILY #30 tab 08/22/20 albuterol sulfate [Ventolin HFA] 2 puff INHALATION Q4H PRN PRN #1 inhaler 08/29/20 carvedilol 3.125 mg tablet 3.125 mg PO DAILY #90 tab 09/11/20 acetaminophen 1,000 mg PO TID PRN PRN 09/14/20 amoxicillin-pot clavulanate [Augmentin] 1 tab PO BID #10 tab 09/21/20 food supplemt, lactose-reduced [Ensure Enlive] 120 ml PO 4X/DAY #0 ml 09/21/20 Hospital Course Operations None Procedures None Summary of Care Provided Minutes Spent on Discharge: 34 Hospital Course: Is 80-year-old female presents with progressive weakness. Patient stated at home she is gone to the point where she can even cut up around food effectively. So patient was evaluate therapy recommendation with therapy. Patient was accepted at [facility]. Did check a TSH which was normal 25-hydroxy vitamin D level still pending at this time. Was concern for the patient having a possible pneumonia. Suspected pneumococcal. Patient had some haziness on her x-ray and started on ceftriaxone. Urinary antigens for Streptococcus and Legionella were negative, Covid 19 rapid antigen was negative. Patient overall feels better and is eating. Patient will be discharged to [facility] in stable condition. Physical Exam Const alert General Appearance: cooperative Orientation / Consciousness: awake HEENT HEENT Narrative: abrasion on bridge of nose. ecchymosis around left eye Resp normal respiratory effort, no use of accessory muscles and clear to auscultation bilaterally Cardio regular rate, regular rhythm, S1 normal heart sound and S2 normal heart sound ABG / Lab / Microbiology Data Result Diagrams: 09/19/20 09:00 09/19/20 09:00 Microbiology: Microbiology 09/20/20 07:25 Legionella Antigen - Final Urine, Random Streptococcus pneumoniae Antigen (M - Final Microbiology 09/20/20 07:25 Urine, Random Legionella Antigen - Final 09/20/20 07:25 Urine, Random Streptococcus pneumoniae Antigen (M - Final 09/19/20 09:00 Interface Orders SARS-CoV-2 Antigen (Rapid) - Final Meaningful Use Info Meaningful Use Diagnoses (Choose all that apply): None applicable Discharge Plan Admission Admit Date/Time: 09/19/20 10:40 Attending Provider: Marcelo Contreras Primary Care Provider: Constanza Streeter Discharge Orders/Prescriptions Prescriptions: New Ensure Enlive 0.08 gram-1.5 kcal/mL Liquid 120 ml PO 4X/DAY Qty: 0 RF: 0 amoxicillin-pot clavulanate [Augmentin] 875-125 mg tablet 1 tab PO BID Qty: 10 RF: 0 Continued atorvastatin 40 MG tablet 40 mg PO QHS RF: 0 aspirin 81 MG tablet,chewable 81 mg PO DAILYCM RF: 0 clopidogrel 75 MG tablet 75 mg PO DAILY Qty: 0 RF: 0 cyclobenzaprine 10 MG tablet 10 mg PO TID PRN PRN (Reason: back pain/spasm) Qty: 90 RF: 0 albuterol sulfate [Ventolin HFA] 1 INHALER inhaler 2 puff inhalation Q4H PRN PRN (Reason: Wheezing) Qty: 1 RF: 0 acetaminophen 500 MG tablet 1,000 mg PO TID PRN PRN (Reason: Pain) RF: 0 citalopram 10 mg tablet 5 mg PO DAILY Qty: 30 RF: 0 carvedilol 3.125 mg tablet 3.125 mg PO DAILY Qty: 90 RF: 3 Referrals / Follow Up: Constanza Streeter MD [Primary Care Provider] - Disposition Disposition (needs filled in before D/C Order can be placed[facility] Visit Charges Inpatient E&M: 00751 Disch Hosp
--- NOTE | 2020-09-21 10:39 | PHA.DC.MR ---
Pharmacy Service has performed discharge medication reconciliation for this patient upon transfer to [facility]. Home Medications aspirin 81 mg PO DAILYCM 03/10/20 atorvastatin 40 mg PO QHS 03/10/20 clopidogrel 75 mg PO DAILY #0 03/14/20 cyclobenzaprine 10 mg PO TID PRN PRN #90 tab 06/23/20 citalopram 10 mg tablet 5 mg PO DAILY #30 tab 08/22/20 albuterol sulfate [Ventolin HFA] 2 puff INHALATION Q4H PRN PRN #1 inhaler 08/29/20 carvedilol 3.125 mg tablet 3.125 mg PO DAILY #90 tab 09/11/20 acetaminophen 1,000 mg PO TID PRN PRN 09/14/20 amoxicillin-pot clavulanate [Augmentin] 1 tab PO BID #10 tab 09/21/20 food supplemt, lactose-reduced [Ensure Enlive] 120 ml PO 4X/DAY #0 ml 09/21/20 The patient's discharge medication list was reviewed for discrepancies and discrepancies were resolved.
[2020-09-21] MEDS: Ipratropium/Albuterol Sulfate 3 ML AMPUL.NEB INHALATION (11:03)
--- NOTE | 2020-09-21 11:11 | CASEMGMT ---
Social Work Note Pt is able to discharge to [facility] today. DONNIE faxed completed discharge paperwork to Vangie at [facility] including transfer to extended care facility, signed medication list, any scripts, COVID test and COVID tool, and HENS. Original in SNF folder and copy on pt's chart. DONNIE completed convalescent 7000 in HENS. Original in SNF folder and copy on pt's chart. DONNIE spoke with RN, pt can transport via wheelchair van. DONNIE accessed trip assist and arranged transportation via wheelchair van for 12:30pm. Transportation form completed and placed on SNF Folder and copy on pt's chart. DONNIE placed a call to Vangie at [facility] and updated her on discharge and transportation time. DONNIE asked Vangie to have [facility] DONNIE speak with pt about applying for Medicaid, Vangie states she has already spoken to SW about this. SW in to speak with pt. SW updated pt that [facility] is able to accept pt and she will be discharged there today. Pt states she thought she would be discharged tomorrow and her daughter was going to come see her tomorrow. DONNIE informed pt that medically pt is ready for discharge today, pt cannot stay at [facility]. Pt states understanding. DONNIE informed pt that this worker will call her daughter Miguel to update. Pt states understanding. DONNIE placed a call to pt's daughter Miguel and updated her on discharge and transportation time to [facility]. Miguel states that she was hoping to see pt tomorrow as she has the day off from work while pt was at [facility]. DONNIE informed pt that Medically pt is ready for discharge today, pt will be discharged today. DONNIE asked Miguel what time she got off from work today and Miguel states 7 tonight. DONNIE informed Miguel that this worker could call to see about changing transportation time for pt and about allowing her to visit after visitation hours but that is pretty late to be transporting pt. Miguel denied wanting this worker to change transportation time. DONNIE spoke with pt, pt confirms she hasn't had COVID vaccinations. DONNIE placed another call to Vangie at [facility] to discuss visitation with pt's daughter. Vangie confirms that pt will have to be in isolation for 14 days but they can do a couple compassion visits for pt while she is in the isolation period. DONNIE asked Vangie to call pt's daughter Miguel to discuss visitation. Plan: [facility] today [facility] transporting pt via wheelchair van at 12:30pm Beba HAMM, SCRIP CLERK
--- NOTE | 2020-09-21 11:42 | NURSING ---
REport called to Jessica the receiving nurse at [facility].
[2020-09-21 12:05] LABS: Vitamin D,25 Hydroxy 24.5 ng/mL
== END 2020-09-21 13:02 | disposition skilled nursing facility (03) | DRG 193 ==
LOC: ED 10:04 → MS3 10:18
PROVIDERS: Emergency Provider Emergency Medicine; PCP Internal Medicine
DX: J15.3 Pneumonia due to streptococcus, group B (principal); E43 Unspecified severe protein-calorie malnutrition; R53.81 Other malaise; R29.6 Repeated falls; Z87.891 Personal history of nicotine dependence; I25.10 Atherosclerotic heart disease of native coronary artery without angina pectoris; Z66 Do not resuscitate
CPT/HCPCS: 36415; 70450; 71045; 72100; 72125; 80048; 81001; 82306; 84443; 84484; 85025; 87426; 87449; 92526; 92610; 93005; 94640; 94667; 94668; 97110; 97162; 97166; 97530; 97535; 97802; 99285; 99406; J7030; J7050; A4216; J0696

== ENCOUNTER → 2021-01-24 14:43 | Outpatient (CLI) | payer SELFPAY ==
[2021-01-24 17:06] LABS: Absolute Lymphocyte Count 2.13 X10^3/uL (0.83-4.51); Absolute Neutrophil Count 5.2 X10^3/uL (2.0-7.7); Basophil# 0.07 X10^3/uL; Basophil% 0.8 % (0-1); Eosinophil# 0.38 X10^3/uL; Eosinophils% 4.3 % (0-5); Hematocrit 37.3 % (37-47); Hemoglobin 11.5 g/dL (12.0-15.0); Lymphocyte # 2.13 X10^3/ul (0.83-4.51); Lymphocyte % 24.3 % (19-41); Mean Corp Hgb Conc 30.8 g/dL (32-36); Mean Corpuscular Hgb 29.7 pg (27.0-32.0); Mean Corpuscular Volume 96.4 fL (81-99); Mean Platelet Vol. 10.6 fl (6.2-12.0); Monocyte# 0.96 X10^3/uL; NRBC Flagged by Analyzer 0 % (0-5); Neutrophil # 5.17 X10^3/uL (2.7-7.7); Neutrophil % 59.1 % (47-70); Platelet Count 291 K/mm3 (150-450); RBC Distribution Width CV 11.8 % (11.6-14.6); RBC Distribution Width SD 41.5 fl (35.1-43.9); Red Blood Count 3.87 M/mm3 (4.2-5.4); White Blood Count 8.8 K/mm3 (4.4-11.0)
[2021-01-24 17:30] LABS: ALB/GLOB Ratio 0.8 RATIO (0.9-2.4); AST(SGOT) 22 U/L (15-37); Alanine Aminotransfer ALT/SGPT 19 U/L (13-56); Albumin, Serum 3.5 g/dL (3.2-5.0); Alkaline Phosphatase 146 U/L (45-117); Anion Gap 4 (5-15); BUN 25 mg/dL (7-18); BUN/Creat Ratio 34.3 RATIO (10-20); Calcium,Total 9.8 mg/dL (8.5-10.1); Chloride 103 mmol/L (98-107); Creatinine, Serum 0.73 mg/dL (0.55-1.02); EST Glomerular Filtration Rate 82 mL/min (>60); Est Glom Filt Rate - Afr Amer 99 mL/min (>60); Globulin 4.3 g/dL (2.2-4.2); Glucose 101 mg/dL (74-106); Potassium 4.8 mmol/L (3.5-5.1); Protein, Total 7.8 g/dL (6.4-8.2); Sodium Level 142 mmol/L (136-145); T4 Free Direct 0.82 ng/dL (0.76-1.46); Thyroid Stim Hormone (TSH) 5.56 uIU/mL (0.358-3.74)
== END ==
PROVIDERS: PCP Internal Medicine; Referring Provider Internal Medicine; Visit Provider Internal Medicine
DX: Z13.29 Encounter for screening for other suspected endocrine disorder (principal); J44.9 Chronic obstructive pulmonary disease, unspecified; R53.83 Other fatigue
CPT/HCPCS: 36415; 80053; 84439; 84443; 85025

== ENCOUNTER → 2021-04-13 14:40 | Outpatient (CLI) | payer SELFPAY ==
[2021-04-13 16:35] LABS: Cholesterol 113 mg/dL (200); High Density Lipoprotein 49 mg/dL; Triglycerides 111 mg/dL; Very Low Density Lipoprotein 22 mg/dL (5-40)
== END ==
PROVIDERS: PCP Internal Medicine; Visit Provider Physician Assistant Medical
DX: I21.3 ST elevation (STEMI) myocardial infarction of unspecified site (principal)
CPT/HCPCS: 36415; 80061

== ENCOUNTER 2021-06-20 13:37 | Outpatient (CLI) | payer SELFPAY ==
[2021-06-20 15:00] LABS: Absolute Lymphocyte Count 1.37 X10^3/uL (0.83-4.51); Basophil# 0.03 X10^3/uL; Basophil% 0.5 % (0-1); Eosinophil# 0.24 X10^3/uL; Eosinophils% 3.8 % (0-5); Hematocrit 34.9 % (37-47); Hemoglobin 10.7 g/dL (12.0-15.0); Lymphocyte # 1.37 X10^3/ul (0.83-4.51); Lymphocyte % 21.8 % (19-41); Mean Corp Hgb Conc 30.7 g/dL (32-36); Mean Corpuscular Hgb 28.8 pg (27.0-32.0); Mean Corpuscular Volume 94.1 fL (81-99); Mean Platelet Vol. 11.1 fl (6.2-12.0); Monocyte# 0.61 X10^3/uL; Monocyte% 9.7 % (0-10); NRBC Flagged by Analyzer 0 % (0-5); Neutrophil # 4.01 X10^3/uL (2.7-7.7); Neutrophil % 63.9 % (47-70); Platelet Count 217 K/mm3 (150-450); RBC Distribution Width CV 12.5 % (11.6-14.6); RBC Distribution Width SD 43.3 fl (35.1-43.9); Red Blood Count 3.71 M/mm3 (4.2-5.4); White Blood Count 6.3 K/mm3 (4.4-11.0)
[2021-06-20 15:23] LABS: Vitamin D,25 Hydroxy 20.2 ng/mL
[2021-06-20 15:29] LABS: AST(SGOT) 25 U/L (15-37); Alanine Aminotransfer ALT/SGPT 22 U/L (13-56); Albumin, Serum 3.6 g/dL (3.2-5.0); Alkaline Phosphatase 147 U/L (45-117); Anion Gap 3 (5-15); BUN 25 mg/dL (7-18); BUN/Creat Ratio 39.4 RATIO (10-20); Calcium,Total 9.4 mg/dL (8.5-10.1); Chloride 106 mmol/L (98-107); Creatinine, Serum 0.63 mg/dL (0.55-1.02); EST Glomerular Filtration Rate 96 mL/min (>60); Est Glom Filt Rate - Afr Amer 116 mL/min (>60); Globulin 3.6 g/dL (2.2-4.2); Glucose 104 mg/dL (74-106); Potassium 4.3 mmol/L (3.5-5.1); Protein, Total 7.2 g/dL (6.4-8.2); Sodium Level 143 mmol/L (136-145); Thyroid Stim Hormone (TSH) 3.59 uIU/mL (0.358-3.74)
[2021-06-21 11:54] LABS: Ferritin 15 ng/mL (8-252); Iron 84 ug/dL (50-170); Iron Binding Capacity,Total 426 ug/dL (250-450); T4 Free Direct 0.73 ng/dL (0.76-1.46)
== END 2021-06-20 23:59 | disposition home or self-care (01) ==
LOC: BIMLAB 13:38
PROVIDERS: PCP Internal Medicine; Referring Provider Internal Medicine; Visit Provider Internal Medicine
DX: I10 Essential (primary) hypertension (principal); D64.9 Anemia, unspecified; R94.6 Abnormal results of thyroid function studies; E55.9 Vitamin D deficiency, unspecified
CPT/HCPCS: 36415; 80053; 82306; 82728; 83540; 83550; 84439; 84443; 85025

== ENCOUNTER 2021-06-26 02:22 | Emergency (ER) | payer MEDICARE, SELFPAY ==
[2021-06-26 02:23] VITALS: BP 195/85; PULSE 78; RESP 18; TEMP 36.6; O2SAT 99; BMI 24.5
[2021-06-26 02:29] VITALS: BP 195/86; PULSE 84; RESP 18; O2SAT 100
--- NOTE | 2021-06-26 02:33 | CT_ITS ---
STUDY: CT ABDOMEN AND PELVIS WITHOUT CONTRAST REASON FOR EXAM: Female, 80 years old. Kidney Stone RADIATION DOSAGE (If Supplied By Facility): CTDIvol = ( 6.60 ) mGy, DLP = ( 280.13 ) mGycm TECHNIQUE: Transaxial 2.5 mm images were obtained from the dome of the diaphragm to the symphysis pubis without oral contrast, and without intravenous contrast. Sagittal and coronal images were reconstructed. This examination is limited for the evaluation of gastrointestinal, solid organs and vascular structures due to the lack of intravenous and oral contrast. Individualized dose optimization techniques were used for this CT. COMPARISON: CT abdomen pelvis 05/26/2020. 03/10/2020. FINDINGS: Emphysematous changes in the lung bases, moderate to large hiatal hernia and coronary artery disease stable findings. No cardiac enlargement. Normal liver. Normal gallbladder and extrahepatic biliary system. Normal spleen. Normal pancreas. Normal bilateral adrenal glands. Moderate right hydronephrosis and hydroureter to the level of the UVJ with a punctate calculus at the UVJ level. Punctate nonobstructing left renal calculi. Normal visualized stomach. Normal small intestine. There are few sigmoid colonic diverticula consistent with diverticulosis. The appendix is visualized and appears normal. There is atherosclerosis of the abdominal aorta, greater branches and pelvic arteries without aneurysm or leak. Normal inferior vena cava. Normal retroperitoneum. Decompressed urinary bladder. Uterus is not visualized. Normal abdominal wall. There are diffuse degenerative changes of the visualized lumbar spine, bilateral hip and sacroiliac joints, osteoporosis, compression deformity of the L1 and L2 vertebral body with loss of vertebral body height 25-50% with prior vertebroplasty changes at L1. With CT/Abdomen/Pelvis without Cont IMPRESSION: Moderate right hydronephrosis and hydroureter with a nonobstructing punctate right UVJ calculus. Nonobstructing bilateral renal calculi. Increased size of hiatal hernia. Sigmoid diverticulosis. Atherosclerosis. Degenerative changes. Electronically Signed: Yin Mathias MD at 3:30 EST Reading Location ID and State: , Service support ,
--- NOTE | 2021-06-26 02:35 | EDS_ITS ---
HPI HPI - GI History of Present Illness Chief Complaint: Flank Pain Narrative Narrative: 80-year-old female presenting with right flank pain. She states it radiates around from the right flank into the right side of her pelvis. She denies history of kidney stone. She states that this did come on acutely earlier today. She thought it was gas and went to sleep however the pain has still increased even though she is passing gas. She denies constipation or di arrhea. She denies any urinary complaints. She does not have nausea. She denies chest pain or shortness of breath. No paresthesias. She does report a history of compression fractures in the past. She states she is not had any fall or injury. [facility] Medical History Abnormal thyroid function test Anemia Atherosclerosis of [place] coronary artery of [place] heart without angina pectoris CAD (coronary artery disease) Compression fracture COPD (chronic obstructive pulmonary disease) Fatigue Former smoker GERD (gastroesophageal reflux disease) On home oxygen therapy Screening for thyroid disorder STEMI (ST elevation myocardial infarction) (07/18/19) Tobacco dependence Vitamin D deficiency Home Medications aspirin 81 mg PO DAILYCM 03/10/20 [History Last Taken 09/14/20] acetaminophen 1,000 mg PO TID PRN PRN 09/14/20 [History Last Taken 09/14/20] nebulizers #1 ea 10/17/20 [Rx Last Taken Unknown] cyclobenzaprine 10 mg tablet 10 mg PO TID PRN PRN #90 tab 11/01/20 [Rx Last Taken Unknown] citalopram 10 mg tablet 5 mg PO DAILY #90 tab 12/19/20 [Rx Last Taken Unknown] atorvastatin 40 mg tablet See Rx Instructions .ROUTE .COMPLEX #90 tablet 04/13/21 [Rx Last Taken Unknown] carvedilol 3.125 mg tablet 3.125 mg PO DAILY #90 tab 04/13/21 [Rx Last Taken Unknown] clopidogrel 75 mg tablet See Rx Instructions .ROUTE .COMPLEX #90 tablet 04/13/21 [Rx Last Taken Unknown] oxycodone-acetaminophen [Percocet] 1 tab PO Q6H PRN 3 Days #12 tab 06/26/21 [Rx Last Taken Unknown] promethazine 12.5 mg PO TID PRN #20 tab 06/26/21 [Rx Last Taken Unknown] Allergy/AdvReac Type Severity Reaction Status Date / Time No Known Allergies Allergy Verified 06/20/21 13:03 Family History Sister No problems noted. Son hole in his heart Grandmother Cancer Father Cancer Grandfather Cancer Surgical History H/O: hysterectomy History of appendectomy Stented coronary artery Social History household members: children housing: apartment number of children: 3 Smoking Status: Former smoker quit date: 07/18/19 Tobacco: How many years used: 50 alcohol intake: never substance use type: does not use what type of physical activity do you participate in: none ROS ROS ED Constitutional Constitutional ED: Denies chills or fever(s) ENT ENT ED: Denies rhinorrhea or sore throat Cardiovascular Cardiovascular: Denies chest pain or palpitations Respiratory/Chest Respiratory/Chest: Denies cough or dyspnea Gastrointestinal Gastrointestinal: Denies constipation, diarrhea, nausea or vomiting Genitourinary Genitourinary ED: Denies dysuria or hematuria Musculoskeletal Musculoskeletal: Reports back pain Integumentary Denies rash Neurologic Neurologic: Denies headache(s) or weakness EXAM Physical Exam Const Vital Signs: 06/26/21 02:23 06/26/21 02:29 06/26/21 02:30 Temperature 97.9 F Temperature Source Oral Pulse Rate 78 84 Respiratory Rate 18 18 Respiratory Effort Normal Respiratory Pattern Normal Blood Pressure 195/85 H 195/86 H Blood Pressure Mean 121 122 Pulse Ox 99 100 Oxygen Delivery Method Nasal Cannula Nasal Cannula Oxygen Flow Rate (L/min) 4 3 Positive well nourished General Appearance ED: Negative for pallor HEENT Reports moist mucous membranes normocephalic and atraumatic Eyes PERRL and EOMs intact bilaterally General Eye ED: Negative for pale conjunctiva or scleral icterus Resp normal respiratory effort and clear to auscultation bilaterally Auscultation: Negative for rales, rhonchi or wheezes Cardio regular rate and regular rhythm GI non-tender, non-distended and no masses Palpation: soft; Negative for pulsatile mass Back/Spine General Back: CVA tenderness right Neuro Sensorium / Orientation: alert, oriented to person, oriented to place and oriented to time Psych mental status grossly normal and thought process normal Skin General Skin Exam: Negative for jaundice or pallor MDM MDM MDM Narrative Medical decision making narrative: 80-year-old female presenting with right flank pain. She states has had compression fractures in the past but they do not feel like this. I can only get her describe the pain as gassy. She states she been passing gas without relief of the pain. She states she is not had constipation or diarrhea. She denies any urinary complaints. No history of kidney stones. Her abdominal exam is benign. There is no pulsatile mass. Abdomen is not distended. Patient denies any black or bloody stools. She does have a history of blood in her stool distantly and I did review the medical record and I had actually seen her into an occult stool. She states she never followed up with Dr. Romero outpatient and she has been hospitalized multiple times. Her hemoglobin is 10.5 and at last check it was 10.7 but it has gone down slowly since April 2020. She is not complaining of lightheadedness or di zziness. She does not look pale. Conjunctiva are pink. She is not having any active bloody stools or black stools. I counseled her for this I will refer her to Dr. Mulligan. She was amenable to this. She does not have a leukocytosis. Her platelets are normal. Creatinine is 0.77 with a BUN of 28 and she was given IV fluids. Urinalysis does not show an infection but does show occult blood. I obtained a CT of the abdomen pelvis without contrast which does show a punctate nonobstructing right UVJ stone which is read as nonobstructing however there is right-sided hydroureter and hydronephrosis. Patient currently comfortable after being medicated with morphine and Zofran. She states she is tolerated oxycodone in the past. I gave her a prescription for Percocet and Phenergan for home. She was given follow-up with Dr. Vidal for the [place] nephrosis and kidney stone. Impression: 1. Right ureteral calculi 2. Hematuria 3. Right-sided hydroureter and hydronephrosis 4. Anemia Lab Data Attestation: I reviewed the patient's lab results. Labs: Laboratory Results - last 24 hr 03/01/22 03/01/22 03/01/22 02:35 02:35 02:35 WBC Cancelled Corrected WBC Cancelled RBC Cancelled Hgb Cancelled Hct Cancelled MCV Cancelled MCH Cancelled MCHC Cancelled RDW Std Deviation Cancelled RDW Coeff of Melisa Cancelled Plt Count Cancelled MPV Cancelled Immature Gran % (Auto) Cancelled Neut % (Auto) Cancelled Lymph % (Auto) Cancelled [place] % (Auto) Cancelled Eos % (Auto) Cancelled Baso % (Auto) Cancelled Absolute Neuts (auto) Cancelled Absolute Lymphs (auto) Cancelled Total Counted Cancelled Neutrophils % (Manual) Cancelled Band Neutrophils % Cancelled Lymphocytes % (Manual) Cancelled Monocytes % (Manual) Cancelled Eosinophils % (Manual) Cancelled Basophils % (Manual) Cancelled Metamyelocytes % Cancelled Myelocytes % Cancelled Promyelocytes % Cancelled Blast Cells % Cancelled Plasma Cell % (Manual) Cancelled Other Cells % Cancelled Nucleated RBC % Cancelled Nucleated RBCs/100 WBC Cancelled Differential Comment Cancelled Diff Path Review Cancelled Hypersegmented Neuts Cancelled Atypical Lymphocytes Cancelled Reactive Lymphocytes Cancelled Smudge Cells Cancelled Toxic Granulation Cancelled Toxic Vacuolation Cancelled Dohle Bodies Cancelled Hayley Rods Cancelled Platelet Estimate Cancelled Plt Morphology Comment Cancelled RBC Morphology Cancelled Polychromasia Cancelled Hypochromasia Cancelled Poikilocytosis Cancelled Basophilic Stippling Cancelled Anisocytosis Cancelled Microcytosis Cancelled Macrocytosis Cancelled Spherocytes Cancelled Sickle Cells Cancelled Target Cells Cancelled Tear Drop Cells Cancelled Ovalocytes Cancelled Stomatocytes Cancelled [place] Bodies Cancelled Natalie Cells Cancelled Bite Cells Cancelled Crenated Cell Cancelled Acanthocytes (Spur) Cancelled Rouleaux Cancelled Schistocytes Cancelled Sodium 143 Potassium 4.0 Chloride 110 H Carbon Dioxide 30.0 Anion Gap 3 L BUN 28 H Creatinine 0.77 Estim Creat Clear Calc 34.90 Est GFR (MDRD) Af Amer 93 Est GFR (MDRD) Non-Af 77 BUN/Creatinine Ratio 36.6 H Glucose 113 H Calcium 9.4 Total Bilirubin 0.30 Direct Bilirubin 0.08 AST 36 ALT 24 Alkaline Phosphatase 142 H Total Protein 7.3 Albumin 3.7 Globulin 3.6 Lipase Urine Color Urine Clarity Urine pH Ur Specific [place]o Urine Protein Urine Glucose (UA) Urine Ketones Urine Occult Blood Urine Nitrite Urine Bilirubin Urine Urobilinogen Ur Leukocyte Esterase Urine RBC Urine WBC Ur Squamous Epith Cells Urine Bacteria Urine Mucus 06/26/21 06/26/21 06/26/21 02:35 02:50 03:17 WBC 7.3 Corrected WBC RBC 3.74 L Hgb 10.5 L Hct 34.6 L MCV 92.5 MCH 28.1 MCHC 30.3 L RDW Std Deviation 42.8 RDW Coeff of Melisa 12.6 Plt Count 182 MPV 10.3 Immature Gran % (Auto) 0.300 Neut % (Auto) 61.4 Lymph % (Auto) 25.0 [place] % (Auto) 9.4 Eos % (Auto) 3.4 Baso % (Auto) 0.5 Absolute Neuts (auto) 4.5 Absolute Lymphs (auto) 1.83 Total Counted Neutrophils % (Manual) Band Neutrophils % Lymphocytes % (Manual) Monocytes % (Manual) Eosinophils % (Manual) Basophils % (Manual) Metamyelocytes % Myelocytes % Promyelocytes % Blast Cells % Plasma Cell % (Manual) Other Cells % Nucleated RBC % 0 Nucleated RBCs/100 WBC Differential Comment Diff Path Review Hypersegmented Neuts Atypical Lymphocytes Reactive Lymphocytes Smudge Cells Toxic Granulation Toxic Vacuolation Dohle Bodies Hayley Rods Platelet Estimate Plt Morphology Comment RBC Morphology Polychromasia Hypochromasia Poikilocytosis Basophilic Stippling Anisocytosis Microcytosis Macrocytosis Spherocytes Sickle Cells Target Cells Tear Drop Cells Ovalocytes Stomatocytes [place] Bodies Natalie Cells Bite Cells Crenated Cell Acanthocytes (Spur) Rouleaux Schistocytes Sodium Potassium Chloride Carbon Dioxide Anion Gap BUN Creatinine Estim Creat Clear Calc Est GFR (MDRD) Af Amer Est GFR (MDRD) Non-Af BUN/Creatinine Ratio Glucose Calcium Total Bilirubin Direct Bilirubin AST ALT Alkaline Phosphatase Total Protein Albumin Globulin Lipase 272 Urine Color Yellow Urine Clarity Sl. Cloudy Urine pH 5.0 Ur Specific Romeo 1.020 Urine Protein 30 H Urine Glucose (UA) Normal Urine Ketones 5 H Urine Occult Blood 250 H Urine Nitrite Negative Urine Bilirubin Negative Urine Urobilinogen Normal Ur Leukocyte Esterase 500 H Urine RBC > 100 SEEN Urine WBC 5-10 SEEN Ur Squamous Epith Cells 0-5 SEEN Urine Bacteria 1+ Urine Mucus 0 SEEN Radiography Diagnostic Testing: Clinical Impression(s) from Imaging Studies Abdomen/Pelvis CT 06/26/21 02:33 IMPRESSION: Moderate right hydronephrosis and hydroureter with a nonobstructing punctate right UVJ calculus. Nonobstructing bilateral renal calculi. Increased size of hiatal hernia. Sigmoid diverticulosis. Atherosclerosis. Degenerative changes. Electronically Signed: Yin Mathias MD at 3:30 EST Reading Location ID and State: , Service support , Discharge Plan Triage Chief Complaint: Flank Pain ED Provider: Anirudh Mendoza Dx/Rx/DC Orders Instructions: ED Kidney Stone w/ Colic Prescriptions: New oxycodone-acetaminophen [Percocet] 5-325 mg tablet 1 tab PO Q6H PRN (Reason: pain) 3 Days Qty: 12 RF: 0 promethazine 12.5 mg tablet 12.5 mg PO TID PRN (Reason: nausea and vomiting) Qty: 20 RF: 0 No Action atorvastatin 40 mg tablet See Rx Instructions .ROUTE .COMPLEX Qty: 90 RF: 3 carvedilol 3.125 mg tablet 3.125 mg PO DAILY Qty: 90 RF: 3 clopidogrel 75 mg tablet See Rx Instructions .ROUTE .COMPLEX Qty: 90 RF: 3 aspirin 81 MG tablet,chewable 81 mg PO DAILYCM RF: 0 acetaminophen 500 MG tablet 1,000 mg PO TID PRN PRN (Reason: Pain) RF: 0 (DME) nebulizers Misc See Rx Instructions .ROUTE .MEDSUPPLY Qty: 1 RF: 0 cyclobenzaprine 10 mg tablet 10 mg PO TID PRN PRN (Reason: back pain/spasm) Qty: 90 RF: 0 citalopram 10 mg tablet 5 mg PO DAILY Qty: 90 RF: 1 Primary Care Provider: Constanza Streeter Referrals: Constanza Streeter MD [Primary Care Provider] - Ofelia Vidal MD [STAFF PHYSICIAN] - As soon as possible Friend,DO Maximino [STAFF PHYSICIAN] - As Needed Disposition Disposition: Home, Self Care
[2021-06-26] MEDS: Morphine 4 MG/ML Syringe IV (02:45)
[2021-06-26] MEDS: Ondansetron 4 MG/2 ML Vial IV (02:46)
[2021-06-26 02:53] LABS: Absolute Lymphocyte Count 1.83 X10^3/uL (0.83-4.51); Absolute Neutrophil Count 4.5 X10^3/uL (2.0-7.7); Basophil# 0.04 X10^3/uL; Basophil% 0.5 % (0-1); Eosinophil# 0.25 X10^3/uL; Eosinophils% 3.4 % (0-5); Hematocrit 34.6 % (37-47); Hemoglobin 10.5 g/dL (12.0-15.0); Lymphocyte # 1.83 X10^3/ul (0.83-4.51); Mean Corp Hgb Conc 30.3 g/dL (32-36); Mean Corpuscular Hgb 28.1 pg (27.0-32.0); Mean Corpuscular Volume 92.5 fL (81-99); Mean Platelet Vol. 10.3 fl (6.2-12.0); Monocyte# 0.69 X10^3/uL; Monocyte% 9.4 % (0-10); NRBC Flagged by Analyzer 0 % (0-5); Neutrophil # 4.48 X10^3/uL (2.7-7.7); Neutrophil % 61.4 % (47-70); Platelet Count 182 K/mm3 (150-450); RBC Distribution Width CV 12.6 % (11.6-14.6); RBC Distribution Width SD 42.8 fl (35.1-43.9); Red Blood Count 3.74 M/mm3 (4.2-5.4); White Blood Count 7.3 K/mm3 (4.4-11.0)
[2021-06-26 02:59] LABS: Anion Gap 3 (5-15); BUN 28 mg/dL (7-18); BUN/Creat Ratio 36.6 RATIO (10-20); Calcium,Total 9.4 mg/dL (8.5-10.1); Chloride 110 mmol/L (98-107); Creatinine, Serum 0.77 mg/dL (0.55-1.02); EST Glomerular Filtration Rate 77 mL/min (>60); Est Glom Filt Rate - Afr Amer 93 mL/min (>60); Glucose 113 mg/dL (74-106); Sodium Level 143 mmol/L (136-145)
[2021-06-26 03:23] LABS: Mucous, Urine 0 SEEN /hpf (<or=2+)
[2021-06-26 03:24] LABS: Color, Urine Yellow (Yellow); Glucose, Dipstick Normal (Normal); Ketone-Dipstick 5 mg/dl (Negative); Leukocyte Esterase-Dipstick 500 /ul (Negative); Nitrite-Dipstick Negative (Negative); Occult Blood-Urine 250 /ul (Negative); Protein-Dipstick 30 mg/dl (Negative); Urine Bilirubin Dipstick Negative (Negative); Urine Clarity Sl. Cloudy (Clear); Urine Urobilinogen Normal (Normal)
[2021-06-26 03:31] LABS: Bacteria 1+ /hpf (None Seen); Red Blood Cells-Urine > 100 SEEN /hpf (0-5); Squamous Epithelial Cells - UA 0-5 SEEN /hpf (5-10); White Blood Cells 5-10 SEEN /hpf (0-5)
[2021-06-26 03:35] LABS: Lipase 272 U/L (73-393)
[2021-06-26 03:37] LABS: AST(SGOT) 36 U/L (15-37); Alanine Aminotransfer ALT/SGPT 24 U/L (13-56); Albumin, Serum 3.7 g/dL (3.2-5.0); Alkaline Phosphatase 142 U/L (45-117); Bilirubin, Direct 0.08 mg/dL (0.00-0.30); Globulin 3.6 g/dL (2.2-4.2); Protein, Total 7.3 g/dL (6.4-8.2)
[2021-06-26] MEDS: 0.9% Normal Saline 1,000 ML 999 ML IV (03:40)
[2021-06-26 04:01] VITALS: BP 135/68; PULSE 72; RESP 16; O2SAT 99
== END 2021-06-26 04:02 | disposition home or self-care (01) ==
PROVIDERS: Emergency Provider Student in an Organized Health Care Education/Training Program; PCP Internal Medicine; Visit Provider Student in an Organized Health Care Education/Training Program
DX: N13.2 Hydronephrosis with renal and ureteral calculous obstruction (principal); J44.9 Chronic obstructive pulmonary disease, unspecified; D64.9 Anemia, unspecified; I25.10 Atherosclerotic heart disease of native coronary artery without angina pectoris; I25.2 Old myocardial infarction; K21.9 Gastro-esophageal reflux disease without esophagitis; Z87.891 Personal history of nicotine dependence; Z79.899 Other long term (current) drug therapy; Z79.02 Long term (current) use of antithrombotics/antiplatelets; Z79.82 Long term (current) use of aspirin; Z99.81 Dependence on supplemental oxygen
CPT/HCPCS: 74176; 80048; 80076; 81001; 83690; 85025; 96361; 96374; 96375; 99284; J7030; A4216; J2405

== ENCOUNTER → 2021-12-17 | Outpatient (CLI) | payer MEDICARE, SELFPAY ==
[2021-12-17 12:30] LABS: Absolute Lymphocyte Count 1.59 X10^3/uL (0.83-4.51); Absolute Neutrophil Count 5.8 X10^3/uL (2.0-7.7); Basophil# 0.06 X10^3/uL; Basophil% 0.7 % (0-1); Eosinophils% 4.6 % (0-5); Hematocrit 38.9 % (37-47); Lymphocyte # 1.59 X10^3/ul (0.83-4.51); Lymphocyte % 18.3 % (19-41); Mean Corp Hgb Conc 30.8 g/dL (32-36); Mean Corpuscular Hgb 28.7 pg (27.0-32.0); Mean Corpuscular Volume 93.1 fL (81-99); Mean Platelet Vol. 11.2 fl (6.2-12.0); Monocyte# 0.82 X10^3/uL; Monocyte% 9.4 % (0-10); NRBC Flagged by Analyzer 0 % (0-5); Neutrophil # 5.78 X10^3/uL (2.7-7.7); Neutrophil % 66.7 % (47-70); Platelet Count 205 K/mm3 (150-450); RBC Distribution Width CV 13.2 % (11.6-14.6); Red Blood Count 4.18 M/mm3 (4.2-5.4); White Blood Count 8.7 K/mm3 (4.4-11.0)
[2021-12-17 12:43] LABS: AST(SGOT) 21 U/L (15-37); Alanine Aminotransfer ALT/SGPT 18 U/L (13-56); Albumin, Serum 3.7 g/dL (3.2-5.0); Alkaline Phosphatase 115 U/L (45-117); Anion Gap 4 (5-15); BUN 24 mg/dL (7-18); Calcium,Total 9.7 mg/dL (8.5-10.1); Chloride 105 mmol/L (98-107); Creatinine, Serum 0.75 mg/dL (0.55-1.02); EST Glomerular Filtration Rate 79 mL/min (>60); Est Glom Filt Rate - Afr Amer 95 mL/min (>60); Globulin 3.6 g/dL (2.2-4.2); Glucose 117 mg/dL (74-106); Potassium 4.3 mmol/L (3.5-5.1); Protein, Total 7.3 g/dL (6.4-8.2); Sodium Level 141 mmol/L (136-145)
== END | disposition home or self-care (01) ==
LOC: BIMLAB 10:42
PROVIDERS: PCP Internal Medicine; Referring Provider Internal Medicine; Visit Provider Internal Medicine
DX: I10 Essential (primary) hypertension (principal)
CPT/HCPCS: 36415; 80053; 85025

== ENCOUNTER 2022-05-01 08:27 | Emergency (ER) | payer SELFPAY ==
[2022-05-01 08:32] VITALS: BP 132/81; PULSE 99; RESP 20; TEMP 36.6; O2SAT 97; BMI 25.2
--- NOTE | 2022-05-01 09:04 | EKG12_ITS ---
Test Reason : DYSRHYTHMIA Blood Pressure : / mmHG Vent. Rate : 090 BPM Atrial Rate : 090 BPM P-R Int : 128 ms QRS Dur : 104 ms QT Int : 362 ms P-R-T Axes : 054 058 -05 degrees QTc Int : 442 ms Sinus rhythm with Premature atrial complexes Incomplete right bundle branch block T wave abnormality, consider inferior ischemia Abnormal ECG Confirmed by OLGA MARTINEZ, FRANCISCO ([id number]), commissioning editor NOA MUNGUIA ([id number]) on 05/03/2022 6:24:52 AM Referred By: YARON Confirmed By:JANNA ESPINOZA MD
[2022-05-01 09:08] VITALS: O2SAT 2
--- NOTE | 2022-05-01 09:09 | EX.ED.DYSGE1 ---
HPI History of Present Illness Chief Complaint: General Illness Detail of Chief Complaint: I just do not feel well. Informant: patient Onset/Context/Timing Onset: Today Context: Gradual Onset Timing: Continuous Current Severity: Mild Maximum Severity: Mild Narrative Narrative: 81-year-old female history of COPD for which she is on 4 L home O2. Anemia and on Plavix and aspirin. Prior OR. She lives at home. States that she is just not feeling well. She denies any nausea vomiting or diarrhea. Denies any fever or chills. States she had sweating this morning. Denies any chest pain nor any abdominal pain. No dysuria. Prior similar symptoms: No Recent Illness/Hospitalization: No PFSH [facility] Medical History Abnormal thyroid function test Anemia Atherosclerosis of [place] coronary artery of [place] heart without angina pectoris Back pain CAD (coronary artery disease) Compression fracture COPD (chronic obstructive pulmonary disease) Fatigue Former smoker GERD (gastroesophageal reflux disease) On home oxygen therapy Screening for thyroid disorder STEMI (ST elevation myocardial infarction) (07/18/19) Tobacco dependence Vitamin D deficiency Home Medications aspirin 81 mg chewable tablet 81 mg PO DAILYCM HEALTH MAINTENANCE 03/10/20 [History Last Taken 09/14/20] acetaminophen 500 mg tablet 1,000 mg PO TID PRN PRN Pain 09/14/20 [History Last Taken 09/14/20] nebulizers #1 ea 10/17/20 [Rx Last Taken Unknown] atorvastatin 40 mg tablet See Rx Instructions .Route .COMPLEX #90 TABLETS 04/13/21 [Rx Last Taken Unknown] clopidogrel 75 mg tablet See Rx Instructions .Route .COMPLEX #90 TABLETS 04/13/21 [Rx Last Taken Unknown] cholecalciferol (vitamin D3) 125 mcg (5,000 unit) capsule 125 mcg PO DAILY 12/14/21 [History Last Taken Unknown] vit C 250 mg-vit E 90 mg-zinc 40 mg-copper 1 [id number] capsule (PreserVision AREDS-2) 1 tab PO BID 12/14/21 [History Last Taken Unknown] citalopram 10 mg tablet 5 mg PO DAILY #90 tabs 12/19/21 [Rx Last Taken Unknown] carvedilol 3.125 mg tablet 3.125 mg PO BID HEART #180 tabs 01/28/22 [Rx Last Taken Unknown] albuterol sulfate 1.25 mg/3 mL solution for nebulization 1.25 mg (3 mL) inhalation Q6H PRN shortness of breath or wheezing #90 mL 02/06/22 [Rx Last Taken Unknown] Allergy/AdvReac Type Severity Reaction Status Date / Time No Known Allergies Allergy Verified 05/01/22 08:29 Family History Sister No problems noted. Son hole in his heart Grandmother Cancer Father Cancer Grandfather Cancer Surgical History H/O: hysterectomy History of appendectomy Stented coronary artery Social History household members: children housing: apartment number of children: 3 Smoking Status: Former smoker quit date: 07/18/19 Tobacco: How many years used: 50 alcohol intake: never substance use type: does not use what type of physical activity do you participate in: none ROS ROS ED ROS Narrative Just do not feel well. Review of Systems ROS Unobtainable: Denies due to encephalopathy Constitutional Constitutional ED: Reports sweats; Denies chills or fever(s) Eyes Eyes: Denies blurry vision ENT ENT ED: Denies ear pain Cardiovascular Cardiovascular: Denies chest pain Respiratory/Chest Respiratory/Chest: Reports dyspnea; Denies cough Gastrointestinal Gastrointestinal: Denies abdominal pain Genitourinary Genitourinary ED: Denies dysuria or hematuria Musculoskeletal Musculoskeletal: Denies arthralgias Integumentary Denies abscess Neurologic Neurologic: Denies headache(s) Psychiatric Psychiatric: Denies anxiety Endocrine Endocrinology: Denies cold intolerance Hematologic/Lymphatic Hematologic/Lymphatic: Reports none Allergic/Immunologic Allergic/Immunologic ED: Denies mouth swelling or tongue swelling EXAM Physical Exam Narrative Exam Narrative: 81-year-old female vital signs are stable afebrile. Clinically she feels warm but her temperature is 97.9 temporally. Pulse ox is 97% on 2 L no hypoxia on her O2. H EENT exam unremarkable. Moist mucous membranes. No signs of trauma. Neck nontender. No lymphadenopathy. Lungs clear to auscultation bilaterally. Heart regular rhythm rate about 95 no murmur. Chest wall nontender. Abdomen soft nontender. Back nontender. Moving all 4 extremities. 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 Dorsi plantar flexion intact. She is awake alert answering questions and following commands. Benign exam. Const Vital Signs: 05/01/22 08:32 05/01/22 08:34 05/01/22 09:08 Temperature 97.9 F Temperature Source Temporal Pulse Rate 99 Respiratory Rate 20 H Respiratory Pattern Normal Blood Pressure 132/81 H Blood Pressure Mean 98 Pulse Ox 97 2 Oxygen Delivery Method Nasal Cannula Nasal Cannula Oxygen Flow Rate (L/min) 2 98 05/01/22 10:00 Temperature Temperature Source Pulse Rate 96 Respiratory Rate 22 H Respiratory Pattern Blood Pressure Blood Pressure Mean Pulse Ox 95 Oxygen Delivery Method Nasal Cannula Oxygen Flow Rate (L/min) Positive well nourished, well developed and unkempt; Negative for obese, cachectic or contractures General Appearance ED: unkempt, well developed and NAD; Negative for cachectic, contractures, cyanotic or diaphoretic Nutritional Appearance: Negative for cachectic or obese HEENT Reports moist mucous membranes; Denies dry mucous membranes Negative for trauma or tenderness Mouth ED: No dry mucous membranes Mouth: No dry mucous membranes Eyes PERRL and EOMs intact bilaterally General Eye ED: Negative for pale conjunctiva or scleral icterus Neck no lymphadenopathy, supple and no JVD General: Negative for tenderness Lymph Lymphatic: Negative for other Chest Wall inspection of chest normal and palpation of chest normal Chest: Negative for other Resp normal respiratory effort and clear to auscultation bilaterally Effort and Inspection: Negative for retractions Auscultation: Negative for rales, rhonchi or wheezes Cardio regular rate, regular rhythm, S2 normal heart sound and no murmurs Rate: Negative for bradycardia or tachycardic GI normal to inspection, nondistended, normoactive bowel sounds, non-tender, non-distended and no masses Inspection: Negative for abdominal distention Auscultation: normoactive bowel sounds Palpation: soft; Negative for tender or guarding Back/Spine no CVA tenderness General Back: Negative for CVA tenderness Cervical Spine: Negative for cervical spine tenderness Thoracic Spine / Upper Back: Negative for thoracic spinal tenderness Lumbar Spine / Lower Back: Negative for lumbar spinal tenderness Extremity normal to inspection General Extremety ED: Negative for edema or tenderness General Extremity: Negative for edema Neuro oriented x3 Sensorium / Orientation: alert; Negative for orientation impaired, lethargic or stuporous Motor Exam: strength 5/5 throughout; Negative for general weakness or strength abnormal Psych mental status grossly normal Appearance: unkempt Attitude: No agitated Mood & Affect: Negative for depressed, anxious or tearful Skin no rashes or lesions noted and no wounds General Skin Exam: elasticity normal Lesions: No lesion noted Rashes: No rashes noted Trauma: Negative for abrasion Wounds: Negative for wounds noted MDM MDM MDM Narrative Medical decision making narrative: 81-year-old female just does not feel well. Benign exam. May have a fever but temperature documented at 97.9 temporally. Does not look septic or toxic. Shunned go normal screening labs. Her vital signs are stable. She has a normal rhythm on the monitor. Her pulse ox is 97 on 2 L she is on home O2. Consider viral syndrome, pneumonia, UTI but she has no urinary symptoms. Dehydration etc. Repeat exam at 10:29 AM patient is doing well. Exam unchanged benign. We went over all of her test results. Were still waiting for the COVID and influenza to return. Family requested because they had outpatient lumbar spine x-ray that they were going to get done if I could just obtain that today. I explained to him that it would not show any specific for today and most likely arthroarthritis may be compression fractures but they were persistent would like it done today. Repeat exam patient is doing well on 11:37 AM to be discharged to home. She was given Tylenol for her chronic back pain. Lab Data Attestation: I reviewed the patient's lab results. Lab results narrative: CBC shows a white count 9.4. H&H 11.6 37.5. Platelets 209. Electrolytes show a gap of 5 normal BUN and creatinine is seventeen 0.6. Glucose 113. Troponin normal at 8. UA is negative. No nitrates nor any white or red cells nor any bacteria. Chest x-ray shows chronic changes. No acute process. When compared to prior labs these were all baseline. She has a baseline mild anemia. Rapid COVID and influenza swabs were both negative. Labs: Laboratory Results - last 24 hr 05/01/22 05/01/22 05/01/22 09:10 09:10 10:00 WBC 9.4 RBC 3.88 L Hgb 11.6 L Hct 37.5 MCV 96.6 MCH 29.9 MCHC 30.9 L RDW Std Deviation 42.6 RDW Coeff of Melisa 12.0 Plt Count 209 MPV 10.9 Immature Gran % (Auto) 0.400 Neut % (Auto) 67.1 Lymph % (Auto) 16.9 L [place] % (Auto) 11.8 H Eos % (Auto) 3.4 Baso % (Auto) 0.4 Absolute Neuts (auto) 6.3 Absolute Lymphs (auto) 1.60 Nucleated RBC % 0 Sodium 141 Potassium 3.8 Chloride 104 Carbon Dioxide 32.0 Anion Gap 5 BUN 17 Creatinine 0.62 Estim Creat Clear Calc 34.30 Est GFR (MDRD) Af Amer 118 Est GFR (MDRD) Non-Af 97 BUN/Creatinine Ratio 27.3 H Glucose 113 H Calcium 9.7 Troponin I High Sens 8 Urine Color Straw Urine Clarity Clear Urine pH 7.0 Ur Specific [place] 1.005 Urine Protein Negative Urine Glucose (UA) Normal Urine Ketones Negative Urine Occult Blood 50 H Urine Nitrite Negative Urine Bilirubin Negative Urine Urobilinogen Normal Ur Leukocyte Esterase Negative Urine RBC 0 SEEN Urine WBC 0 SEEN Ur Squamous Epith Cells 0 SEEN Urine Bacteria 0 SEEN Urine Mucus 0 SEEN Radiography Chest X-Ray - ED: 1 View, Read by ED Physician, Read by Radiologist, Heart, Lungs, Mediastinum, Bony Structures, No Acute Disease and Chronic Changes Diagnostic Testing: Clinical Impression(s) from Imaging Studies Chest X-Ray 05/01/22 09:11 IMPRESSION: Stable mild increased markings at the lung bases suggestive of a basilar scarring. Electronically Signed: Uday Mills MD at 10:07 EST , Chest x-ray, portable, single view interpreted both by myself and the radiologist shows no acute abnormality. Chronic changes. Is a chronic calcification by the left hilum that has been there on prior chest x-rays when compared to the most recent chest x-ray done. No signs of any pneumonia. No effusions. Lumbar spine x-rays were obtained and show old compression fractures and kyphoplasty of L1 and old compression fracture of L2. Otherwise chronic changes. No acute process. Rhythm Strip Rhythm Strip: Sinus Rhythm Rate: 90 Ectopy: PAC(s) EKG Initial EKG: Attestation: I personally reviewed and interpreted this EKG as follows: Interpretation: Sinus Rhythm and No Acute Injury Pattern Comments: Normal sinus rhythm rate of 90. Incomplete right bundle branch block. Inverted T waves in lead III. No acute signs of OR or ischemia. Unchanged from a prior EKG from August 2020. Also on inverted T waves in lead III at that time also. Prior EKG tracings: available for review Prior: Unchanged Discharge Plan Triage Chief Complaint: General Illness Other Complaint: Palpitations ED Provider: Bob Cabrales Dx/Rx/DC Orders Clinical Impression: Generalized weakness, History of COPD, History of anemia Instructions: ED Weakness (Uncertain Cause) Prescriptions: No Action atorvastatin 40 mg tablet See Rx Instructions .ROUTE .COMPLEX Qty: 90 3RF Dose Instruction: TAKE 1 TABLET BY MOUTH AT BEDTIME Rx Instructions: TAKE 1 TABLET BY MOUTH AT BEDTIME clopidogrel 75 mg tablet See Rx Instructions .ROUTE .COMPLEX Qty: 90 3RF Dose Instruction: TAKE 1 TABLET BY MOUTH DAILY Rx Instructions: TAKE 1 TABLET BY MOUTH DAILY PreserVision AREDS-2 250-90-40-1 mg capsule 1 tab PO BID cholecalciferol (vitamin D3) 125 mcg (5,000 unit) capsule 125 mcg PO DAILY Label Comments: TAKE 1 CAPSULE BY MOUTH DAILY aspirin 81 MG tablet,chewable 81 mg PO DAILYCM acetaminophen 500 MG tablet 1,000 mg PO TID PRN PRN (Reason: Pain) (DME) nebulizers Misc See Rx Instructions .ROUTE .MEDSUPPLY Qty: 1 0RF Rx Instructions: As directed citalopram 10 mg tablet 5 mg PO DAILY Qty: 90 1RF carvedilol 3.125 mg tablet 3.125 mg PO BID Qty: 180 3RF albuterol sulfate 1.25 mg/3 mL solution for nebulization 1.25 mg inhalation Q6H PRN (Reason: shortness of breath or wheezing) Qty: 90 1RF Primary Care Provider: Constnaza Streeter Referrals: Constanza Streeter MD [Primary Care Provider] - 3-5 Days Activity Restrictions/Additional Instructions: Your labs. Follow-up with your doctor to ensure you are improving. Return if feeling worse. Disposition Disposition: Home, Self Care
--- NOTE | 2022-05-01 09:11 | RAD_ITS ---
STUDY: X-RAY CHEST REASON FOR EXAM: Female, 81 years old. Chest pain TECHNIQUE: Single AP portable view of the chest. COMPARISON: Comparison is made with prior study of 09/19/2020. FINDINGS: EKG electrodes are seen. Stable mild linear scarring at the lung bases slightly worse on the left side. There is no demonstrated pleural abnormality. Normal size heart. Normal mediastinum and manfred. Normal visualized pulmonary arteries. There is atherosclerotic calcification of the aortic arch with tortuosity. There are diffuse degenerative changes of the visualized thoracic spine. Vertebroplasty of a lower dorsal vertebrae. Normal visualized ribs, clavicles, and shoulders. There is no demonstrated abnormality of the visualized soft tissue structures of the upper abdomen. RAD/Chest 1 View (Portable) IMPRESSION: Stable mild increased markings at the lung bases suggestive of a basilar scarring. Electronically Signed: Uday Mills MD at 10:07 [facility] ,
[2022-05-01 09:18] LABS: Absolute Neutrophil Count 6.3 X10^3/uL (2.0-7.7); Basophil# 0.04 X10^3/uL; Basophil% 0.4 % (0-1); Eosinophil# 0.32 X10^3/uL; Eosinophils% 3.4 % (0-5); Hematocrit 37.5 % (37-47); Hemoglobin 11.6 g/dL (12.0-15.0); Lymphocyte % 16.9 % (19-41); Mean Corp Hgb Conc 30.9 g/dL (32-36); Mean Corpuscular Hgb 29.9 pg (27.0-32.0); Mean Corpuscular Volume 96.6 fL (81-99); Mean Platelet Vol. 10.9 fl (6.2-12.0); Monocyte# 1.11 X10^3/uL; Monocyte% 11.8 % (0-10); NRBC Flagged by Analyzer 0 % (0-5); Neutrophil # 6.33 X10^3/uL (2.7-7.7); Neutrophil % 67.1 % (47-70); Platelet Count 209 K/mm3 (150-450); RBC Distribution Width SD 42.6 fl (35.1-43.9); Red Blood Count 3.88 M/mm3 (4.2-5.4); White Blood Count 9.4 K/mm3 (4.4-11.0)
[2022-05-01 09:35] LABS: Anion Gap 5 (5-15); BUN 17 mg/dL (7-18); BUN/Creat Ratio 27.3 RATIO (10-20); Calcium,Total 9.7 mg/dL (8.5-10.1); Chloride 104 mmol/L (98-107); Creatinine, Serum 0.62 mg/dL (0.55-1.02); EST Glomerular Filtration Rate 97 mL/min (>60); Est Glom Filt Rate - Afr Amer 118 mL/min (>60); Glucose 113 mg/dL (74-106); Potassium 3.8 mmol/L (3.5-5.1); Sodium Level 141 mmol/L (136-145); Troponin-I HS (w/2H Reflex) 8 pg/mL (3.0-54.0)
[2022-05-01 10:00] VITALS: PULSE 96; RESP 22; O2SAT 95
[2022-05-01 10:07] LABS: Bacteria 0 SEEN /hpf (None Seen); Mucous, Urine 0 SEEN /hpf (<or=2+); Red Blood Cells-Urine 0 SEEN /hpf (0-5); Squamous Epithelial Cells - UA 0 SEEN /hpf (5-10); White Blood Cells 0 SEEN /hpf (0-5)
[2022-05-01 10:11] LABS: Color, Urine Straw (Yellow); Glucose, Dipstick Normal (Normal); Ketone-Dipstick Negative (Negative); Leukocyte Esterase-Dipstick Negative /ul (Negative); Nitrite-Dipstick Negative (Negative); Occult Blood-Urine 50 /ul (Negative); Protein-Dipstick Negative (Negative); Specific Gravity, Urine 1.005 (1.002-1.030); Urine Bilirubin Dipstick Negative (Negative); Urine Clarity Clear (Clear); Urine Urobilinogen Normal (Normal)
[2022-05-01] MEDS: Acetaminophen 325 MG Tablet 650 MG PO (11:00)
--- NOTE | 2022-05-01 11:13 | RAD_ITS ---
STUDY: X-RAY - LUMBAR SPINE REASON FOR EXAM: Female, 81 years old. Atraumatic pain TECHNIQUE: 3 view(s) of the lumbar spine were obtained. COMPARISON: Comparison is made with prior study dated 09/19/2020. FINDINGS: Normal lumbar lordosis. There is a minimal levoscoliosis of the lumbar spine. There is a normal alignment of the vertebrae. There is generalized demineralization of the vertebral bodies. Disc space narrowing at the L5-S1 level. Prior vertebroplasty of the L1 vertebrae. 50% loss of height of the superior endplate of the L2 vertebrae. This has progressed slightly as compared to prior study. There is atherosclerotic calcification of the abdominal aorta without a demonstrated aneurysm. RAD/Lumbar Spine 2 or 3 Views IMPRESSION: Degenerative changes of the spine, as detailed above. Slight progression in the loss of height of the superior endplate of the L2 vertebrae. Prior vertebroplasty of the L1 vertebra. Electronically Signed: Uday Mills MD at 11:56 EST ,
[2022-05-01 11:15] LABS: Reflex Troponin-HS? (from REC) Y
== END 2022-05-01 11:54 | disposition home or self-care (01) ==
PROVIDERS: Emergency Provider Emergency Medicine; PCP Internal Medicine; Visit Provider Emergency Medicine
DX: R53.1 Weakness (principal); J44.9 Chronic obstructive pulmonary disease, unspecified; D64.9 Anemia, unspecified; M54.9 Dorsalgia, unspecified; R00.2 Palpitations; G89.29 Other chronic pain; Z87.891 Personal history of nicotine dependence; I25.10 Atherosclerotic heart disease of native coronary artery without angina pectoris
CPT/HCPCS: 71045; 72100; 80048; 81001; 84484; 85025; 87428; 93005; 99285

== ENCOUNTER 2022-05-08 07:23 | Emergency (ER) | payer SELFPAY ==
[2022-05-08 07:25] VITALS: BP 167/95; PULSE 68; RESP 18; TEMP 36.6; O2SAT 94; BMI 24.1
--- NOTE | 2022-05-08 07:33 | EKG12_ITS ---
Test Reason : NAUSEA Blood Pressure : / mmHG Vent. Rate : 073 BPM Atrial Rate : 073 BPM P-R Int : 138 ms QRS Dur : 110 ms QT Int : 420 ms P-R-T Axes : 073 058 017 degrees QTc Int : 462 ms Sinus rhythm with sinus arrhythmia with occasional Premature ventricular complexes Right bundle branch block Abnormal ECG Confirmed by ROBERT MARTINEZ, JAIDA ([id number]), mapping editor NOA MUNGUIA ([id number]) on 05/13/2022 12:14:44 PM Referred By: Confirmed By:JAIDA JONES MD
--- NOTE | 2022-05-08 07:34 | EDS_ITS ---
HPI History of Present Illness Chief Complaint: Nausea/Vomiting Detail of Chief Complaint: Nausea and vomiting Informant: patient Narrative Narrative: Patient presents with nausea and vomiting that started this morning. Patient states she woke up and felt nauseated and vomited x1 small amount. She still feels somewhat nauseated. Patient states she went to bed feeling fine. She denies sick contacts. She denies recent illness. Patient denies chest pain or shortness of breath. She denies dysuria, urgency, or frequency. Patient denies abdominal pain. Patient called EMS who brought her to the ER for evaluation. [facility] Medical History Abnormal thyroid function test Anemia Atherosclerosis of [place] coronary artery of [place] heart without angina pectoris Back pain CAD (coronary artery disease) Compression fracture COPD (chronic obstructive pulmonary disease) Fatigue Former smoker GERD (gastroesophageal reflux disease) On home oxygen therapy Screening for thyroid disorder STEMI (ST elevation myocardial infarction) (07/18/19) Tobacco dependence Vitamin D deficiency Home Medications aspirin 81 mg chewable tablet 81 mg PO DAILYCM HEALTH MAINTENANCE 03/10/20 [History Last Taken 09/14/20] acetaminophen 500 mg tablet 1,000 mg PO TID PRN PRN Pain 09/14/20 [History Last Taken 09/14/20] nebulizers #1 ea 10/17/20 [Rx Last Taken Unknown] atorvastatin 40 mg tablet See Rx Instructions .Route .COMPLEX #90 TABLETS 04/13/21 [Rx Last Taken Unknown] clopidogrel 75 mg tablet See Rx Instructions .Route .COMPLEX #90 TABLETS 04/13/21 [Rx Last Taken Unknown] cholecalciferol (vitamin D3) 125 mcg (5,000 unit) capsule 125 mcg PO DAILY 12/14/21 [History Last Taken Unknown] vit C 250 mg-vit E 90 mg-zinc 40 mg-copper 1 [id number] capsule (PreserVision AREDS-2) 1 tab PO BID 12/14/21 [History Last Taken Unknown] citalopram 10 mg tablet 5 mg PO DAILY #90 tabs 12/19/21 [Rx Last Taken Unknown] carvedilol 3.125 mg tablet 3.125 mg PO BID HEART #180 tabs 01/28/22 [Rx Last Taken Unknown] albuterol sulfate 1.25 mg/3 mL solution for nebulization 1.25 mg (3 mL) inhalation Q6H PRN shortness of breath or wheezing #90 mL 02/06/22 [Rx Last Taken Unknown] ondansetron 4 mg disintegrating tablet 4 mg PO Q8H PRN PRN Nausea #10 tabs 05/08/22 [Rx Last Taken Unknown] Allergy/AdvReac Type Severity Reaction Status Date / Time No Known Allergies Allergy Verified 05/08/22 07:28 Family History Sister No problems noted. Son hole in his heart Grandmother Cancer Father Cancer Grandfather Cancer Surgical History H/O: hysterectomy History of appendectomy Stented coronary artery Social History household members: children housing: apartment number of children: 3 Smoking Status: Former smoker quit date: 07/18/19 Tobacco: How many years used: 50 alcohol intake: never substance use type: does not use what type of physical activity do you participate in: none ROS ROS ED Review of Systems ROS Unobtainable: other Constitutional Constitutional ED: Reports lethargy; Denies chills, fever(s), sweats or weight loss Eyes Eyes: Denies blurry vision, change in vision or diplopia ENT ENT ED: Denies rhinorrhea or sore throat Cardiovascular Cardiovascular: Denies chest pain, orthopnea or racing heartbeat Respiratory/Chest Respiratory/Chest: Denies cough, dyspnea, dyspnea on exertion, orthopnea or sputum Gastrointestinal Gastrointestinal: Reports nausea and vomiting; Denies abdominal pain or diarrhea Genitourinary Genitourinary ED: Denies dysuria, hematuria or urinary frequency Musculoskeletal Musculoskeletal: Denies arthralgias, back pain, myalgias or neck pain Integumentary Denies abscess, Abrasions or rash Neurologic Neurologic: Denies headache(s) or weakness Psychiatric Psychiatric: Denies anxiety, depression or suicidal thoughts Endocrine Endocrinology: Denies polydipsia, polyphagia or polyuria Hematologic/Lymphatic Hematologic/Lymphatic: Denies easy bleeding, easy bruising or lymphadenopathy Allergic/Immunologic Allergic/Immunologic ED: Denies mouth swelling, tongue swelling or urticaria EXAM Physical Exam Const Vital Signs: 05/08/22 07:25 05/08/22 08:21 Temperature 97.9 F Temperature Source Temporal Pulse Rate 68 Respiratory Rate 18 Blood Pressure 167/95 H Blood Pressure Mean 119 Pulse Ox 94 Oxygen Delivery Method Nasal Cannula Nasal Cannula Oxygen Flow Rate (L/min) 4 4 Positive well nourished and well developed General Appearance ED: well developed and NAD HEENT Reports TM's clear and moist mucous membranes normocephalic and atraumatic; Negative for trauma or tenderness Tympanic Membrane ED: Yes TM's clear Eyes PERRL and EOMs intact bilaterally General Eye ED: Negative for pale conjunctiva or scleral icterus Neck no lymphadenopathy, supple and no JVD General: Negative for tenderness Chest Wall inspection of chest normal and palpation of chest normal Chest: Negative for tenderness Resp normal respiratory effort and clear to auscultation bilaterally Effort and Inspection: Negative for respiratory distress or pain with movement Auscultation: Negative for rhonchi, wheezes or diminished lung sounds Cardio regular rate, regular rhythm, S1 normal heart sound, S2 normal heart sound and no murmurs Peripheral Pulses: pulses 2+ throughout GI normal to inspection, nondistended, normoactive bowel sounds, soft to palpation, non-tender, non-distended and no masses Back/Spine no CVA tenderness and no thoracic nor lumbar tenderness Extremity normal to inspection General Extremety ED: Negative for edema General Extremity: Negative for edema Neuro oriented x3, CN's II-XII intact bilaterally, no sensory deficits noted and gait normal Sensorium / Orientation: awake, alert, oriented to person, oriented to place and oriented to time Motor Exam: strength 5/5 throughout and strength abnormal Psych mental status grossly normal Skin no rashes or lesions noted and no wounds MDM MDM MDM Narrative Medical decision making narrative: Urine andIV line established on arrival. Patient will be given Zofran 4 mg IV and normal saline. Past medical records reviewed as patient was seen in the emergency department on May 01 for complaint of generalized weakness and had work-up including lab work-up as well as negative COVID and flu testing, negative chest x-ray, negative urine. Lab work-up in the emergency department today is unremarkable. EKG is unremarkable. Troponin was normal. In the differential for her nausea I did entertain cardiac etiology versus viral etiology versus UTI versus GERD. Alysis was normal. Clinically I do not feel she is having acute coronary syndrome. I did give her a repeat dose of Zofran as she started complaining of nausea again. Repeat examination at 942 reveals that she has no abdominal tenderness. Do not feel imaging is indicated. Rohit hooks tells me her last bowel movement was a couple of days ago and clinically I do not feel she has a bowel obstruction. Patient will be given a prescription for Zofran and advised to follow-up with her primary care physician within next 3 to 5 days. She is to return if abdominal pain, persistent vomiting, or condition should worsen anyway Lab Data Attestation: I reviewed the patient's lab results. Labs: Laboratory Results - last 24 hr 05/08/22 05/08/22 05/08/22 07:30 07:30 09:15 WBC 9.5 RBC 3.69 L Hgb 10.9 L Hct 35.1 L MCV 95.1 MCH 29.5 MCHC 31.1 L RDW Std Deviation 40.0 RDW Coeff of Melisa 11.6 Plt Count 248 MPV 10.2 Immature Gran % (Auto) 0.500 Neut % (Auto) 70.8 H Lymph % (Auto) 14.8 L [place] % (Auto) 9.0 Eos % (Auto) 4.2 Baso % (Auto) 0.7 Absolute Neuts (auto) 6.7 Absolute Lymphs (auto) 1.40 Nucleated RBC % 0 Sodium 141 Potassium 3.8 Chloride 106 Carbon Dioxide 31.0 Anion Gap 4 L BUN 20 H Creatinine 0.56 Estim Creat Clear Calc 34.30 Est GFR (MDRD) Af Amer 133 Est GFR (MDRD) Non-Af 110 BUN/Creatinine Ratio 35.6 H Glucose 118 H Calcium 9.8 Total Bilirubin 0.40 AST 16 ALT 13 Alkaline Phosphatase 95 Troponin I High Sens 7 Total Protein 7.2 Albumin 3.5 Globulin 3.7 Albumin/Globulin Ratio 0.9 Lipase 245 Urine Color Yellow Urine Clarity Clear Urine pH 6.5 Ur Specific [place] 1.015 Urine Protein 15 H Urine Glucose (UA) Normal Urine Ketones Negative Urine Occult Blood 150 H Urine Nitrite Negative Urine Bilirubin Negative Urine Urobilinogen Normal Ur Leukocyte Esterase 25 H Urine RBC 5-10 SEEN Urine WBC 0-5 SEEN Ur Squamous Epith Cells 0-5 SEEN Urine Bacteria 0 SEEN Urine Mucus 0 SEEN EKG Initial EKG: Attestation: I personally reviewed and interpreted this EKG as follows: Comments: Normal sinus rhythm with a ventricular rate of 73 bpm with occasional PVCs and right bundle branch block Prior EKG tracings: available for review Prior: Unchanged Discharge Plan Triage Chief Complaint: Nausea/Vomiting ED Provider: Ines Tim Dx/Rx/DC Orders Clinical Impression: Nausea & vomiting Instructions: ED Vomiting (Adult) Prescriptions: New ondansetron [ondansetron] 4 mg tablet,disintegrating 4 mg PO Q8H PRN PRN (Reason: Nausea) Qty: 10 0RF No Action atorvastatin 40 mg tablet See Rx Instructions .ROUTE .COMPLEX Qty: 90 3RF Dose Instruction: TAKE 1 TABLET BY MOUTH AT BEDTIME Rx Instructions: TAKE 1 TABLET BY MOUTH AT BEDTIME clopidogrel 75 mg tablet See Rx Instructions .ROUTE .COMPLEX Qty: 90 3RF Dose Instruction: TAKE 1 TABLET BY MOUTH DAILY Rx Instructions: TAKE 1 TABLET BY MOUTH DAILY PreserVision AREDS-2 250-90-40-1 mg capsule 1 tab PO BID cholecalciferol (vitamin D3) 125 mcg (5,000 unit) capsule 125 mcg PO DAILY Label Comments: TAKE 1 CAPSULE BY MOUTH DAILY aspirin 81 MG tablet,chewable 81 mg PO DAILYCM acetaminophen 500 MG tablet 1,000 mg PO TID PRN PRN (Reason: Pain) (DME) nebulizers Misc See Rx Instructions .ROUTE .MEDSUPPLY Qty: 1 0RF Rx Instructions: As directed citalopram 10 mg tablet 5 mg PO DAILY Qty: 90 1RF carvedilol 3.125 mg tablet 3.125 mg PO BID Qty: 180 3RF albuterol sulfate 1.25 mg/3 mL solution for nebulization 1.25 mg inhalation Q6H PRN (Reason: shortness of breath or wheezing) Qty: 90 1RF Primary Care Provider: Constanza Streeter Referrals: Constanza Streeter MD [Primary Care Provider] - 3-5 Days Disposition Disposition: Home, Self Care
[2022-05-08] MEDS: Ondansetron 4 MG/2 ML Vial IV ×2 (07:40→09:47)
[2022-05-08] MEDS: 0.9% Normal Saline 1,000 ML 125 ML IV (07:40)
[2022-05-08 07:42] LABS: Absolute Neutrophil Count 6.7 X10^3/uL (2.0-7.7); Basophil# 0.07 X10^3/uL; Basophil% 0.7 % (0-1); Eosinophils% 4.2 % (0-5); Hematocrit 35.1 % (37-47); Hemoglobin 10.9 g/dL (12.0-15.0); Lymphocyte % 14.8 % (19-41); Mean Corp Hgb Conc 31.1 g/dL (32-36); Mean Corpuscular Hgb 29.5 pg (27.0-32.0); Mean Corpuscular Volume 95.1 fL (81-99); Mean Platelet Vol. 10.2 fl (6.2-12.0); Monocyte# 0.85 X10^3/uL; NRBC Flagged by Analyzer 0 % (0-5); Neutrophil # 6.71 X10^3/uL (2.7-7.7); Neutrophil % 70.8 % (47-70); Platelet Count 248 K/mm3 (150-450); RBC Distribution Width CV 11.6 % (11.6-14.6); Red Blood Count 3.69 M/mm3 (4.2-5.4); White Blood Count 9.5 K/mm3 (4.4-11.0)
[2022-05-08 08:00] LABS: ALB/GLOB Ratio 0.9 RATIO (0.9-2.4); AST(SGOT) 16 U/L (15-37); Alanine Aminotransfer ALT/SGPT 13 U/L (13-56); Albumin, Serum 3.5 g/dL (3.2-5.0); Alkaline Phosphatase 95 U/L (45-117); Anion Gap 4 (5-15); BUN 20 mg/dL (7-18); BUN/Creat Ratio 35.6 RATIO (10-20); Calcium,Total 9.8 mg/dL (8.5-10.1); Chloride 106 mmol/L (98-107); Creatinine, Serum 0.56 mg/dL (0.55-1.02); EST Glomerular Filtration Rate 110 mL/min (>60); Est Glom Filt Rate - Afr Amer 133 mL/min (>60); Globulin 3.7 g/dL (2.2-4.2); Glucose 118 mg/dL (74-106); Lipase 245 U/L (73-393); Potassium 3.8 mmol/L (3.5-5.1); Protein, Total 7.2 g/dL (6.4-8.2); Sodium Level 141 mmol/L (136-145); Troponin-I HS 7 pg/mL (3.0-54.0)
[2022-05-08 09:22] LABS: Bacteria 0 SEEN /hpf (None Seen); Mucous, Urine 0 SEEN /hpf (<or=2+)
[2022-05-08 09:24] LABS: Color, Urine Yellow (Yellow); Glucose, Dipstick Normal (Normal); Ketone-Dipstick Negative (Negative); Leukocyte Esterase-Dipstick 25 /ul (Negative); Nitrite-Dipstick Negative (Negative); Occult Blood-Urine 150 /ul (Negative); Protein-Dipstick 15 mg/dl (Negative); Specific Gravity, Urine 1.015 (1.002-1.030); Urine Bilirubin Dipstick Negative (Negative); Urine Clarity Clear (Clear); Urine Urobilinogen Normal (Normal); Urine pH 6.5 (5.0 - 8.0)
[2022-05-08 09:35] LABS: Red Blood Cells-Urine 5-10 SEEN /hpf (0-5); Squamous Epithelial Cells - UA 0-5 SEEN /hpf (5-10); White Blood Cells 0-5 SEEN /hpf (0-5)
[2022-05-08 09:51] VITALS: BP 184/80; PULSE 81; RESP 18; O2SAT 99
== END 2022-05-08 10:16 | disposition home or self-care (01) ==
PROVIDERS: Emergency Provider Emergency Medicine; PCP Internal Medicine; Visit Provider Emergency Medicine
DX: R11.2 Nausea with vomiting, unspecified (principal); J44.9 Chronic obstructive pulmonary disease, unspecified; Z87.891 Personal history of nicotine dependence; I25.10 Atherosclerotic heart disease of native coronary artery without angina pectoris; Z20.822 Contact with and (suspected) exposure to COVID-19
CPT/HCPCS: 80053; 81001; 83690; 84484; 85025; 93005; 96361; 96374; 96376; 99284; J7030; A4216; J2405

== ENCOUNTER 2022-05-28 15:37 | Emergency (ER) | payer MEDICARE, SELFPAY ==
[2022-05-28 15:44] VITALS: BP 121/67; PULSE 94; RESP 18; TEMP 36.8; O2SAT 98; BMI 23.8
[2022-05-28 16:06] VITALS: BP 135/98; PULSE 89; RESP 18; O2SAT 99
--- NOTE | 2022-05-28 16:14 | EKG12_ITS ---
Test Reason : SOB Blood Pressure : / mmHG Vent. Rate : 083 BPM Atrial Rate : 083 BPM P-R Int : 136 ms QRS Dur : 102 ms QT Int : 392 ms P-R-T Axes : 070 040 014 degrees QTc Int : 460 ms Normal sinus rhythm Low voltage QRS Incomplete right bundle branch block Borderline ECG Confirmed by ROBERT MARTINEZ, JAIDA ([id number]), video news editor JADEN ROBB ([id number]) on 05/29/2022 2:03:57 PM Referred By: Confirmed By:JIADA JONES MD
--- NOTE | 2022-05-28 16:17 | EDS_ITS ---
HPI History of Present Illness Chief Complaint: Shortness of Breath Detail of Chief Complaint: Chronic shortness of breath that apparently was worse yesterday and today Informant: patient, family and other (Visiting nurse believes patient should have cardiac work-up because she has had prior cardiac surgery) Onset/Context/Timing Onset: Yesterday Context: unknown Timing: Continuous, Intermittent, Lasts and Waxes and wanes Quality: Positive for Dyspnea on exertion, Orthopnea (Chronic two-pillow orthopnea) and Wheezing; Negative for PND Current Severity: Mild Maximum Severity: Severe Worsened by: Exertion; Not Worsened By Lying flat or Coughing Relieved by: Nothing Associated Symptoms cough and rhinorrhea; Negative for post nasal drip, ear pain, fever, sore throat, subjective, chills, sweats, clear sputum, white sputum, yellow sputum or green sputum Chest Pain: Positive for None Narrative Narrative: Patient is an 81-year-old woman with history of COPD on oxygen by nasal cannula at 4 L who presents because of shortness of breath that got worse over the past 48 hours. There is no history of PE or DVT. She denies chest discomfort. She has stable two-pillow orthopnea. She does not see a automatic developer. She is very hard of hearing and is a poor informant. She denies fever, chills night sweats. She states she has a chronic nasal drainage. She denies congestion, sore throat. She denies ear pain. She does have a nonproductive cough. She denies history of leg pain, swelling discoloration. She denies history of VTE. She denies black or maroon-colored stool. She denies nausea, vomiting or abdominal pain. She denies urologic symptoms. PE Risk Factors: Negative for Cancer, OCP + Smoking + > 35, Prior DVT or PE, Recent immobilization, Recent surgery or Recent travel Prior similar symptoms: Yes Recent Illness/Hospitalization: No PFSH PFSH Medical History Abnormal thyroid function test Anemia Atherosclerosis of [place] coronary artery of [place] heart without angina pectoris Back pain CAD (coronary artery disease) Compression fracture COPD (chronic obstructive pulmonary disease) Fatigue Former smoker GERD (gastroesophageal reflux disease) On home oxygen therapy Screening for thyroid disorder STEMI (ST elevation myocardial infarction) (07/18/19) Tobacco dependence Vitamin D deficiency Home Medications aspirin 81 mg chewable tablet 81 mg PO DAILYCM HEALTH MAINTENANCE 03/10/20 [History Last Taken 09/14/20] acetaminophen 500 mg tablet 1,000 mg PO TID PRN PRN Pain 09/14/20 [History Last Taken 09/14/20] nebulizers #1 ea 10/17/20 [Rx Last Taken Unknown] atorvastatin 40 mg tablet See Rx Instructions .Route .COMPLEX #90 TABLETS 04/13/21 [Rx Last Taken Unknown] cholecalciferol (vitamin D3) 125 mcg (5,000 unit) capsule 125 mcg PO DAILY 12/14/21 [History Last Taken Unknown] vit C 250 mg-vit E 90 mg-zinc 40 mg-copper 1 [id number] capsule (PreserVision AREDS-2) 1 tab PO BID 12/14/21 [History Last Taken Unknown] citalopram 10 mg tablet 5 mg PO DAILY #90 tabs 12/19/21 [Rx Last Taken Unknown] carvedilol 3.125 mg tablet 3.125 mg PO BID HEART #180 tabs 01/28/22 [Rx Last Taken Unknown] ondansetron 4 mg disintegrating tablet 4 mg PO Q8H PRN PRN Nausea #10 tabs 05/08/22 [Rx Last Taken Unknown] albuterol sulfate 1.25 mg/3 mL solution for nebulization 1.25 mg (3 mL) inhalation Q6H PRN shortness of breath or wheezing #90 mL 05/14/22 [Rx Last Taken Unknown] clopidogrel 75 mg tablet See Rx Instructions .Route .COMPLEX #90 TABLETS 05/14/22 [Rx Last Taken Unknown] prednisone 20 mg tablet 60 mg PO DAILY #12 TABLETS 05/28/22 [Rx Last Taken Unknown] Allergy/AdvReac Type Severity Reaction Status Date / Time No Known Allergies Allergy Verified 05/28/22 15:43 Family History Sister No problems noted. Son hole in his heart Grandmother Cancer Father Cancer Grandfather Cancer Surgical History H/O: hysterectomy History of appendectomy Stented coronary artery Social History household members: children housing: apartment number of children: 3 Smoking Status: Former smoker quit date: 07/18/19 Tobacco: How many years used: 50 alcohol intake: never substance use type: does not use what type of physical activity do you participate in: none ROS ROS ED Constitutional Constitutional ED: Denies chills, fever(s), sweats or weight loss Eyes Eyes: Denies blurry vision, change in vision or diplopia ENT ENT ED: Denies ear pain, rhinorrhea or sore throat Cardiovascular Cardiovascular: Denies chest pain, orthopnea, palpitations, paroxysmal nocturnal dyspnea or racing heartbeat Respiratory/Chest Respiratory/Chest: Reports cough, dyspnea and dyspnea on exertion; Denies orthopnea, paroxysmal nocturnal dyspnea or sputum Gastrointestinal Gastrointestinal: Denies abdominal pain, constipation, diarrhea, melena, nausea or vomiting Genitourinary Genitourinary ED: Denies dysuria, hematuria or urinary frequency Musculoskeletal Musculoskeletal: Denies arthralgias, back pain, myalgias or neck pain Integumentary Denies abscess, Abrasions or rash Neurologic Neurologic: Denies headache(s), paresthesias or weakness Psychiatric Psychiatric: Denies anxiety or depression Endocrine Endocrinology: Denies cold intolerance or heat intolerance Hematologic/Lymphatic Hematologic/Lymphatic: Denies easy bleeding or easy bruising EXAM Physical Exam Const Vital Signs: 05/28/22 15:44 05/28/22 16:06 05/28/22 16:06 Temperature 98.2 F Temperature Source Temporal Pulse Rate 94 89 Respiratory Rate 18 18 Respiratory Effort Short of Breath Respiratory Depth Normal Respiratory Pattern Normal Blood Pressure 121/67 H 135/98 H Blood Pressure Mean 85 110 Pulse Ox 98 99 Oxygen Delivery Method Nasal Cannula Nasal Cannula Nasal Cannula Oxygen Flow Rate (L/min) 4 4 05/28/22 16:27 05/28/22 16:27 Temperature Temperature Source Pulse Rate 82 Respiratory Rate 16 15 Respiratory Effort Respiratory Depth Deep Respiratory Pattern Normal Normal Blood Pressure Blood Pressure Mean Pulse Ox 97 Oxygen Delivery Method Nasal Cannula Oxygen Flow Rate (L/min) 3 Positive well developed and cachectic Constitutional Narrative: Patient is slightly tachypneic at rest. There is no labored breathing. General Appearance ED: well developed and cachectic; Negative for pallor Nutritional Appearance: cachectic HEENT Reports moist mucous membranes HEENT Narrative: Head is atraumatic normocephalic. Ears normal. TMs normal. Nares patent. Posterior pharynx out erythema or exudate. Uvula midline. Eyes PERRL and EOMs intact bilaterally General Eye ED: Negative for pale conjunctiva or scleral icterus Neck no lymphadenopathy, supple, no meningeal signs and no JVD Resp normal respiratory effort and No clear to auscultation bilaterally Resp Narrative: Patient has end inspiratory rales. There is no egophony or increased vocal fremitus. There is expiratory wheezing with increased expiratory phase greater on left than right. Cardio regular rate, regular rhythm, S1 normal heart sound, S2 normal heart sound and no murmurs GI non-tender, non-distended and no masses Auscultation: normoactive bowel sounds Palpation: soft Back/Spine no CVA tenderness and normal to inspection Extremity normal to inspection Extremity Narrative: There is no asymmetry, swelling, discoloration, leg vein distention, palpable cords or tenderness along the distribution of the deep venous system. General Extremety ED: Negative for edema or tenderness General Extremity: Negative for edema Neuro oriented x3, CN's II-XII intact bilaterally and no sensory deficits noted [place] Coma Scale: document GCS findings Spontaneous Obeys Commands Oriented 15 Sensorium / Orientation: alert Psych Attitude: agitated Skin no wounds and No skin turgor normal General Skin Exam: Negative for jaundice or pallor Lesions: no lesions Rashes: no rashes MDM MDM MDM Narrative Medical decision making narrative: Patient's history and physicals consistent with exacerbation COPD. Because auscultatory findings are asymmetrical obtain chest x-ray to evaluate for pneumonia. CBC to rule out anemia since she appears pale and to assess white count. BMP to assess renal function. Patient was treated with DuoNeb followed by albuterol. She also received prednisone. Since she has a chronic cough and his cough is nonproductive antibiotics were not ordered. If there is an infiltrate on x-ray will treat with antibiotics. Review of prior records indicates patient has history of multiple compression fractures after fall. This was several years ago. Also reviewed cardiac rehab notes from July 15. Patient was doing well. She was in cardiac rehab because she had a non-STEMI. Patient reports compliance with meds. They were reviewed. Patient was reassessed at 1850. She states her breathing is better. She no longer has wheezing. With a normal chest x-ray normal white count and nonproductive cough she was discharged with burst of prednisone. She is to follow-up with her primary surgeon. Lab Data Attestation: I reviewed the patient's lab results. Lab results narrative: CBC reveals chronic anemia. Basic metabolic panel is unremarkable. Blood sugar slight elevated 120. BUN to creatinine ratio is elevated 35-1. Labs: Laboratory Results - last 24 hr 05/28/22 05/28/22 17:08 17:08 WBC 9.1 RBC 3.73 L Hgb 10.7 L Hct 35.8 L MCV 96.0 MCH 28.7 MCHC 29.9 L RDW Std Deviation 41.0 RDW Coeff of Melisa 11.7 Plt Count 249 MPV 10.7 Immature Gran % (Auto) 0.200 Neut % (Auto) 53.1 Lymph % (Auto) 21.8 [place] % (Auto) 11.9 H Eos % (Auto) 12.6 H Baso % (Auto) 0.4 Absolute Neuts (auto) 4.8 Absolute Lymphs (auto) 1.98 Nucleated RBC % 0 Sodium 144 Potassium 4.0 Chloride 107 Carbon Dioxide 32.0 Anion Gap 5 BUN 31 H Creatinine 0.87 Estim Creat Clear Calc 39.43 Est GFR (MDRD) Af Amer 80 Est GFR (MDRD) Non-Af 66 BUN/Creatinine Ratio 35.6 H Glucose 120 H Calcium 9.8 Radiography Chest X-Ray - ED: 2 View and Read by ED Physician (Chronic changes with slight hyperaeration. Cardiac silhouette and size unremarkable. Perihilar region unremarkable. Osseous structures are unremarkable. This was compared to prior x-ray.) Diagnostic Testing: Clinical Impression(s) from Imaging Studies Chest X-Ray 05/28/22 17:38 IMPRESSION: No acute findings in the chest. Electronically Signed: Bertin Mckoy MD at 17:53 EST , Rhythm Strip Rhythm Strip: Sinus Rhythm Rate: 89 Ectopy: None EKG Initial EKG: Attestation: I personally reviewed and interpreted this EKG as follows: Interpretation: Sinus Rhythm (Sinus rhythm with a ventricular rate of 83. There is low voltage. IN intervals 136 ms. QS duration 102 ms. Patient has an RR prime in V1 and V2 and may represent an incomplete right bundle fiona block. QRS durations are 92 ms. Mckinney is normal.) Discharge Plan Triage Chief Complaint: Shortness of Breath ED Provider: Houston Grossman Dx/Rx/DC Orders Clinical Impression: Acute exacerbation of chronic obstructive pulmonary disease, Hypertension, Hyperlipidemia, Acute bronchospasm, O2 dependent, History of coronary artery disease Instructions: ED COPD Flare Prescriptions: New prednisone 20 mg tablet 60 mg PO DAILY Qty: 12 0RF No Action atorvastatin 40 mg tablet See Rx Instructions .ROUTE .COMPLEX Qty: 90 3RF Dose Instruction: TAKE 1 TABLET BY MOUTH AT BEDTIME Rx Instructions: TAKE 1 TABLET BY MOUTH AT BEDTIME PreserVision AREDS-2 250-90-40-1 mg capsule 1 tab PO BID cholecalciferol (vitamin D3) 125 mcg (5,000 unit) capsule 125 mcg PO DAILY Label Comments: TAKE 1 CAPSULE BY MOUTH DAILY aspirin 81 MG tablet,chewable 81 mg PO DAILYCM acetaminophen 500 MG tablet 1,000 mg PO TID PRN PRN (Reason: Pain) ondansetron [ondansetron] 4 mg tablet,disintegrating 4 mg PO Q8H PRN PRN (Reason: Nausea) Qty: 10 0RF (DME) nebulizers Misc See Rx Instructions .ROUTE .MEDSUPPLY Qty: 1 0RF Rx Instructions: As directed citalopram 10 mg tablet 5 mg PO DAILY Qty: 90 1RF carvedilol 3.125 mg tablet 3.125 mg PO BID Qty: 180 3RF clopidogrel 75 mg tablet See Rx Instructions .ROUTE .COMPLEX Qty: 90 3RF Dose Instruction: TAKE 1 TABLET BY MOUTH DAILY Rx Instructions: TAKE 1 TABLET BY MOUTH DAILY albuterol sulfate 1.25 mg/3 mL solution for nebulization 1.25 mg inhalation Q6H PRN (Reason: shortness of breath or wheezing) Qty: 90 1RF Primary Care Provider: Constanza Streeter Referrals: Constanza Streeter MD [Primary Care Provider] - Disposition Disposition: Home, Self Care
[2022-05-28] MEDS: Albuterol 2.5 MG/3 ML VIAL.NEB. INHALATION ×3 (16:26)
[2022-05-28] MEDS: Ipratropium/Albuterol Sulfate 3 ML AMPUL.NEB INHALATION (16:26)
[2022-05-28 16:27] VITALS: PULSE 82; RESP 15; RESP 16; O2SAT 97
[2022-05-28 17:19] LABS: Absolute Lymphocyte Count 1.98 X10^3/uL (0.83-4.51); Absolute Neutrophil Count 4.8 X10^3/uL (2.0-7.7); Basophil# 0.04 X10^3/uL; Basophil% 0.4 % (0-1); Eosinophil# 1.14 X10^3/uL; Eosinophils% 12.6 % (0-5); Hematocrit 35.8 % (37-47); Hemoglobin 10.7 g/dL (12.0-15.0); Lymphocyte # 1.98 X10^3/ul (0.83-4.51); Lymphocyte % 21.8 % (19-41); Mean Corp Hgb Conc 29.9 g/dL (32-36); Mean Corpuscular Hgb 28.7 pg (27.0-32.0); Mean Platelet Vol. 10.7 fl (6.2-12.0); Monocyte# 1.08 X10^3/uL; Monocyte% 11.9 % (0-10); NRBC Flagged by Analyzer 0 % (0-5); Neutrophil # 4.82 X10^3/uL (2.7-7.7); Neutrophil % 53.1 % (47-70); Platelet Count 249 K/mm3 (150-450); RBC Distribution Width CV 11.7 % (11.6-14.6); Red Blood Count 3.73 M/mm3 (4.2-5.4); White Blood Count 9.1 K/mm3 (4.4-11.0)
[2022-05-28] MEDS: predniSONE 20 MG Tablet 60 MG PO (17:26)
[2022-05-28 17:33] LABS: Anion Gap 5 (5-15); BUN 31 mg/dL (7-18); BUN/Creat Ratio 35.6 RATIO (10-20); Calcium,Total 9.8 mg/dL (8.5-10.1); Chloride 107 mmol/L (98-107); Creatinine, Serum 0.87 mg/dL (0.55-1.02); EST Glomerular Filtration Rate 66 mL/min (>60); Est Glom Filt Rate - Afr Amer 80 mL/min (>60); Estimated Creatinine Clearance 39.43 ml/min; Glucose 120 mg/dL (74-106); Sodium Level 144 mmol/L (136-145)
--- NOTE | 2022-05-28 17:38 | RAD_ITS ---
EXAM: XR CHEST, 2 VIEWS CLINICAL INDICATION: Dyspnea, cough, wheezing Hx COPD TECHNIQUE: Frontal and lateral views of the chest. This report was created using [employer] report generation technology. COMPARISON: 05.01.22 FINDINGS: LUNGS AND PLEURAL SPACES: Unremarkable. No consolidation or edema. No pneumothorax. No effusion. HEART: Unremarkable. Cardiac silhouette not enlarged. MEDIASTINUM: Hiatal hernia. BONES/JOINTS: Kyphoplasty changes. SOFT TISSUES: Unremarkable. RAD/Chest PA and Lateral IMPRESSION: No acute findings in the chest. Electronically Signed: Bertin Mckoy MD at 17:53 EST ,
[2022-05-28 18:00] VITALS: BP 139/76; PULSE 88; RESP 20; O2SAT 97
[2022-05-28 19:00] VITALS: BP 134/78; PULSE 66; RESP 18; TEMP 37.1; O2SAT 97
== END 2022-05-28 19:09 | disposition home or self-care (01) ==
PROVIDERS: Emergency Provider Emergency Medicine; PCP Internal Medicine; Visit Provider Emergency Medicine
DX: J44.1 Chronic obstructive pulmonary disease with (acute) exacerbation (principal); I25.10 Atherosclerotic heart disease of native coronary artery without angina pectoris; E78.5 Hyperlipidemia, unspecified; H91.90 Unspecified hearing loss, unspecified ear; J98.01 Acute bronchospasm; Z99.81 Dependence on supplemental oxygen; Z87.891 Personal history of nicotine dependence; I10 Essential (primary) hypertension; R06.02 Shortness of breath; Z79.52 Long term (current) use of systemic steroids
CPT/HCPCS: 71046; 80048; 85025; 93005; 94640; 99252; 99285; G0463

== ENCOUNTER 2022-06-12 07:12 | Emergency (ER) | payer MEDICARE, SELFPAY ==
[2022-06-12 07:13] VITALS: BP 151/86; PULSE 115; RESP 30; TEMP 36.6; O2SAT 94; BMI 22.5
--- NOTE | 2022-06-12 07:37 | EDS_ITS ---
HPI History of Present Illness Chief Complaint: Shortness of Breath Informant: patient Onset/Context/Timing Onset: Weeks Context: gradual Timing: Intermittent Current Severity: Mild Maximum Severity: Mild Worsened by: Nothing Relieved by: Nothing Associated Symptoms Negative for cough, fever or sore throat Chest Pain: Positive for None Narrative Narrative: 81-year-old female history of CAD, SC with a stent. COPD on 4 L home O2. States she has been short of breath intermittently last 2 weeks. She denies any chest pain. Denies any fever, chills or cough. Denies any leg pain or swelling. No prior history of DVT or PE. Not specifically associated with position or exertion. Denies any recent hospitalization. PE Risk Factors: Negative for Cancer, OCP + Smoking + > 35, Prior DVT or PE, Recent immobilization, Recent surgery or Recent travel Prior similar symptoms: Yes Recent Illness/Hospitalization: No PFSH PFS Medical History Abnormal thyroid function test Anemia Atherosclerosis of [place] coronary artery of [place] heart without angina pectoris Back pain CAD (coronary artery disease) Compression fracture COPD (chronic obstructive pulmonary disease) Fatigue Former smoker GERD (gastroesophageal reflux disease) On home oxygen therapy Screening for thyroid disorder STEMI (ST elevation myocardial infarction) (07/18/19) Tobacco dependence Vitamin D deficiency Home Medications aspirin 81 mg chewable tablet 81 mg PO DAILYCM HEALTH MAINTENANCE 03/10/20 [History Last Taken 09/14/20] acetaminophen 500 mg tablet 1,000 mg PO TID PRN PRN Pain 09/14/20 [History Last Taken 09/14/20] nebulizers #1 ea 10/17/20 [Rx Last Taken Unknown] cholecalciferol (vitamin D3) 125 mcg (5,000 unit) capsule 125 mcg PO DAILY 12/14/21 [History Last Taken Unknown] vit C 250 mg-vit E 90 mg-zinc 40 mg-copper 1 [id number] capsule (PreserVision AREDS-2) 1 tab PO BID 12/14/21 [History Last Taken Unknown] citalopram 10 mg tablet 5 mg PO DAILY #90 tabs 12/19/21 [Rx Last Taken Unknown] carvedilol 3.125 mg tablet 3.125 mg PO BID HEART #180 tabs 01/28/22 [Rx Last Taken Unknown] ondansetron 4 mg disintegrating tablet 4 mg PO Q8H PRN PRN Nausea #10 tabs 05/08/22 [Rx Last Taken Unknown] albuterol sulfate 1.25 mg/3 mL solution for nebulization 1.25 mg (3 mL) inhalation Q6H PRN shortness of breath or wheezing #90 mL 05/14/22 [Rx Last Taken Unknown] clopidogrel 75 mg tablet See Rx Instructions .Route .COMPLEX #90 TABLETS 05/14/22 [Rx Last Taken Unknown] prednisone 20 mg tablet 60 mg PO DAILY #12 TABLETS 05/28/22 [Rx Last Taken Unknown] atorvastatin 40 mg tablet See Rx Instructions .Route .COMPLEX #90 TABLETS 05/30/22 [Rx Last Taken Unknown] prednisone 20 mg tablet 40 mg PO DAILY 5 days #10 tabs 06/12/22 [Rx Last Taken Unknown] Allergy/AdvReac Type Severity Reaction Status Date / Time No Known Allergies Allergy Verified 05/28/22 15:43 Family History Sister No problems noted. Son hole in his heart Grandmother Cancer Father Cancer Grandfather Cancer Surgical History H/O: hysterectomy History of appendectomy Stented coronary artery Social History household members: children housing: apartment number of children: 3 Smoking Status: Former smoker quit date: 07/18/19 Tobacco: How many years used: 50 alcohol intake: never substance use type: does not use what type of physical activity do you participate in: none ROS ROS ED ROS Narrative Dyspnea. Denies cough, fever, chills or chest pain. Review of Systems ROS Unobtainable: Denies due to encephalopathy Constitutional Constitutional ED: Denies chills or fever(s) Eyes Eyes: Denies blurry vision ENT ENT ED: Denies ear pain Cardiovascular Cardiovascular: Denies chest pain or palpitations Respiratory/Chest Respiratory/Chest: Denies cough Gastrointestinal Gastrointestinal: Denies abdominal pain Genitourinary Genitourinary ED: Denies dysuria or hematuria Musculoskeletal Musculoskeletal: Denies arthralgias Integumentary Denies abscess Neurologic Neurologic: Denies headache(s) Psychiatric Psychiatric: Denies anxiety Endocrine Endocrinology: Denies cold intolerance Hematologic/Lymphatic Hematologic/Lymphatic: Denies easy bleeding Allergic/Immunologic Allergic/Immunologic ED: Denies mouth swelling or tongue swelling EXAM Physical Exam Narrative Exam Narrative: 81-year-old female vital signs are stable she is tachycardic at 115. Pulse ox is 94% on her normal 4 L she is not hypoxic. No distress. H EENT exam unremarkable. Moist with membranes. Neck nontender. No JVD or lymphadenopathy. Lungs clear to auscultation bilaterally. Drew had given her a aerosol prior to arrival. Heart tachycardic rate about 115. No murmur. Chest wall nontender. Abdomen soft nontender. Normal bowel sounds no peritoneal signs. Moving all 4 extremities. Calves are nontender without edema or cords. Neurologically she is awake and alert with no focal motor deficits. Currently there is no one else present in the room. Const Vital Signs: 06/12/22 07:13 06/12/22 07:48 06/12/22 07:48 Temperature 97.9 F Temperature Source Temporal Pulse Rate 115 H 112 H Respiratory Rate 30 H 24 H Respiratory Effort Respiratory Pattern Blood Pressure 151/86 H 120/82 H Blood Pressure Mean 107 94 Pulse Ox 94 95 95 Oxygen Delivery Method Nasal Cannula Nasal Cannula Nasal Cannula Oxygen Flow Rate (L/min) 4 4 4 06/12/22 07:48 06/12/22 07:53 Temperature Temperature Source Pulse Rate 109 H Respiratory Rate 21 H Respiratory Effort Short of Breath Accessory Muscle Use Respiratory Pattern Tachypnea Tachypnea Blood Pressure Blood Pressure Mean Pulse Ox Oxygen Delivery Method Oxygen Flow Rate (L/min) Positive well nourished and well developed; Negative for obese, cachectic, contractures or unkempt General Appearance ED: well developed and NAD; Negative for unkempt, cachectic, contractures or pallor Nutritional Appearance: Negative for cachectic or obese HEENT Reports moist mucous membranes; Denies dry mucous membranes atraumatic; Negative for trauma or tenderness Mouth ED: No dry mucous membranes Mouth: No dry mucous membranes Eyes PERRL and EOMs intact bilaterally General Eye ED: Negative for pale conjunctiva or scleral icterus Neck no lymphadenopathy, supple, no meningeal signs and no JVD General: Negative for tenderness Chest Wall Chest: Negative for other Resp normal respiratory effort and clear to auscultation bilaterally Effort and Inspection: Negative for pain with movement Auscultation: Negative for rales, rhonchi or wheezes Cardio regular rhythm, S1 normal heart sound, S2 normal heart sound and no murmurs; Negative for regular rate Rate: tachycardic GI non-tender, non-distended and no masses Inspection: Negative for other Auscultation: normoactive bowel sounds Palpation: soft; Negative for tender or guarding Back/Spine no CVA tenderness and normal to inspection General Back: Negative for CVA tenderness Extremity normal to inspection General Extremety ED: Negative for edema or tenderness General Extremity: Negative for edema Neuro oriented x3 and CN's II-XII intact bilaterally Sensorium / Orientation: alert, oriented to person, oriented to place and oriented to time; Negative for orientation impaired, confused, lethargic or stuporous Speech: speech normal Motor Exam: strength 5/5 throughout Psych mental status grossly normal Appearance: Negative for unkempt Attitude: No agitated Mood & Affect: Negative for depressed Thought Process: No normal thought process Skin no wounds and skin turgor normal General Skin Exam: Negative for jaundice or pallor Lesions: no lesions Rashes: no rashes Trauma: Negative for abrasion or laceration MDM MDM MDM Narrative Medical decision making narrative: 81-year-old female COPD and cardiac disease. Complain of intermittent shortness of breath for the last 2 weeks. Clinically currently her exam is benign. She has no history of DVT or PE risk factors. She denies any chest pain. No fever chills or cough. She will be treated with a DuoNeb aerosol. Undergo a cardiac work-up. Differential includes COPD flare, pneumonia, CHF, dysrhythmia. PE is in the differential but she has no risk factors or history. She has no signs of CHF on exam. Repeat exam at 8:35 AM patient doing well. Lungs are clear. She feels comfortable and like to be discharged home. She will be placed on prednisone for 5 days. Return if she is feeling worse or follow-up with your doctor if not improving. I do not think she needs any further work-up at this time. Lab Data Attestation: I reviewed the patient's lab results. Lab results narrative: CBC shows a white count 10.8. H&H 11.4 and 38.6. Electrolytes show a gap of 8 BUN 30 creatinine 0.62. Glucose 135. Troponin is normal at 8. Chest x-ray is chronic changes no acute process. Labs show no significant change from prior. I did review her old labs and prior work-ups and x-rays. Labs: Laboratory Results - last 24 hr 06/12/22 06/12/22 07:28 07:28 WBC 10.8 RBC 4.08 L Hgb 11.4 L Hct 38.6 MCV 94.6 MCH 27.9 MCHC 29.5 L RDW Std Deviation 43.0 RDW Coeff of Melisa 12.3 Plt Count 334 MPV 10.7 Immature Gran % (Auto) 0.400 Neut % (Auto) 77.6 H Lymph % (Auto) 12.6 L [place] % (Auto) 8.3 Eos % (Auto) 0.6 Baso % (Auto) 0.5 Absolute Neuts (auto) 8.4 H Absolute Lymphs (auto) 1.36 Nucleated RBC % 0 Sodium 143 Potassium 3.6 Chloride 105 Carbon Dioxide 30.0 Anion Gap 8 BUN 30 H Creatinine 0.62 Estim Creat Clear Calc 34.30 Est GFR (MDRD) Af Amer 118 Est GFR (MDRD) Non-Af 98 BUN/Creatinine Ratio 48.3 H Glucose 135 H Calcium 10.0 Troponin I High Sens 8 Radiography Chest X-Ray - ED: 1 View, Read by ED Physician, Heart, Lungs, Mediastinum, Bony Structures, No Acute Disease and Chronic Changes Diagnostic Testing: Chest x-ray, portable, single view interpreted by myself shows no acute abnormality. No infiltrate. No effusion. No pulmonary edema. Normal cardiac silhouette mediastinum. Unchanged from prior. Rhythm Strip Rhythm Strip: Sinus Tach Rate: 132 Ectopy: None EKG Initial EKG: Attestation: I personally reviewed and interpreted this EKG as follows: Interpretation: Sinus Rhythm Comments: Sinus tachycardia rate of 132. ST depression in leads V3 through V6. No ST elevation. Incomplete right bundle branch block. Discharge Plan Triage Chief Complaint: Shortness of Breath ED Provider: Bob Cabrales Dx/Rx/DC Orders Clinical Impression: Acute dyspnea, Acute exacerbation of chronic obstructive pulmonary disease, History of SC (myocardial infarction) Instructions: ED COPD Flare Prescriptions: New prednisone 20 mg tablet 40 mg PO DAILY 5 Days Qty: 10 0RF No Action PreserVision AREDS-2 250-90-40-1 mg capsule 1 tab PO BID cholecalciferol (vitamin D3) 125 mcg (5,000 unit) capsule 125 mcg PO DAILY Label Comments: TAKE 1 CAPSULE BY MOUTH DAILY aspirin 81 MG tablet,chewable 81 mg PO DAILYCM acetaminophen 500 MG tablet 1,000 mg PO TID PRN PRN (Reason: Pain) ondansetron [ondansetron] 4 mg tablet,disintegrating 4 mg PO Q8H PRN PRN (Reason: Nausea) Qty: 10 0RF prednisone 20 mg tablet 60 mg PO DAILY Qty: 12 0RF (DME) nebulizers Misc See Rx Instructions .ROUTE .MEDSUPPLY Qty: 1 0RF Rx Instructions: As directed citalopram 10 mg tablet 5 mg PO DAILY Qty: 90 1RF carvedilol 3.125 mg tablet 3.125 mg PO BID Qty: 180 3RF clopidogrel 75 mg tablet See Rx Instructions .ROUTE .COMPLEX Qty: 90 3RF Dose Instruction: TAKE 1 TABLET BY MOUTH DAILY Rx Instructions: TAKE 1 TABLET BY MOUTH DAILY albuterol sulfate 1.25 mg/3 mL solution for nebulization 1.25 mg inhalation Q6H PRN (Reason: shortness of breath or wheezing) Qty: 90 1RF atorvastatin 40 mg tablet See Rx Instructions .ROUTE .COMPLEX Qty: 90 3RF Dose Instruction: TAKE 1 TABLET BY MOUTH AT BEDTIME Rx Instructions: TAKE 1 TABLET BY MOUTH AT BEDTIME Primary Care Provider: Constanza Streeter Referrals: Constanza Streeter MD [Primary Care Provider] - 3-5 Days Activity Restrictions/Additional Instructions: Inhaler as needed. Prednisone daily for the next 5 days. Follow-up with your doctor if not improving or return if worse. Disposition Disposition: Home, Self Care
[2022-06-12 07:47] LABS: Absolute Lymphocyte Count 1.36 X10^3/uL (0.83-4.51); Absolute Neutrophil Count 8.4 X10^3/uL (2.0-7.7); Basophil# 0.05 X10^3/uL; Basophil% 0.5 % (0-1); Eosinophil# 0.07 X10^3/uL; Eosinophils% 0.6 % (0-5); Hematocrit 38.6 % (37-47); Hemoglobin 11.4 g/dL (12.0-15.0); Lymphocyte # 1.36 X10^3/ul (0.83-4.51); Lymphocyte % 12.6 % (19-41); Mean Corp Hgb Conc 29.5 g/dL (32-36); Mean Corpuscular Hgb 27.9 pg (27.0-32.0); Mean Corpuscular Volume 94.6 fL (81-99); Mean Platelet Vol. 10.7 fl (6.2-12.0); Monocyte% 8.3 % (0-10); NRBC Flagged by Analyzer 0 % (0-5); Neutrophil # 8.41 X10^3/uL (2.7-7.7); Neutrophil % 77.6 % (47-70); Platelet Count 334 K/mm3 (150-450); RBC Distribution Width CV 12.3 % (11.6-14.6); Red Blood Count 4.08 M/mm3 (4.2-5.4); White Blood Count 10.8 K/mm3 (4.4-11.0)
[2022-06-12 07:48] VITALS: BP 120/82; PULSE 112; RESP 24; O2SAT 95
[2022-06-12 07:53] VITALS: PULSE 109; RESP 21
[2022-06-12] MEDS: Ipratropium/Albuterol Sulfate 3 ML AMPUL.NEB INHALATION (07:53)
--- NOTE | 2022-06-12 08:00 | RAD_ITS ---
STUDY: X-RAY CHEST REASON FOR EXAM: Female, 81 years old. Chest pain. Shortness of breath. TECHNIQUE: Single AP portable view of the chest. COMPARISON: Comparison is made with prior study dated 05/28/2022. FINDINGS: EKG electrodes are seen. Hyperinflation. No acute abnormalities present. There is no demonstrated pleural abnormality. Normal size heart. Normal mediastinum and manfred. There is prominence of the pulmonary hilar arteries without peripheral pulmonary vascular congestion, suggesting pulmonary hypertension. There is atherosclerotic calcification of the aortic arch with tortuosity. Prior vertebroplasty of the T11 vertebrae. There is degenerative osteoarthritis of the bilateral shoulders. There is no demonstrated abnormality of the visualized soft tissue structures of the upper abdomen. RAD/Chest 1 View (Portable) IMPRESSION: Hyperinflation. The lungs are clear. Electronically Signed: Uday Mills MD at 8:52 EST ,
[2022-06-12 08:08] LABS: Anion Gap 8 (5-15); BUN 30 mg/dL (7-18); BUN/Creat Ratio 48.3 RATIO (10-20); Chloride 105 mmol/L (98-107); Creatinine, Serum 0.62 mg/dL (0.55-1.02); EST Glomerular Filtration Rate 98 mL/min (>60); Est Glom Filt Rate - Afr Amer 118 mL/min (>60); Glucose 135 mg/dL (74-106); Potassium 3.6 mmol/L (3.5-5.1); Sodium Level 143 mmol/L (136-145); Troponin-I HS 8 pg/mL (3.0-54.0)
[2022-06-12 09:12] VITALS: BP 134/78; PULSE 107; RESP 20; O2SAT 97
== END 2022-06-12 09:14 | disposition home or self-care (01) ==
PROVIDERS: Emergency Provider Emergency Medicine; PCP Internal Medicine; Visit Provider Emergency Medicine
DX: J44.1 Chronic obstructive pulmonary disease with (acute) exacerbation (principal); I25.10 Atherosclerotic heart disease of native coronary artery without angina pectoris; Z95.5 Presence of coronary angioplasty implant and graft; I25.2 Old myocardial infarction; Z99.81 Dependence on supplemental oxygen; Z79.52 Long term (current) use of systemic steroids; Z87.891 Personal history of nicotine dependence
CPT/HCPCS: 71045; 80048; 84484; 85025; 93005; 94640; 99285; J7030

== ENCOUNTER → 2023-01-24 | Outpatient (CLI) | payer MEDICARE, SELFPAY ==
[2023-01-24 12:22] LABS: Absolute Lymphocyte Count 1.54 X10^3/uL (0.83-4.51); Absolute Neutrophil Count 5.8 X10^3/uL (2.0-7.7); Basophil# 0.05 X10^3/uL; Basophil% 0.6 % (0-1); Eosinophil# 0.23 X10^3/uL; Eosinophils% 2.8 % (0-5); Hematocrit 43.1 % (37-47); Hemoglobin 13.2 g/dL (12.0-15.0); Lymphocyte # 1.54 X10^3/ul (0.83-4.51); Lymphocyte % 18.7 % (19-41); Mean Corp Hgb Conc 30.6 g/dL (32-36); Mean Corpuscular Hgb 29.3 pg (27.0-32.0); Mean Corpuscular Volume 95.8 fL (81-99); Mean Platelet Vol. 10.9 fl (6.2-12.0); Monocyte# 0.58 X10^3/uL; NRBC Flagged by Analyzer 0 % (0-5); Neutrophil # 5.79 X10^3/uL (2.7-7.7); Neutrophil % 70.4 % (47-70); Platelet Count 204 K/mm3 (150-450); RBC Distribution Width CV 12.2 % (11.6-14.6); RBC Distribution Width SD 42.9 fl (35.1-43.9); White Blood Count 8.2 K/mm3 (4.4-11.0)
[2023-01-24 13:06] LABS: ALB/GLOB Ratio 1.1 RATIO (0.9-2.4); AST(SGOT) 23 U/L (15-37); Alanine Aminotransfer ALT/SGPT 20 U/L (13-56); Albumin, Serum 3.8 g/dL (3.2-5.0); Alkaline Phosphatase 105 U/L (45-117); Anion Gap 5 (5-15); BUN 21 mg/dL (7-18); BUN/Creat Ratio 29.7 RATIO (10-20); Calcium,Total 10.2 mg/dL (8.5-10.1); Chloride 106 mmol/L (98-107); Creatinine, Serum 0.71 mg/dL (0.55-1.02); EST Glomerular Filtration Rate 84 mL/min (>60); Est Glom Filt Rate - Afr Amer 102 mL/min (>60); Globulin 3.4 g/dL (2.2-4.2); Glucose 100 mg/dL (74-106); Potassium 4.4 mmol/L (3.5-5.1); Protein, Total 7.2 g/dL (6.4-8.2); Sodium Level 141 mmol/L (136-145)
== END | disposition home or self-care (01) ==
LOC: BIMLAB 09:53
PROVIDERS: PCP Internal Medicine; Referring Provider Internal Medicine; Visit Provider Internal Medicine
DX: I10 Essential (primary) hypertension (principal)
CPT/HCPCS: 36415; 80053; 85025

== ENCOUNTER 2023-02-13 17:21 | Emergency (ER) | payer MEDICARE, SELFPAY ==
[2023-02-13 17:22] VITALS: BP 138/93; PULSE 114; RESP 25; TEMP 36.6; O2SAT 98; BMI 23.0
--- NOTE | 2023-02-13 18:12 | RAD_ITS ---
INDICATION: Pain, history of compression EXAMINATION/TECHNIQUE: X-RAY - XR Spine Lumbar 2 or 3 Views COMPARISON: 05/01/2022 FINDINGS: VERTEBRAE: Stable L1 kyphoplasty changes and chronic L2 moderate compression fracture. No acute fracture. No spondylolisthesis. Preservation of the normal lumbar lordosis. DISCS: Stable disc space narrowing at L5-S1. INCLUDED ABDOMEN: Included bowel gas pattern is non-obstructive. RAD/Lumbar Spine 2 or 3 Views IMPRESSION: Stable examination without acute bony abnormality. Stable degenerative disc changes at L5-S1. Electronically Signed: Jermain Abdi MD at 19:14 EDT ,
--- NOTE | 2023-02-13 18:12 | EKG12_ITS ---
Test Reason : SOB Blood Pressure : / mmHG Vent. Rate : 101 BPM Atrial Rate : 101 BPM P-R Int : 128 ms QRS Dur : 102 ms QT Int : 354 ms P-R-T Axes : 063 -74 011 degrees QTc Int : 459 ms Sinus tachycardia with Fusion complexes Left axis deviation Low voltage QRS Incomplete right bundle branch block Abnormal ECG Confirmed by OLGA MARTINEZ, FRANCISCO ([id number]), technical editor BEVERLEY COOPER ([id number]) on 02/18/2023 12:51:53 PM Referred By: Confirmed By:JANNA ESPINOZA MD
[2023-02-13] MEDS: Ondansetron 4 MG/2 ML Vial IV (18:28)
[2023-02-13] MEDS: Morphine 2 MG/ML Syringe IV (18:28)
[2023-02-13] MEDS: 0.9% Normal Saline (500mL Bag) 500 ML 1000 ML IV (18:32)
--- NOTE | 2023-02-13 18:32 | EDS_ITS ---
HPI History of Present Illness Chief Complaint: Weakness Informant: patient Narrative Narrative: Evidently the patient's son called to bring her in here. Patient was not going to come in. Patient does have back pain. This has been going on for years. She had ky phoplasty in 2019 although she does not remember this. She states the pain is all in the lumbar area. If she stays still its not that bad but if she moves it hurts. Just moving in bed hurts. She tells me she is getting around the house just fine. However, the son evidently called EMS because she cannot go up and down steps or move around and they are concerned about her. The son is not here yet to talk to. She also has evidently been not herself recently. I do not know what that means as again the son is not available to clarify. Patient denies a recent fall. She denies numbness or tingling. She is on chronic oxygen but denies any dyspnea. But the patient is alert to person not year or place. She does knows she is in the hospital but that took a little bit of asking. [facility] Medical History Abnormal thyroid function test Anemia Atherosclerosis of [place] coronary artery of [place] heart without angina pectoris Back pain Bilateral impacted cerumen CAD (coronary artery disease) Compression fracture COPD (chronic obstructive pulmonary disease) Fatigue Finger pain, left Flu vaccine need Former smoker GERD (gastroesophageal reflux disease) Insomnia Left eye pain On home oxygen therapy Screening for thyroid disorder STEMI (ST elevation myocardial infarction) (07/18/19) Tobacco dependence Vitamin D deficiency Home Medications aspirin 81 mg chewable tablet 81 mg PO DAILYCM HEALTH MAINTENANCE 03/10/20 [History Last Taken 09/14/20] nebulizers #1 ea 10/17/20 [Rx Last Taken Unknown] vit C 250 mg-vit E 90 mg-zinc 40 mg-copper 1 [id number] capsule (PreserVision AREDS-2) 1 tab PO BID 12/14/21 [History Last Taken Unknown] clopidogrel 75 mg tablet See Rx Instructions .Route .COMPLEX #90 TABLETS 05/14/22 [Rx Last Taken Unknown] citalopram 10 mg tablet 5 mg (1/2 x 10 mg) PO DAILY #90 tabs 12/15/22 [Rx Last Taken Unknown] carvedilol 3.125 mg tablet 3.125 mg PO BID HEART #180 tabs 02/03/23 [Rx Last Taken Unknown] atorvastatin 40 mg tablet 40 mg PO QHS 02/13/23 [History Last Taken Unknown] cholecalciferol (vitamin D3) 50 mcg (2,000 unit) capsule (D3-2000) 2,000 unit PO DAILY 02/13/23 [History Last Taken Unknown] tramadol 50 mg tablet 50 mg PO Q6H PRN pain #12 tabs 02/13/23 [Rx Last Taken Unknown] Allergy/AdvReac Type Severity Reaction Status Date / Time No Known Allergies Allergy Verified 01/24/23 09:07 Family History Sister No problems noted. Son hole in his heart Grandmother Cancer Father Cancer Grandfather Cancer Surgical History H/O: hysterectomy History of appendectomy Stented coronary artery Social History household members: children housing: apartment number of children: 3 Smoking Status: Former smoker quit date: 07/18/19 Tobacco: How many years used: 50 alcohol intake: never substance use type: does not use what type of physical activity do you participate in: none ROS ROS ED ROS Narrative And the validity of answers. Patient essentially only complains that her back hurts. Constitutional Constitutional ED: Denies fever(s) Cardiovascular Cardiovascular: Denies chest pain Respiratory/Chest Respiratory/Chest: Denies cough Gastrointestinal Gastrointestinal: Denies nausea or vomiting Musculoskeletal Musculoskeletal: Reports back pain Integumentary Denies rash Neurologic Neurologic: Denies headache(s) Hematologic/Lymphatic Hematologic/Lymphatic: Denies easy bleeding or easy bruising Allergic/Immunologic Allergic/Immunologic ED: Denies urticaria EXAM Physical Exam Narrative Exam Narrative: General: Patient awake alert sitting comfortably in the bed. She is not in any acute distress. HEENT shows no trauma. Mucous membranes do look dry though. Neck is supple. Lungs are clear. She has saturations that are normal at 98% on her baseline of 4 L of oxygen. Heart is regular but tachycardic. Abdomen is not tender. Patient has tenderness everywhere in the lumbar area but no rash. Twisting or moving hurts. Extremities show no deformities or tenderness. Const Vital Signs: 02/13/23 17:22 02/13/23 17:39 Temperature 98 F Temperature Source Temporal Pulse Rate 114 H Respiratory Rate 25 H Respiratory Effort Normal Non-Labored Respiratory Pattern Normal Blood Pressure 138/93 H Blood Pressure Mean 108 Pulse Ox 98 Oxygen Delivery Method Nasal Cannula Oxygen Flow Rate (L/min) 4 MDM MDM MDM Narrative Medical decision making narrative: Patient CBC shows a mild nonspecific elevation in the white count. Patient's electrolytes are overall normal. Does have a high BUN to creatinine ratio consistent with some degree of dehydration and she was given IV fluids. Patient's glucose is just mildly elevated. Her urine shows no sign of infection. My independent interpretation of the patient's three-view x-ray of the lumbar spine shows arthritic changes prior compression fractures and kyphoplasty. Final reading shows stable examination without acute bony abnormality. I went back to talk with her. Patient's daughter is here now. There have been some issues with the sons being able to give the medicines to the mom. Daughter is going to take her home with her. They do not want to be admitted to the hospital. She evidently had a bad experience at [facility]. Patient does not want to come in. I will write for some tramadol to see if this helps. We discussed that this can make someone somewhat dizzy and she needs to be watched carefully. But they would like to try to avoid hospitalization. They did have home therapy for a while that helped but they have not had that. I recommend they contact her private physician about that. Lab Data Attestation: I reviewed the patient's lab results. Labs: Laboratory Results - last 24 hr 02/13/23 02/13/23 18:27 19:13 WBC 13.2 H RBC 4.56 Hgb 13.4 Hct 42.5 MCV 93.2 MCH 29.4 MCHC 31.5 L RDW Std Deviation 41.5 RDW Coeff of Melisa 12.0 Plt Count 201 MPV 10.7 Immature Gran % (Auto) 0.600 Neut % (Auto) 77.7 H Lymph % (Auto) 9.9 L [place] % (Auto) 9.3 Eos % (Auto) 2.0 Baso % (Auto) 0.5 Absolute Neuts (auto) 10.2 H Absolute Lymphs (auto) 1.31 Nucleated RBC % 0 Sodium 143 Potassium 3.7 Chloride 110 H Carbon Dioxide 29.0 Anion Gap 4 L BUN 31 H Creatinine 0.65 Estim Creat Clear Calc 32.17 Est GFR (MDRD) Af Amer 111 Est GFR (MDRD) Non-Af 92 BUN/Creatinine Ratio 47.5 H Glucose 136 H Calcium 9.9 Urine Color Yellow Urine Clarity Clear Urine pH 5.0 Ur Specific [place] 1.025 Urine Protein 30 H Urine Glucose (UA) Normal Urine Ketones 50 H Urine Occult Blood 150 H Urine Nitrite Negative Urine Bilirubin Negative Urine Urobilinogen 1 H Ur Leukocyte Esterase Negative Urine RBC 0-5 SEEN Urine WBC 0 SEEN Ur Squamous Epith Cells 0 SEEN Urine Bacteria 0 SEEN Urine Mucus 2+ Radiography Diagnostic Testing: Clinical Impression(s) from Imaging Studies Lumbar Spine X-Ray 02/13/23 18:12 IMPRESSION: Stable examination without acute bony abnormality. Stable degenerative disc changes at L5-S1. Electronically Signed: Jermain Abdi MD at 19:14 EDT Reading Location ID and State: [facility] / [place] Tel , Service support , EKG Initial EKG: Comments: Been interpretation the patient's EKG shows sinus rhythm with slightly tachycardic rate and left axis deviation and incomplete right bundle branch block with secondary ST changes. No ventricular ectopy. NM interval, QRS duration and QTc are normal. This is similar to an EKG of 12 June 2021. Discharge Plan Triage Chief Complaint: Weakness ED Provider: Guero Bal Dx/Rx/DC Orders Clinical Impression: Chronic back pain, History of compression fracture of spine Instructions: ED Back Pain (Acute or Chronic) Prescriptions: New tramadol 50 mg tablet 50 mg PO Q6H PRN (Reason: pain) Qty: 12 0RF No Action PreserVision AREDS-2 250-90-40-1 mg capsule 1 tab PO BID aspirin 81 MG tablet,chewable 81 mg PO DAILYCM atorvastatin 40 mg tablet 40 mg PO QHS Patient Comments: TAKE 1 TABLET BY MOUTH AT BEDTIME cholecalciferol (vitamin D3) [D3-2000] 50 mcg (2,000 unit) capsule 2,000 unit PO DAILY (DME) nebulizers Misc See Rx Instructions .ROUTE .MEDSUPPLY Qty: 1 0RF Rx Instructions: As directed clopidogrel 75 mg tablet See Rx Instructions .ROUTE .COMPLEX Qty: 90 3RF Dose Instruction: TAKE 1 TABLET BY MOUTH DAILY Rx Instructions: TAKE 1 TABLET BY MOUTH DAILY citalopram 10 mg tablet 5 mg PO DAILY Qty: 90 1RF carvedilol 3.125 mg tablet 3.125 mg PO BID Qty: 180 3RF Primary Care Provider: Constanza Streeter Referrals: Constanza Streeter MD [Primary Care Provider] - 3-5 Days Disposition Disposition: Home, Self Care
[2023-02-13 18:37] LABS: Absolute Lymphocyte Count 1.31 X10^3/uL (0.83-4.51); Absolute Neutrophil Count 10.2 X10^3/uL (2.0-7.7); Basophil# 0.06 X10^3/uL; Basophil% 0.5 % (0-1); Eosinophil# 0.27 X10^3/uL; Hematocrit 42.5 % (37-47); Hemoglobin 13.4 g/dL (12.0-15.0); Lymphocyte # 1.31 X10^3/ul (0.83-4.51); Lymphocyte % 9.9 % (19-41); Mean Corp Hgb Conc 31.5 g/dL (32-36); Mean Corpuscular Hgb 29.4 pg (27.0-32.0); Mean Corpuscular Volume 93.2 fL (81-99); Mean Platelet Vol. 10.7 fl (6.2-12.0); Monocyte# 1.23 X10^3/uL; Monocyte% 9.3 % (0-10); NRBC Flagged by Analyzer 0 % (0-5); Neutrophil # 10.23 X10^3/uL (2.7-7.7); Neutrophil % 77.7 % (47-70); POSITIVE DIFFERENTIAL NO; Platelet Count 201 K/mm3 (150-450); RBC Distribution Width SD 41.5 fl (35.1-43.9); Red Blood Count 4.56 M/mm3 (4.2-5.4); White Blood Count 13.2 K/mm3 (4.4-11.0)
[2023-02-13 18:38] LABS: POSITIVE COUNT NO; POSITIVE MORPHOLOGY NO
[2023-02-13 18:49] LABS: Anion Gap 4 (5-15); BUN 31 mg/dL (7-18); BUN/Creat Ratio 47.5 RATIO (10-20); Calcium,Total 9.9 mg/dL (8.5-10.1); Chloride 110 mmol/L (98-107); Creatinine, Serum 0.65 mg/dL (0.55-1.02); EST Glomerular Filtration Rate 92 mL/min (>60); Est Glom Filt Rate - Afr Amer 111 mL/min (>60); Estimated Creatinine Clearance 32.17 ml/min; Glucose 136 mg/dL (74-106); Potassium 3.7 mmol/L (3.5-5.1); Sodium Level 143 mmol/L (136-145)
[2023-02-13 19:19] LABS: Bacteria 0 SEEN /hpf (None Seen); Squamous Epithelial Cells - UA 0 SEEN /hpf (5-10); White Blood Cells 0 SEEN /hpf (0-5)
[2023-02-13 19:35] LABS: Glucose, Dipstick Normal (Normal); Ketone-Dipstick 50 mg/dl (Negative); Leukocyte Esterase-Dipstick Negative /ul (Negative); Nitrite-Dipstick Negative (Negative); Occult Blood-Urine 150 /ul (Negative); Protein-Dipstick 30 mg/dl (Negative); Specific Gravity, Urine 1.025 (1.002-1.030); Urine Bilirubin Dipstick Negative (Negative); Urine Urobilinogen 1 mg/dl (Normal)
[2023-02-13 19:38] LABS: Color, Urine Yellow (Yellow); Urine Clarity Clear (Clear)
[2023-02-13 19:41] LABS: Mucous, Urine 2+ /hpf (<or=2+); Red Blood Cells-Urine 0-5 SEEN /hpf (0-5)
[2023-02-13 20:41] VITALS: BP 154/80; PULSE 77; RESP 18; O2SAT 96
== END 2023-02-13 20:41 | disposition home or self-care (01) ==
PROVIDERS: Emergency Provider Emergency Medicine; PCP Internal Medicine; Visit Provider Emergency Medicine
DX: G89.29 Other chronic pain (principal); J44.9 Chronic obstructive pulmonary disease, unspecified; I25.10 Atherosclerotic heart disease of native coronary artery without angina pectoris; M54.9 Dorsalgia, unspecified; Z87.891 Personal history of nicotine dependence; Z87.81 Personal history of (healed) traumatic fracture
CPT/HCPCS: 96361; 96374; 96375; 99285; 72100; 80048; 81001; 85025; 90471; 93005; J7040; A4216; J2405

== ENCOUNTER 2023-02-14 09:23 | Inpatient (IN) | payer MEDICARE, SELFPAY ==
[2023-02-14 09:24] VITALS: BP 124/79; PULSE 109; RESP 24; TEMP 36.6; O2SAT 94; BMI 22.5
--- NOTE | 2023-02-14 09:31 | EKG12_ITS ---
Test Reason : FALL Blood Pressure : / mmHG Vent. Rate : 105 BPM Atrial Rate : 105 BPM P-R Int : 128 ms QRS Dur : 108 ms QT Int : 366 ms P-R-T Axes : 069 044 -07 degrees QTc Int : 483 ms Sinus tachycardia Low voltage QRS Right bundle branch block Abnormal ECG Confirmed by OLGA MARTINEZ, FRANCISCO ([id number]), staff editor BEVERLEY COOPER ([id number]) on 02/17/2023 10:50:28 AM Referred By: Livier Black Confirmed By:JANNA ESPINOZA MD
[2023-02-14] MEDS: Ondansetron 4 MG/2 ML Vial IV (09:40)
[2023-02-14] MEDS: Morphine 2 MG/ML Syringe IV ×3 (09:40→17:13)
--- NOTE | 2023-02-14 09:41 | EX.ED.GENINJ ---
HPI History of Present Illness Chief Complaint: Fall Detail of Chief Complaint: Planes of low back pain after she was found on the floor this morning by he Informant: patient Onset/Context/Timing Onset: Today Mechanism/Context: Blunt Injury and Fall Location of pain/injuries: - (Low back) Quality of Pain: Dull Location: Lumbar Current Severity: Mild Maximum Severity: Moderate Worsened by: Palpation Relieved by: Remaining still Associated Symptoms Associated Symptoms: Negative for Parasthesias, Weakness, Loss of function, Inability to ambulate, Loss of consciousness or Amnesia Length of loss of consciousness: Denies Narrative Narrative: Patient is a 82-year-old woman with history of multiple compression fractures involving T10, T11, L1 and L2. Review of old images and records. Patient was seen yesterday for fall and complained at that time of shoulder pain. She lives alone. Her son was coming over to check on her this morning. Patient denies fever, chills night sweats. Patient denies head trauma. Patient denies headache. Patient denies double vision, blurred vision loss of vision. Patient denies ringing in ears or decreased hearing. Patient denies nosebleed. Patient denies dental pain. Patient denies neck pain. Patient denies paresthesia, anesthesia or motor weakness. Patient denies urologic symptoms. Patient denies pain in her upper or lower extremities. Review of prior records indicates patient has history of atherosclerotic heart disease, COPD, status post STEMI, osteoporosis, hypertension, hyperlipidemia and GERD. Prior similar symptoms: Yes Recent Illness/Hospitalization: Yes [facility] Medical History Abnormal thyroid function test Anemia Atherosclerosis of [place] coronary artery of [place] heart without angina pectoris Back pain Bilateral impacted cerumen CAD (coronary artery disease) Compression fracture COPD (chronic obstructive pulmonary disease) Fatigue Finger pain, left Flu vaccine need Former smoker GERD (gastroesophageal reflux disease) Insomnia Left eye pain On home oxygen therapy Screening for thyroid disorder STEMI (ST elevation myocardial infarction) (07/18/19) Tobacco dependence Vitamin D deficiency Home Medications aspirin 81 mg chewable tablet 81 mg PO DAILY HEALTH MAINTENANCE 03/10/20 [History Last Taken 09/14/20] nebulizers #1 ea 10/17/20 [Rx Last Taken Unknown] vit C 250 mg-vit E 90 mg-zinc 40 mg-copper 1 [id number] capsule (PreserVision AREDS-2) 1 tab PO BID 12/14/21 [History Last Taken Unknown] clopidogrel 75 mg tablet See Rx Instructions .Route .COMPLEX #90 TABLETS 05/14/22 [Rx Last Taken Unknown] citalopram 10 mg tablet 5 mg (1/2 x 10 mg) PO DAILY #90 tabs 12/15/22 [Rx Last Taken Unknown] carvedilol 3.125 mg tablet 3.125 mg PO BID HEART #180 tabs 02/03/23 [Rx Last Taken Unknown] atorvastatin 40 mg tablet 40 mg PO QHS 02/13/23 [History Last Taken Unknown] cholecalciferol (vitamin D3) 50 mcg (2,000 unit) capsule (D3) 2,000 unit PO DAILY 02/13/23 [History Last Taken Unknown] tramadol 50 mg tablet 50 mg PO Q6H PRN pain #12 tabs 02/13/23 [Rx Last Taken Unknown] Allergy/AdvReac Type Severity Reaction Status Date / Time No Known Allergies Allergy Verified 02/14/23 09:23 Family History Sister No problems noted. Son hole in his heart Grandmother Cancer Father Cancer Grandfather Cancer Surgical History H/O: hysterectomy History of appendectomy Stented coronary artery Social History household members: children housing: apartment number of children: 3 Smoking Status: Former smoker quit date: 07/18/19 Tobacco: How many years used: 50 alcohol intake: never substance use type: does not use what type of physical activity do you participate in: none ROS ROS ED Constitutional Constitutional ED: Denies chills, fever(s), subjective, sweats or weight loss Eyes Eyes: Denies blurry vision or change in vision ENT ENT ED: Denies ear pain, rhinorrhea or sore throat Cardiovascular Cardiovascular: Denies chest pain, palpitations, paroxysmal nocturnal dyspnea or racing heartbeat Respiratory/Chest Respiratory/Chest: Denies cough, dyspnea, dyspnea on exertion or paroxysmal nocturnal dyspnea Gastrointestinal Gastrointestinal: Denies abdominal pain, melena, nausea or vomiting Genitourinary Genitourinary ED: Denies dysuria, hematuria or urinary frequency Musculoskeletal Musculoskeletal: Reports back pain; Denies arthralgias, myalgias or neck pain Integumentary Denies rash Neurologic Neurologic: Reports weakness; Denies headache(s) or paresthesias Psychiatric Psychiatric: Denies anxiety Endocrine Endocrinology: Denies cold intolerance Hematologic/Lymphatic Hematologic/Lymphatic: Denies easy bleeding or easy bruising EXAM Physical Exam Const Vital Signs: 02/14/23 09:24 02/14/23 09:59 Temperature 97.9 F Temperature Source Temporal Pulse Rate 109 H Respiratory Rate 24 H Respiratory Effort Normal Blood Pressure 124/79 H Blood Pressure Mean 94 Pulse Ox 94 Oxygen Delivery Method Nasal Cannula Nasal Cannula Oxygen Flow Rate (L/min) 4 4 Positive well nourished and well developed Constitutional Narrative: Appears pale. Vital signs remarkable for tachypnea and tachycardia. Patient has a narrow complex tachycardia noted on the monitor. General Appearance ED: well developed and NAD HEENT HEENT Narrative: No tenderness. There is no clinical signs of basilar skull fracture. Ears normal. Nares patent. Patient has bilateral drainage noted from the medial canthus. Conjunctive is pink. The conjunctive is not inflamed. atraumatic Eyes PERRL and EOMs intact bilaterally Neck full ROM Neck Narrative: He is midline. There is no inspiratory stridor. General: Negative for tenderness Chest Wall inspection of chest normal and palpation of chest normal Resp normal respiratory effort and clear to auscultation bilaterally Effort and Inspection: Negative for pain with movement Auscultation: Negative for diminished lung sounds Cardio regular rhythm, S1 normal heart sound, S2 normal heart sound and no murmurs Rate: regular rate GI normal to inspection, nondistended, normoactive bowel sounds, non-tender, non-distended and no masses GI Narrative: No pulsatile mass noted. There is no abdominal bruit Palpation: soft Back/Spine normal to inspection Back/Spine Narrative: Pain outpatient over the LS-spine. There is no pain with elevating the right or left leg to 45 degrees. Patella and ankle reflex are 1+ and symmetric. There is no clonus or Babinski sign noted. EHLs intact. Normal sensation over L3-S1 dermatome. Extremity normal to inspection and full ROM Neuro oriented x3, CN's II-XII intact bilaterally, moves all extremities, no focal motor deficits and no sensory deficits noted Sensorium / Orientation: alert Deep Tendon Reflexes: Rt Patellar (L4): 1+, Lt Patellar (L4): 1+, Rt Ankle (S1): 1+ and Lt Ankle (S1): 1+ Deep Tendon Reflexes Back: Rt Patellar (L4): 1+, Lt Patellar (L4): 1+, Rt Ankle (S1): 1+ and Lt Ankle (S1): 1+ Plantar Reflex: Downgoing: bilateral (No clonus at the ankles.) Psych thought process normal Skin no wounds, No skin turgor normal and no jaundice Skin Narrative: Pallor. MDM MDM MDM Narrative Medical decision making narrative: Told that she will require admission. Patient with frequent falls unable to care for herself. Because she has been on the floor for prolonged period of time CPK was obtained to evaluate for rhabdomyolysis. CBC was obtained to assess for white count and differential. Patient's laboratory studies from yesterday reveals a previously azotemia. Suspect her tachycardia is probably due to prerenal azotemia since clinically she appears dehydrated. Blood work was repeated and we will compare to yesterday. X-rays of the LS-spine were obtained to evaluate for new compression fracture since she complains of pain in the lumbar region. History & Record Review Additional record(s) reviewed:: Prior ED visit and Prior labs Lab Data Attestation: I reviewed the patient's lab results. Lab results narrative: Started at 16,000 with shift. There is no bandemia. Lactate is elevated 2.4. Basic metabolic panel is unremarkable. Glucose is 154 with normal CO2 anion gap. BUN to creatinine ratio is elevated at 44-1. CPK is 363 which is not significant. Since patient has a leukocytosis that has gotten worse since yesterday we will obtain blood cultures and will obtain a cath urine Labs: Laboratory Results - last 24 hr 02/14/23 02/14/23 02/14/23 09:40 10:00 11:21 WBC 16.3 H RBC 4.07 L Hgb 12.0 Hct 39.0 MCV 95.8 MCH 29.5 MCHC 30.8 L RDW Std Deviation 42.7 RDW Coeff of Melisa 12.1 Plt Count 177 MPV 10.9 Immature Gran % (Auto) 0.700 Neut % (Auto) 91.7 H Lymph % (Auto) 3.6 L [place] % (Auto) 3.8 Eos % (Auto) 0.0 Baso % (Auto) 0.2 Absolute Neuts (auto) 14.9 H Absolute Lymphs (auto) 0.58 L Nucleated RBC % 0 Differential Comment SCANNED Sodium 145 Potassium 3.9 Chloride 108 H Carbon Dioxide 30.0 Anion Gap 7 BUN 33 H Creatinine 0.74 Estim Creat Clear Calc 35.26 Est GFR (MDRD) Af Amer 96 Est GFR (MDRD) Non-Af 80 BUN/Creatinine Ratio 44.6 H Glucose 164 H Lactic Acid 2.4 H* Calcium 9.4 Total Creatine Kinase 363 H Urine Color Yellow Urine Clarity Sl. Cloudy Urine pH 5.0 Ur Specific [place] 1.025 Urine Protein 100 H Urine Glucose (UA) Normal Urine Ketones 150 A* Urine Occult Blood 150 H Urine Nitrite Negative Urine Bilirubin Negative Urine Urobilinogen 1 H Ur Leukocyte Esterase Negative Urine RBC 10-25 SEEN Urine WBC 0 SEEN Ur Squamous Epith Cells 0-5 SEEN Urine Bacteria 1+ Hyaline Casts 0-5 SEEN Fine Granular Casts 0-5 SEEN Urine Mucus 2+ Urinalysis macro reveals spec gravity 1.025, protein urea, ketones, occult blood and urobilinogen. Negative for leukoesterase. There is 10-25 RBCs with 0 WBCs and 1+ bacteria on a cath specimen. Urine culture was sent. Because patient has elevated white count she did receive a dose of Rocephin in the department. Dose will not need adjustment since her GFR is normal. Radiography Chest X-Ray - ED: 2 View (Of the LS-spine were obtained. Patient has evidence of kyphoplasty L1. She has a chronic L2 compression fracture. There are significant arthritic changes noted. Furthermore, patient has significant atherosclerotic disease. The aorta is not dilated.) Diagnostic Testing: Clinical Impression(s) from Imaging Studies Lumbar Spine X-Ray 02/14/23 10:29 IMPRESSION: 1. Pronounced old L1 compression fracture contains PMMA casts from previous kyphoplasty is unchanged. 2. Moderate old anterior wedge compression fracture of the upper L2 vertebral body is unchanged. 3. No suspicious acute fracture or malalignment of the lumbar spine. 4. No significant interval change when compared to 02/13/2023. Electronically Signed: Mac Castro MD at 11:48 EDT , Rhythm Strip Rhythm Strip: Sinus Tach Rate: 109 Ectopy: None EKG Initial EKG: Attestation: I personally reviewed and interpreted this EKG as follows: Interpretation: Sinus Tachycardia (Is 105. There is low voltage with evidence of right bundle branch block. AK interval is 220 ms. Cures duration 108 ms. QT duration 306 6 ms. The EKG is abnormal.) Discharge Plan Dx/Rx/DC Orders Clinical Impression: Bacteriuria, Hypertension, Frequent falls, Leukocytosis, Acidosis, lactic, Contusion of lower back and pelvis, initial encounter, History of coronary artery disease, History of COPD, Acute prerenal azotemia Disposition Disposition: [facility] Capacity Capacity Assessment Tool Can the patient make a choice & communicate that choice?: Unable to Determine (Is adamant that she will not be admitted. Patient cannot voice back to me my concerns with her going home.) Can the patient understand benefits, risks and alternatives?: Unable to Determine (Patient not able to repeat/voice back to me risk benefits and repeats that she was be admitted) Can the patient make a logical, rational choice?: Unable to Determine Is the choice the patient makes consistent w/ their values?: Unable to Determine Is there an impending, emergent risk to the patient?: No Does the patient have an Advance Directive?: Comment (Will communicate with son to see if she has a POA.) i.e. HCPOA: Yes (Daughter who works at [employer] is her POA and states that she has concern regarding her mother staying at home and that she will support admission.) i.e. close relative (spouse, child, parent, sibling)?: Yes
[2023-02-14] MEDS: 0.9% Normal Saline (500mL Bag) 500 ML 1000 ML IV (09:44)
--- NOTE | 2023-02-14 09:53 | ED.RN ---
PT SEEING ANTHONY ON THE FLOOR, TALKING TO PEOPLE WHO ARE NOT THERE. DR HERNANDEZ
--- NOTE | 2023-02-14 09:55 | ED.RN ---
PT ARRIVES TO ED AFTER FALLING ON THE FLOOR. THIS RN ASKS PT IF SHE AMBULATES WITH AN ASSISTIVE DEVICE AND PT REPORTS THAT SHE GOT UP UNASSISTED AND DID NOT TAKE HER DEVICE WITH HER TO AMBULATE. PT ASKED WHY SHE DID NOT HAVE HER OXYGEN ON. PT REPORTS,I DIDN'T REALIZE I WASN'T WEARING IT. THIS RN ASKED PT IF SHE WAS SAFE AT HOME. PT REPORTS THAT HER SON HELPS, BUT HE IS NOT THERE ALL THE TIME. PT HAS HAD 2 VISITS IN 2 DAYS. PT REPORTS, I DO NOT WANT TO STAY.
[2023-02-14 10:15] LABS: Absolute Lymphocyte Count 0.58 X10^3/uL (0.83-4.51); Absolute Neutrophil Count 14.9 X10^3/uL (2.0-7.7); Basophil# 0.04 X10^3/uL; Basophil% 0.2 % (0-1); Lymphocyte # 0.58 X10^3/ul (0.83-4.51); Lymphocyte % 3.6 % (19-41); Mean Corp Hgb Conc 30.8 g/dL (32-36); Mean Corpuscular Hgb 29.5 pg (27.0-32.0); Mean Corpuscular Volume 95.8 fL (81-99); Mean Platelet Vol. 10.9 fl (6.2-12.0); Monocyte# 0.62 X10^3/uL; Monocyte% 3.8 % (0-10); NRBC Flagged by Analyzer 0 % (0-5); Neutrophil # 14.94 X10^3/uL (2.7-7.7); Neutrophil % 91.7 % (47-70); POSITIVE DIFFERENTIAL YES; Platelet Count 177 K/mm3 (150-450); RBC Distribution Width CV 12.1 % (11.6-14.6); RBC Distribution Width SD 42.7 fl (35.1-43.9); Red Blood Count 4.07 M/mm3 (4.2-5.4); White Blood Count 16.3 K/mm3 (4.4-11.0)
[2023-02-14 10:20] LABS: Anion Gap 7 (5-15); BUN 33 mg/dL (7-18); BUN/Creat Ratio 44.6 RATIO (10-20); Calcium,Total 9.4 mg/dL (8.5-10.1); Chloride 108 mmol/L (98-107); Creatinine, Serum 0.74 mg/dL (0.55-1.02); EST Glomerular Filtration Rate 80 mL/min (>60); Est Glom Filt Rate - Afr Amer 96 mL/min (>60); Estimated Creatinine Clearance 35.26 ml/min; Glucose 164 mg/dL (74-106); Potassium 3.9 mmol/L (3.5-5.1); Sodium Level 145 mmol/L (136-145)
--- NOTE | 2023-02-14 10:23 | ED.RN ---
PT LACTIC 2.4. DR HERNANDEZ
[2023-02-14 10:24] LABS: Lactic Acid 2.4 mmol/L (0.4-1.9)
[2023-02-14 10:24] LABS: Differential Indicated SCAN CRITERIA MET
[2023-02-14 10:28] LABS: CPK Total, Creatine Kinase 363 U/L (26-192)
--- NOTE | 2023-02-14 10:29 | RAD_ITS ---
EXAM: XR LUMBOSACRAL SPINE, 2 OR 3 VIEWS CLINICAL INDICATION: Fall injury at home. Back pain and bilateral leg pain. TECHNIQUE: Frontal and lateral views of the lumbar spine and sacrum. COMPARISON: Lumbar spine radiographs 02/13/2023. FINDINGS: VERTEBRAE: Pronounced L1 compression fracture contains PMMA casts from previous kyphoplasty. This is unchanged. Moderate old anterior wedge compression fracture of the upper L2 vertebral body is unchanged. No spondylolisthesis. Preservation of the normal lumbar lordosis. No significant facet arthropathy. Normal remaining lumbar vertebral body heights. Normal alignment. DISC SPACES: No acute findings. Disc spaces are maintained. VASCULATURE: Moderate calcification of the plaques along the abdominal aorta and common iliac arteries. GASTROINTESTINAL TRACT: Unremarkable as visualized. Included bowel gas pattern is non-obstructive. RAD/Lumbar Spine 2 or 3 Views IMPRESSION: 1. Pronounced old L1 compression fracture contains PMMA casts from previous kyphoplasty is unchanged. 2. Moderate old anterior wedge compression fracture of the upper L2 vertebral body is unchanged. 3. No suspicious acute fracture or malalignment of the lumbar spine. 4. No significant interval change when compared to 02/13/2023. Electronically Signed: Mac Castro MD at 11:48 EDT ,
[2023-02-14 10:47] LABS: Differential Comment SCANNED
[2023-02-14 11:25] LABS: White Blood Cells 0 SEEN /hpf (0-5)
[2023-02-14 11:27] LABS: Color, Urine Yellow (Yellow); Glucose, Dipstick Normal (Normal); Leukocyte Esterase-Dipstick Negative /ul (Negative); Nitrite-Dipstick Negative (Negative); Occult Blood-Urine 150 /ul (Negative); Protein-Dipstick 100 mg/dl (Negative); Specific Gravity, Urine 1.025 (1.002-1.030); Urine Bilirubin Dipstick Negative (Negative); Urine Clarity Sl. Cloudy (Clear); Urine Urobilinogen 1 mg/dl (Normal)
[2023-02-14 11:31] LABS: Ketone-Dipstick 150 mg/dl (Negative)
[2023-02-14 11:35] LABS: Bacteria 1+ /hpf (None Seen); Hyaline Cast 0-5 SEEN /lpf (0-5); Mucous, Urine 2+ /hpf (<or=2+); Red Blood Cells-Urine 10-25 SEEN /hpf (0-5); Squamous Epithelial Cells - UA 0-5 SEEN /hpf (5-10)
[2023-02-14 11:36] LABS: Fine Granular Cast- Urine 0-5 SEEN /lpf (0-5)
--- NOTE | 2023-02-14 12:03 | HP.PCM_ITS ---
HPI - General General Date of Admission: 02/14/23 Date of Service: 02/14/23 Chief Complaint: mechanical fall HPI Narrative FLAKITO NIX, is a 82 F with a PMH as outlined who presents via the ED on 02/14/2023 with a complaint of mechanical fall and lower back pain. She has a history of frequent falls and was seen in the ED yesterday for mechanical falls. She didnt want to be admitted and preferred to go home. Son found her on the floor today when he went to check on her. She denied any headache, hitting her head, nausea, vomiting, blurred vision or any other symptoms. Review of systems is otherwise negative. Vitals in the ED were BP of 124/79, emp of 97.9F, NM of 109, RR of 24 and oxygen sats of 94% on room air. CBC showed hb of 12, wbc of 16.3 and platelet of 177. Chemistry showed sodium of 145, with bicarb of 30 and Cr of 0.74. Lactic acid is 2.4 and total CPK is 363. Urinalysis showed 1+ bacteria. Lumbar spine xray showed old compression fractures of L1 and L2. She is being admitted to be managed for debility due to mechanical falls and UTI. [facility] Medical History (Updated 02/14/23 @ 15:[address] Livier Black MD) Abnormal thyroid function test Anemia Atherosclerosis of [place] coronary artery of [place] heart without angina pectoris Back pain Bilateral impacted cerumen CAD (coronary artery disease) Compression fracture COPD (chronic obstructive pulmonary disease) Debility Fatigue Finger pain, left Flu vaccine need Former smoker GERD (gastroesophageal reflux disease) Insomnia Left eye pain On home oxygen therapy Screening for thyroid disorder STEMI (ST elevation myocardial infarction) (07/18/19) Tobacco dependence Vitamin D deficiency Home Medications aspirin 81 mg chewable tablet 81 mg PO DAILYCM HEALTH MAINTENANCE 03/10/20 [History Last Taken 09/14/20] nebulizers #1 ea 10/17/20 [Rx Last Taken Unknown] vit C 250 mg-vit E 90 mg-zinc 40 mg-copper 1 [id number] capsule (PreserVision AREDS-2) 1 tab PO BID 12/14/21 [History Last Taken Unknown] clopidogrel 75 mg tablet See Rx Instructions .Route .COMPLEX #90 TABLETS 05/14/22 [Rx Last Taken Unknown] citalopram 10 mg tablet 5 mg (1/2 x 10 mg) PO DAILY #90 tabs 12/15/22 [Rx Last Taken Unknown] carvedilol 3.125 mg tablet 3.125 mg PO BID HEART #180 tabs 02/03/23 [Rx Last Taken Unknown] atorvastatin 40 mg tablet 40 mg PO QHS 02/13/23 [History Last Taken Unknown] cholecalciferol (vitamin D3) 50 mcg (2,000 unit) capsule (D3-2000) 2,000 unit PO DAILY 02/13/23 [History Last Taken Unknown] tramadol 50 mg tablet 50 mg PO Q6H PRN pain #12 tabs 02/13/23 [Rx Last Taken Unknown] Allergy/AdvReac Type Severity Reaction Status Date / Time No Known Allergies Allergy Verified 02/14/23 09:23 Family History Sister No problems noted. Son hole in his heart Grandmother Cancer Father Cancer Grandfather Cancer Surgical History H/O: hysterectomy History of appendectomy Stented coronary artery Social History household members: children housing: apartment number of children: 3 Smoking Status: Former smoker quit date: 07/18/19 Tobacco: How many years used: 50 alcohol intake: never substance use type: does not use what type of physical activity do you participate in: none ROS ROS Narrative Unable to do comprehensive review of systems as patient is very weak and lethargic. Review of Systems ROS Unobtainable: due to encephalopathy Constitutional Constitutional: Reports fatigue, malaise and weakness Vital Signs Vital Signs Vital Signs: 02/14/23 09:24 02/14/23 09:59 Temperature 97.9 F Temperature Source Temporal Pulse Rate 109 H Respiratory Rate 24 H Respiratory Effort Normal Blood Pressure 124/79 H Blood Pressure Mean 94 Pulse Ox 94 Oxygen Delivery Method Nasal Cannula Nasal Cannula Oxygen Flow Rate (L/min) 4 4 Weight Weight: 127 lb 3.307 oz Body Mass Index (BMI) 22.5 Physical Exam Const Orientation / Consciousness: confused and lethargic HEENT normocephalic and head/scalp atraumatic HEENT Narrative: very dry oral mucosa Eyes PERRL and EOMs intact bilaterally Neck no lymphadenopathy, supple and no JVD Lymph Lymphatic: no lymphadenopathy noted and no lymphedema noted Resp Resp Narrative: mildly diminished breath sounds bibasally, no wheezes or crackles. On 3L of oxygen Cardio regular rate, regular rhythm, S1 normal heart sound, S2 normal heart sound and no murmurs GI normal to inspection, nondistended, normoactive bowel sounds, soft to palpation, non-tender and non-distended Extremity normal capillary refill, no clubbing, cyanosis or edema and no calf tenderness Skin General Skin Exam: no breakdown Neuro CN's II-XII intact bilaterally Neuro Narrative: frail, lethargic, no obvious mouth droop Motor Exam: general weakness Results Lab / Micro Data 02/14/23 10:00 02/14/23 10:00 Labs: Laboratory Results - last 24 hr 02/14/23 09:40: Lactic Acid 2.4 H* 02/14/23 10:00: WBC 16.3 H, RBC 4.07 L, Hgb 12.0, Hct 39.0, MCV 95.8, MCH 29.5, MCHC 30.8 L, RDW Std Deviation 42.7, RDW Coeff of Melisa 12.1, Plt Count 177, MPV 10.9, Immature Gran % (Auto) 0.700, Neut % (Auto) 91.7 H, Lymph % (Auto) 3.6 L, [place] % (Auto) 3.8, Eos % (Auto) 0.0, Baso % (Auto) 0.2, Absolute Neuts (auto) 14.9 H, Absolute Lymphs (auto) 0.58 L, Nucleated RBC % 0, Differential Comment SCANNED, Sodium 145, Potassium 3.9, Chloride 108 H, Carbon Dioxide 30.0, Anion Gap 7, BUN 33 H, Creatinine 0.74, Estim Creat Clear Calc 35.26, Est GFR (MDRD) Af Amer 96, Est GFR (MDRD) Non-Af 80, BUN/Creatinine Ratio 44.6 H, Glucose 164 H , Calcium 9.4, Total Creatine Kinase 363 H 02/14/23 11:21: Urine Color Yellow, Urine Clarity Sl. Cloudy, Urine pH 5.0, Ur Specific [place] 1.025, Urine Protein 100 H, Urine Glucose (UA) Normal, Urine Ketones 150 A*, Urine Occult Blood 150 H, Urine Nitrite Negative, Urine Bilirubin Negative, Urine Urobilinogen 1 H, Ur Leukocyte Esterase Negative, Urine RBC 10-25 SEEN, Urine WBC 0 SEEN, Ur Squamous Epith Cells 0-5 SEEN, Urine Bacteria 1+, Hyaline Casts 0-5 SEEN, Fine Granular Casts 0-5 SEEN, Urine Mucus 2+ Rhythm Strip Rhythm Strip: Sinus Tach Rate: 109 Ectopy: None Radiology Impression Lumbar Spine X-Ray 02/14/23 10:29 IMPRESSION: 1. Pronounced old L1 compression fracture contains PMMA casts from previous kyphoplasty is unchanged. 2. Moderate old anterior wedge compression fracture of the upper L2 vertebral body is unchanged. 3. No suspicious acute fracture or malalignment of the lumbar spine. 4. No significant interval change when compared to 02/13/2023. Electronically Signed: Mac Castro MD at 11:48 EDT Reading Location ID and State: [address] [place] [address] , Service support , Assessment & Plan Assessment/Plan (1) Accident due to mechanical fall without injury: (2) UTI (urinary tract infection): PLAN: Plan #Debility and weakness due to recurrent mechanical falls * Was found down on the floor * Has had recurrent falls and was seen in the ED just yesterday but opted to go home. * Hydrated with IV fluids normal saline at 125 cc per. CPK is 363 * PT OT consults. Fall precautions. * #UTI: Urine showing 1+ bacteria. Started on IV ceftriaxone. We will continue. Urine cultures ordered. WBC is also elevated at 16. #Lactic acidosis, lactic acid is 2.3. Looks this likely due to dehydration. Should improve with hydration. Will monitor. #Left hip pain. * Patient started complaining of left hip pain when she got to the floor. Pelvic x-ray ordered to rule out a fracture in light of her falls. PT OT on board. P.o. Tylenol and oxycodone for pain. * #History of compression fractures:. Tylenol, oxycodone and IV morphine as needed for pain. #Osteoporosis: On calcium and vitamin D. #Hyperlipidemia: On statin #History of CAD: S/p stents. On aspirin and Plavix as well as carvedilol and high intensity statin. #Hypertension: Blood pressure is elevated at 177/82. On carvedilol. Will resume. IV hydralazine as needed. DVT prophylaxis: SCDs. CODE STATUS: Unable to discuss CODE STATUS with patient so we will make a presumptive full code for now until able to discuss with her and family. Charges/Coding Visit Charges Inpatient E&M: 33631 Init Hosp L3
[2023-02-14] MEDS: Ceftriaxone 1 GM/50 ML BAG IV (12:32)
[2023-02-14 12:47] VITALS: BP 132/73; PULSE 90; RESP 18; O2SAT 98
--- NOTE | 2023-02-14 12:58 | NURSING ---
MED SURG OBS KORAM LEUKOCYTOSIS, BACTERURIA, FREQUENT FALLS, PRERENAL AZOTEMIA
[2023-02-14 13:45] LABS: Reflex Lactate? Y
--- NOTE | 2023-02-14 14:00 | CM.ED ---
Social Work SW received consult due to concerns for patient living at home. Pt has had recurrent falls and was in the ED last night. Pt has been adamant about not being admitting to the hospital. SW introduced self and role to patient. Pt reports she resides with her two sons that help her with some tasks. Pt reports her daughter provides transportation to appointments and assists several times a week. Pt's daughter, Miguel, is patient's HCPOA. Pt does report multiple falls lately with difficulty ambulating. Pt reports wearing 4L of O2 in the home. Pt reports pain in her back and difficulty sleeping. Pt reports seeing things that other people cannot see and this was occurring last night as well. Pt says she does not need admitted or to go to a nursing facility. SW provided support and discussed medical needs with patient. After discussion, patient agreeable that if physician believes she needs admitted to the hospital for medical reasons she will be cooperative. SW called patient's daughter who reports patient needs admitted and she has been concerned for her mother but her mother has been uncooperative. Daughter reports she is her HCPOA and she believes her mother is not able to make sound medical decisions at this time. Daughter reports mother was hallucinating last night and seeing things that were not there. Daughter reports mother has been dehydrated and removing her oxygen at night. Daughter reports she works at [employer] in [place] and if her mother needs additional care she has been to [employer] and she can go back for SNF placement. ED physician notified of daughter and patient's response. Plan: SW to follow for patient needs and d/c planning. Elena Jasso TRACER LATHE SET UP OPERATOR, PRINTING SPECIALIST
[2023-02-14 14:32] LABS: Lactic Acid 2.3 mmol/L (0.4-1.9)
[2023-02-14] MEDS: 0.9% Normal Saline (1000mL) 1,000 ML 125 ML IV ×2 (14:52→23:22)
[2023-02-14 14:53] VITALS: BMI 22.3
[2023-02-14 14:56] VITALS: BP 177/82; PULSE 93; RESP 16; TEMP 36.5; O2SAT 95
[2023-02-14 15:01] VITALS: BP 177/82; PULSE 93; RESP 16; TEMP 36.5; O2SAT 95
--- NOTE | 2023-02-14 15:35 | RAD_ITS ---
STUDY: X-RAY - PELVIS AND LEFT HIP REASON FOR EXAM: Female, 82 years old. pain TECHNIQUE: 3 views of the pelvis and hip. COMPARISON: None. FINDINGS: There is a non-specific bowel gas pattern. . Normal bilateral iliac wings, sacroiliac joints and visualized sacrum. Normal bilateral superior and inferior pubic rami. Normal pubic symphysis. Normal bilateral ischial tuberosities. Normal visualized femoral head. Normal acetabulum. Narrowed hip joint. On the lateral view only there is foreshortened appearance to the lateral femoral neck without well-defined fracture line however CT would be helpful for further assessment if clinically warranted RAD/HIP, UNI W/ Pelvis 2-3 Views IMPRESSION: Cannot exclude mildly impacted fracture of lateral femoral neck. CT recommended for further evaluation if clinically Otherwise no evidence for acute pelvic fracture Electronically Signed: Blair Pedraza MD at 16:27 EDT ,
--- NOTE | 2023-02-14 16:46 | CT_ITS ---
CT LEFT LOWER EXTREMITY WITH 3-D IMAGING CLINICAL INDICATION: left hip pain TECHNIQUE: Axial CT images of the LEFT lower extremity was performed IV contrast material. Coronal and sagittal reformats were provided. RADIATION DOSAGE (If Supplied By Facility): CTDIvol = ( 12.90 ) mGy, DLP = ( 502.49 ) mGycm COMPARISON: Left hip x-rays January 2023 FINDINGS: Bones: No evidence for acute fracture or dislocation of the left hip. No lytic or blastic osseous masses. The acetabulum is intact however incidental note is made of very minimally impacted acute fracture of left inferior pubis with minimal separation of fracture fragments Soft Tissues: The deep soft tissue structures are unremarkable. The superficial soft tissues are unremarkable without evidence of edema, hematoma, or foreign body. CT/Extremity Lower without Contra IMPRESSION: Degenerative changes of the left hip without evidence for acute fracture or dislocation.. Minimally displaced acute fracture of the left inferior pubis is noted Electronically Signed: Blair Pedraza MD at 18:15 EDT ,
[2023-02-14 17:04] LABS: Lactic Acid 1.8 mmol/L (0.4-1.9)
[2023-02-14] MEDS: Ensure Plus High Protein 120 ML LIQUID PO (17:09)
[2023-02-14 20:47] VITALS: BP 145/62; PULSE 99; RESP 16; TEMP 36.6; O2SAT 96
[2023-02-14 20:49] VITALS: PULSE 112
[2023-02-14] MEDS: Carvedilol 3.125 MG TABLET PO (20:56)
[2023-02-14] MEDS: Atorvastatin Calcium 40 MG Tablet PO (20:56)
[2023-02-15 03:13] VITALS: BP 122/71; PULSE 96; RESP 16; TEMP 37.1; O2SAT 94
[2023-02-15] MEDS: Acetaminophen 325 MG Tablet 650 MG PO (06:22)
[2023-02-15 07:24] LABS: Absolute Neutrophil Count 7.7 X10^3/uL (2.0-7.7); Basophil# 0.05 X10^3/uL; Basophil% 0.5 % (0-1); Eosinophil# 0.46 X10^3/uL; Eosinophils% 4.3 % (0-5); Hematocrit 35.4 % (37-47); Hemoglobin 10.3 g/dL (12.0-15.0); Lymphocyte % 13.1 % (19-41); Mean Corp Hgb Conc 29.1 g/dL (32-36); Mean Corpuscular Hgb 29.7 pg (27.0-32.0); Mean Platelet Vol. 11.1 fl (6.2-12.0); Monocyte# 1.04 X10^3/uL; Monocyte% 9.7 % (0-10); NRBC Flagged by Analyzer 0 % (0-5); Neutrophil # 7.67 X10^3/uL (2.7-7.7); Neutrophil % 71.7 % (47-70); Platelet Count 123 K/mm3 (150-450); RBC Distribution Width CV 12.4 % (11.6-14.6); RBC Distribution Width SD 46.4 fl (35.1-43.9); Red Blood Count 3.47 M/mm3 (4.2-5.4); White Blood Count 10.7 K/mm3 (4.4-11.0)
[2023-02-15 07:40] LABS: Anion Gap 2 (5-15); BUN 25 mg/dL (7-18); BUN/Creat Ratio 55.6 RATIO (10-20); Calcium,Total 8.7 mg/dL (8.5-10.1); Chloride 115 mmol/L (98-107); Creatinine, Serum 0.45 mg/dL (0.55-1.02); EST Glomerular Filtration Rate 141 mL/min (>60); Est Glom Filt Rate - Afr Amer 171 mL/min (>60); Estimated Creatinine Clearance 33.71 ml/min; Glucose 114 mg/dL (74-106); Potassium 3.6 mmol/L (3.5-5.1); Sodium Level 146 mmol/L (136-145)
[2023-02-15 09:00] VITALS: BP 152/76; PULSE 90; RESP 18; RESP 20; TEMP 36.6; O2SAT 95
[2023-02-15] MEDS: Citalopram 10 MG Tablet 5 MG PO (09:10)
[2023-02-15] MEDS: Carvedilol 3.125 MG TABLET PO ×2 (09:10→20:29)
[2023-02-15] MEDS: Ensure Plus High Protein 120 ML LIQUID PO (09:10)
[2023-02-15] MEDS: Aspirin 81 MG TAB.CHEW PO (09:10)
[2023-02-15] MEDS: Clopidogrel Bisulfate 75 MG Tablet PO (09:11)
[2023-02-15] MEDS: Cholecalciferol (VIT D3) 25 MCG TABLET (1,000 UNITS) 50 MCG PO (09:11)
[2023-02-15] MEDS: Ceftriaxone 1 GM/50 ML BAG IV (09:15)
--- NOTE | 2023-02-15 10:35 | CASEMGMT ---
GEORGETTE ROBBINS Assessment: Face to Face with pt for initial transition planning/care coordination assessment. RN ROSENDO introduced self and role at [facility], pt voices understanding and consents to assessment. Pt is A&O x4 and answers all questions appropriately at this time. Pt. is sitting up in chair at beside. Pt. states she is Care providers, pharmacy, and demographics verified/updated. Admitting Dx:Debility, Mechanical falls PCP: Ferdinand Specialists: It Network Engineer, Landing Scaler (pt. does not recall names) Preferred Pharmacy:[facility] Insurance:Medicare Part A & B Prescription Benefit: yes LNOK: Miguel Crespo (daughter) Living Will/HCPOA: States she has a LW but denies having a HCPOA. Pt. declines to receive information on ADs. She is aware that she can make an appt. with [facility] to set this up if desired. Living Arrangements: Pt lives with her two sons, Sandra and Jesus. She states one of them works and the other is at home with her all of the time. Pt. lives in a 2-story home with [facility]. Pt. states there are steps w/railing to enter home (not sure how many) and 10 or so steps w/ railing to second floor. Prior to this admission, pt. states she was independent in all ADLs, and her son took care of all IADLs. Transportation: Pt. states her son Marquis provides transportation. DME: Shower chair, raised toilet seat, grab bars, rollator, and 4 lpm oxygen niels [employer] (email sent to [employer] for oxygen verification). Pt. declines to receive information on medical alert systems. She states she does not feel she will need any additional DME at home. HHC/SNF:States she went to a SNF earlier in 2022 (unsure of name). Denies previous HHC. Pt unsure of what she woudl like to do/where to go upon discharge. Pt states no further concerns/needs. CM to follow. Advised pt to ask CM if any further question/concerns/needs arise, voices understanding. Pt Goal: Pt. is open to HHC, AL, and SNF if needed. Plan: TBD: HHC vs. AL vs. SNF. RN ROSENDO will continue to follow therapy and plan for a safe discharge.
--- NOTE | 2023-02-15 11:46 | PN_ITS ---
Subjective Subjective Patient seen and examined. She is more alert today was sitting up in the chair. She may benefit from work-up which will burning with urination, palpitations, dizziness, nausea vomiting or any other symptoms. Review of systems otherwise negative. She has remained hemodynamically stable. Objective Data Objective Data Vital Signs: Vital Signs Temp Pulse Resp BP Pulse Ox O2 Del Method O2 Flow Rate 97.8 F 90 20 H 152/76 H 95 Nasal Cannula 4 02/15/23 09:00 02/15/23 09:00 02/15/23 09:00 02/15/23 09:00 02/15/23 09:00 02/15/23 09:00 02/15/23 09:06 Oxygen Flow Rate (L/min) 4 Oxygen Delivery Method Nasal Cannula Weight: 122 lb Body Mass Index (BMI) 22.3 Intake & Output: Intake and Output for Last 24 Hours 02/13/23 02/14/23 02/15/23 23:59 23:59 23:59 Intake Total 1700 / 1900 1300 / 1300 Output Total 50 / 190 275 / 275 Balance 1650 / 1710 1025 / 1025 Lab / Micro Data 02/15/23 06:20 02/15/23 06:20 Labs: Laboratory Results - last 24 hr 02/14/23 13:30: Lactic Acid 2.3 H* 02/14/23 16:30: Lactic Acid 1.8 02/15/23 06:20: WBC 10.7, RBC 3.47 L, Hgb 10.3 L, Hct 35.4 L, MCV 102.0 H D, MCH 29.7, MCHC 29.1 L D, RDW Std Deviation 46.4 H, RDW Coeff of Melisa 12.4, Plt Count 123 L, MPV 11.1, Immature Gran % (Auto) 0.700, Neut % (Auto) 71.7 H, Lymph % (Auto) 13.1 L, [place] % (Auto) 9.7, Eos % (Auto) 4.3, Baso % (Auto) 0.5, Absolute Neuts (auto) 7.7, Absolute Lymphs (auto) 1.40, Nucleated RBC % 0, Sodium 146 H, Potassium 3.6, Chloride 115 H, Carbon Dioxide 29.0, Anion Gap 2 L, BUN 25 H, Creatinine 0.45 L, Estim Creat Clear Calc 33.71, Est GFR (MDRD) Af Amer 171, Est GFR (MDRD) Non-Af 141, BUN/Creatinine Ratio 55.6 H, Glucose 114 H, Calcium 8.7 Radiography Diagnostic Testing: Radiology Impression Lumbar Spine X-Ray 02/14/23 10:29 IMPRESSION: 1. Pronounced old L1 compression fracture contains PMMA casts from previous kyphoplasty is unchanged. 2. Moderate old anterior wedge compression fracture of the upper L2 vertebral body is unchanged. 3. No suspicious acute fracture or malalignment of the lumbar spine. 4. No significant interval change when compared to 02/13/2023. Electronically Signed: Mac Castro MD at 11:48 EDT Reading Location ID and State: [facility] / [place] , Service support , Hip/Pelvis X-Ray 02/14/23 15:35 IMPRESSION: Cannot exclude mildly impacted fracture of lateral femoral neck. CT recommended for further evaluation if clinically Otherwise no evidence for acute pelvic fracture Electronically Signed: Blair Pedraza MD at 16:27 EDT , Lower Extremity CT 02/14/23 16:46 IMPRESSION: Degenerative changes of the left hip without evidence for acute fracture or dislocation.. Minimally displaced acute fracture of the left inferior pubis is noted Electronically Signed: Blair Pedraza MD at 18:15 EDT , Rhythm Strip Rhythm Strip: Sinus Tach Rate: 109 Ectopy: None Physical Exam Const alert and no apparent distress General Appearance: cooperative HEENT normocephalic and head/scalp atraumatic Eyes PERRL and EOMs intact bilaterally Neck no lymphadenopathy, supple and no JVD Lymph Lymphatic: no lymphadenopathy noted and no lymphedema noted Resp Resp Narrative: mildly diminished breath sounds bibasally, no wheezes or crackles. On 4L of oxygen Cardio regular rate, regular rhythm, S1 normal heart sound, S2 normal heart sound and no murmurs GI normal to inspection, nondistended, normoactive bowel sounds, soft to palpation, non-tender and non-distended Extremity normal capillary refill, no clubbing, cyanosis or edema and no calf tenderness Skin General Skin Exam: no breakdown Neuro CN's II-XII intact bilaterally Neuro Narrative: frail, Motor Exam: general weakness Psych Mood & Affect: flat affect Assessment & Plan Assessment/Plan (1) Accident due to mechanical fall without injury: (2) UTI (urinary tract infection): PLAN: Plan #Debility and weakness due to recurrent mechanical falls * PT/OT on board * has had multiple falls at home * fall precautions * pelvic xray on admission was concerning for impacted left femoral neck fracture. CT left extemity however showed no evidence of hip fracture and showed a minimally displaced acute fracture of the left inferior pubis. * Continue intensive PT OT. * #UTI: Urine showing 1+ bacteria. Started on IV ceftriaxone. We will continue. Urine cultures ordered. WBC is also elevated at 16. #Left inferior pubic rami fracture: CT of the left extremity finding as above. The fracture is minimally displaced. Conservative management. PT OT on board. #Hyponatremia: Sodium is 146. This is likely as a result of IV fluid hydration. DC IV fluids and monitor. #Lactic acidosis, resolved with hydration came down to 1.8 from 2.3. #Left hip pain. * Patient started complaining of left hip pain when she got to the floor. Pelvic x-ray ordered to rule out a fracture in light of her falls. PT OT on board. P.o. Tylenol and oxycodone for pain. * #History of compression fractures:. Tylenol, oxycodone and IV morphine as needed for pain. #Osteoporosis: On calcium and vitamin D. #Hyperlipidemia: On statin #History of CAD: S/p stents. On aspirin and Plavix as well as carvedilol and high intensity statin. #Hypertension: On carvedilol. IV hydralazine as needed. DVT prophylaxis: SCDs. CODE STATUS: Presumptive full code. Charges/Coding Visit Charges Inpatient E&M: 41013 Subs Hosp L2
--- NOTE | 2023-02-15 12:25 | CASEMGMT ---
Social Work SW introduced self and role to patient and patient's daughter, Miguel, when she arrived. Pt's PT/OT evaluations are recommending additional therapy. SW discussed with patient and daughter who are agreeable to SNF placement. Daughter employed at [employer] and requesting facility, snf list declined. SW referred patient to [employer] via [facility]. Plan: Pt to d/c to SNF, referred to [place]. Elena Jasso CARD CUTTER HELPER, BRICK AND BLOCKER AID LABOR
--- NOTE | 2023-02-15 13:46 | CASEMGMT ---
Social Work Pt accepted by [facility]. Pt pending medical readiness and 3 night medicare stay per [place]. Elena Jasso JANITOR SUPERVISOR, FOAM FABRICATOR
[2023-02-15 14:48] VITALS: BP 138/75; PULSE 89; RESP 18; RESP 20; TEMP 36.6; O2SAT 97
[2023-02-15 15:14] VITALS: BP 119/74; PULSE 90; RESP 20; TEMP 36.6; O2SAT 98
[2023-02-15 20:22] VITALS: BP 132/89; PULSE 107; RESP 18; TEMP 37.2; O2SAT 97
[2023-02-15] MEDS: Morphine 2 MG/ML Syringe IV (20:29)
[2023-02-15] MEDS: Atorvastatin Calcium 40 MG Tablet PO (20:29)
[2023-02-15 20:36] VITALS: PULSE 107; O2SAT 97
[2023-02-16] VITALS (11 sets, daily range): BP systolic 139–153; BP diastolic 68–91; PULSE 90–109; RESP 16–24; TEMP 36.6–37.3; O2SAT 95–100
[2023-02-16 06:19] LABS: Absolute Lymphocyte Count 1.53 X10^3/uL (0.83-4.51); Absolute Neutrophil Count 9.2 X10^3/uL (2.0-7.7); Basophil# 0.05 X10^3/uL; Basophil% 0.4 % (0-1); Eosinophil# 0.57 X10^3/uL; Eosinophils% 4.6 % (0-5); Hematocrit 33.8 % (37-47); Hemoglobin 10.4 g/dL (12.0-15.0); Lymphocyte # 1.53 X10^3/ul (0.83-4.51); Lymphocyte % 12.2 % (19-41); Mean Corp Hgb Conc 30.8 g/dL (32-36); Mean Corpuscular Hgb 29.8 pg (27.0-32.0); Mean Corpuscular Volume 96.8 fL (81-99); Mean Platelet Vol. 11.6 fl (6.2-12.0); Monocyte# 1.12 X10^3/uL; NRBC Flagged by Analyzer 0 % (0-5); Neutrophil # 9.18 X10^3/uL (2.7-7.7); Neutrophil % 73.4 % (47-70); Platelet Count 151 K/mm3 (150-450); RBC Distribution Width CV 12.4 % (11.6-14.6); RBC Distribution Width SD 44.5 fl (35.1-43.9); Red Blood Count 3.49 M/mm3 (4.2-5.4); White Blood Count 12.5 K/mm3 (4.4-11.0)
[2023-02-16 06:37] LABS: Anion Gap 4 (5-15); BUN 23 mg/dL (7-18); BUN/Creat Ratio 50.3 RATIO (10-20); Calcium,Total 9.1 mg/dL (8.5-10.1); Chloride 113 mmol/L (98-107); Creatinine, Serum 0.46 mg/dL (0.55-1.02); EST Glomerular Filtration Rate 139 mL/min (>60); Est Glom Filt Rate - Afr Amer 168 mL/min (>60); Estimated Creatinine Clearance 33.71 ml/min; Glucose 126 mg/dL (74-106); Potassium 3.4 mmol/L (3.5-5.1); Sodium Level 147 mmol/L (136-145)
[2023-02-16] MEDS: Cholecalciferol (VIT D3) 25 MCG TABLET (1,000 UNITS) 50 MCG PO (08:40)
[2023-02-16] MEDS: Aspirin 81 MG TAB.CHEW PO (08:41)
[2023-02-16] MEDS: Acetaminophen 325 MG Tablet 650 MG PO (08:52)
[2023-02-16] MEDS: Potassium Chloride Oral Tablet 20 MEQ 40 MEQ PO (08:53)
[2023-02-16] MEDS: Ceftriaxone 1 GM/50 ML BAG IV (09:41)
[2023-02-16] MEDS: 0.9% Saline Lock 10 ML Syringe IV (10:12)
[2023-02-16] MEDS: Dextrose 5%-Water (1000mL Bag) 1,000 ML 75 ML IV (10:12)
[2023-02-16] MEDS: Clopidogrel Bisulfate 75 MG Tablet PO (10:18)
[2023-02-16] MEDS: Citalopram 10 MG Tablet 5 MG PO (10:18)
[2023-02-16] MEDS: Carvedilol 3.125 MG TABLET PO ×2 (10:48→20:57)
--- NOTE | 2023-02-16 11:18 | PN_ITS ---
Subjective Subjective Patient seen and examined. She complained of feeling weak and said she felt horrible. She denied any shortness of breah, cough, chest pain, palpitations, dizziness, nausea, vomiting or any other symptoms. Review of systems is otherwise negative. Objective Data Objective Data Vital Signs: Vital Signs Temp Pulse Resp BP Pulse Ox O2 Del Method O2 Flow Rate 98 F 90 18 139/77 H 96 Nasal Cannula 4 02/16/23 10:46 02/16/23 10:46 02/16/23 10:46 02/16/23 10:46 02/16/23 10:46 02/16/23 10:46 02/16/23 10:46 Oxygen Flow Rate (L/min) 4 Oxygen Delivery Method Nasal Cannula Weight: 121 lb 15.99 oz Body Mass Index (BMI) 22.3 Intake & Output: Intake and Output for Last 24 Hours 02/14/23 02/15/23 02/16/23 23:59 23:59 23:59 Intake Total 1700 / 1900 2200 / 2200 250 / 250 Output Total 50 / 190 825 / 825 650 / 650 Balance 1650 / 1710 1375 / 1375 -400 / -400 Lab / Micro Data 02/16/23 05:36 02/16/23 05:36 Labs: Laboratory Results - last 24 hr 02/16/23 05:36: WBC 12.5 H, RBC 3.49 L, Hgb 10.4 L, Hct 33.8 L, MCV 96.8 D, MCH 29.8, MCHC 30.8 L D, RDW Std Deviation 44.5 H, RDW Coeff of Melisa 12.4, Plt Count 151, MPV 11.6, Immature Gran % (Auto) 0.400, Neut % (Auto) 73.4 H, Lymph % (Auto) 12.2 L, [place] % (Auto) 9.0, Eos % (Auto) 4.6, Baso % (Auto) 0.4, Absolute Neuts (auto) 9.2 H, Absolute Lymphs (auto) 1.53, Nucleated RBC % 0, Sodium 147 H , Potassium 3.4 L, Chloride 113 H, Carbon Dioxide 30.0, Anion Gap 4 L, BUN 23 H, Creatinine 0.46 L, Estim Creat Clear Calc 33.71, Est GFR (MDRD) Af Amer 168, Est GFR (MDRD) Non-Af 139, BUN/Creatinine Ratio 50.3 H, Glucose 126 H, Calcium 9.1 Micro: Microbiology 02/14/23 11:21 Urine, Catheterized Urine Culture - Preliminary Mixed Gram Positive Organisms Rhythm Strip Rhythm Strip: Sinus Tach Rate: 109 Ectopy: None Physical Exam Const alert and no apparent distress General Appearance: cooperative Orientation / Consciousness: confused and lethargic HEENT normocephalic and head/scalp atraumatic Eyes PERRL and EOMs intact bilaterally Neck no lymphadenopathy, supple and no JVD Lymph Lymphatic: no lymphadenopathy noted and no lymphedema noted Resp Resp Narrative: mildly diminished breath sounds bibasally, no wheezes or crackles. On 4L of oxygen Cardio regular rate, regular rhythm, S1 normal heart sound, S2 normal heart sound and no murmurs GI normal to inspection, nondistended, normoactive bowel sounds, soft to palpation, non-tender and non-distended Extremity normal capillary refill, no clubbing, cyanosis or edema and no calf tenderness Skin General Skin Exam: no breakdown Neuro CN's II-XII intact bilaterally Neuro Narrative: frail Motor Exam: general weakness Psych Mood & Affect: flat affect Assessment & Plan Assessment/Plan (1) Accident due to mechanical fall without injury: (2) UTI (urinary tract infection): PLAN: Plan #Debility and weakness due to recurrent mechanical falls * PT/OT on board * has had multiple falls at home * fall precautions * pelvic xray on admission was concerning for impacted left femoral neck fracture. CT left extemity however showed no evidence of hip fracture and showed a minimally displaced acute fracture of the left inferior pubis. * Continue intensive PT OT. * #UTI: Urine showing 1+ bacteria. on IV ceftriaxone. Urine cultures growing mixed gram positive organisms #Left inferior pubic rami fracture: CT of the left extremity finding as above. The fracture is minimally displaced. Conservative management. PT OT on board. #Hyponatremia: Sodium is up to 147 today. Will start on D5 water to help bring down sodium #Lactic acidosis, resolved with hydration #Left hip pain due to minimally displaced acute fracture of the left inferior pubis: PT OT on board. On p.o. oxycodone, Tylenol and IV morphine prn #History of compression fractures:. Tylenol, oxycodone and IV morphine as needed for pain. #Osteoporosis: On calcium and vitamin D. #Hyperlipidemia: On statin #History of CAD: S/p stents. On aspirin and Plavix as well as carvedilol and h igh intensity statin. #Hypertension: On carvedilol. IV hydralazine as needed. DVT prophylaxis: SCDs. Disposition; will benefit from placement. Case management on board to help facilitate dc Charges/Coding Visit Charges Inpatient E&M: 43547 Subs Hosp L2
[2023-02-16] MEDS: 0.9% Normal Saline (250mL Bag) 250 ML 15 ML IV (18:23)
[2023-02-16] MEDS: Ipratropium/Albuterol Sulfate 3 ML AMPUL.NEB INHALATION (19:06)
[2023-02-16] MEDS: Atorvastatin Calcium 40 MG Tablet PO (20:57)
[2023-02-16] MEDS: Menthol/Lanolin/Calamine/Znox 113 GM Tube 1 APPLIC TOPICAL (20:59)
[2023-02-17 02:18] VITALS: O2SAT 96
[2023-02-17 02:35] VITALS: BP 118/70; PULSE 101; RESP 18; TEMP 37.2; O2SAT 94
[2023-02-17] MEDS: Acetaminophen 325 MG Tablet 650 MG PO ×2 (04:12→10:39)
[2023-02-17 06:37] LABS: Absolute Lymphocyte Count 1.56 X10^3/uL (0.83-4.51); Absolute Neutrophil Count 10.9 X10^3/uL (2.0-7.7); Basophil# 0.07 X10^3/uL; Basophil% 0.5 % (0-1); Eosinophil# 0.73 X10^3/uL; Hematocrit 34.6 % (37-47); Hemoglobin 10.7 g/dL (12.0-15.0); Lymphocyte # 1.56 X10^3/ul (0.83-4.51); Lymphocyte % 10.7 % (19-41); Mean Corp Hgb Conc 30.9 g/dL (32-36); Mean Corpuscular Hgb 28.9 pg (27.0-32.0); Mean Corpuscular Volume 93.5 fL (81-99); Mean Platelet Vol. 11.6 fl (6.2-12.0); Monocyte# 1.24 X10^3/uL; Monocyte% 8.5 % (0-10); NRBC Flagged by Analyzer 0 % (0-5); Neutrophil # 10.87 X10^3/uL (2.7-7.7); Neutrophil % 74.8 % (47-70); Platelet Count 202 K/mm3 (150-450); RBC Distribution Width SD 41.3 fl (35.1-43.9); White Blood Count 14.5 K/mm3 (4.4-11.0)
[2023-02-17 06:45] LABS: Anion Gap 4 (5-15); BUN 14 mg/dL (7-18); BUN/Creat Ratio 33.4 RATIO (10-20); Calcium,Total 9.3 mg/dL (8.5-10.1); Chloride 105 mmol/L (98-107); Creatinine, Serum 0.42 mg/dL (0.55-1.02); EST Glomerular Filtration Rate 153 mL/min (>60); Est Glom Filt Rate - Afr Amer 186 mL/min (>60); Estimated Creatinine Clearance 33.71 ml/min; Glucose 134 mg/dL (74-106); Potassium 3.6 mmol/L (3.5-5.1); Sodium Level 140 mmol/L (136-145)
[2023-02-17 06:52] VITALS: PULSE 102; RESP 20; O2SAT 94
[2023-02-17] MEDS: Ipratropium/Albuterol Sulfate 3 ML AMPUL.NEB INHALATION (06:52)
--- NOTE | 2023-02-17 08:11 | PCM.PN.HOSP ---
Reason for Visit Reason for Visit: Diagnoses Urinary tract infection, site not specified (02/14/23) Unspecified fall, initial encounter (02/14/23) Subjective Subjective Denies complaints. Objective Data Objective Data Vital Signs: Vital Signs Temp Pulse Resp BP Pulse Ox O2 Del Method O2 Flow Rate 37.2 C 102 H 20 H 118/70 94 Nasal Cannula 4 02/17/23 02:35 02/17/23 06:52 02/17/23 06:52 02/17/23 02:35 02/17/23 06:52 02/17/23 06:52 02/17/23 06:52 Oxygen Flow Rate (L/min) 4 Oxygen Delivery Method Nasal Cannula Weight: 55.338 kg Body Mass Index (BMI) 22.3 Intake & Output: Intake and Output for Last 24 Hours 02/15/23 02/16/23 02/17/23 23:59 23:59 23:59 Intake Total 2200 / 2200 850 / 950 1200 / 1200 Output Total 825 / 825 1050 / 1350 600 / 600 Balance 1375 / 1375 -200 / -400 600 / 600 Lab / Micro Data 02/17/23 05:33 02/17/23 05:33 Labs: Laboratory Results - last 24 hr 02/17/23 05:33: WBC 14.5 H, RBC 3.70 L, Hgb 10.7 L, Hct 34.6 L, MCV 93.5, MCH 28.9, MCHC 30.9 L, RDW Std Deviation 41.3, RDW Coeff of Melisa 12.0, Plt Count 202, MPV 11.6, Immature Gran % (Auto) 0.500, Neut % (Auto) 74.8 H, Lymph % (Auto) 10.7 L, [place] % (Auto) 8.5, Eos % (Auto) 5.0, Baso % (Auto) 0.5, Absolute Neuts (auto) 10.9 H, Absolute Lymphs (auto) 1.56, Nucleated RBC % 0, Sodium 140, Potassium 3.6, Chloride 105, Carbon Dioxide 31.0, Anion Gap 4 L, BUN 14, Creatinine 0.42 L, Estim Creat Clear Calc 33.71, Est GFR (MDRD) Af Amer 186, Est GFR (MDRD) Non-Af 153, BUN/Creatinine Ratio 33.4 H, Glucose 134 H, Calcium 9.3 Micro: Microbiology 02/14/23 11:00 Blood Culture (Wb) - Left Hand Blood Culture - Preliminary No growth in 48 hours. 02/14/23 11:00 Blood Culture (Wb) - Right Forearm Blood Culture - Preliminary No growth in 48 hours. 02/14/23 11:21 Urine, Catheterized Urine Culture - Preliminary Mixed Gram Positive Organisms Rhythm Strip Rhythm Strip: Sinus Tach Rate: 109 Ectopy: None Physical Exam Const Constitutional Narrative: groggy. answers questions appropriately. Resp normal respiratory effort, no retractions, no use of accessory muscles and clear to auscultation bilaterally Cardio regular rate, regular rhythm and S1 normal heart sound GI normal to inspection, nondistended, normoactive bowel sounds, soft to palpation and non-tender Assessment & Plan Assessment/Plan (1) Debility: PLAN: With multiple falls Left inferior pubic rami fxr. check 25 OH d level PT OT evaluate and treat: Max assist with supine to sit, sit to stand. Will require SNF (2) UTI (urinary tract infection): PLAN: Ruled out UA unremarkable. UCx showing 1-10k CFUs. DC abx. PLAN: Plan Chronic conditions: History of compression fractures:. Tylenol, oxycodone and IV morphine as needed for pain. Osteoporosis: On calcium and vitamin D. Hyperlipidemia: On statin History of CAD: S/p stents. On aspirin and Plavix as well as carvedilol and high intensity statin. Hypertension: On carvedilol. IV hydralazine as needed. DVT prophylaxis: SCDs. Disposition To [facility] in [place] today.
[2023-02-17 10:08] VITALS: BP 122/79; PULSE 100; RESP 18; TEMP 36.6; O2SAT 99
[2023-02-17] MEDS: Citalopram 10 MG Tablet 5 MG PO (10:31)
[2023-02-17] MEDS: Menthol/Lanolin/Calamine/Znox 113 GM Tube 1 APPLIC TOPICAL (10:32)
[2023-02-17] MEDS: Carvedilol 3.125 MG TABLET PO (10:32)
[2023-02-17] MEDS: Cholecalciferol (VIT D3) 25 MCG TABLET (1,000 UNITS) 50 MCG PO (10:32)
[2023-02-17] MEDS: Clopidogrel Bisulfate 75 MG Tablet PO (10:32)
[2023-02-17] MEDS: Aspirin 81 MG TAB.CHEW PO (10:32)
--- NOTE | 2023-02-17 10:58 | CASEMGMT ---
Social Work Referral has been sent to [facility] and they are able to accept. SW attempted to meet with pt to discuss discharge plan however pt was very sleepy and could not stay awake. Phone call to pt's dgt Miguel and updated that [facility] is able to accept pt. Physician notified. Plan: [facility], when medically ready RAMOS Mckeon
--- NOTE | 2023-02-17 11:43 | PCM.TXEXTCAR ---
Diet Diet Order/Speech Therapy: 02/15/23 13:00 Diet: Regular - General Food consistency:: Regular Liquid Consistency:: Regular/Thin Type of Dietary Supplement:: Straw Magic Cup w/ L & D Diet Comments: cottage cheese and fruit w/ lunch and dinner Problem/Diagnosis (1) Debility: Status: Acute Code(s): R53.81 - Other malaise Plan: With multiple falls Left inferior pubic rami fxr. check 25 OH d level PT OT evaluate and treat: Max assist with supine to sit, sit to stand. Will require SNF (2) UTI (urinary tract infection): Status: Acute Code(s): N39.0 - Urinary tract infection, site not specified Plan: Ruled out UA unremarkable. UCx showing 1-10k CFUs. DC abx. Plan Chronic conditions: History of compression fractures:. Tylenol, oxycodone and IV morphine as needed for pain. Osteoporosis: On calcium and vitamin D. Hyperlipidemia: On statin History of CAD: S/p stents. On aspirin and Plavix as well as carvedilol and high intensity statin. Hypertension: On carvedilol. IV hydralazine as needed. DVT prophylaxis: SCDs. Disposition To [facility] in [place] today. Allergies/Procedures Done in Hospital Allergies No Known Allergies Allergy (Verified 02/14/23 09:23) Procedures: None Type of Care/Length of Stay Estimated LOS: Convalescent Care Less Than 30 days Type of Care Needed: Skilled Rehab Potential: Fair Prognosis: Fair Additional Orders/Day of Discharge Day of Discharge: 02/17/23 Dietary and Speech Recommendations Dietitian Recommendations/Changes: Will liberalize diet to Regular in an effort to optimize oral intake at meals. Will add magic cup and cottage cheese/fruit with lunch and dinner meals. Will continue ensure plus high protein TID w/ medpass as currently ordered. Adjust ONS as needed to optimize PO and prevent weight loss. Discharge Plan Admission Admit Date/Time: 02/14/23 16:11 Primary Reason for Your Visit: debility Attending Provider: Marcelo Contreras Primary Care Provider: Constanza Streeter Consulting Providers: Livier Black Discharge Orders/Prescriptions Prescriptions: New acetaminophen 325 mg Tablet 650 mg PO Q6H PRN PRN (Reason: Pain 1-10 Or Fever >100.7) Qty: 0 0RF Ensure Plus High Protein 0.08 gram-1.5 kcal/mL Liquid 120 ml PO TIDCM Qty: 0 0RF Continued PreserVision AREDS-2 250-90-40-1 mg capsule 1 tab PO BID aspirin 81 MG tablet,chewable 81 mg PO DAILYCM atorvastatin 40 mg tablet 40 mg PO QHS Patient Comments: TAKE 1 TABLET BY MOUTH AT BEDTIME cholecalciferol (vitamin D3) [D3-2000] 50 mcg (2,000 unit) capsule 2,000 unit PO DAILY (DME) nebulizers Misc See Rx Instructions .ROUTE .MEDSUPPLY Qty: 1 0RF Rx Instructions: As directed clopidogrel 75 mg tablet See Rx Instructions .ROUTE .COMPLEX Qty: 90 3RF Dose Instruction: TAKE 1 TABLET BY MOUTH DAILY Rx Instructions: TAKE 1 TABLET BY MOUTH DAILY citalopram 10 mg tablet 5 mg PO DAILY Qty: 90 1RF carvedilol 3.125 mg tablet 3.125 mg PO BID Qty: 180 3RF Discontinued tramadol 50 mg tablet 50 mg PO Q6H PRN (Reason: pain) Qty: 12 0RF Referrals / Follow Up: Constanza Streeter MD [Primary Care Provider] - Within 2 Weeks Disposition Disposition (needs filled in before D/C Order can be placed): Group Home Facility
--- NOTE | 2023-02-17 11:47 | DS.PCM_ITS ---
Providers Date of Admission: 02/14/23 Primary Care Physician: Dr. Constanza Streeter MD Reason For Visit: DEBILITY, MECHANICAL FALLS Diagnosis Discharge Diagnosis (1) Debility: Status: Acute Code(s): R53.81 - Other malaise Plan: With multiple falls Left inferior pubic rami fxr. check 25 OH d level PT OT evaluate and treat: Max assist with supine to sit, sit to stand. Will require SNF (2) UTI (urinary tract infection): Status: Acute Code(s): N39.0 - Urinary tract infection, site not specified Plan: Ruled out UA unremarkable. UCx showing 1-10k CFUs. DC abx. Plan Chronic conditions: * History of compression fractures:. Tylenol, oxycodone and IV morphine as needed for pain. * Osteoporosis: On calcium and vitamin D. * Hyperlipidemia: On statin * History of CAD: S/p stents. On aspirin and Plavix as well as carvedilol and high intensity statin. * Hypertension: On carvedilol. IV hydralazine as needed. Disposition To [facility] in [place] today. Medications at Discharge Home Medications aspirin 81 mg chewable tablet 81 mg PO DAILYCM HEALTH MAINTENANCE 03/10/20 nebulizers #1 ea 10/17/20 vit C 250 mg-vit E 90 mg-zinc 40 mg-copper 1 wz-alwsnw-cwrntp capsule (PreserVision AREDS-2) 1 tab PO BID 12/14/21 clopidogrel 75 mg tablet See Rx Instructions .Route .COMPLEX #90 TABLETS 05/14/22 citalopram 10 mg tablet 5 mg (1/2 x 10 mg) PO DAILY #90 tabs 12/15/22 carvedilol 3.125 mg tablet 3.125 mg PO BID HEART #180 tabs 02/03/23 atorvastatin 40 mg tablet 40 mg PO QHS 02/13/23 cholecalciferol (vitamin D3) 50 mcg (2,000 unit) capsule (D3) 2,000 unit PO DAILY 02/13/23 acetaminophen 325 mg tablet 650 mg (2 x 325 mg) PO Q6H PRN PRN Pain 1-10 Or Fever >100.7 #0 tabs 02/17/23 food supplemt, lactose-reduced 0.08 gram-1.5 kcal/mL oral liquid (Ensure Plus High Protein) 120 ml PO TIDCM #0 mL 02/17/23 Hospital Course Operations None Procedures None Summary of Care Provided Minutes Spent on Discharge: 32 Weight / BMI Weight Weight: 55.338 kg Body Mass Index (BMI) 22.3 ABG / Lab / Microbiology Data 02/17/23 05:33 02/17/23 05:33 Laboratory: Laboratory Results - last 24 hr 02/17/23 05:33: WBC 14.5 H, RBC 3.70 L, Hgb 10.7 L, Hct 34.6 L, MCV 93.5, MCH 2 8.9, MCHC 30.9 L, RDW Std Deviation 41.3, RDW Coeff of Melisa 12.0, Plt Count 202, MPV 11.6, Immature Gran % (Auto) 0.500, Neut % (Auto) 74.8 H, Lymph % (Auto) 10.7 L, [place] % (Auto) 8.5, Eos % (Auto) 5.0, Baso % (Auto) 0.5, Absolute Neuts (auto) 10.9 H, Absolute Lymphs (auto) 1.56, Nucleated RBC % 0, Sodium 140, Potassium 3.6, Chloride 105, Carbon Dioxide 31.0, Anion Gap 4 L, BUN 14, Creatinine 0.42 L, Estim Creat Clear Calc 33.71, Est GFR (MDRD) Af Amer 186, Est GFR (MDRD) Non-Af 153, BUN/Creatinine Ratio 33.4 H, Glucose 134 H, Calcium 9.3 Microbiology: Microbiology 02/14/23 11:00 Blood Culture (Wb) - Left Hand Blood Culture - Preliminary No growth in 48 hours. 02/14/23 11:00 Blood Culture (Wb) - Right Forearm Blood Culture - Preliminary No growth in 48 hours. 02/14/23 11:21 Urine, Catheterized Urine Culture - Preliminary Mixed Gram Positive Organisms Meaningful Use Info Meaningful Use Diagnoses (Choose all that apply): None applicable Discharge Plan Admission Admit Date/Time: 02/14/23 16:11 Primary Reason for Your Visit: debility Attending Provider: Marcelo Contreras Primary Care Provider: Constanza Streeter Consulting Providers: Livier Black Discharge Orders/Prescriptions Prescriptions: New acetaminophen 325 mg Tablet 650 mg PO Q6H PRN PRN (Reason: Pain 1-10 Or Fever >100.7) Qty: 0 0RF Ensure Plus High Protein 0.08 gram-1.5 kcal/mL Liquid 120 ml PO TIDCM Qty: 0 0RF Continued PreserVision AREDS-2 250-90-40-1 mg capsule 1 tab PO BID aspirin 81 MG tablet,chewable 81 mg PO DAILYCM atorvastatin 40 mg tablet 40 mg PO QHS Patient Comments: TAKE 1 TABLET BY MOUTH AT BEDTIME cholecalciferol (vitamin D3) [D3-2000] 50 mcg (2,000 unit) capsule 2,000 unit PO DAILY (DME) nebulizers Misc See Rx Instructions .ROUTE .MEDSUPPLY Qty: 1 0RF Rx Instructions: As directed clopidogrel 75 mg tablet See Rx Instructions .ROUTE .COMPLEX Qty: 90 3RF Dose Instruction: TAKE 1 TABLET BY MOUTH DAILY Rx Instructions: TAKE 1 TABLET BY MOUTH DAILY citalopram 10 mg tablet 5 mg PO DAILY Qty: 90 1RF carvedilol 3.125 mg tablet 3.125 mg PO BID Qty: 180 3RF Discontinued tramadol 50 mg tablet 50 mg PO Q6H PRN (Reason: pain) Qty: 12 0RF Referrals / Follow Up: Constanza Streeter MD [Primary Care Provider] - Within 2 Weeks Disposition Disposition (needs filled in before D/C Order can be placed): [facility] Charges/Coding Visit Charges Inpatient E&M: [id number] Disch Hosp >30min
--- NOTE | 2023-02-17 12:30 | CASEMGMT ---
Discharge Planning Discharge orders, signed med list, and transport time sent to [facility] via [facility]. Physicians will transport patient by cot at 1:30p. Nursing, SW, and patients daughter updated. Torie Elmore, Discharge Planning Asst.
--- NOTE | 2023-02-17 13:35 | NURSING ---
left message - for Ramírez to call for report - called x 2
[2023-02-17 13:40] VITALS: BP 151/89; PULSE 90; RESP 16; TEMP 36.8; O2SAT 98
== END 2023-02-17 13:42 | disposition skilled nursing facility (03) | DRG 536 ==
LOC: ED 12:32 → MS3 13:08
PROVIDERS: Admitting Provider Student in an Organized Health Care Education/Training Program; Emergency Provider Emergency Medicine; PCP Internal Medicine; Referring Provider Student in an Organized Health Care Education/Training Program
DX: S32.592A Other specified fracture of left pubis, initial encounter for closed fracture (principal); E87.1 Hypo-osmolality and hyponatremia; E87.20 Acidosis, unspecified; Z99.81 Dependence on supplemental oxygen; J44.9 Chronic obstructive pulmonary disease, unspecified; I10 Essential (primary) hypertension; M54.50 Low back pain, unspecified; I25.10 Atherosclerotic heart disease of native coronary artery without angina pectoris; E78.5 Hyperlipidemia, unspecified; K21.9 Gastro-esophageal reflux disease without esophagitis; E86.0 Dehydration; W19.XXXA Unspecified fall, initial encounter; R53.81 Other malaise; R29.6 Repeated falls; M81.0 Age-related osteoporosis without current pathological fracture; Z79.82 Long term (current) use of aspirin; Z79.02 Long term (current) use of antithrombotics/antiplatelets; Z79.899 Other long term (current) drug therapy; Z87.891 Personal history of nicotine dependence; Z95.5 Presence of coronary angioplasty implant and graft
CPT/HCPCS: 36415; 72100; 73502; 73700; 80048; 81001; 82550; 83605; 85025; 87040; 87077; 87086; 87088; 90471; 93005; 94640; 96361; 96374; 96375; 97162; 97165; 97530; 97535; 97802; 99285; J7030; J7040; J7050; P9612; A4216; J2405